=== PATIENT | male | born 1945 | race Caucasian/White ===

== ENCOUNTER 2019-06-11 16:28 | Outpatient (REF) | payer MEDICARE, BC, SELFPAY ==
[2019-06-11 19:22] LABS: ALT 18 U/L (16-63); Anion Gap 8.9 mmol/L (3-11); BUN 28 mg/dL (7-18); CO2 26.1 mmol/L (21.0-32.0); CREATININE 0.94 mg/dL (0.70-1.30); Chloride 106 mmol/L (98-107); Glucose 100 mg/dL (70-100); Potassium 5.1 mmol/L (3.5-5.1); Sodium 141 mmol/L (136-145)
[2019-06-11 19:53] LABS: LDL CHOLESTEROL 82 mg/dL (<100)
== END 2019-06-11 16:48 ==
LOC: NCHCN 16:28
PROVIDERS: PCP Internal Medicine; Visit Provider Internal Medicine
DX: I10 Essential (primary) hypertension (principal); E11.9 Type 2 diabetes mellitus without complications; R60.9 Edema, unspecified; J98.4 Other disorders of lung
CPT/HCPCS: 80048; 83721; 84460

== ENCOUNTER 2020-06-23 11:09 | Outpatient (REF) | payer MEDICARE, BC, SELFPAY ==
[2020-06-27 15:48] LABS: SARS-CoV-2 RNA Undetected (Undetected); SARS-CoV-2 Specimen Source Nasal
== END 2020-06-23 11:29 ==
LOC: NCHCN 11:09
PROVIDERS: PCP Internal Medicine; Visit Provider Internal Medicine
DX: R05 Cough (principal); Z20.828 Contact with and (suspected) exposure to other viral communicable diseases
CPT/HCPCS: U0003

== ENCOUNTER 2020-10-27 16:43 | Outpatient (REF) | payer MEDICARE, BC, SELFPAY ==
[2020-10-27 16:00] LABS: ALT 19 U/L (16-63); Anion Gap 8.3 mmol/L (3-11); BUN 23 mg/dL (7-18); CO2 28.7 mmol/L (21.0-32.0); CREATININE 0.9 mg/dL (0.70-1.30); Calcium 9.4 mg/dL (8.5-10.1); Chloride 104 mmol/L (98-107); Glucose 155 mg/dL (74-106); LDL CHOLESTEROL 76 mg/dL (<100); Potassium 4.6 mmol/L (3.5-5.1); Sodium 141 mmol/L (136-145)
== END 2020-10-27 16:44 | disposition home or self-care (01) ==
LOC: NCHCN 16:43
PROVIDERS: PCP Internal Medicine; Visit Provider Internal Medicine
DX: I10 Essential (primary) hypertension (principal); E11.9 Type 2 diabetes mellitus without complications; R60.9 Edema, unspecified; Z98.61 Coronary angioplasty status
CPT/HCPCS: 80048; 83721; 84460

== ENCOUNTER 2021-11-24 15:11 | Outpatient (REF) | payer MEDICARE, BC, SELFPAY ==
[2021-11-24 19:17] LABS: ALT 22 U/L (16-63); Anion Gap 6.5 mmol/L (3-11); BUN 24 mg/dL (7-18); CO2 29.5 mmol/L (21.0-32.0); CREATININE 1.1 mg/dL (0.70-1.30); Calcium 9.6 mg/dL (8.5-10.1); Chloride 106 mmol/L (98-107); Glucose 98 mg/dL (74-106); Sodium 142 mmol/L (136-145)
[2021-11-24 19:39] LABS: Calculated LDL 55 mg/dL (<100); Cholesterol 111 mg/dL (<200); HDL Cholesterol 35 mg/dL (40-60); Triglyceride 106 mg/dL (<150)
== END 2021-11-24 15:12 | disposition home or self-care (01) ==
LOC: NCHCN 15:11
PROVIDERS: PCP Internal Medicine; Visit Provider Internal Medicine
DX: E66.9 Obesity, unspecified (principal); E11.9 Type 2 diabetes mellitus without complications
CPT/HCPCS: 80048; 80061; 84460

== ENCOUNTER 2023-01-25 12:27 | Outpatient (REF) | payer MEDICARE, BC, SELFPAY ==
[2023-01-25 19:01] LABS: ALT 16 U/L (16-63); Creatine Kinase 62 U/L (39-308)
== END 2023-01-25 12:28 | disposition home or self-care (01) ==
LOC: NCHCN 12:27
PROVIDERS: PCP Internal Medicine; Visit Provider Internal Medicine
DX: E11.9 Type 2 diabetes mellitus without complications (principal); E78.5 Hyperlipidemia, unspecified; I10 Essential (primary) hypertension
CPT/HCPCS: 82550; 84460

== ENCOUNTER 2023-04-26 19:02 | Outpatient (REF) | payer MEDICARE, BC, SELFPAY ==
[2023-04-26 19:37] LABS: ALT 21 U/L (16-63); Anion Gap 10.4 mmol/L (3-11); BUN 30 mg/dL (7-18); CO2 26.6 mmol/L (21.0-32.0); CREATININE 1.2 mg/dL (0.70-1.30); Calcium 9.3 mg/dL (8.5-10.1); Calculated LDL 58 mg/dL (<100); Chloride 108 mmol/L (98-107); Cholesterol 130 mg/dL (<200); Glucose 177 mg/dL (74-106); HDL Cholesterol 37 mg/dL (40-60); Potassium 4.9 mmol/L (3.5-5.1); Sodium 145 mmol/L (136-145); Triglyceride 178 mg/dL (<150)
[2023-04-26 19:53] LABS: Creatine Kinase 101 U/L (39-308)
[2023-04-26 20:22] LABS: COMMENT (LAB VIEW ONLY) 63.69 mg/dL; Microalb ug/mg Crea 341.2 ug/mg Cr
== END 2023-04-26 19:03 | disposition home or self-care (01) ==
LOC: NCHCN 19:02
PROVIDERS: PCP Internal Medicine; Visit Provider Internal Medicine
DX: E11.9 Type 2 diabetes mellitus without complications (principal); I25.10 Atherosclerotic heart disease of native coronary artery without angina pectoris; Z98.61 Coronary angioplasty status; E66.9 Obesity, unspecified; R80.9 Proteinuria, unspecified; I10 Essential (primary) hypertension; E78.5 Hyperlipidemia, unspecified
CPT/HCPCS: 80048; 80061; 82550; 82043; 82570; 84460

== ENCOUNTER 2023-12-05 14:04 | Outpatient (REF) | payer MEDICARE, BC, SELFPAY ==
[2023-12-05 19:42] LABS: COMMENT (LAB VIEW ONLY) 59.06 mg/dL; Microalb ug/mg Crea 229.8 ug/mg Cr
== END 2023-12-05 14:05 | disposition home or self-care (01) ==
LOC: NCHCN 14:04
PROVIDERS: PCP Internal Medicine; Visit Provider Internal Medicine
DX: E11.9 Type 2 diabetes mellitus without complications (principal)
CPT/HCPCS: 82043; 82570

== ENCOUNTER 2024-03-27 16:53 | Outpatient (REF) | payer MEDICARE, BC, SELFPAY ==
--- OUTSIDE RECORDS SUMMARY | 2024-03-27 17:05 | XMS_ITS | Encounter Summary ---
Author Organization [facility] [place] [address] Care Team Providers Care Train Brake Operator Name Role Phone Jamie Freeman MD Primary Care Provider [phone] Encounter Details Date Type Department Care Team (Late st Contact Info) Description 03/17/2024 Telephone Cardiology at [address] [place] [id number] Tatyana Holley, [employer] [facility] [place] [address] Social History Tobacco Use Types Packs/Day Years Used Date Smoking Tobacco: Never Assessed [facility] Inpatient Questions Answer Date Recorded Does Anyone Try to Keep You From Having Contact with Others or Doing Things Outside Your Home? no 03/18/2024 Feels Threatened by Someone no 03/09 Feels Unsafe at Home or Work/School yes 03/18/2024 Physical Signs of Abuse Present no 03/18/2024 Sex and Gender Information Value Date Recorded Sex Assigned at Not on file Gender Identity Not on file Sexual Orientation Not on file documented as of this encounter Miscellaneous Notes * Telephone Encounter - Tatyana Holley APRN - 03/17/2024 3:28 PM EDT Images from the original note were not included. 03/17/2024 Eduardo Church Initial Contact Date: 03/17/2024 Initial contact time: 3:28 PM Referring Provider: Lencho Corey DO Patient Location: [facility] Past Medical History: HTN HLD Presenting Symptoms per OSH: 2 weeks of worsening fatigue, SOB, and cough. In ED found to be hypoxic to the 70s on room air. Required 5L O2 via nasal cannula, now down to 3-4L. Last set of vitals: 35.6-128/69-54-20-92% 3L NC Pertinent Diagnostic Findings: EKG: Trop (ULN 72) 114,102 BNP 4600 Cr 1.37 WBC 7.5 CTA chest negative for PE, bilateral lung infiltrates POCUS: no pericardial effusion, global function appears intact, possible apical ballooning OSH Interventions: IV abx IV lasix 20 mg x 1 ASA 324 mg Plan: 78 y/o M with PMH of HTN and HLD presents with 2 weeks of worsening SOB and fatigue. No chest pain.Found to be hypoxic in the 70s requiring supplemental O2. Troponin elevated at 114 (ULN 72) and nowtrending down. EKG with presumed new TWI to inferior leads as well as V3-4. Possible apical ballooning on POCUS. Unclear if this represents NSTEMI type I vs II, however needs further work up and OSH with limited capabilities. Has received aspirin load, would start IV heparin for at least 48 hours. Agree with gentle diuresis. Will accept in transfer, listing for 7/ d/t bed capacity. Echo on arrival. - above recommendations were based on my discussion with Dr. Corey; I have not personally interviewed or examined this patient. I encouraged Dr. Corey to contact us if there is any change in symptoms, decision-making, or further need for guidance in management. Tatyana Holley APRN Cardiovascular Medicine Pager [phone] 03/17/2024 documented in this encounter Plan of Treatment Upcoming Encounters Date Type Department Care Team (Late st Contact Info) Description 05/18/2024 2:00 PM EDT Office Visit Cardiology at [address] [phone] Radha Jordan PA [facility] [place] [address] documented as of this encounter Visit Diagnoses Not on filedocumented in this encounter Care Teams Train Brake Operator Relationship Specialty Start Date End Date Jamie Freeman MD [address] [place] [address] PCP - General 08/01/10 03/17/24 documented as of this encounter
--- OUTSIDE RECORDS SUMMARY | 2024-03-27 17:05 | XMS_ITS | Continuity of Care Document ---
Author Organization [facility] Address [address] [place] [address] Care Team Providers Care Postpartum Nurse Name Role Phone [facility] Physician Encounter NCTY_OR Date(s): 03/17/24 - 03/18/24 [facility] [address] [place] [address] Encounter Diagnosis NSTEMI (non-ST elevated myocardial infarction)(Discharge Diagnosis) - 03/17/24 Community acquired pneumonia(Discharge Diagnosis) - 03/17/24 Hypertension(Discharge Diagnosis) - 03/17/24 Hyperlipidemia(Discharge Diagnosis) - 03/17/24 Diabetes mellitus(Discharge Diagnosis) - 03/17/24 Discharge Disposition: Discharge/Transfer - Other Type of Inst Attending Physician: Araceli Garcia MD Admitting Physician: Kayden Storey PA-C Allergies, Adverse Reactions, Alerts No Known Allergies Assessment and Plan Extracted from: Title:Discharge Note Author:Araceli Garcia MD Da te:03/18/24 Discharge planning greater t hoang 30 minutes. 1.??NSTEMI (non-ST elevated myocardial infarction)??I21.4 ??The patient is a 78-year-old male with a past medical history of hypertension, hyperlipidemia, type 2 diabetes mellitus, coronary artery disease who presented to the emergency department on March 17, 2024 with a chief complaint of shortness of breath.?? Cardiology was consulted from the emergency department as he was found to have elevated troponin with the shortness of breath as well as EKG changes with T wave inversions in leads V3 and V4 as well as V6.?? Patient was started on ACS protocol with heparin infusion loaded on aspirin and based on chest x-ray and CT angiography of the chest there was signs of diffuse interstitial thickening and groundglass opacities concerning for chronic lung disease with superimposed atypical infection.?? Patient was also started on IV antibiotics for this.?? He was admitted with acute hypoxic respiratory failure secondary to above.?? He was also found to be 78% on room air.?? Patient had no episodes of chest pain during his hospitalization and at the time of transfer to [facility] patient was stable.?? Accepting digital strategy specialist was Dr. Cameron which is much appreciated. 2.??Community acquired pneumonia??J18.9 3.??Hypertension??I10 4.??Hyperlipidemia??E78.5 5.??Diabetes mellitus??E11.9 Orders: Incentive Spirometry by Patient, 03/18/24 11:43:00 EDT, Routine, every 1 hr while awake, Predisposing Condition for Atelectasis PTT, Blood, Timed Study, 03/18/24 18:00:00 EDT, Once, Lab Collect Extracted from: Title:Progress/SOAP Note Author:Kayden Storey Date:03/18/24 1.??NSTEMI (non-ST elevated myocardial infarction)??I21.4 Accepted at [facility] under care of Dr. Cameron, awaiting??bed placement Denies any?? new complaints of chest pain Continue cardiac monitoring?? Continue heparin drip Continue aspirin 81 mg daily Continue maintenance fluids Echocardiogram unable to be performed today, will attempt for tomorrow Patient was NPO at midnight today however due to bed availability not looking good for today at [facility] patient will be made NPO again tonight at midnight Ordered: Echocardiogram Complete, 03/17/24 18:06:00 EDT, Cardiovascular Disease- Unspecified, Stop date 03/17/24 18:06:00 EDT, NSTEMI (non-ST elevated myocardial infarction) ?? 2.??Community acquired pneumonia??J18.9 Remains on oxygen?? 4L yesterday to 5L today with nasal cannula?? continue azithromycin 500 mg IV every 24 hours Continue rocephin 1g??IV every 24 hours Continue to attempt to obtain sputum sample?? Continue to maintain oxygen saturations >90% ?? 3.??Hypertension??I10 Chronic Continue home medication regimen? 4.??Hyperlipidemia??E78.5 Chronic Continue statin? 5.??Diabetes mellitus??E11.9 Chronic Continue holding PO home medications Continue diabetic diet, NPO at midnight Sliding scale insulin for coverage Glucose checks ACHS QID? Orders: acetaminophen, 650 mg = 2 tab, Oral, Tab, every 6 hr, PRN pain, mild, First Dose: 03/17/24 18:02:00 EDT, Routine Mylanta, 15 mL, Oral, Susp, every 6 hr, PRN dyspepsia, First Dose: 03/17/24 18:02:00 EDT, Routine aspirin, 81 mg = 1 tab, Oral, Tab-Chew, Daily, First Dose: 03/18/24 9:00:00 EDT, Routine atorvastatin, 40 mg = 1 tab, Oral, Tab, Daily, First Dose: 03/18/24 17:00:00 EDT, Routine azithromycin, 500 mg = 1 EA, IV Piggyback, Powder-Inj, every 24 hr, Antibiotic Indication Pneumonia, hr, First Dose: 03/18/24 14:00:00 EDT, Routine bisacodyl, 10 mg = 1 supp, Rectal, Supp, Daily, PRN constipation, First Dose: 03/17/24 18:02:00 EDT, Routine Rocephin, 1 g = 1 EA, IV Piggyback, Powder-Inj, every 24 hr, Antibiotic Indication Pneumonia, Administer over: 0.5 hr, First Dose: 03/18/24 15:00:00 EDT, Routine, 200 mL/hr GlucaGen, 1 mg = 1 EA, Intramuscular, Kit, As Directed, PRN low blood sugar, First Dose: 03/17/24 18:02:00 EDT, Routine glucose 40% oral gel, 15 g = 37.5 mL, Oral, Gel, As Directed, PRN low blood sugar, First Dose: 03/17/24 18:02:00 EDT, Routine glucose 40% oral gel, 30 g = 75 mL, Oral, Gel, As Directed, PRN low blood sugar, First Dose: 03/17/24 18:02:00 EDT, Routine Dextrose 50% intravenous solution, 12.5 g 25 mL, IV Push, Soln-IV, As Directed, PRN low blood sugar, First Dose: 03/17/24 18:02:00 EDT, Routine Dextrose 50% intravenous solution, 25 g 50 mL, IV Push, Soln-IV, As Directed, PRN low blood sugar, First Dose: 03/17/24 18:02:00 EDT, Routine insulin lispro (HumaLog) correction- moderate, Moderate Scale, Subcutaneous, Soln, QID(ACHS), First Dose: 03/17/24 21:00:00 EDT, Routine lidocaine 1% injectable solution, 1 mg 0.1 mL, Intradermal, Soln, As Directed, PRN other (see comment), First Dose: 03/17/24 18:02:00 EDT, Routine morphine, 2 mg = 1 mL, IV Push, Soln-IV, every 2 hr, PRN pain, severe, First Dose: 03/17/24 18:02:00 EDT, Routine Narcan, 0.4 mg = 1 mL, IV Push, Soln, Once, PRN Opioid Overdose, First Dose: 03/17/24 18:02:00 EDT, Physician Stop, Routine ondansetron, 4 mg = 2 mL, IV Push, Soln, every 6 hr, PRN nausea/vomiting, First Dose: 03/17/24 18:02:00 EDT, Routine Percocet 5 mg-325 mg oral tablet, 1 tab, Oral, Tab, every 6 hr, PRN pain, moderate, First Dose: 03/17/24 18:02:00 EDT, Routine pantoprazole, 40 mg = 1 EA, IV Push, Powder-Inj, Daily, First Dose: 03/17/24 6:00:00 EDT, Routine polyethylene glycol 3350, 17 g = 1 packets, Oral, Powder-Recon, Daily, PRN constipation, First Dose: 03/17/24 18:02:00 EDT, Routine Fleet Enema, 1 EA, Rectal, Enema, Daily, PRN constipation, First Dose: 03/17/24 18:02:00 EDT, Routine Normal Saline Flush, 10 mL, IV Push, Soln, every 12 hr (saad), First Dose: 03/17/24 21:00:00 EDT, Routine Sodium Chloride 0.9% 1,000 mL, Total Volume (mL): 1,000, 1,000 mL, Soln-IV, IV, 30 mL/hr, Start Date: 03/17/24 18:02:00 EDT, 85 kg, Populate Charting Weight From Order tamsulosin, 0.4 mg = 1 cap, Oral, Cap, Daily, First Dose: 03/18/24 9:00:00 EDT, Routine Ambulate as Tolerated, 03/17/24 18:02:00 EDT, PRN Basic Metabolic Panel, Blood, Routine, 03/17/24 18:02:00 EDT, every morning, for 3 days, Lab Collect Blood Glucose Monitoring POC, 03/17/24 18:02:00 EDT, QID(ACHS), 03/17/24 21:00:00 EDT Cardiac Monitoring, 03/17/24 18:02:00 EDT, Telemetry CBC w/o Diff, Blood, Routine, 03/17/24 18:02:00 EDT, every morning, for 3 days, Lab Collect Consult to Pharmacy, 03/17/24 18:02:00 EDT, Medication History Consult, PCU General Admission Orders NCTY Diet Order, 03/18/24 13:13:00 EDT, Diabetic, Medium (1,700-2,000 nathaly) 75g CHO Intake and Output, 03/17/24 18:02:00 EDT, every 8 hrs, Constant Indicator, 03/17/24 18:02:00 EDT Magnesium Level, Blood, Routine, 03/17/24 18:02:00 EDT, every morning, for 3 days, Lab Collect Notify Provider of Vital Signs, 03/17/24 18:02:00 EDT, SpO2 < 92% on 2L O2 NC, T > 101.5, HR > 100, HR < 50, SBP greater than 160, SBP less than 90, DBP greater than 90, DBP less than 50, Resp Rate greater than 30, Resp Rate less than 8, Constant Indicator Nursing Task, 03/17/24 18:02:00 EDT, Constant order Nursing Task, 03/17/24 18:02:00 EDT, Constant order Oxygen Therapy, SpO2 goal 90% or greater, PRN, Lizett Geronimo Admit to Inpatient, Semi-Private Telemetry, Inpatient, Araceli Garcia MD, 03/17/24 17:01:00 EDT, 03/17/24 17:01:00 EDT, 03/17/24 17:01:00 EDT, 2 midnights or more but less than 96 hrs Resuscitation Status, 03/17/24 18:02:00 EDT, Full Code Sputum Culture, Sputum, Routine collect, RT - Routine, 03/17/24 18:06:00 EDT, Once, Nurse collect Vital Signs, 03/17/24 18:02:00 EDT, Constant order, every 4 hrs Weight, 03/17/24 18:02:00 EDT, every morning Extracted from: Title:H & P Author:Kayden Storey PA-C Date: 03/17/24 1.??NSTEMI (non-ST elevated myocardial infarction)??I21.4 Complaining of shortness of breath x2 weeks?? Troponin elevated initially at 114, repeat found to be 102 EKG findings sinus rhythm normal axis and intervals, no ST segment elevations or depression, there are T wave inversions in inferior leads and V3 and V4 precordial leads as well as V6 No prior EKGs to compare to?? No history of MA in the past?? Accepted to [facility] cardiology under care of Dr. Cameron, predicated to have bed tomorrow Continue heparin infusion Received??324mg aspirin in ED, will continue home dose 81 mg daily Continue maintenance fluids?? Will order echocardiogram for tomorrow?? Will make patient NPO at midnight as patient will likely need cardiac cath?? Continue cardiac monitoring ? Ordered: Echocardiogram Complete, 03/17/24 18:06:00 EDT, Cardiovascular Disease- Unspecified, Stop date 03/17/24 18:06:00 EDT, NSTEMI (non-ST elevated myocardial infarction) ?? 2.??Community acquired pneumonia??J18.9 Imaging showed findings of pneumonia Patient also hypoxic requiring 4L of oxygen?? Will continue azithromycin 500 mg IV every 24 hours Continue rocephin 1g??IV every 24 hours Will attempt to obtain sputum sample Continue to maintain oxygen saturations >90% ? 3.??Hypertension??I10 ??Chronic Continue home medication regimen? 4.??Hyperlipidemia??E78.5 ??Chronic Continue statin? 5.??Diabetes mellitus??E11.9 ??Chronic Hold PO home medications Continue diabetic diet, NPO at midnight Sliding scale insulin for coverage Glucose checks ACHS QID? Orders: acetaminophen, 650 mg = 2 tab, Oral, Tab, every 6 hr, PRN pain, mild, First Dose: 03/17/24 18:02:00 EDT, Routine Mylanta, 15 mL, Oral, Susp, every 6 hr, PRN dyspepsia, First Dose: 03/17/24 18:02:00 EDT, Routine amLODIPine, 5 mg = 1 tab, Oral, Tab, Daily, First Dose: 03/18/24 9:00:00 EDT, Routine aspirin, 81 mg = 1 tab, Oral, Tab-Chew, Daily, First Dose: 03/18/24 9:00:00 EDT, Routine atorvastatin, 40 mg = 1 tab, Oral, Tab, Daily, First Dose: 03/18/24 17:00:00 EDT, Routine azithromycin, 500 mg = 1 EA, IV Piggyback, Powder-Inj, every 24 hr, Antibiotic Indication Pneumonia, hr, First Dose: 03/18/24 14:00:00 EDT, Routine bisacodyl, 10 mg = 1 supp, Rectal, Supp, Daily, PRN constipation, First Dose: 03/17/24 18:02:00 EDT, Routine Rocephin, 1 g = 1 EA, IV Piggyback, Powder-Inj, every 24 hr, Antibiotic Indication Pneumonia, Administer over: 0.5 hr, First Dose: 03/18/24 15:00:00 EDT, Routine, 200 mL/hr GlucaGen, 1 mg, Intramuscular, Powder-Inj, As Directed, PRN low blood sugar, First Dose: 03/17/24 18:02:00 EDT, Routine glucose 40% oral gel, 15 g = 37.5 mL, Oral, Gel, As Directed, PRN low blood sugar, First Dose: 03/17/24 18:02:00 EDT, Routine glucose 40% oral gel, 30 g = 75 mL, Oral, Gel, As Directed, PRN low blood sugar, First Dose: 03/17/24 18:02:00 EDT, Routine Dextrose 50% intravenous solution, 25 mL, IV Push, Soln, As Directed, PRN low blood sugar, First Dose: 03/17/24 18:02:00 EDT, Routine Dextrose 50% intravenous solution, 50 mL, IV Push, Soln, As Directed, PRN low blood sugar, First Dose: 03/17/24 18:02:00 EDT, Routine insulin lispro (HumaLog) correction- moderate, Moderate Scale, Subcutaneous, Soln, QID(ACHS), First Dose: 03/17/24 21:00:00 EDT, Routine lidocaine 1% injectable solution, 1 mg 0.1 mL, Intradermal, Soln, As Directed, PRN other (see comment), First Dose: 03/17/24 18:02:00 EDT, Routine lisinopril, 40 mg = 2 tab, Oral, Tab, Daily, First Dose: 03/18/24 9:00:00 EDT, Routine metoprolol, 100 mg = 1 tab, Oral, Tab-ER, Daily, First Dose: 03/18/24 9:00:00 EDT morphine, 2 mg = 1 mL, IV Push, Soln-IV, every 2 hr, PRN pain, severe, First Dose: 03/17/24 18:02:00 EDT, Routine Narcan, 0.4 mg = 1 mL, IV Push, Soln, Once, PRN Opioid Overdose, First Dose: 03/17/24 18:02:00 EDT, Physician Stop, Routine ondansetron, 4 mg = 2 mL, IV Push, Soln, every 6 hr, PRN nausea/vomiting, First Dose: 03/17/24 18:02:00 EDT, Routine Percocet 5 mg-325 mg oral tablet, 1 tab, Oral, Tab, every 6 hr, PRN pain, moderate, First Dose: 03/17/24 18:02:00 EDT, Routine pantoprazole, 40 mg = 1 EA, IV Push, Powder-Inj, Daily, First Dose: 03/17/24 6:00:00 EDT, Routine polyethylene glycol 3350, 17 g = 1 packets, Oral, Powder-Recon, Daily, PRN constipation, First Dose: 03/17/24 18:02:00 EDT, Routine Fleet Enema, 1 EA, Rectal, Daily, PRN constipation, First Dose: 03/17/24 18:02:00 EDT, Routine Normal Saline Flush, 10 mL, IV Push, Soln, every 12 hr (saad), First Dose: 03/17/24 21:00:00 EDT, Routine Sodium Chloride 0.9% 1,000 mL, Total Volume (mL): 1,000, 1,000 mL, Soln-IV, IV, 30 mL/hr, Start Date: 03/17/24 18:02:00 EDT, 85 kg, Populate Charting Weight From Order tamsulosin, 0.4 mg = 1 cap, Oral, Cap, Daily, First Dose: 03/18/24 9:00:00 EDT, Routine Ambulate as Tolerated, 03/17/24 18:02:00 EDT, PRN Basic Metabolic Panel, Blood, Routine, 03/17/24 18:02:00 EDT, every morning, for 3 days, Lab Collect Blood Glucose Monitoring POC, 03/17/24 18:02:00 EDT, QID(ACHS), 03/17/24 21:00:00 EDT Cardiac Monitoring, 03/17/24 18:02:00 EDT, Telemetry CBC w/o Diff, Blood, Routine, 03/17/24 18:02:00 EDT, every morning, for 3 days, Lab Collect Consult to Pharmacy, 03/17/24 18:02:00 EDT, Medication History Consult, PCU General Admission Orders NCTY Diet Order, 03/17/24 18:02:00 EDT, Diabetic Intake and Output, 03/17/24 18:02:00 EDT, every 8 hrs, Constant Indicator, 03/17/24 18:02:00 EDT Magnesium Level, Blood, Routine, 03/17/24 18:02:00 EDT, every morning, for 3 days, Lab Collect Notify Provider of Vital Signs, 03/17/24 18:02:00 EDT, SpO2 < 92% on 2L O2 NC, T > 101.5, HR > 100, HR < 50, SBP greater than 160, SBP less than 90, DBP greater than 90, DBP less than 50, Resp Rate greater than 30, Resp Rate less than 8, Constant Indicator NPO at Midnight, 03/18/24 0:00:00 EDT, Constant Indicator Nursing Task, 03/17/24 18:02:00 EDT, Constant order Nursing Task, 03/17/24 18:02:00 EDT, Constant order Oxygen Therapy, SpO2 goal 90% or greater, PRN, Lizett Geronimo Admit to Inpatient, Semi-Private Telemetry, Inpatient, Araceli Garcia MD, 03/17/24 17:01:00 EDT, 03/17/24 17:01:00 EDT, 03/17/24 17:01:00 EDT, 2 midnights or more but less than 96 hrs Resuscitation Status, 03/17/24 18:02:00 EDT, Full Code RT Eval and Treat Protocol, 03/17/24 18:02:00 EDT, Stop date 03/17/24 18:02:00 EDT, Lizett Geronimo Sputum Culture, Sputum, Routine collect, RT - Routine, 03/17/24 18:06:00 EDT, Once, Nurse collect Vital Signs, 03/17/24 18:02:00 EDT, Constant order, every 4 hrs Weight, 03/17/24 18:02:00 EDT, every morning Addendum by Araceli Garcia on March 17, 2024 18:28:46 EDT Case was discussed and agree with assessment and plan. Extracted from: Title:ED Provider Note Author:Lencho Grande MD Date:03/17/24 Ordered: Lasix, 20 mg = 2 mL, IV Push, Soln-IV, Once, First Dose: 03/17/24 17:00:00 EDT, Stop Date: 03/17/24 17:00:00 EDT, Physician Stop, Routine C-Reactive Protein High Sensitivity, Blood, Stat, 03/17/24 16:39:00 EDT, Once, Nurse collect Procalcitonin, Blood, Stat, 03/17/24 16:39:00 EDT, Once, Nurse collect Functional Status 03/18/24 Personal Care Provided Gown change, Linen change, Underpad change 03/17/24 Evening Snack Percent 100 03/17/24 Family Member Travel History No recent t ravel Recent Travel History No recent travel Other exposure to Infectious Disease Non e 03/17/24 Living Environment No Living Environmen t Information Available Lives In Multilevel home Lives With Spouse Living Situation Home independently Patient's Responsibilities Community mob ility, Driving, 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, Health and wellness, Personal ADL Medications amLODIPine 5 mg oral tablet 5 mg = 1 tab, Oral, Daily, # 30 tab, 0 Refill(s) Start Date: 03/17/24 Status: Ordered aspirin 81 mg oral capsule 81 mg = 1 cap, Oral, Daily, # 30 cap, 0 Refill(s) Start Date: 03/17/24 Status: Ordered atorvastatin 40 mg oral tablet 40 mg = 1 tab, Oral, Daily, # 30 tab, 0 Refill(s) Start Date: 03/17/24 Status: Ordered Centrum Minis Adults 50+ 1 tab, Oral, Daily, 0 Refill(s) Start Date: 03/18/24 Status: Ordered cholecalciferol 1000 intl units oral tablet 25 mcg = 1 tab, Oral, Daily Start Date: 03/18/24 Status: Ordered glucosamine-chondroitin 500 mg-400 mg oral capsule 1 cap, Oral, BID, 0 Refill(s) Start Date: 03/18/24 Status: Ordered lisinopril 40 mg oral tablet 40 mg = 1 tab, Oral, Daily, # 30 tab, 0 Refill(s) Start Date: 03/17/24 Status: Ordered metFORMIN 1000 mg oral tablet 1,000 mg = 1 tab, Oral, BID, # 60 tab, 0 Refill(s) Start Date: 03/17/24 Status: Ordered metoprolol succinate 100 mg oral capsule, extended release 100 mg = 1 cap, Oral, Daily, # 90 cap, 0 Refill(s) Start Date: 03/17/24 Status: Ordered pioglitazone 15 mg oral tablet 15 mg = 1 tab, Oral, Daily, # 30 tab, 0 Refill(s) Start Date: 03/17/24 Status: Ordered tamsulosin 0.4 mg oral capsule 0.8 mg = 2 cap, Oral, every night at bedtime, # 30 cap, 0 Refill(s) Start Date: 03/17/24 Status: Ordered Results Laboratory List Name Date PTT 03/18/24 Glucose POCT 03/18/24 PTT 03/18/24 Glucose POCT 03/18/24 Glucose POCT 03/18/24 Basic Metabolic Panel 03/18/24 CBC w/o Diff 03/18/24 Magnesium Level 03/18/24 PTT 03/18/24 Lactic Acid 03/17/24 Magnesium Level 03/17/24 C-Reactive Protein High Sensitivity (CRP HS) 03/17/24 Procalcitonin 03/17/24 Troponin-I 03/17/24 SARS-CoV-2 (COVID-19)/Flu/RSV ([facility] ) 03/17/24 Blood Gas Venous 03/17/24 Lactic Acid 03/17/24 CBC w/o Diff 03/17/24 Comprehensive Metabolic Panel (CMP) NT- Pro BNP 03/17/24 PT/ INR 03/17/24 Troponin-I 03/17/24 Most recent to oldest [Reference Range]: 1 2 3 WBC [5.0-10.0 x10^3/mcL] 7.3 x10^3/mcL (03/18/24 6:00 AM) 7.5 x10^3/mcL (03/17/24 10:34 AM) RBC [4.6-6.0 x10^6/mcL] 4.5 x10^6/mcL *LOW* (03/18/24 6:00 AM) 5.1 x10^6/mcL (03/17/24 10:34 AM) Prothrombin Time [9.0-11.0 seconds] 10.7 seconds (03/17/24 10:34 AM) INR 1.1 1 *NA* (03/17/24 10:34 AM) BUN [7-18 mg/dL] 22 mg/dL *HI* (03/18/24 6:00 AM) 27 mg/dL *HI* (03/17/24 10:34 AM) Glucose POC [74-106 mg/dL] 155 mg/dL *HI* (03/18/24 4:11 PM) 111 mg/dL *HI* (03/18/24 11:54 AM) 114 mg/dL *HI* (03/18/24 7:26 AM) Glucose Level [74-106 mg/dL] 108 mg/dL *HI* (03/18/24 6:00 AM) 170 mg/dL *HI* (03/17/24 10:34 AM) Potassium Level [3.5-5.1 mmol/L] 4.5 mmol/L (03/18/24 6:00 AM) 4.3 mmol/L (03/17/24 10:34 AM) MCV [80.0-96.0 fL] 86.4 fL (03/18/24 6:00 AM) 86.2 fL (03/17/24 10:34 AM) CO2 Total Venous 24 mmol/L *NA* (03/17/24 11:07 AM) HCO3 Venous [22-30 mmol/L] 23 mmol/L (03/17/24 11:07 AM) AST [15-37 unit/L] 16 unit/L (03/17/24 10:34 AM) ALT [16-63 unit/L] 15 unit/L *LOW* (03/17/24:34 AM) MCHC [31.0-35.0 g/dL] 31.4 g/dL (03/18/24 6:00 AM) 30.5 g/dL *LOW* (03/17/24 10:34 AM) Troponin-I [0.0-76.2 pg/mL] 102.8 pg/mL 2 *CRIT* (03/17/24 12:36 PM) 114.4 pg/mL 3 *CRIT* (03/17/24 10:34 AM) Sodium Level [136-145 mmol/L] 142 mmol/L (03/18/24 6:00 AM) 141 mmol/L (03/17/24 10:34 AM) Hct [41.0-51.0 %] 38.8 % *LOW* (03/18/24 6:00 AM) 43.6 % (03/17/24 10:34 AM) Partial Thromboplastin Time [22-35 seconds] 68 seconds 4 *HI* (03/18/24 6:22 PM) 58 seconds 5 *HI* (03/18/24 12:00 PM) 63 seconds 6 *HI* (03/18/24 6:00 AM) Calcium Level [8.5-10.1 mg/dL] 8.5 mg/dL (03/18/24 6:00 AM) 9.0 mg/dL (03/17/24 10:34 AM) Albumin Level [3.4-5.0 g/dL] 2.6 g/dL *LOW* (03/17/24 10:34 AM) Protein Total [6.4-8.2 g/dL] 6.6 g/dL (03/17/24 10:34 AM) MCH [26.0-32.0 pg] 27.2 pg (03/18/24 6:00 AM) 26.3 pg (03/17/24:34 AM) Magnesium Level [1.8-2.4 mg/dL] 1.9 mg/dL (03/18/24 6:00 AM) 2.1 mg/dL (03/17/24 6:37 PM) Bilirubin Total [0.2-1.0 mg/dL] 0.6 mg/dL (03/17/24 10:34 AM) Hgb [14.0-18.0 g/dL] 12.2 g/dL *LOW* (03/18/24 6:00 AM) 13.3 g/dL *LOW* (03/17/24:34 AM) Alk Phos [46-146 unit/L] 104 unit/L (03/17/24:34 AM) pCO2 Lisandro [33-47 mmHg] 46 mmHg (03/17/24 11:07 AM) Platelets [130-450 x10^3/mcL] 289 x10^3/mcL (03/18/24 6:00 AM) 331 x10^3/mcL (03/17/24 10:34 AM) CO2 [21-32 mmol/L] 30 mmol/L (03/18/24 6:00 AM) 27 mmol/L (03/17/24:34 AM) Lactic Acid Lvl [0.7-2.0 mmol/L] 1.2 mmol/L (03/17/24 6:37 PM) 2.5 mmol/L 7 *CRIT* (03/17/24 11:07 AM) pO2 Lisandro 29 mmHg *NA* (03/17/24 11:07 AM) pH Lisandro [7.32-7.43 pH unit(s)] 7.31 pH unit(s) *LOW* (03/17/24 11:07 AM) O2 Sat Lisandro 49 % *NA* (03/17/24 11:07 AM) eGFR Non-AA [>=60] 63 (03/18/24 6:00 AM) 52 *LOW* (03/17/24 10:34 AM) eGFR AA [>=60] 63 (03/18/24 6:00 AM) 52 *LOW* (03/17/24 10:34 AM) Base Excess Venous -3.2 mmol/L *NA* (03/17/24 11:07 AM) NT-proBNP [0-450 pg/mL] 4618 pg/mL *HI* (03/17/24 10:34 AM) Chloride Level [98-107 mmol/L] 109 mmol/L *HI* (03/18/24 6:00 AM) 107 mmol/L (03/17/24 10:34 AM) Procalcitonin [0.00-0.50 ng/mL] <0.15 ng/mL (03/17/24 12:36 PM) RDW-CV [11.5-14.5 %] 15.3 % *HI* (03/18/24 6:00 AM) 15.6 % *HI* (03/17/24 10:34 AM) CRP High Sens [0.00-3.00 mg/L] 2.56 mg/L 8 (03/17/24 12:36 PM) Creatinine Level [0.70-1.30 mg/dL] 1.17 mg/dL (03/18/24 6:00 AM) 1.37 mg/dL *HI* (03/17/24 10:34 AM) SARS-CoV-2(Covid19)PCR(GXpe rt COVFLURSV) [Negative] Negative (03/17/24 11:18 AM) Flu A (GXpert COVFLURSV) [Negative] Negative (03/17/24 11:18 AM) RSV ([facility]Xpert COVFLURSV) [Negative] Negative (03/17/24 11:18 AM) Flu B ([facility]Xpert COVFLURSV) [Negative] Negative (03/17/24 11:18 AM) 1Interpretive Data: INR 2-2.5 Prophylaxis: Short term DVT INR 2-3 Prophylaxis: hip and femur surgery Therapy: DVT (3 mos) PE (3-6 mos) TIA (halfway) Atr Fib (rodent exterminator) Syst. emb post MA Mitral Stenosis with emboli (rodent exterminator) Tissue prosthetic valves (3 mos min) INR 3-4.5 Therapy: recurrent DVT, PE (halfway) Prosthetic heart valves (rodent exterminator) 2Result Comment: Called to and verbally verified by Celestina Muñoz at 03/17/2024 13:32:11 EDT .Result verified by repeat analysis 3Result Comment: Called to and verbally verified by [facility] - ED - Tonya Rob RN at 03/17/2024 11:47:22 EDT. Result verified by repeat analysis 4Interpretive Data: NEW reagent effective 08/06/2023 - Therapeutic Heparin Reference Range (0.3-0.7 effective anti-Xa level) 40-85 seconds. 5Interpretive Data: NEW reagent effective 08/06/2023 - Therapeutic Heparin Reference Range (0.3-0.7 effective anti-Xa level) 40-85 seconds. 6Interpretive Data: NEW reagent effective 08/06/2023 - Therapeutic Heparin Reference Range (0.3-0.7 effective anti-Xa level) 40-85 seconds. 7Result Comment: Called to and verbally verified by Kalpana Peng RN at 03/17/2024 11:11:29 EDT. 8Interpretive Data: Risk Level Age/Sex Range Units Less Risk All <1.0 mg/L Average Risk All 1.0 - 3.0 mg/L High Risk All >3.0 mg/L *Indeterminate All >10.0 mg/L *May be an indication of inflammation or infection. Vital Signs Most recent to oldest [Reference Range]: 1 2 3 Temperature Temporal Artery [36-38 Deg C] 36 Deg C (03/18/24 4:11 PM) 36 Deg C (03/18/24 11:33 AM) 36.1 Deg C (03/18/24 7:35 AM) Temperature Temporal Artery (DegF) [97.3-100 Deg F] 96.98 Deg F *LOW* (03/17/24 3:00 PM) Peripheral Pulse Rate [60-100 bpm] 57 bpm *LOW* (03/18/24 4:33 PM) 54 bpm *LOW* (03/18/24 4:11 PM) 51 bpm *LOW* (03/18/24 11:33 AM) Respiratory Rate [12-24 br/min] 21 br/min (03/18/24 4:11 PM) 20 br/min (03/18/24 11:33 AM) 18 br/min (03/18/24 8:06 AM) Blood Pressure [90-140/60-90 mmHg] 94/56mmHg (03/18/24 4:33 PM) 85/44mmHg *LOW* (03/18/24 4:11 PM) 101/67mmHg (03/18/24 11:33 AM) Mean Arterial Pressure, Cuff [65-140 mmHg] 73 mmHg (03/17/24 11:17 PM) 86 mmHg (03/17/24 6:13 PM) 76 mmHg (03/17/24 3:00 PM) Mean Arterial Pressure Cuff 67 mmHg (03/18/24 4:33 PM) 57 mmHg (03/18/24 4:11 PM) 77 mmHg (03/18/24 11:33 AM) Weight 81.6 kg (03/18/24 7:35 AM) 83.5 kg (03/17/24 6:18 PM) 83.5 kg (03/17/24 6:17 PM) Weight Dosing 85.000 kg (03/17/24 10:34 AM) Body Mass Index Estimated 27.9 kg/m2 (03/17/24 6:17 PM) Height/Length Estimated 173 cm (03/17/24 6:17 PM) Social History Social History Type Response Tobacco Never tobacco user T obacco Use:. 1 Sex Male 1Occasionally EKG study * Event Display: Telemetry Strips Please click on link to view image. * Event Display: Telemetry Strips Please click on link to view image. Pharmacology Progress note * Crissy Charlton PharmD: PERFORM Event Display: Pharmacy Progress Note Authored Date: [id number] Pharmacy Progress Note Med list updated with Jazmin in [place] and [facility] Pt does not take Invokana - not covered Electronically Signed on 03/18/2024 14:29 EDT Crissy Charlton PharmD * Shakira Waters PharmD: PERFORM Event Display: Pharmacy Progress Note Authored Date: [id number] Pharmacy Progress Note Consulted by Macey regarding an infiltration of azithromycin. Azithromycin is not a vesicant; infiltration of azithromycin can be irritating and may cause burning/pain. Macey indicated she was placing an ice pack and elevating the site which is appropriate. KARINA, pharmD Electronically Signed on 03/17/2024 16:02 EDT Shakira Waters PharmD Respiratory therapy Hospital Progress note * Ann Morelos: PERFORM Event Display: Respiratory Therapy Progress Note Authored Date: [id number] ??SIOM[place] MAN 78 Years MEASURED Weight: 81.6 kg (03/18/24 07:35:00) DOSING Weight Dosin kg (03/17/24 10:34:00) Respiratory Shift Summary Breath Sounds: Fince crackles t/o Shift Treatments: IS 1500ml x 10 breaths Shift Events: Pt a/o sitting up on edge of bed. Remains on 5 L/min via NC. UA to wean d/t SpO2 92%.Pt denies resp hx/med use. Pt does not use O2 @ home. Encouraged pt w/ IS which he shows understanding w/. No further questions @ this time. WCTM. Per RN pt is pending transfer to [facility] for cardiology. Respiratory Protocol??Aerosol Therapy Assessment and Scoring Home Medication Routine: Lung History (1) Smoking history less than 1 pack/day, History of lung disease(Asthma) Breath Sounds (3)??Severe or diffuse wheezes or very diminished breath sounds or crackles throughout Respiratory Rate (0) Less than or equal to 18 Modified Natalee Scale or Observed Dyspnea (0) None Oxygen Therapy (2) 3-6 L/m or equivalent Home Respiratory Medications (0) None Inhaler Use Assessment ? Clinically Stable? Yes? Can take a slow deep breath on command? Yes? Can perform a 3 second breath hold? Yes Respiratory total Score: 6 Respiratory Guidelines 5-9 pts - QID scheduled??and Q4 PRN for SOB Electronically Signed on 03/18/2024 11:46 EDT Ann Morelos * Ann Morelos: PERFORM Event Display: Respiratory Therapy Progress Note Authored Date: Pt continues on 5 L/min 92-93%. UA to wean @ this time. Pt continues to utilize IS. WCTM. Electronically Signed on 03/18/2024 16:00 EDT Ann Morelos * Stephanie Wayne R: PERFORM Event Display: Respiratory Therapy Progress Note Authored Date: [id number] ??SIOMARA MAN S 78 Years Shift Events: 1851: Received pt awake and alert on 5L OxyMask, SPO2 94%, HR 47, RR 18 equal and nonlabored. Pt has strong nonproductive cough, denies SOB. BBS clear. Pt denies home use of O2, CPAP/BIPAP, and resp meds. Pt denies any needs and is in no acute resp distress at this time. In late evening REACTOR OPERATOR transitioned pt to NC so pt could eat. REACTOR OPERATOR reports SPO2 on 5L NC 90-92%. Pt in NAD. Respiratory Aerosol Therapy Assessment and Scoring Home Medication Routine: none Lung History (0) No Lung History and Non-Smoker Breath Sounds (0) Clear in all robins Respiratory Rate (0) Less than or equal to 18 Modified Natalee Scale or Observed Dyspnea (1) 1-2 With exertion Oxygen Therapy (2) 3-6 L/m or equivalent Home Respiratory Medications (0) None Inhaler Use Assessment ? Clinically Stable? Yes? Can take a slow deep breath on command? Yes? Can perform a 3 second breath hold? Yes Respiratory total score: 3 Respiratory Guidelines 3-4 pts - Q6 PRN for SOB Electronically Signed on 03/18/2024 01:03 EDT Stephanie Wayne Note * Caridad Quevedo L: PERFORM Event Display: Infusion Note Authored Date: [id number] Physician Emergency department Note * Lencho Grande MD: PERFORM Event Display: ED Note Physician Authored Date: [id number] SI[place] MAN :1945 Age:78 years Sex:Male Visit Date:03/17/2024 Primary Care Physician: Jamie Alvarez MD Basic Information Time Seen: Lencho Grande MD / 03/17/2024 10:27 Chief Complaint Pt c/o shortness of breath with a productive cough for 2 weeks. ??Denies any pain History Of Present Illness: 78-year-old male past medical history hypertension hyperlipidemia??but no known cardiac disease history presents with shortness of breath cough worsening fatigue??over the last 2 weeks, has gotten tothe point where he cannot walk up stairs. ??Never had this before. ??Denies any chest pain. ??No fevers abdominal pain nausea vomiting diarrhea??or any other symptoms. Review of Systems: Dyspnea fatigue cough Physical Exam Vitals & Measurements T:??36.1?C ??(Temporal Artery)?? HR:??56??(Peripheral)?? RR:??18?? BP:??107/61?? SpO2:??92%?? WT:??85??kg?? O2 Flow Rate:??4?? O2 Therapy:??Oxymask?? General: Alert and oriented, well nourished,?No??acute distress Eye: PERRL, EOMI,?Normal?conjunctiva HENT: Normocephalic Lungs: Clear to auscultation and percussion,?Non-labored?? respiration Heart:?Normal? rate,?Regular??rhythm Abdomen: Soft, non-tender, non-distended Psychiatric: Cooperative, appropriate mood and affect Medical Decision Makin-year-old male??past medical history of hypertension hyperlipidemia but no known cardiac disease history presents with shortness of breath, worsening fatigue over the last 2 weeks, has gotten to the point where he cannot walk up stairs anymore. ??35.6, 114/59, 52, 20,??75% on room air. ??Patient was placed on 5 L nasal cannula ultimately??de-escalated to 3 L nasal cannula was??at 93% on room air??on 3 L nasal cannula, he is not a smoker and??does not have home oxygen.?? EKG shows a sinus rhythm normal axis and intervals no ST segment elevations or depressions, however there??are T wave inversions noted in inferior leads and V3 and V4 precordial leads??as well as V6.?? First troponin is 114, second troponin downtrending to 102. ??BNP is elevated at 4600.?? Creatinine 1.37. ??Unfortunately there are no prior labs or EKG for comparison.?? The remainder of his labs including VBG are more or less at baseline.?? Flu COVID RSV negative. ??CTA of the chest shows??infiltrates bilateral lungswith trace pleural effusions, this may be related to an acute lung infection, therefore he was started on Rocephin and azithromycin. ??However, given the elevated troponins and concerned about how much??dyspnea he has with minimal exertion??and EKG??changes, I spoke with cardiology at [facility] to get him accepted down there is a patient, accepting physician is Dr. Cameron. ??Will most likely have a bed open tomorrow. ??Spoke with [place] [facility]ist who accepts admission here until that time. ??In the meantime we will need to get an echocardiogram if possible. ??Will start on heparin bolus an d infusion. ??He was given??the remainder of his aspirin??for a total of 324 (took 81 this morning).?? He was also given 20 mg of IV Lasix.?? At this point in time, it is unclear whether this is a primary pulmonary infection or??the end of a acute cardiac event.?? Will need to be admitted either way as he is requiring oxygen and is hypoxic at rest.?? Plan is for transfer down to [facility] for cardiology evaluation tomorrow.?? In the meantime we will treat??pulmonary infection Critical Care Time Spent Total critical care time: Approximately 65??minutes Due to a high probability of clinically significant, life threatening deterioration, the patient required my highest level of preparedness to intervene emergently and I personally spent this criticalcare time directly and personally managing the patient. This critical care time included obtaining a history; examining the patient; pulse oximetry; ordering and review of studies; arranging urgent treatment with development of a management plan; evaluation of patient's response to treatment; frequent reassessment; and, discussions with other providers. This critical care time was performed to assess and manage the high probability of imminent, life-threatening deterioration that could result in multi-organ failure. It was exclusive of separately billable procedures and treating other patients. Please see MDM section and the rest of the note for further information on patient assessment and treatment. Procedure No Qualifying Data Assessment/Plan Ordered: Lasix, 20 mg = 2 mL, IV Push, Soln-IV, Once, First Dose: 03/17/24 17:00:00 EDT, Stop Date: 03/17/2417:00:00 EDT, Physician Stop, Routine C-Reactive Protein High Sensitivity, Blood, Stat, 03/17/24 16:39:00 EDT, Once, Nurse collect Procalcitonin, Blood, Stat, 03/17/24 16:39:00 EDT, Once, Nurse collect Medication Reconciliation Unchanged amLODIPine (amLODIPine 5 mg oral tablet)1 tab Oral (given by mouth) every day. ?? aspirin (aspirin 81 mg oral capsule)1 Capsules Oral (given by mouth) every day. do not exceed 48 capsules in 24 hours. ?? atorvastatin (atorvastatin 40 mg oral tablet)1 tab Oral (given by mouth) every day. ?? canagliflozin (Invokana)30 Milligrams Oral (given by mouth) every day. ?? lisinopril (lisinopril 40 mg oral tablet)1 tab Oral (given by mouth) every day. ?? metFORMIN (metFORMIN 1000 mg oral tablet)1 tab Oral (given by mouth) 2 times a day. ?? metoprolol (metoprolol succinate 100 mg oral capsule, extended release)1 Capsules Oral (given by mouth) every day. ?? pioglitazone (pioglitazone 15 mg oral tablet)1 tab Oral (given by mouth) every day. ?? tamsulosin (tamsulosin 0.4 mg oral capsule)1 Capsules Oral (given by mouth) every day. Problem List/Past Medical History Ongoing No qualifying data Historical No qualifying data Medication Administration Given aspirin, 243 mg, Oral azithromycin, IV Piggyback cefTRIAXone, IV Piggyback Allergies No Known Allergies Social History Electronic Cigarette/Vaping Electronic Cigarette Use: Never. Tobacco Never tobacco user Tobacco Use:.- Comments: Occasionally Lab Results CBC and Differential?? LATEST RESULTS?? WBC?? 03/17/24 10:34?? 7.5?? RBC?? 03/17/24 10:34?? 5.1?? Hgb?? 03/17/24 10:34?? 13.3 ??Low?? Hct?? 03/17/24 10:34?? 43.6?? MCV?? 03/17/24 10:34?? 86.2?? MCH?? 03/17/24 10:34?? 26.3?? MCHC?? 03/17/24 10:34?? 30.5 ??Low?? RDW-CV?? 03/17/24 10:34?? 15.6 ??High?? Platelets?? 03/17/24 10:34?? 331? Blood Gases?? LATEST RESULTS?? pH Lisandro?? 03/17/24 11:07?? 7.31 ??Low?? pCO2 Lisandro?? 03/17/24 11:07?? 46?? pO2 Lisandro?? 03/17/24 11:07?? 29?? HCO3 Venous?? 03/17/24 11:07?? 23?? O2 Sat Lisandro?? 03/17/24 11:07?? 49?? CO2 Total Venous?? 03/17/24 11:07?? 24?? Base Excess Venous?? 03/17/24 11:07?? -3.2? Coagulation?? LATEST RESULTS?? Prothrombin Time?? 03/17/24 10:34?? 10.7?? INR?? 03/17/24 10:34?? 1.1?? Partial Thromboplastin Time?? 03/17/24 10:34?? 31? Routine Chemistry?? LATEST RESULTS?? Sodium Level?? 03/17/24 10:34?? 141?? Potassium Level?? 03/17/24 10:34?? 4.3?? Chloride Level?? 03/17/24 10:34?? 107?? CO2?? 03/17/24 10:34?? 27?? Alk Phos?? 03/17/24 10:34?? 104?? AST?? 03/17/24 10:34?? 16?? ALT?? 03/17/24 10:34?? 15 ??Low?? BUN?? 03/17/24 10:34?? 27 ??High?? Glucose Level?? 03/17/24 10:34?? 170 ??High?? Creatinine Level?? 03/17/24 10:34?? 1.37 ??High?? eGFR AA?? 03/17/24 10:34?? 52 ??Low?? eGFR Non-AA?? 03/17/24 10:34?? 52 ??Low?? Calcium Level?? 03/17/24 10:34?? 9.0?? Protein Total?? 03/17/24 10:34?? 6.6?? Albumin Level?? 03/17/24 10:34?? 2.6 ??Low?? Bilirubin Total?? 03/17/24 10:34?? 0.6?? Lactic Acid Lvl?? 03/17/24 11:07?? 2.5 ??Critical? Cardiac Isoenzymes?? LATEST RESULTS?? Troponin-I?? 03/17/24 12:36?? 102.8 ??Critical?? NT-proBNP?? 03/17/24 10:34?? 4618 ??High? Infectious Disease?? LATEST RESULTS?? SARS-CoV-2(Covid19)PCR(GXpert COVFLURSV)?? 03/17/24 11:18?? Negative?? Flu A (GXpert COVFLURSV)?? 03/17/24 11:18?? Negative?? Flu B (GXpert COVFLURSV)?? 03/17/24 11:18?? Negative?? RSV (GXpert COVFLURSV)?? 03/17/24 11:18?? Negative? Electronically Signed on 03/17/2024 16:52 EDT Lencho Grande MD Emergency department Note * Frances Becerra: PERFORM Event Display: ED Notes Authored Date: [id number] Progress note * Kayden Storey PA-C: PERFORM Event Display: Progress Note - Physician Authored Date: [id number] SI[place] MAN :1945 Age:78 years Sex:Male Visit Date:03/17/2024 Primary Care Physician: Jamie Alvarez MD Subjective This is a 78-year-old male patient with past medical history significant for but not limited to hypertension, hyperlipidemia, and type 2 diabetes??who is being seen and examined today in follow-up for NSTEMI and??pneumonia.?? Patient reports he is feeling well today.?? No complaints of chest pain.?Does continue to be quite short of breath requiring now 5 L of oxygen with nasal cannula??which is increased from yesterday when he was on 4 L.?? Patient reports he??has no??other complaints??otherthan shortness of breath. ??He denies abdominal pain, nausea, vomiting, headache, dizziness, lightheadedness, dysuria, hematuria.?? Did have patient n.p.o.??since midnight??this morning however??this afternoon did ultimately decide to let patient eat as it was getting late in the day??and??[facility]??called??to let us know that patient??may not be??signed a bed today??as they are not??as many discharge as they had planned initially.?? Will continue to property assessment monitor patient and??will continue heparin drip until patient is excepted at [facility]. Review of Systems Constitutional:?No??fevers,?No??chills,?No??sweats Eye:?No??recent visual problems ENT:?No??ear pain,?No??nasal congestion,?No??sore throat Respiratory:?Positive for??shortness of breath,?No??cough Cardiovascular:?No??Chest pain,?No??palpitations,?No??syncope Gastrointestinal:?Nonausea,?No??vomiting,?No??diarrhea Genitourinary:?No??hematuria Simon/Lymph:?No??bruising tendency,?No??swollen lymph glands Endocrine:?No??excessive thirst,??No??excessive hunger Musculoskeletal:??No??back pain,??No??neck pain,??No??joint pain,??No??muscle pain,??No??decreased range of motion Integumentary:?No??rash,?No??pruritus,?No??abrasions Neurologic: Alert & oriented X 4 Psychiatric:?No??anxiety,?No??depression Objective Vitals & Measurements T:??36?C ??(Temporal Artery)?? TMIN:??36?C ??(Temporal Artery)?? TMAX:??36.3?C ??(Temporal Artery)?? HR:??51??(Peripheral)?? RR:??20?? BP:??101/67?? SpO2:??94%?? HT:??173??cm?? WT:??81.6??kg?? BMI:??27.9?? Pain Score:??0?? O2 Flow Rate:??5?? O2 Therapy:??Nasal cannula?? Physical Exam General: Alert and oriented, well nourished,?No??acute distress Eye: PERRL, EOMI,?Normal?conjunctiva HENT: Normocephalic,?Normal? hearing, moist oral mucosa,?No??scleral icterus,?No??sinustenderness Neck: Supple, non-tender,?No??JVD,?No??lymphadenopathy Lungs:??Diffuse wheezes??with some crackles?? Respiration:??Non-Labored Heart:?Normal? rate,?Regular??rhythm,?No??murmur,?No??gallop,?No??edema Abdomen: Soft, non-tender, non-distended,?Normal? bowel sounds,?No??masses Musculoskeletal:?Normal? range of motion and strength,?No??tenderness,?No??swelling Skin: Skin is warm, dry and pink,?No??rashes,?No??lesions Neurologic: Awake, alert and oriented X4, CN II-XII??grossly intact Psychiatric: Cooperative, appropriate mood and affect Assessment/Plan 1.??NSTEMI (non-ST elevated myocardial infarction)??I21.4 Accepted at [facility] under care of Dr. Cameron, awaiting??bed placement Denies any?? new complaints of chest pain Continue cardiac monitoring?? Continue heparin drip Continue aspirin 81 mg daily Continue maintenance fluids Echocardiogram unable to be performed today, will attempt for tomorrow [facility] to [facility] not looking good for today at [facility] patient will be made NPO again tonight at midnight Ordered: Echocardiogram Complete, 03/17/24 18:06:00 EDT, Cardiovascular Disease- Unspecified, Stop date 03/17/24 18:06:00 EDT, NSTEMI (non-ST elevated myocardial infarction) ?? 2.??Community acquired pneumonia??J18.9 Remains on oxygen?? 4L yesterday to 5L today with nasal cannula?? continue azithromycin 500 mg IV every 24 hours Continue rocephin 1g??IV every 24 hours Continue to attempt to obtain sputum sample?? Continue to maintain oxygen saturations >90% ?? 3.??Hypertension??I10 Chronic Continue home medication regimen? 4.??Hyperlipidemia??E78.5 Chronic Continue statin? 5.??Diabetes mellitus??E11.9 Chronic Continue holding PO home medications Continue diabetic diet, NPO at midnight Sliding scale insulin for coverage Glucose checks ACHS QID? Orders: acetaminophen, 650 mg = 2 tab, Oral, Tab, every 6 hr, PRN pain, mild, First Dose: 03/17/24 18:02:00EDT, Routine Mylanta, 15 mL, Oral, Susp, every 6 hr, PRN dyspepsia, First Dose: 03/17/24 18:02:00 EDT, Routine aspirin, 81 mg = 1 tab, Oral, Tab-Chew, Daily, First Dose: 03/18/24 9:00:00 EDT, Routine atorvastatin, 40 mg = 1 tab, Oral, Tab, Daily, First Dose: 03/18/24 17:00:00 EDT, Routine azithromycin, 500 mg = 1 EA, IV Piggyback, Powder-Inj, every 24 hr, Antibiotic Indication Pneumonia, hr, First Dose: 03/18/24 14:00:00 EDT, Routine bisacodyl, 10 mg = 1 supp, Rectal, Supp, Daily, PRN constipation, First Dose: 03/17/24 18:02:00 EDT, Routine Rocephin, 1 g = 1 EA, IV Piggyback, Powder-Inj, every 24 hr, Antibiotic Indication Pneumonia, Administer over: 0.5 hr, First Dose: 03/18/24 15:00:00 EDT, Routine, 200 mL/hr GlucaGen, 1 mg = 1 EA, Intramuscular, Kit, As Directed, PRN low blood sugar, First Dose: 03/17/24 18:02:00 EDT, Routine glucose 40% oral gel, 15 g = 37.5 mL, Oral, Gel, As Directed, PRN low blood sugar, First Dose: 03/17/24 18:02:00 EDT, Routine glucose 40% oral gel, 30 g = 75 mL, Oral, Gel, As Directed, PRN low blood sugar, First Dose: 03/17/24 18:02:00 EDT, Routine Dextrose 50% intravenous solution, 12.5 g 25 mL, IV Push, Soln-IV, As Directed, PRN low blood sugar, First Dose: 03/17/24 18:02:00 EDT, Routine Dextrose 50% intravenous solution, 25 g 50 mL, IV Push, Soln-IV, As Directed, PRN low blood sugar, First Dose: 03/17/24 18:02:00 EDT, Routine insulin lispro (HumaLog) correction- moderate, Moderate Scale, Subcutaneous, Soln, QID(ACHS), FirstDose: 03/17/24 21:00:00 EDT, Routine lidocaine 1% injectable solution, 1 mg 0.1 mL, Intradermal, Soln, As Directed, PRN other (see comment), First Dose: 03/17/24 18:02:00 EDT, Routine morphine, 2 mg = 1 mL, IV Push, Soln-IV, every 2 hr, PRN pain, severe, First Dose: 03/17/24 18:02:00 EDT, Routine Narcan, 0.4 mg = 1 mL, IV Push, Soln, Once, PRN Opioid Overdose, First Dose: 03/17/24 18:02:00 EDT,Physician Stop, Routine ondansetron, 4 mg = 2 mL, IV Push, Soln, every 6 hr, PRN nausea/vomiting, First Dose: 03/17/24 18:02:00 EDT, Routine Percocet 5 mg-325 mg oral tablet, 1 tab, Oral, Tab, every 6 hr, PRN pain, moderate, First Dose: 03/17/24 18:02:00 EDT, Routine pantoprazole, 40 mg = 1 EA, IV Push, Powder-Inj, Daily, First Dose: 03/17/24 6:00:00 EDT, Routine polyethylene glycol 3350, 17 g = 1 packets, Oral, Powder-Recon, Daily, PRN constipation, First Dose: 03/17/24 18:02:00 EDT, Routine Fleet Enema, 1 EA, Rectal, Enema, Daily, PRN constipation, First Dose: 03/17/24 18:02:00 EDT, Routine Normal Saline Flush, 10 mL, IV Push, Soln, every 12 hr (saad), First Dose: 03/17/24 21:00:00 EDT, Routine Sodium Chloride 0.9% 1,000 mL, Total Volume (mL): 1,000, 1,000 mL, Soln-IV, IV, 30 mL/hr, Start Date: 03/17/24 18:02:00 EDT, 85 kg, Populate Charting Weight From Order tamsulosin, 0.4 mg = 1 cap, Oral, Cap, Daily, First Dose: 03/18/24 9:00:00 EDT, Routine Ambulate as Tolerated, 03/17/24 18:02:00 EDT, PRN Basic Metabolic Panel, Blood, Routine, 03/17/24 18:02:00 EDT, every morning, for 3 days, Lab Collect Blood Glucose Monitoring POC, 03/17/24 18:02:00 EDT, QID(ACHS), 03/17/24 21:00:00 EDT Cardiac Monitoring, 03/17/24 18:02:00 EDT, Telemetry CBC w/o Diff, Blood, Routine, 03/17/24 18:02:00 EDT, every morning, for 3 days, Lab Collect Consult to Pharmacy, 03/17/24 18:02:00 EDT, Medication History Consult, PCU General Admission Orders NCTY Diet Order, 03/18/24 13:13:00 EDT, Diabetic, Medium (1,700-2,000 nathaly) 75g CHO Intake and Output, 03/17/24 18:02:00 EDT, every 8 hrs, Constant Indicator, 03/17/24 18:02:00 EDT Magnesium Level, Blood, Routine, 03/17/24 18:02:00 EDT, every morning, for 3 days, Lab Collect Notify Provider of Vital Signs, 03/17/24 18:02:00 EDT, SpO2 < 92% on 2L O2 NC, T > 101.5, HR > 100, HR < 50, SBP greater than 160, SBP less than 90, DBP greater than 90, DBP less than 50,Resp Rate greater than 30, Resp Rate less than 8, Constant Indicator Nursing Task, 03/17/24 18:02:00 EDT, Constant order Nursing Task, 03/17/24 18:02:00 EDT, Constant order Oxygen Therapy, SpO2 goal 90% or greater, PRN, JuanpabloLizett ham Admit to Inpatient, Semi-Private Telemetry, Inpatient, Araceli Garcia MD, 03/17/24 17:01:00 EDT, 03/17/24 17:01:00 EDT, 03/17/24 17:01:00 EDT, 2 midnights or more but less than 96 hrs Resuscitation Status, 03/17/24 18:02:00 EDT, Full Code Sputum Culture, Sputum, Routine collect, RT - Routine, 03/17/24 18:06:00 EDT, Once, Nurse collect Vital Signs, 03/17/24 18:02:00 EDT, Constant order, every 4 hrs Weight, 03/17/24 18:02:00 EDT, every morning Electronically Signed on 03/18/2024 14:27 EDT Kayden Storey PA-C Electronically Signed on 03/18/2024 15:20 EDT Araceli Garcia MD History and physical note * Kayden Storey PA-C: PERFORM Event Display: History and Physical Authored Date: [id number] [place] MAN :1945 Age:78 years Sex:Male Visit Date:03/17/2024 Primary Care Physician: Mahsa DEAN, Jamie Walton MD Chief Complaint Pt c/o shortness of breath with a productive cough for 2 weeks. ??Denies any pain History of Present Illness This is a 78-year-old male patient with past medical history significant for but not limited to hypertension, hyperlipidemia, and type 2 diabetes who presented to the emergency department today complaining of shortness of breath with cough for the past 2 weeks.?? Patient has no significant past cardiac disease history.?? He reports over the past 2 to 3 weeks he has becoming more and more short ofbreath.?? He reports he should have come to the hospital sooner however was being stubborn.?? He reports he has had a slight cough at times although was just attributing it to allergies and older age.?? He reports the shortness of breath was beginning to get so bad that he was unable to even tolerate a flight of stairs.?? He reports his shortness was so bad he started to have some dizziness and lightheadedness and at times felt like he could have passed out although did not.?? He denied ever having chest pain, jaw pain, arm pain, nausea, vomiting, diaphoresis, abdominal pain or headaches. ?? In the emergency department venous blood gas was performed and found pH of 7.31, pCO2 46, and bicarb of 23.?? Labs otherwise significant for white blood cell count 7.5, hemoglobin 13.3, hematocrit 43.6, platelets 331, PT 10, INR 1, PTT 31, sodium 141, potassium 4.3, chloride 107, CO2 27, alk phos 104, AST 16, ALT 15, BUN 27, creatinine 1.37, lactic acid elevated at 2.5.?? Initial troponin in the emergency department was 114.4 and on recheck was 102.8.?? proBNP was 4618.?? Negative for COVID, flu, RSV.?? Chest x-ray was performed and as read by radiologist found diffuse septal thickening suggestive of interstitial lung disease, superimposed consolidation of the left lower lobe concerning for infection, and small bilateral pleural effusions.?? CT angio of the chest was performed and as readby radiologist found no pulmonary embolism, diffuse interstitial thickening and groundglass opacities concerning for chronic lung disease with superimposed atypical infection. Requiring 4L of oxygen with oxymask in the ED.?? EKG was performed in the emergency department and found sinus rhythm with normal axis and intervalsno ST segment elevations or depressions although there were T wave inversions noted in the inferiorleads and V3 and V4 precordial leads as well as V6.?? No EKGs for comparison. ?? Due to his EKG findings and elevated troponins ED physician did reach out to [facility] cardiology and Dr. Cameron excepted patient for admission at their facility for further cardiac workup.?? [facility] cardiology did recommend to get an echocardiogram if possible while waiting for a bed to open as wellas starting patient on heparin infusion and loading dose of aspirin.? Patient was initiated on heparin, received 324 mg of aspirin, received 20 mg IV Lasix,??1 g of ceftriaxone IV??and??500 mg azithromycin IV. ??Patient will be admitted to the medical floor for furthertesting, treatment, and evaluation of NSTEMI as well as likely pneumonia. ?? CODE STATUS: FULL CODE Review of Systems Constitutional:?No??fevers,?No??chills,?No??sweats Eye:?No??recent visual problems ENT:?No??ear pain,?No??nasal congestion,?No??sore throat Respiratory:?Positive for??shortness of breath,?Positive for??cough Cardiovascular:?No??Chest pain,?No??palpitations,?No??syncope Gastrointestinal:?Nonausea,?No??vomiting,?No??diarrhea Genitourinary:?No??hematuria Simon/Lymph:?No??bruising tendency,?No??swollen lymph glands Endocrine:?No??excessive thirst,??No??excessive hunger Musculoskeletal:??No??back pain,??No??neck pain,??No??joint pain,??No??muscle pain,??No??decreased range of motion Integumentary:?No??rash,?No??pruritus,?No??abrasions Neurologic: Alert & oriented X 4 Psychiatric:?No??anxiety,?No??depression Physical Exam Vitals & Measurements T:??36.1?C ??(Temporal Artery)?? TMIN:??35.6?C ??(Temporal Artery)?? TMAX:??36.1?C ??(Temporal Artery)?? HR:??52??(Peripheral)?? RR:??18?? BP:??113/79?? SpO2:??92%?? WT:??85??kg?? O2 FlowRate:??4?? O2 Therapy:??Oxymask?? General: Alert and oriented, well nourished,?No??acute distress Eye: PERRL, EOMI,?Normal?conjunctiva HENT: Normocephalic,?Normal? hearing, moist oral mucosa,?No??scleral icterus,?No??sinustenderness Neck: Supple, non-tender,?No??JVD,?No??lymphadenopathy Lungs:??Clear to auscultation?? Respiration:??Non-Labored Heart:?Normal? rate,?Regular??rhythm,?No??murmur,?No??gallop,?No??edema Abdomen: Soft, non-tender, non-distended,?Normal? bowel sounds,?No??masses Musculoskeletal:?Normal? range of motion and strength,?No??tenderness,?No??swelling Skin: Skin is warm, dry and pink,?No??rashes,?No??lesions Neurologic: Awake, alert and oriented X4, CN II-XII grossly intact Psychiatric: Cooperative, appropriate mood and affect Assessment/Plan 1.??NSTEMI (non-ST elevated myocardial infarction)??I21.4 Complaining of shortness of breath x2 weeks?? Troponin elevated initially at 114, repeat found to be 102 EKG findings sinus rhythm normal axis and intervals, no ST segment elevations or depression, there are T wave inversions in inferior leads and V3 and V4 precordial leads as well as V6 No prior EKGs to compare to?? No history of MA in the past?? Accepted to [facility] cardiology under care of Dr. Cameron, predicated to have bed tomorrow Continue heparin infusion Received??324mg aspirin in ED, will continue home dose 81 mg daily Continue maintenance fluids?? Will order echocardiogram for tomorrow?? Will make patient NPO at midnight as patient will likely need cardiac cath?? Continue cardiac monitoring Ordered: Echocardiogram Complete, 03/17/24 18:06:00 EDT, Cardiovascular Disease- Unspecified, Stop date 03/17/24 18:06:00 EDT, NSTEMI (non-ST elevated myocardial infarction) ?? 2.??Community acquired pneumonia??J18.9 Imaging showed findings of pneumonia Patient also hypoxic requiring 4L of oxygen?? Will continue azithromycin 500 mg IV every 24 hours Continue rocephin 1g??IV every 24 hours Will attempt to obtain sputum sample Continue to maintain oxygen saturations >90% ?? 3.??Hypertension??I10 ??Chronic Continue home medication regimen? 4.??Hyperlipidemia??E78.5 ??Chronic Continue statin? 5.??Diabetes mellitus??E11.9 ??Chronic Hold PO home medications Continue diabetic diet, NPO at midnight Sliding scale insulin for coverage Glucose checks ACHS QID? Orders: acetaminophen, 650 mg = 2 tab, Oral, Tab, every 6 hr, PRN pain, mild, First Dose: 03/17/24 18:02:00EDT, Routine Mylanta, 15 mL, Oral, Susp, every 6 hr, PRN dyspepsia, First Dose: 03/17/24 18:02:00 EDT, Routine amLODIPine, 5 mg = 1 tab, Oral, Tab, Daily, First Dose: 03/18/24 9:00:00 EDT, Routine aspirin, 81 mg = 1 tab, Oral, Tab-Chew, Daily, First Dose: 03/18/24 9:00:00 EDT, Routine atorvastatin, 40 mg = 1 tab, Oral, Tab, Daily, First Dose: 03/18/24 17:00:00 EDT, Routine azithromycin, 500 mg = 1 EA, IV Piggyback, Powder-Inj, every 24 hr, Antibiotic Indication Pneumonia, hr, First Dose: 03/18/24 14:00:00 EDT, Routine bisacodyl, 10 mg = 1 supp, Rectal, Supp, Daily, PRN constipation, First Dose: 03/17/24 18:02:00 EDT, Routine Rocephin, 1 g = 1 EA, IV Piggyback, Powder-Inj, every 24 hr, Antibiotic Indication Pneumonia, Administer over: 0.5 hr, First Dose: 03/18/24 15:00:00 EDT, Routine, 200 mL/hr GlucaGen, 1 mg, Intramuscular, Powder-Inj, As Directed, PRN low blood sugar, First Dose: 03/17/24 18:02:00 EDT, Routine glucose 40% oral gel, 15 g = 37.5 mL, Oral, Gel, As Directed, PRN low blood sugar, First Dose: 03/17/24 18:02:00 EDT, Routine glucose 40% oral gel, 30 g = 75 mL, Oral, Gel, As Directed, PRN low blood sugar, First Dose: 03/17/24 18:02:00 EDT, Routine Dextrose 50% intravenous solution, 25 mL, IV Push, Soln, As Directed, PRN low blood sugar, First Dose: 03/17/24 18:02:00 EDT, Routine Dextrose 50% intravenous solution, 50 mL, IV Push, Soln, As Directed, PRN low blood sugar, First Dose: 03/17/24 18:02:00 EDT, Routine insulin lispro (HumaLog) correction- moderate, Moderate Scale, Subcutaneous, Soln, QID(ACHS), FirstDose: 03/17/24 21:00:00 EDT, Routine lidocaine 1% injectable solution, 1 mg 0.1 mL, Intradermal, Soln, As Directed, PRN other (see comment), First Dose: 03/17/24 18:02:00 EDT, Routine lisinopril, 40 mg = 2 tab, Oral, Tab, Daily, First Dose: 03/18/24 9:00:00 EDT, Routine metoprolol, 100 mg = 1 tab, Oral, Tab-ER, Daily, First Dose: 03/18/24 9:00:00 EDT morphine, 2 mg = 1 mL, IV Push, Soln-IV, every 2 hr, PRN pain, severe, First Dose: 03/17/24 18:02:00 EDT, Routine Narcan, 0.4 mg = 1 mL, IV Push, Soln, Once, PRN Opioid Overdose, First Dose: 03/17/24 18:02:00 EDT,Physician Stop, Routine ondansetron, 4 mg = 2 mL, IV Push, Soln, every 6 hr, PRN nausea/vomiting, First Dose: 03/17/24 18:02:00 EDT, Routine Percocet 5 mg-325 mg oral tablet, 1 tab, Oral, Tab, every 6 hr, PRN pain, moderate, First Dose: 03/17/24 18:02:00 EDT, Routine pantoprazole, 40 mg = 1 EA, IV Push, Powder-Inj, Daily, First Dose: 03/17/24 6:00:00 EDT, Routine polyethylene glycol 3350, 17 g = 1 packets, Oral, Powder-Recon, Daily, PRN constipation, First Dose: 03/17/24 18:02:00 EDT, Routine Fleet Enema, 1 EA, Rectal, Daily, PRN constipation, First Dose: 03/17/24 18:02:00 EDT, Routine Normal Saline Flush, 10 mL, IV Push, Soln, every 12 hr (saad), First Dose: 03/17/24 21:00:00 EDT, Routine Sodium Chloride 0.9% 1,000 mL, Total Volume (mL): 1,000, 1,000 mL, Soln-IV, IV, 30 mL/hr, Start Date: 03/17/24 18:02:00 EDT, 85 kg, Populate Charting Weight From Order tamsulosin, 0.4 mg = 1 cap, Oral, Cap, Daily, First Dose: 03/18/24 9:00:00 EDT, Routine Ambulate as Tolerated, 03/17/24 18:02:00 EDT, PRN Basic Metabolic Panel, Blood, Routine, 03/17/24 18:02:00 EDT, every morning, for 3 days, Lab Collect Blood Glucose Monitoring POC, 03/17/24 18:02:00 EDT, QID([facility]), 03/17/24 21:00:00 EDT Cardiac Monitoring, 03/17/24 18:02:00 EDT, Telemetry CBC w/o Diff, Blood, Routine, 03/17/24 18:02:00 EDT, every morning, for 3 days, Lab Collect Consult to Pharmacy, 03/17/24 18:02:00 EDT, Medication History Consult, PCU General Admission Orders NCTY Diet Order, 03/17/24 18:02:00 EDT, Diabetic Intake and Output, 03/17/24 18:02:00 EDT, every 8 hrs, Constant Indicator, 03/17/24 18:02:00 EDT Magnesium Level, Blood, Routine, 03/17/24 18:02:00 EDT, every morning, for 3 days, Lab Collect Notify Provider of Vital Signs, 03/17/24 18:02:00 EDT, SpO2 < 92% on 2L O2 NC, T > 101.5, HR > 100, HR < 50, SBP greater than 160, SBP less than 90, DBP greater than 90, DBP less than 50,Resp Rate greater than 30, Resp Rate less than 8, Constant Indicator NPO at Midnight, 03/18/24 0:00:00 EDT, Constant Indicator Nursing Task, 03/17/24 18:02:00 EDT, Constant order Nursing Task, 03/17/24 18:02:00 EDT, Constant order Oxygen Therapy, SpO2 goal 90% or greater, PRN, Lizett Geronimo Admit to Inpatient, Semi-Private Telemetry, Inpatient, Araceli Garcia MD, 03/17/24 17:01:00 EDT, 03/17/24 17:01:00 EDT, 03/17/24 17:01:00 EDT, 2 midnights or more but less than 96 hrs Resuscitation Status, 03/17/24 18:02:00 EDT, Full Code RT Eval and Treat Protocol, 03/17/24 18:02:00 EDT, Stop date 03/17/24 18:02:00 EDT, Maureen Geronimo Sputum Culture, Sputum, Routine collect, RT - Routine, 03/17/24 18:06:00 EDT, Once, Nurse collect Vital Signs, 03/17/24 18:02:00 EDT, Constant order, every 4 hrs Weight, 03/17/24 18:02:00 EDT, every morning Problem List/Past Medical History Ongoing No qualifying data Historical No qualifying data Medications Inpatient acetaminophen, 650 mg= 2 tab, Oral, every 6 hr, PRN amLODIPine, 5 mg= 1 tab, Oral, Daily aspirin, 81 mg= 1 tab, Oral, Daily atorvastatin, 40 mg= 1 tab, Oral, Daily azithromycin bisacodyl, 10 mg= 1 supp, Rectal, Daily, PRN Dextrose 50% intravenous solution, 25 mL, IV Push, As Directed, PRN Dextrose 50% intravenous solution, 50 mL, IV Push, As Directed, PRN Fleet Enema, 1 EA, Rectal, Daily, PRN GlucaGen, 1 mg, Intramuscular, As Directed, PRN glucose 40% oral gel, 15 g= 37.5 mL, Oral, As Directed, PRN glucose 40% oral gel, 30 g= 75 mL, Oral, As Directed, PRN insulin lispro (HumaLog) correction- moderate, Moderate Scale, Subcutaneous, QID(ACHS) lidocaine 1% injectable solution, 1 mg= 0.1 mL, Intradermal, As Directed, PRN lisinopril, 40 mg= 2 tab, Oral, Daily metoprolol, 100 mg= 1 tab, Oral, Daily morphine, 2 mg= 1 mL, IV Push, every 2 hr, PRN Mylanta, 15 mL, Oral, every 6 hr, PRN Narcan, 0.4 mg= 1 mL, IV Push, Once, PRN Normal Saline Flush, 10 mL, IV Push, every 12 hr (saad) ondansetron, 4 mg= 2 mL, IV Push, every 6 hr, PRN pantoprazole, 40 mg= 1 EA, IV Push, Daily Percocet 5 mg-325 mg oral tablet, 1 tab, Oral, every 6 hr, PRN polyethylene glycol 3350, 17 g= 1 packets, Oral, Daily, PRN Rocephin Sodium Chloride 0.9% 1,000 mL, 1000 mL, IV tamsulosin, 0.4 mg= 1 cap, Oral, Daily Home amLODIPine 5 mg oral tablet, 5 mg= 1 tab, Oral, Daily aspirin 81 mg oral capsule, 81 mg= 1 cap, Oral, Daily atorvastatin 40 mg oral tablet, 40 mg= 1 tab, Oral, Daily Invokana, 30 mg, Oral, Daily lisinopril 40 mg oral tablet, 40 mg= 1 tab, Oral, Daily metFORMIN 1000 mg oral tablet, 1000 mg= 1 tab, Oral, BID metoprolol succinate 100 mg oral capsule, extended release, 100 mg= 1 cap, Oral, Daily pioglitazone 15 mg oral tablet, 15 mg= 1 tab, Oral, Daily tamsulosin 0.4 mg oral capsule, 0.4 mg= 1 cap, Oral, Daily Allergies No Known Allergies Social History Electronic Cigarette/Vaping Electronic Cigarette Use: Never. Tobacco Never tobacco user Tobacco Use:.- Comments: Occasionally Lab Results Test Name Test Result Date/Time WBC 7.5 x10^3/mcL 03/17/2024 10:34 EDT RBC 5.1 x10^6/mcL 03/17/2024 10:34 EDT Hgb 13.3 g/dL 03/17/2024 10:34 EDT Hct 43.6 % 03/17/2024 10:34 EDT MCV 86.2 fL 03/17/2024 10:34 EDT MCH 26.3 pg 03/17/2024 10:34 EDT MCHC 30.5 g/dL 03/17/2024 10:34 EDT RDW-CV 15.6 % 03/17/2024 10:34 EDT Platelets 331 x10^3/mcL 03/17/2024 10:34 EDT pH Lisandro 7.31 pH unit(s) 03/17/2024 11:07 EDT pCO2 Lisandro 46 mmHg 03/17/2024 11:07 EDT pO2 Lisandro 29 mmHg 03/17/2024 11:07 EDT HCO3 Venous 23 mmol/L 03/17/2024 11:07 EDT O2 Sat Lisandro 49 % 03/17/2024 11:07 EDT CO2 Total Venous 24 mmol/L 03/17/2024 11:07 EDT Base Excess Venous -3.2 mmol/L 03/17/2024 11:07 EDT Prothrombin Time 10.7 seconds 03/17/2024 10:34 EDT INR 1.1 03/17/2024 10:34 EDT Partial Thromboplastin Time 31 seconds 03/17/2024 10:34 EDT Sodium Level 141 mmol/L 03/17/2024 10:34 EDT Potassium Level 4.3 mmol/L 03/17/2024 10:34 EDT Chloride Level 107 mmol/L 03/17/2024 10:34 EDT CO2 27 mmol/L 03/17/2024 10:34 EDT Alk Phos 104 unit/L 03/17/2024 10:34 EDT AST 16 unit/L 03/17/2024 10:34 EDT ALT 15 unit/L 03/17/2024 10:34 EDT BUN 27 mg/dL 03/17/2024 10:34 EDT Glucose Level 170 mg/dL 03/17/2024 10:34 EDT Creatinine Level 1.37 mg/dL 03/17/2024 10:34 EDT eGFR AA 52 03/17/2024 10:34 EDT eGFR Non-AA 52 03/17/2024 10:34 EDT Calcium Level 9.0 mg/dL 03/17/2024 10:34 EDT Protein Total 6.6 g/dL 03/17/2024 10:34 EDT Albumin Level 2.6 g/dL 03/17/2024 10:34 EDT Bilirubin Total 0.6 mg/dL 03/17/2024 10:34 EDT Lactic Acid Lvl 2.5 mmol/L 03/17/2024 11:07 EDT Troponin-I 102.8 pg/mL 03/17/2024 12:36 EDT Troponin-I 114.4 pg/mL 03/17/2024 10:34 EDT NT-proBNP 4618 pg/mL 03/17/2024 10:34 EDT SARS-CoV-2(Covid19)PCR(GXpert COVFLURSV) NEGATIVE 03/17/2024 11:18 EDT Flu A (GXpert COVFLURSV) NEGATIVE 03/17/2024 11:18 EDT Flu B (GXpert COVFLURSV) Neg-GeneXPert 03/17/2024 11:18 EDT RSV (GXpert COVFLURSV) Neg-GeneXPert 03/17/2024 11:18 EDT Electronically Signed on 03/17/2024 18:08 EDT Kayden Storey PA-C * Araceli Garcia MD: PERFORM Event Display: History and Physical Authored Date: [id number] Case was discussed and agree with assessment and plan. Electronically Signed on 03/17/2024 18:29 EDT Araceli Garcia MD Discharge summary * Araceli Garcia MD: PERFORM Event Display: Discharge Summary Authored Date: [id number] [place] MAN :1945 Age:78 years Sex:Male Visit Date:03/17/2024 Primary Care Physician: Jamie Alvarez MD Hospital Course ??The patient is a 78-year-old male with a past medical history of hypertension, hyperlipidemia, type 2 diabetes mellitus, coronary artery disease who presented to the emergency department on March with a chief complaint of shortness of breath.?? Cardiology was consulted from the emergency department as he was found to have elevated troponin with the shortness of breath as well as EKG changes with T wave inversions in leads V3 and V4 as well as V6.?? Patient was started on ACS protocol with heparin infusion loaded on aspirin and based on chest x-ray and CT angiography of the chest there was signs of diffuse interstitial thickening and groundglass opacities concerning for chronic lung disease with superimposed atypical infection.?? Patient was also started on IV antibiotics for this.?? He was admitted with acute hypoxic respiratory failure secondary to above.?? He was also found to be 78% on room air.?? Patient had no episodes of chest pain during his hospitalization and at the time of transfer to [facility] patient was stable.?? Accepting digital strategy specialist was Dr. Battula which is much appreciated. Physical Exam Vitals & Measurements T:??36?C ??(Temporal Artery)?? TMIN:??36?C ??(Temporal Artery)?? TMAX:??36.3?C ??(Temporal Artery)?? HR:??57??(Peripheral)?? RR:??21?? BP:??94/56?? SpO2:??91%?? HT:??173??cm?? WT:??81.6??kg?? BMI:??27.9?? Pain Score:??0?? O2 Flow Rate:??5?? O2 Therapy:??Nasal cannula?? General:??Alert and oriented, well nourished,?No??acute distress Eye:??PERRL, EOMI,?Normal?conjunctiva HENT:??Normocephalic,?Normal? hearing, moist oral mucosa,?No??scleral icterus,?No??sinus tenderness Neck:??Supple, non-tender,?No??JVD,?No??lymphadenopathy Lungs:??Diffuse wheezes??with??some??crackles?? Respiration:??Non-Labored Heart:?Normal? rate,?Regular??rhythm,?No??murmur,?No??gallop,?No??edema Abdomen:??Soft, non-tender, non-distended,?Normal? bowel sounds,?No??masses Musculoskeletal:?Normal? range of motion and strength,?No??tenderness,?No??swelling Skin:??Skin is warm, dry and pink,?No??rashes,?No??lesions Neurologic:??Awake, alert and oriented X4, CN II-XII??grossly intact Psychiatric:??Cooperative, appropriate mood and affect Social History Electronic Cigarette/Vaping Electronic Cigarette Use: Never. Tobacco Never tobacco user Tobacco Use:.- Comments: Occasionally Discharge Plan Discharge planning greater than 30 minutes. 1.??NSTEMI (non-ST elevated myocardial infarction)??I21.4 ??The patient is a 78-year-old male with a past medical history of hypertension, hyperlipidemia, type 2 diabetes mellitus, coronary artery disease who presented to the emergency department on March with a chief complaint of shortness of breath.?? Cardiology was consulted from the emergency department as he was found to have elevated troponin with the shortness of breath as well as EKG changes with T wave inversions in leads V3 and V4 as well as V6.?? Patient was started on ACS protocol with heparin infusion loaded on aspirin and based on chest x-ray and CT angiography of the chest there was signs of diffuse interstitial thickening and groundglass opacities concerning for chronic lung disease with superimposed atypical infection.?? Patient was also started on IV antibiotics for this.?? He was admitted with acute hypoxic respiratory failure secondary to above.?? He was also found to be 78% on room air.?? Patient had no episodes of chest pain during his hospitalization and at the time of transfer to [facility] patient was stable.?? Accepting digital strategy specialist was Dr. Cameron which is much appreciated. 2.??Community acquired pneumonia??J18.9 3.??Hypertension??I10 4.??Hyperlipidemia??E78.5 5.??Diabetes mellitus??E11.9 Orders: Incentive Spirometry by Patient, 03/18/24 11:43:00 EDT, Routine, every 1 hr while awake, Predisposing Condition for Atelectasis PTT, Blood, Timed Study, 03/18/24 18:00:00 EDT, Once, Lab Collect All Diagnoses This Visit NSTEMI (non-ST elevated myocardial infarction) Community acquired pneumonia Hypertension Hyperlipidemia Diabetes mellitus Medication Reconciliation Changed aspirin (aspirin 81 mg oral capsule)1 Capsules Oral (given by mouth) every day. ?? tamsulosin (tamsulosin 0.4 mg oral capsule)2 Capsules Oral (given by mouth) every night at bedtime. ?? Unchanged amLODIPine (amLODIPine 5 mg oral tablet)1 tab Oral (given by mouth) every day. ?? atorvastatin (atorvastatin 40 mg oral tablet)1 tab Oral (given by mouth) every day. ?? cholecalciferol (cholecalciferol 1000 intl units oral tablet)1 tab Oral (given by mouth) every day. ?? glucosamine-chondroitin (glucosamine-chondroitin 500 mg-400 mg oral capsule)1 Capsules Oral (given by mouth) 2 times a day. ?? lisinopril (lisinopril 40 mg oral tablet)1 tab Oral (given by mouth) every day. ?? metFORMIN (metFORMIN 1000 mg oral tablet)1 tab Oral (given by mouth) 2 times a day. ?? metoprolol (metoprolol succinate 100 mg oral capsule, extended release)1 Capsules Oral (given by mouth) every day. ?? multivitamin with minerals (Centrum Minis Adults 50+)1 tab Oral (given by mouth) every day. ?? pioglitazone (pioglitazone 15 mg oral tablet)1 tab Oral (given by mouth) every day. Electronically Signed on 03/18/2024 17:32 EDT Araceli Garcia MD Patient Care team information Care Team Personnel Name: Mahsa JOHNSONJamie MD Position: Physician Member Role: Primary Care Physician Address: Address: [address] [place] [address] [place] [address]- Care Team Related Persons Name: KRISTIE MAN
--- OUTSIDE RECORDS SUMMARY | 2024-03-27 17:05 | XMS_ITS | Encounter Summary ---
Author Organization [facility] Address [facility] [place] [address] Care Team Providers Care Geochemistry Teacher Name Role Phone None Primary Care Provider Unavailabl e Encounter Details Date Type Department Care Team (Late st Contact Info) Description 03/17/2024 External Results Administration [facility] [place] [address] Social History Tobacco Use Types Packs/Day Years Used Date Smoking Tobacco: Never Assessed [facility] Utilities Answer Date Recorded In the past 12 months has th e electric, gas, oil, or water company threatened to shut off services in your home? No 03/19/2024 Hunger Vital Sign Answer Date Recorded Within the past 12 months, y ou worried that your food would run out before you got the money to buy more. Never true 03/19/20 24 Within the past 12 months, t he food you bought just didn't last and you didn't have money to get more. Never true 03/19/2024 PRAPARE - Transportation Answer Date Re corded In the past 12 months, has l ack of transportation kept you from medical appointments or from getting medications? No 03/09 In the past 12 months, has l ack of transportation kept you from meetings, work, or from getting things needed for daily living? No 03/19/2024 Housing Stability Vital Sign Answer Shaan e Recorded In the last 12 months, was t here a time when you were not able to pay the mortgage or rent on time? No 03/19/2024 In the past 12 months, how m any times have you moved where you were living? 1 03/19/2024 At any time in the past 12 m [facility], were you homeless or living in a group home (including now)? No 03/19/2024 IPV Inpatient Questions Answer Date Recorded Does Anyone [...] on file documented as of this encounter Plan of Treatment Upcoming Encounters Date Type Department Care Team (Late st Contact Info) Description 05/18/2024 2:00 PM EDT Office Visit Cardiology at [address] [phone] Radha Jordan PA [facility] [place] [address] documented as of this encounter Procedures Procedure Name Priority Date/Time Associated Diagnosis Comments ECG SCAN Routine 03/17/2024 1:34 PM EDT documented in this encounter Results * Scan Doc: ECG (03/17/2024 1:34 PM EDT) Historical Provider MD [facility] MGR SCAN EX T ORDR/RSLT documented in this encounter Visit Diagnoses Not on filedocumented in this encounter Additional Health Concerns Infection Onset Date Last Indicated Resolved Time Rule Out Respiratory 03/19/2024 03/19/2024 024 9:32 PM EDT Rule Out COVID-19 03/19/2024 03/19/2024 03/19/2024 9:32 PM EDT documented as of this encounter Care Teams Geochemistry Teacher Relationship Specialty Start Date End Date None None PCP - General 03/18/24 documented as of this encounter
--- OUTSIDE RECORDS SUMMARY | 2024-03-27 17:05 | XMS_ITS | Encounter Summary ---
[place] [address] Care Team Providers Care Trains Dispatcher Supervisor Name Role Phone Jamie Freeman MD Primary Care Provider [phone] Encounter Details Date Type Department Care Team (Late st Contact Info) Description 03/17/2024 Interpretation Only [place] [phone] Unknown None Social History Tobacco Use Types Packs/Day Years Used Date Smoking Tobacco: Never Assessed [facility] Inpatient Questions Answer Date Recorded Does Anyone [...] 2:00 PM EDT Office Visit Cardiology at [address] [phone] Radha Jordan PA [facility] [place] [address] documented as of this encounter Procedures Procedure Name Priority Date/Time Associated Diagnosis Comments FILM LIBRARY STORAGE ONLY CT CHEST Routine 03/17/2024 11:55 AM EDT documented in this encounter Results * Film Library- Storage Only CT Chest (03/17/2024 11:55 AM EDT) 03/17/2024 3:28 PM EDT Narrative RAD - 03/17/2024 3:28 PM EDT This exam is auto-finalizing. It's purpose is for storage only. Unknown IMG FILM LIBRARY ORD ERABLES [place], [place] documented in this encounter Visit Diagnoses Not on filedocumented in this encounter Care Teams Trains Dispatcher Supervisor Relationship Specialty Start Date End Date Jamie Freeman MD [address] [place] [address] PCP - General 08/01/10 03/17/24 documented as of this encounter
--- OUTSIDE RECORDS SUMMARY | 2024-03-27 17:05 | XMS_ITS | Encounter Summary ---
[place] [address] Care Team Providers Care Mirror Fabrication Supervisor Name Role Phone Jamie Freeman MD Primary Care Provider [phone] Encounter Details Date Type Department Care Team (Late st Contact Info) Description 03/17/2024 11:55 AM EDT Ancillary Procedure [place] [address] Unknown None Social History Tobacco Use Types Packs/Day Years Used Date Smoking Tobacco: Never Assessed [facility] Inpatient Questions Answer Date Recorded Does Anyone [...] 2:00 PM EDT Office Visit Cardiology at [address] [address] Radha Jordan PA [facility] [place] [address] documented as of this encounter Procedures Procedure [...] only. Unknown IMG FILM LIBRARY ORD ERABLES [place], [place] documented in this encounter Visit Diagnoses Not on filedocumented in this encounter Care Teams Mirror Fabrication Supervisor Relationship Specialty Start Date End Date Jamie Freeman MD [address] [place] [address] PCP - General 08/01/10 03/17/24 documented as of this encounter
--- OUTSIDE RECORDS SUMMARY | 2024-03-27 17:05 | XMS_ITS | Encounter Summary ---
[place] [address] Care Team Providers Care Training Lead Name Role Phone Jamie Freeman MD Primary Care Provider [phone] Encounter Details Date Type Department Care Team (Late st Contact Info) Description 03/17/2024 10:45 AM EDT Ancillary Procedure [place] [address] Unknown None Social History Tobacco Use Types Packs/Day Years Used Date Smoking Tobacco: Never Assessed [facility] Inpatient Questions Answer Date Recorded Does [...] 2:00 PM EDT Office Visit Cardiology at [address] [address] Radha Jordan PA [facility] [place] [address] documented as of this encounter Procedures Procedure Name Priority Date/Time Associated Diagnosis Comments FILM LIBRARY STORAGE ONLY DX CHEST Routine 03/17/2024 10:45 AM EDT documented in this encounter Results * Film Library- Storage Only DX Chest (03/17/2024 10:45 AM EDT) 03/17/2024 3:28 PM EDT Narrative RAD - 03/17/2024 3:28 PM EDT This exam is auto-finalizing. It's purpose is for storage only. Unknown IMG FILM LIBRARY ORD ERABLES [place], [place] documented in this encounter Visit Diagnoses Not on filedocumented in this encounter Care Teams Training Lead Relationship Specialty Start Date End Date Jamie Freeman MD [address] [place] [address] PCP - General 08/01/10 03/17/24 documented as of this encounter
--- OUTSIDE RECORDS SUMMARY | 2024-03-27 17:05 | XMS_ITS | Encounter Summary ---
Author Organization [facility] Address [address] [place] [address] Care Team Providers Care Customer Solutions Coordinator Name Role Phone Unknown, Provider Primary Care Provider Encounter Details Date Type Department Care Team (Latest Contact Info) Description 03/02/2016 9:49 EDT - 03/02/2016 23:59 EDT Hospital Encounter [address] [address] Unknown, Provider, Discharge Disposition: Home or Self Care Social History Tobacco Use Types Packs/Day Years Used Date Smoking Tobacco: Never Assessed Sex and Gender Information Value Date Recorded Sex Assigned at Not on file Gender Identity Not on file Sexual Orientation Not on file documented as of this encounter Discharge Disposition Disposition Code Departure Means Destination Home or Self Assisted documented in this encounter Plan of Treatment Not on file documented as of this encounter Visit Diagnoses Not on filedocumented in this encounter Care Teams Customer Solutions Coordinator Relationship Specialty Start Date End Date Unknown, Provider, PCP - General 03/02/16 documented as of this encounter
--- OUTSIDE RECORDS SUMMARY | 2024-03-27 17:05 | XMS_ITS | Clinical Summary ---
Author Organization [facility] [place] [address] Care Team Providers Care Cath Lab Radiology Technician Name Role Phone None Primary Care Provider Unavailabl e Allergies No known active allergies Medications Medication Sig Dispensed Refills Start Date End Date Status CIS Free Text Med - ASA 06/20/2005 Active CIS Free Text Med - Gibson 3 06/20/2005 Active atorvastatin (LIPITOR) 40 mg tablet 06/20/2005 Active Vitamin E 400 unit Tab 06/20/2005 Active rosiglitazone (AVANDIA) 4 mg tablet 06/20/2005 Act amalia ezetimibe (ZETIA) 10 mg tablet 06/20/2005 Active CALCIUM CARBONATE (CORAL CALCIUM ORAL) 06/20/2005 Acti ve multivitamin (THERAGRAN) tablet 06/20/2005 Active tamsulosin (Flomax) 0.4 mg capsule Take 0.8 mg by mouth nightly. Active metFORMIN (Fortamet) 1,000 mg ER 24 hr tablet Take 1,000 mg by mouth 2 times daily (with meals). Active metoprolol succinate XL (Toprol-XL) 50 mg ER 24 hr tablet Take 1 tablet by mouth daily. 90 tablet 3 03/25/2024 Active furosemide (Lasix) 20 mg tablet Take 1 tablet by mouth daily as needed. 30 tablet 1 03/25/2024 Active Active Problems Problem Noted Date Diagnosed Date NSTEMI (non-ST elevated myocardial infarction) 0 03/18/2024 Hypertension Encounters Date Type Department Care Team Description 03/18/2024 8:48 PM EDT - 03/25/2024 2:31 PM EDT Hospital Encounter Heart and Vascular Unit Level 3 [place] [address] Josefina Cameron MD Ramachandra, Nayana, MD Ruiz, Xavier L, MD Kussaga, Frank M, MD Non-ST elevation myocardial infarction (NSTEMI); Acute respiratory failure with hypoxia; Chronic hypoxic respiratory failure Discharge Disposition: Home 03/17/2024 11:55 AM EDT Ancillary Procedure Radiology Library [place] [facility] [place] [id number] Unknown 03/17/2024 10:45 AM EDT Ancillary [place] [address] Unknown 03/17/2024 Interpretation [place] [address] Unknown 03/17/2024 Interpretation [place] [address] Unknown 03/17/2024 Telephone Cardiology at [address] [phone] Tatyana Holley APRN 03/17/2024 [place] [address] from Last 3 Months Family History Medical History Relation Comments Myocardial Infarction Father Relation Status Comments Father Social History Tobacco Use Types Packs/Day Years Used Date Smoking Tobacco: Former Pipe Passive Smoke Exposure: Never Smokeless Tobacco: Former Tobacco Cessation:Counseling Given: No Alcohol Use Standard Drinks/Week Comments Yes 1 (1 standard drink = 0.6 oz pur e alcohol) [facility] Utilities Answer Date Recorded In the past 12 months has e [employer], gas, oil, or water [employer] threatened to shut off services in your [...] any time in the past 12 m [facility], were you homeless or living in a care home (including now)? No 03/19/2024 IPV Inpatient [...] on file Sexual Orientation Not on file Last Filed Vital Signs Vital Sign Reading Time Taken Comments Blood Pressure 112/66 03/25/2024 11:54 AM EDT Pulse 61 03/25/2024 11:54 AM EDT Temperature 36.4 ??C (97.5 ??F) 03/25/2024 11:54 AM E DT Respiratory Rate 17 03/25/2024 11:54 AM EDT Oxygen Saturation 97% 03/25/2024 11:54 AM EDT Inhaled Oxygen Concentration - - Weight 75.8 kg (167 lb 1.6 oz) 03/25/2024 6:38 A M EDT Height 175.3 cm (5' 9) 03/18/2024 8:57 PM EDT Body Mass Index 24.68 03/18/2024 8:57 PM EDT Plan of Treatment Upcoming Encounters Date Type Department Care Team (Late st Contact Info) Description 05/18/2024 2:00 PM EDT Office Visit Cardiology at [address] [phone] Radha Jordan PA [facility] [place] [address] Health Maintenance Due Date Last Done Comments Pneumoccocal Vaccine: 65+ (1 of 2 - PCV) 1950 Hepatitis C Screening 1962 Tdap adult 1963 Tetanus vaccine 1963 Zoster vaccine (1 of 2) 1994 Advance Directive 1999 Covid-19 Vaccine (3 - season) 2023, 03/02/2022 Influenza (Flu) vaccine (1 o f 1 - Influenza standard series) 05/10/2024 Procedures Procedure Name Priority Date/Time Associated Diagnosis Comments POCT GLUCOSE Routine 03/25/2024 12:04 PM EDT POCT GLUCOSE Routine 03/25/2024 12:00 PM EDT SCAN DOC: TELEMETRY STRIPS 03/25/2024 7:34 AM EDT SCAN DOC: TELEMETRY STRIPS 03/25/2024 7:21 AM EDT POCT GLUCOSE Routine 03/25/2024 7:11 AM EDT DIFFERENTIAL, AUTOMATED Routine 03/25/20 3:29 AM EDT HEMOGRAM Routine 03/25/2024 3:29 AM EDT HC MAGNESIUM, SERUM Routine 03/25/2024 3 :29 AM EDT BASIC METABOLIC PANEL (NON-FASTING) Routine 03/25/2024 3:29 AM EDT HC VENIPUNCTURE Routine 03/25/2024 3:29 AM EDT POCT GLUCOSE Routine 03/24/2024 10:59 PM EDT SCAN DOC: TELEMETRY STRIPS 03/24/2024 7:12 PM EDT POCT GLUCOSE Routine 03/24/2024 4:[address] CHEST WO CONTRAST (GENERIC) Routine 03/24/2024 12:05 PM EDT POCT GLUCOSE Routine 03/24/2024 11:41 AM EDT SCAN DOC: TELEMETRY STRIPS 03/24/2024 7:37 AM EDT SCAN DOC: TELEMETRY STRIPS 03/24/2024 7:36 AM EDT POCT GLUCOSE Routine 03/24/2024 7:26 AM EDT DIFFERENTIAL, AUTOMATED Routine 03/24/20 3:23 AM EDT HEMOGRAM Routine 03/24/2024 3:23 AM EDT HC MAGNESIUM, SERUM Routine 03/24/2024 3 :23 AM EDT BASIC METABOLIC PANEL (NON-FASTING) Routine 03/24/2024 3:23 AM EDT HC VENIPUNCTURE Routine 03/24/2024 3:23 AM EDT POCT GLUCOSE Routine 03/23/2024 11:04 PM EDT SCAN DOC: TELEMETRY STRIPS 03/23/2024 8:26 PM EDT POCT GLUCOSE Routine 03/23/2024 4:34 PM EDT POCT GLUCOSE Routine 03/23/2024 11:52 AM EDT XR CHEST ONE VIEW Routine 03/23/2024 9:4 7 AM EDT SCAN DOC: TELEMETRY STRIPS 03/23/2024 8:24 AM EDT SCAN DOC: TELEMETRY STRIPS 03/23/2024 8:24 AM EDT SCAN DOC: TELEMETRY STRIPS 03/23/2024 7:46 AM EDT POCT GLUCOSE Routine 03/23/2024 7:31 AM EDT DIFFERENTIAL, AUTOMATED Routine 03/23/20 3:29 AM EDT HEMOGRAM Routine 03/23/2024 3:29 AM EDT HC MAGNESIUM, SERUM Routine 03/23/2024 3 :29 AM EDT BASIC METABOLIC PANEL (NON-FASTING) Routine 03/23/2024 3:29 AM EDT HC VENIPUNCTURE Routine 03/23/2024 3:29 AM EDT POCT GLUCOSE Routine 03/22/2024 10:20 PM EDT SCAN DOC: TELEMETRY STRIPS 03/22/2024 8:00 PM EDT POCT GLUCOSE Routine 03/22/2024 4:28 PM EDT HC PHOSPHORUS, SERUM Routine 03/22/2024 3:03 PM EDT BASIC METABOLIC PANEL (NON-FASTING) Routine 03/22/2024 3:03 PM EDT HC MAGNESIUM, SERUM Routine 03/22/2024 3 :03 PM EDT POCT GLUCOSE Routine 03/22/2024 2:37 PM EDT POCT GLUCOSE Routine 03/22/2024 11:49 AM EDT SCAN DOC: TELEMETRY STRIPS 03/22/2024 8:10 AM EDT SCAN DOC: TELEMETRY STRIPS 03/22/2024 7:48 AM EDT POCT GLUCOSE Routine 03/22/2024 7:27 AM EDT DIFFERENTIAL, AUTOMATED Routine 03/22/20 1:42 AM EDT HEMOGRAM Routine 03/22/2024 1:42 AM EDT HC MAGNESIUM, SERUM Routine 03/22/2024 1 :42 AM EDT BASIC METABOLIC PANEL (NON-FASTING) Routine 03/22/2024 1:42 AM EDT HC VENIPUNCTURE Routine 03/22/2024 1:42 AM EDT POCT GLUCOSE Routine 03/21/2024 8:43 PM EDT SCAN DOC: TELEMETRY STRIPS 03/21/2024 7:25 PM EDT POCT GLUCOSE Routine 03/21/2024 4:16 PM EDT HC PHOSPHORUS, SERUM Routine 03/21/2024 4:08 PM EDT HC MAGNESIUM, SERUM Routine 03/21/2024 4 :08 PM EDT BASIC METABOLIC PANEL (NON-FASTING) Routine 03/21/2024 4:08 PM EDT POCT GLUCOSE Routine 03/21/2024 1:39 PM EDT POCT GLUCOSE Routine 03/21/2024 10:26 AM EDT SCAN DOC: TELEMETRY STRIPS 03/21/2024 8:14 AM EDT SCAN DOC: TELEMETRY STRIPS 03/21/2024 7:37 AM EDT POCT GLUCOSE Routine 03/21/2024 7:19 AM EDT DIFFERENTIAL, AUTOMATED Routine 03/21/20 1:52 AM EDT HEMOGRAM Routine 03/21/2024 1:52 AM EDT HC UNFRACTIONATED HEPARIN (HEP UFH) Timed 03/21/2024 1:52 AM EDT HC MAGNESIUM, SERUM Routine 03/21/2024 1 :52 AM EDT BASIC METABOLIC PANEL (NON-FASTING) Routine 03/21/2024 1:52 AM EDT HC CBC,PLT & AUTO DIFF Routine 1:52 AM EDT EKG 12-LEAD Routine 03/21/2024 12:55 AM EDT Non-ST elevation myocardial infarction (NSTEMI) POCT GLUCOSE Routine 03/20/2024 9:26 PM EDT SCAN DOC: TELEMETRY STRIPS 03/20/2024 7:39 PM EDT POCT GLUCOSE Routine 03/20/2024 4:47 PM EDT SCAN DOC: TELEMETRY STRIPS 03/20/2024 4:31 PM EDT POCT GLUCOSE Routine 03/20/2024 11:31 AM EDT HC SPUTUM CULTURE Routine 03/20/2024 10: 50 AM EDT SCAN DOC: TELEMETRY STRIPS 03/20/2024 8:14 AM EDT POCT GLUCOSE Routine 03/20/2024 8:07 AM EDT SCAN DOC: TELEMETRY STRIPS 03/20/2024 7:35 AM EDT HC C. DIFF QUIK CHEK ANTIGEN Routine 03/20/2024 4:55 AM EDT DIFFERENTIAL, AUTOMATED Routine 03/20/20 2:09 AM EDT HEMOGRAM Routine 03/20/2024 2:09 AM EDT HC UNFRACTIONATED HEPARIN (HEP UFH) Timed 03/20/2024 2:09 AM EDT HC MAGNESIUM, SERUM Routine 03/20/2024 2 :09 AM EDT BASIC METABOLIC PANEL (NON-FASTING) Routine 03/20/2024 2:09 AM EDT HC CBC,PLT & AUTO DIFF Routine 2:09 AM EDT POCT GLUCOSE Routine 03/19/2024 8:58 PM EDT SCAN DOC: TELEMETRY STRIPS 03/19/2024 7:25 PM EDT POCT GLUCOSE Routine 03/19/2024 7:20 PM EDT HC RESPIRATORY VIRUS PANEL BY PCR Routine 03/19/2024 7:01 PM EDT POCT GLUCOSE Routine 03/19/2024 3:26 PM EDT XR CHEST PA AND LATERAL Routine 03/19/20 2:45 PM EDT TROPONIN Routine 03/19/2024 2:16 PM EDT HC PHOSPHORUS, SERUM Routine 03/19/2024 2:16 PM EDT HC MAGNESIUM, SERUM Routine 03/19/2024 2 :16 PM EDT BASIC METABOLIC PANEL (NON-FASTING) Routine 03/19/2024 2:16 PM EDT POCT GLUCOSE Routine 03/19/2024 12:09 PM EDT SCAN DOC: TELEMETRY STRIPS 03/19/2024 7:47 AM EDT POCT GLUCOSE Routine 03/19/2024 7:46 AM EDT ECHO COMPLETE Routine 03/19/2024 7:31 AM EDT Non-ST elevation myocardial infarction (NSTEMI) SCAN DOC: TELEMETRY STRIPS 03/19/2024 7:21 AM EDT DIFFERENTIAL, AUTOMATED Routine 03/19/20 24 4:59 AM EDT HEMOGRAM Routine 03/19/2024 4:59 AM EDT HC UNFRACTIONATED HEPARIN (HEP UFH) Timed 03/19/2024 4:59 AM EDT HC LDL CHOLESTEROL, DIRECT Routine 03/19/2024 4:59 AM EDT HC HEMOGLOBIN A1C Routine 03/19/2024 4:5 9 AM EDT LIPID PANEL (REFLEX DIRECT LDL) Routine 03/19/2024 4:59 AM EDT HC MAGNESIUM, SERUM Routine 03/19/2024 4 :59 AM EDT BASIC METABOLIC PANEL (NON-FASTING) Routine 03/19/2024 4:59 AM EDT HC CBC,PLT & AUTO DIFF Routine 4:59 AM EDT HC VENIPUNCTURE STAT 03/19/2024 4:59 AM EDT POCT GLUCOSE Routine 03/19/2024 12:35 AM EDT SCAN DOC: TELEMETRY STRIPS 03/18/2024 10:07 PM EDT EKG 12-LEAD Routine 03/18/2024 10:00 PM EDT Non-ST elevation myocardial infarction (NSTEMI) DIFFERENTIAL, AUTOMATED Routine 03/18/20 24 9:50 PM EDT HEMOGRAM Routine 03/18/2024 9:50 PM EDT HC UNFRACTIONATED HEPARIN (HEP UFH) Timed 03/18/2024 9:50 PM EDT HC PARTIAL THROMBOPLASTIN TIME Routine 03/18/2024 9:50 PM EDT HC PROTHROMBIN TIME Routine 03/18/2024 9 :50 PM EDT HEPATIC FUNCTION PANEL Routine 9:50 PM EDT HC TROPONIN T STAT 03/18/2024 9:50 PM EDT HC PROBNP Routine 03/18/2024 9:50 PM EDT HC THYROID STIMULATING HORMONE, SERUM Routine 03/18/2024 9:50 PM EDT HC PHOSPHORUS, SERUM Routine 03/18/2024 9:50 PM EDT HC MAGNESIUM, SERUM Routine 03/18/2024 9 :50 PM EDT BASIC METABOLIC PANEL (NON-FASTING) Routine 03/18/2024 9:50 PM EDT HC CBC,PLT & AUTO DIFF Routine 9:50 PM EDT ECG SCAN Routine 03/17/2024 1:34 PM EDT FILM LIBRARY STORAGE ONLY CT CHEST Routine 03/17/2024 11:55 AM EDT FILM LIBRARY STORAGE ONLY DX CHEST Routine 03/17/2024 10:45 AM EDT from Last 3 Months Results * (ABNORMAL) POCT Glucose (03/25/2024 12:04 PM EDT) Only the most recent of31 resultswithin the time period is included. POC Glucose 271(H) 65 - 199 mg/dL [facility] Comment: Supplemental ranges: <140 mg/dL before meals <180 mg/dL all other times of the day Blood 03/25/2024 12:0 4 PM EDT 03/25/2024 12:04 PM EDT Main Campbell MD POINT OF CARE TEST O RDERABLES [facility] [place] [address] * Scan Doc: Telemetry Strips (03/25/2024 7:34 AM EDT) Only the most recent of23 resultswithin the time period is included. Narrative 03/25/2024 7:34 AM EDT Ordered by an unspecified provider. Scanning Provider MEDIA MGR SCAN EXT O RDR/RSLT * (ABNORMAL) Hemogram (03/25/2024 3:29 AM EDT) Only the most recent of8 resultswithin the time period is included. WBC 7.5 4.0 - 9.5 x10(3)/[facility] LABORATORY RBC 4.89 4.58 - 5.54 x10(6)/[facility] Hemoglobin 13.0(L) 13.7 - 16.5 g/dL [facility] Hematocrit 41.6 40.5 - 48.5 % [facility] MCV 85.1 82.9 - 93.1 fL [facility] MCH 26.6(L) 27.5 - 32.1 pg [facility] MCHC 31.3(L) 32.0 - 35.7 g/dL [facility] Platelets 285 145 - 357 x10(3)/[facility] LABORATORY RDWSD 45.6(H) 36.0 - 45.0 [facility]ORY RDWCV 14.6(H) 11.4 - 13.8 % [facility] MPV 9.7 7.6 - 12.9 [facility]ORY nRBC % Auto 0.0 % [facility] nRBC Abs Auto 0.000 0.000 - 0.000 x10(3)/[facility] Blood 03/25/2024 3:29 AM EDT 03/25/2024 3:53 AM EDT Narrative Resulting Agency Comment Spec In Lab Oscar Hernández MD HEMATOLOGY ORDERABLE S [facility] [place] [address] * Differential, Automated (03/25/2024 3:29 AM EDT) Only the most recent of8 resultswithin the time period is included. Neutrophils % 67.5 % [facility] Neutr Abs (ANC) 5.07 1.70 - 6.10 x10(3)/[facility] Lymphocytes % 16.9 % [facility] Lymphocytes Abs 1.3 0.9 - 3.2 x10(3)/[facility] Monocytes % 10.3 % [facility] Monocyte Abs 0.8 0.3 - 0.9 x10(3)/[facility] Eosinophils % 4.0 % [facility] Eosinophils Abs 0.3 0.0 - 0.4 x10(3)/[facility] Basophils % 0.9 % [facility] Basophils Abs 0.1 0.0 - 0.1 x10(3)/[facility] Immature Gran % 0.40 % [facility] Comment: Immature granulocytes(IG's)percentage and absolute count will include metamyelocytes, myelocytes, and promyelocytes. Blood smears from CBCs yielding IG's will be scanned manually for concordance. If this scan disagrees with the automated IG or if promyelocytes are noted, a manual differential will be performed. Felicia Gran Abs 0.03 0.00 - 0.04 x10(3)/[facility] Blood 03/25/2024 3:29 AM EDT 03/25/2024 3:53 AM EDT Narrative Resulting Agency Comment Spec In Lab Oscar Hernández MD HEMATOLOGY ORDERABLE S Performing Organization Address City/[facility]/ZIP Co de Phone Number [facility] [place] [address] * Magnesium (03/25/2024 3:29 AM EDT) Only the most recent of11 resultswithin the time period is included. Magnesium 0.87 0.69 - 1.07 mmol/L [facility] Blood 03/25/2024 3:29 AM EDT 03/25/2024 3:53 AM EDT Narrative Resulting Agency Comment Spec In Lab Oscar Hernández MD CHEMISTRY ORDERABLES Performing Organization Address [facility] Co de Phone Number [facility] [place] [address] * (ABNORMAL) Basic Metabolic Panel (non-fasting) (03/25/2024 3:29 AM EDT) Only the most recent of11 resultswithin the time period is included. Glucose Lvl 139 65 - 199 mg/dL [facility] Comment:Diabetes: >=200 mg/d L plus symptoms BUN 45(H) 10 - 20 mg/dL [facility] Creatinine 1.67(H) 0.80 - 1.50 mg/dL [facility] Sodium 133(L) 135 - 145 mmol/L [facility] Potassium 4.4 3.5 - 5.0 mmol/L [facility] Comment: Please note: ??Patients with WBC >100,000 may have falsely elevated Potassium levels. ??For accurate Potassium quantification in these patients send serum separator tube (gold top) for subsequent determinations. ??Contact the Clinical Chemistry Laboratory if there are any questions. Chloride 99 98 - 107 mmol/L [facility] CO2 26 22 - 31 mmol/L [facility] Anion Gap 8 5 - 15 mmol/L [facility] Calcium 9.1 8.5 - 10.5 mg/dL [facility] Estimated GFR 41(L) >=60 mL/min/1. 73 m?? [facility] Comment: This patient's estimated GFR was calculated using the 2020 CKD-EPI equation. The estimated GFR can vary from the measured GFR by up to 30% in the absence of rapidly changing kidney function. Assessment of the estimated GFR is not appropriate when creatinine concentrations are rapidly changing. For clinical situations in which a more precise estimate of GFR is necessary, consider alternative methods of GFR estimation such as a 24-hour urine creatinine clearance. Assignment of CKD stage 1-5 for patients with an eGFR near the transition point between stages may be based on clinical assessment of muscle mass and symptoms in addition to eGFR. Blood 03/25/2024 3:29 AM EDT 03/25/2024 3:53 AM EDT Narrative Resulting Agency Comment Spec In Lab Oscar Hernández MD CHEMISTRY ORDERABLES [facility] [place] [phone] * CT Chest wo Contrast (Generic) (03/24/2024 12:05 PM EDT) Pathologist Bucky Box WORKSTATION ID [id number] DH RAD Anatomical Region Laterality Modality Chest Computed Tomogra phy Impressions 03/24/2024 5:19 PM EDT 1. ??Near-total resolution of multifocal areas of groundglass and nodular consolidation in both lungs 2. ??Diffuse centrilobular nodules. The differential is broad and includes infection, inhalational lung disease and vascular etiologies. The appearance is atypical for sarcoidosis. 3. ??Centrilobular and paraseptal emphysema 4. ??Mild mediastinal lymphadenopathy Thank you for letting us participate in the care of this patient. ??If you are a health care provider and have any questions regarding this report, please contact the number below. ??For patients who have questions please contact the health janitor caretaker that requested your imaging first. ? Narrative 03/24/2024 5:19 PM EDT EXAMINATION: CT CHEST WO CONTRAST (GENERIC) CLINICAL HISTORY: Evaluation for underlying intrstitial lung disease per pulmonology team rec TECHNIQUE: Helical CT of the chest without intravenous contrast administration. Thin-section reconstructions as well as coronal and sagittal reformatted images were generated. Prone and expiratory images were also acquired COMPARISON: 03/17/2024 FINDINGS: Pulmonary parenchyma: There is centrilobular and paraseptal emphysema. Marked improvement of multifocal groundglass densities and areas of nodular consolidation. There is linear scarring/atelectasis in the lower lungs Airways: No central endobronchial abnormality. Pleura: No effusion. Lymph nodes: Mild mediastinal lymphadenopathy including 1.4 cm subcarinal and 1.3 cm lower left paratracheal. Heart and vasculature: The heart is enlarged. No pericardial effusion. There are three-vessel coronary artery calcifications. Mild aortic valve calcification. The mid ascending aorta measures 3.9 cm. Upper abdomen: There is a Bochdalek hernia on the left containing fat only. Postsurgical changes in the right hepatic lobe. Skeletal structures: There is diffuse qualitative osteopenia. Several old left rib fractures with bridging Procedure Note Fitz Harper MD - 03/24/2024 EXAMINATION: CT CHEST WO CONTRAST (GENERIC) CLINICAL HISTORY: Evaluation for underlying intrstitial lung disease per pulmonology team rec TECHNIQUE: Helical CT of the chest without intravenous contrastadministration. Thin-section reconstructions as well as coronal and sagittal reformattedimages were generated. Prone and expiratory images were also acquired COMPARISON: 03/17/2024 FINDINGS: Pulmonary parenchyma: There is centrilobular and paraseptal emphysema.Marked improvement of multifocal groundglass densities and areas of nodular consolidation. There is linear scarring/atelectasis in the lower lungs Airways: No central endobronchial abnormality. Pleura: No effusion. Lymph nodes: Mild mediastinal lymphadenopathy including 1.4 cm subcarinaland 1.3 cm lower left paratracheal. Heart and vasculature: The heart is enlarged. No pericardial effusion.There are three-vessel coronary artery calcifications. Mild aortic valvecalcification. The mid ascending aorta measures 3.9 cm. Upper abdomen: There is a Bochdalek hernia on the left containing fatonly. Postsurgical changes in the right hepatic lobe. Skeletal structures: There is diffuse qualitative osteopenia. Several oldleft rib fractures with bridging IMPRESSION 1. Near-total resolution of multifocal areas of groundglass and nodular consolidation in both lungs 2. Diffuse centrilobular nodules. The differential is broad andincludes infection, inhalational lung disease and vascular etiologies. Theappearance is atypical for sarcoidosis. 3. Centrilobular and paraseptal emphysema 4. Mild mediastinal lymphadenopathy Thank you for letting us participate in the care of this patient. If youare a health care provider and have any questions regarding this report,please contact the number below. For patients who have questions please contactthe health janitor caretaker that requested your imaging first. Main Campbell MD IMG CT ORDERABLES * XR Chest One View (03/23/2024 9:47 AM EDT) WORKSTATION ID [id number] RAD Anatomical Region Laterality Modality Chest N/A Digital Radiogra phy Impressions 03/23/2024 10:56 AM EDT Stable small right pleural effusion. No pulmonary edema. Lung findings suspected to represent atypical pneumonia or sequela of pneumonia, correlate for history of Covid infection Thank you for letting us participate in the care of this patient. ??If you are a health care provider and have any questions regarding this report, please contact the number below. ??For patients who have questions please contact the health janitor caretaker that requested your imaging first. ? Narrative 03/23/2024 10:56 AM EDT EXAMINATION: XR CHEST ONE VIEW CLINICAL HISTORY: HFpEF, crackles on auscultation despite peripheral euvoleia. XR for volume eval TECHNIQUE: 1 view of the chest COMPARISON: 03/19/2024 FINDINGS: The cardiomediastinal silhouette is stable. No pulmonary edema. Persistent hazy opacities with reticular quality in the mid and lower lungs. Stable small right pleural effusion. 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 Procedure Note Fitz Harper MD - 03/23/2024 EXAMINATION: XR CHEST ONE VIEW CLINICAL HISTORY: HFpEF, crackles on auscultation despite peripheraleuvoleia. XR for volume eval TECHNIQUE: 1 view of the chest COMPARISON: 03/19/2024 FINDINGS: The cardiomediastinal silhouette is stable. No pulmonary edema. Persistenthazy opacities with reticular quality in the mid and lower lungs. Stable smallright pleural effusion. 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 IMPRESSION Stable small right pleural effusion. No pulmonary edema. Lung findings suspected to represent atypical pneumonia or sequela ofpneumonia, correlate for history of Covid infection Thank you for letting us participate in the care of this patient. If youare a health care provider and have any questions regarding this report,please contact the number below. For patients who have questions please contactthe health janitor caretaker that requested your imaging first. Main Campbell MD IMG DX ORDERABLES * Phosphorus (03/22/2024 3:03 PM EDT) Only the most recent of4 resultswithin the time period is included. Phosphorus 3.4 2.5 - 4.5 mg/dL [facility] Blood 03/22/2024 3:03 PM EDT 03/22/2024 3:07 PM EDT Narrative Resulting Agency Comment Spec In Lab Abby Strange MD CHEMISTRY ORDERABL ES Performing Organization Address [facility]/ZIP Co de Phone Number [facility] [place] [address] * Heparin (unfractionated) Level (03/21/2024 1:52 AM EDT) Only the most recent of4 resultswithin the time period is included. Heparin UFH Level 0.32 IU/mL [facility] Comment: Heparin (anti-Xa) levels should be determined in a plasma sample that has been drawn 6 hours after a dose change to approximate steady-state for continuous heparin infusions. Indication specific Heparin (anti-Xa) levels based on order set selection: Acute DVT or PE treatment: 0.3 ? 0.7 IU/mL Thrombosis Prevention (eg. atrial fibrillation, alyssia-procedural bridging, mechanical valves): 0.3 ? 0.7 IU/mL Acute Coronary Syndrome: 0.3 ? 0.7 IU/mL Stroke Indications: 0.3 ? 0.5 IU/mL Ultra-low intensity (select indications in cardiac surgery): 0.1 ? 0.3 IU/mL Blood 03/21/2024 1:52 AM EDT 03/21/2024 2:09 AM EDT Narrative Resulting Agency Comment Spec In Lab Oscar Hernández MD HEMATOLOGY ORDERABLE S Performing Organization Address City/[facility]/ZIP Co de Phone Number [facility] [place] [address] * EKG 12 Lead (03/21/2024 12:55 AM EDT) Only the most recent of2 resultswithin the time period is included. Ventricular rate 54 BPM MUSE SYSTEM Atrial Rate 54 BPM MUSE SYSTEM P-R Interval 190 ms MUSE SYSTEM QRS Duration 98 ms MUSE SYSTEM Q-T Interval 518 ms MUSE SYSTEM QTC Calculated (Bezet) 491 ms MUSE SYSTEM Calculated P Lane 44 degrees MUSE SYSTEM Calculated R Lane 45 degrees MUSE SYSTEM Calculated T Lane -63 degrees MUSE SYSTEM INTERPRETATION Sinus bradycardia T wave abnormality, consider inferior ischemia T wave abnormality, consider anterolateral ischemia Prolonged QT Abnormal ECG When compared with ECG of 18-MAR-2024 22:00, No significant change was found Confirmed by MD Alka, Albaro Soliz ([id number]) on 03/23/2024 4:30:35 PM MUSE SYSTEM 03/21/2024 12:5 5 AM EDT 03/23/2024 4:30 PM EDT Oscar Hernández MD ECG ORDERABLES MUSE SYSTEM * Lower Respiratory Culture Sputum Induced (03/20/2024 10:50 AM EDT) Lower Respiratory Culture Few mixed bacterial morphotypes suggestive of normal upper respiratory shree [facility] Gram Stain Many Neutrophils seen Moderate squamous epithelial cells seen Moderate mixed bacterial morphotypes suggestive of normal upper respiratory shree [facility] Sputum Induced 03/20/2024 10 :50 AM EDT 03/21/2024 11:38 AM EDT Narrative Resulting Agency Comment Spec In Lab Abby [place] MD MICROBIOLOGY - GEN ERAL ORDERABLES [facility] [place] [address] * C. Difficile Screen (03/20/2024 4:55 AM EDT) C Diff Screen Negative Negative [facility] Comment: Ag/Tox Neg C. diff?? Negative Clostridium difficile is not present in the specimen. If patient is having diarrhea suspected to be from an infectious cause, then Soap & Water Contact Precautions are still required. Stool 03/20/2024 4:55 AM EDT 03/20/2024 5:48 AM EDT Narrative Resulting Agency Comment Spec In Lab Oscar Hernández MD MICROBIOLOGY - GENER AL ORDERABLES [facility] [place] [address] * Respiratory Panel PCR (03/19/2024 7:01 PM EDT) Resp Panel Source [facility] Swab [facility] R[facility] Resp Panel PCR Negative Negative [facility] Comment: Respiratory Panels are performed on the [employer] Software, using multiplexed PCR nucleic acid detection. ??Negative results do not preclude respiratory infection and should not be used as the sole basis for diagnosis, treatment or other management decisions. Adenovirus Not Detected Not Detected [facility] Coronavirus HKU1 Not Detected Not Detected [facility] Coronavirus NL63 Not Detected Not Detected [facility] Coronavirus 229E Not Detected Not Detected [facility] Coronavirus OC43 Not Detected Not Detected [facility] SARS-CoV-2 Not Detected Not Detected [facility] Comment: Testing for SARS-CoV-2 (Severe acute respiratory syndrome coronavirus 2) to aid in the diagnosis of COVID-19 is performed using the BioFire Respiratory Panel 2.1 (IPTEGO) as authorized by the FDA issued Emergency Use Authorization (EUA). This panel also tests for multiple other viral and bacterial pathogens. This assay is intended for In-vitro Diagnostic (IVD) use with nasopharyngeal swabs in viral transport media. The assay is performed based on the instructions for use and additional guidance provided by the FDA. Testing is performed in laboratories within the [facility], each of which is certified under the Clinical Laboratory Improvement Amendments of 1988 (CLIA), 42 U.S.C. section 263a, to perform high-complexity tests. Assay performance has been verified according to clinical laboratory regulatory requirements. The test result for SARS-CoV-2 provided above should be interpreted in combination with the clinical observation, patient history and epidemiological information. For testing of asymptomatic individuals, assay performance characteristics and clinical utility have not been evaluated. ??A result of Not Detected indicates that the viral RNA target is not present but does not preclude SARS-CoV-2 infection. False negative results may occur if a specimen is improperly collected, transported or handled; if amplification inhibitors are present; or if inadequate numbers of viral particles are present in the specimen. When a diagnostic test is negative, the possibility of a false negative result should be considered in the context of a patient's recent exposures and the presence of clinical signs and symptoms consistent with COVID-19. A result of Detected suggests a current or recent infection. Positive and negative predictive values for this test are dependent on disease prevalence. A result of Invalid indicates the inability to conclusively determine the presence or absence of SARS-CoV-2 RNA in the sample which can be due to a variety of factors. ??Collection of a new sample for repeat testing is recommended in the case of an invalid result. CDC COVID-19 criteria for testing on human specimens and clinical management guidance information are available at the CDC Coronavirus Disease 2019 (COVID-19) webpage under Information for Healthcare Professionals (https://www.cdc.gov/coronavirus/2019-ncov/hcp/index.html). Additional information about this and other EUA tests can be found in provider and patient fact sheets at the following FDA website: https://www.fda.gov/medical-devices/hmlzhkcmtzi-exdruek-6097-kptpy-32-leczjrglt- use-a aoqcnmuaxfpzr-mqyewcr-kltrgih/emwxy-swjsgvodesm-jemk Human Metapneumovirus Not Detected Not Detected [facility] Human Rhino/Enterovirus Not Detected Not Detected [facility] Influenza A Not Detected Not Detected [facility] Influenza B Not Detected Not Detected [facility] Parainfluenza 1 Not Detected Not Detected [facility] Parainfluenza 2 Not Detected Not Detected [facility] Parainfluenza 3 Not Detected Not Detected [facility] Parainfluenza 4 Not Detected Not Detected [facility] Respiratory Syncytial Virus Not Detected Not Detected [facility] Chlamydophila pneumoniae Not Detected Not Detected [facility] Mycoplasma pneumoniae Not Detected Not Detected [facility] Nasopharyngeal Swab 03/19/20 7:01 PM EDT 03/19/2024 8:31 PM EDT Narrative Resulting Agency Comment Spec In Lab Abby [place] MD MICROBIOLOGY - GEN ERAL ORDERABLES [facility] [place] [address] * XR Chest PA & Lateral (Generic) (03/19/2024 2:45 PM EDT) WORKSTATION ID [id number] RAD Anatomical Region Laterality Modality Chest N/A Digital Radiogra phy Impressions 03/19/2024 4:58 PM EDT Stable small right pleural effusion. No pulmonary edema. Lung findings suspected to represent atypical pneumonia or sequela of pneumonia, correlate for history of Covid infection Thank you for letting us participate in the care of this patient. ??If you are a health care provider and have any questions regarding this report, please contact the number below. ??For patients who have questions please contact the health janitor caretaker that requested your imaging first. ? Narrative 03/19/2024 4:58 PM EDT EXAMINATION: XR CHEST PA AND LATERAL (GENERIC) CLINICAL HISTORY: assess for worsening volume overload TECHNIQUE: PA and lateral views of the chest COMPARISON: Chest radiograph 03/17/2024, chest CT 03/17/2024 FINDINGS: The cardiomediastinal silhouette is stable. No pulmonary edema. Persistent hazy opacities with reticular quality in the mid and lower lungs. Stable small right pleural effusion. 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 Procedure Note Fitz [place] MD - 03/19/2024 EXAMINATION: XR CHEST PA AND LATERAL (GENERIC) CLINICAL HISTORY: assess for worsening volume overload TECHNIQUE: PA and lateral views of the chest COMPARISON: Chest radiograph 03/17/2024, chest CT 03/17/2024 FINDINGS: The cardiomediastinal silhouette is stable. No pulmonary edema. Persistenthazy opacities with reticular quality in the mid and lower lungs. Stable smallright pleural effusion. 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 IMPRESSION Stable small right pleural effusion. No pulmonary edema. Lung findings suspected to represent atypical pneumonia or sequela ofpneumonia, correlate for history of Covid infection Thank you for letting us participate in the care of this patient. If youare a health care provider and have any questions regarding this report,please contact the number below. For patients who have questions please contactthe health janitor caretaker that requested your imaging first. Abby Strange MD IMG DX ORDERABLES * (ABNORMAL) Troponin (03/19/2024 2:16 PM EDT) Only the most recent of3 resultswithin the time period is included. Troponin-T HS 38(H) <=22 ng/L [facility] Comment: This patient's troponin T concentration was determined using the Sue 5th Generation troponin T assay. The 99th percentile for Troponin T for this test is 14 ng/L for females, and 22 ng/L for males. According to the fourth universal definition of myocardial infarction, the term acute myocardial infarction should be used when there is acute myocardial injury with clinical evidence of acute myocardial ischemia and with detection of a rise and/or fall of cardiac troponin values with at least one value above the 99th percentile and at least one of the following: - Symptoms of myocardial ischemia; - New ischemic ECG changes; - Development of pathological Q waves; - Imaging evidence of new loss of viable myocardium or new regional wall motion abnormality in a pattern consistent with an ischemic etiology; - Identification of a coronary thrombus by angiography or autopsy (not for type 2 or 3 MIs) Serial measurement of troponin and the change in troponin concentration over time (delta) is crucial for the diagnosis of acute myocardial infarction. Guidance on the interpretation of the new 5th Generation Troponin T values and the delta troponin value can be found in the [facility] Test Catalog Troponin - [facility] Test Catalog Reference: Fourth [place] Definition of Myocardial Infarction. Journal of the [place] [employer] 2018;72:7677-4105 Blood Venous Draw / Unknown 03/19/2024 2:16 PM EDT 03/19/2024 3:08 PM EDT Narrative Resulting Agency Comment Spec In Lab Abby Strange MD CHEMISTRY ORDERABL ES [facility] [address] [id number] * ECHO COMPLETE (03/19/2024 7:31 AM EDT) EF 70 HEARTLAB SYSTEM Anatomical Region Laterality Modality Cardiac Other 03/19/2024 6:41 AM EDT Narrative 03/19/2024 10:54 AM EDT [address] [place] [address] ? Echocardiogram Report Name: SIOMARA MAN ?Study Date: 03/19/2024 06:41 AMBP: 108/64 mmHg ? Patient Location: [facility] 0364 A : 1945 ? Height: 175 cm ? Account: [id number] Age: 78 yrs ? Weight: 80 kg Gender: Male ?BSA: 2.0 m2 Ordering Physician: OSCAR HERNÁNDEZ Referring Physician: MIKEY MCKEON Performed By: Avila Cardenas RDCS Interpreting Fellow: [facility]. Exam Location: [facility]. Interpretation Summary -Left ventricle is of normal chamber size and systolic function (EF 65-70%). There is mild thickening of the basal septum The basal inferoseptal and basal to mid inferior wall segments appear hypokinetic. -Right ventricle is mildly to moderately dilated, with mildly reduced systolic function. Pulmonary artery hypertension could not be assessed due to inadequate tricuspid regurgitation jet. -There is no hemodynamically significant valve dysfunction observed. There is aortic valve sclerosis without stenosis. -See report for additional findings. There is no prior echo for comparison. Procedure Complete-[id number]. Satisfactory quality. Left Ventricle Left ventricle is of normal size. Mildly increased thickness of the basal septum with no obstruction to LV outflow. Left ventricular systolic function is normal. Left ventricular ejection fraction is estimated visually at 65-70%. There are segmental wall motion abnormalities. Right Ventricle The right ventricle is not well visualized. Right ventricular systolic function is mildly decreased. Left Atrium The left atrium is normal. Right Atrium The right atrium is not well visualized. The right atrium is probably normal in size. Aortic Valve The aortic valve is tricuspid. There is calcification of the aortic annulus. The aortic valve is mildly thickened. There is aortic valve sclerosis without stenosis. There is no aortic regurgitation. Mitral Valve There is mitral annular calcification. There is no mitral stenosis. There is mild mitral regurgitation. The color Doppler jet is laterally directed. Tricuspid Valve The tricuspid valve is not well visualized. There is no tricuspid stenosis. There is trace tricuspid regurgitation. Pulmonic Valve The pulmonic valve appears to be structurally normal. There is no valvular pulmonic stenosis. There is trace pulmonic valve regurgitation. Great Arteries The aortic root is dilated. Venous Inferior vena cava is normal in size. Inferior vena cava collapse greater than 50% with respiration. Pericardium/Pleural There is no pericardial effusion. Hemodynamics Pulmonary artery hypertension could not be assessed due to inadequate tricuspid regurgitation jet. The estimated right atrial pressure is 3mmHg. Left ventricular diastolic function is abnormal. There is Grade I LV diastolic dysfunction (abnormal relaxation with normal left ventricular filling pressure). Ejection Fraction ?2D Measurements ? Volumes EF(MOD-bp): 72.3 % ?IVSd: 1.2 cm ? LAV(MOD- bp) Indexed: ?LVIDd: 4.8 cm ?LVIDs: 3.2 cm ?26.3 ml/m2 ?LVPWd: 0.97 cm ? RA A4Cs_phl: 15.7 cm2 ? EDV(MOD-bp) Indexed: ?RWT: 0.41 {ratio} ?LV mass(C)d: 190.0 grams ? 45.5 ml/m2 ?LV mass(C)dI: 97.1 grams/m2 ?ESV(MOD- bp) Indexed: ?Ao root diam: 3.8 cm ? 12.6 ml/m2 ?Ao root diam index: 2.0 ?SV(LVOT): 83.3 ml ?asc Aorta Diam: 3.1 cm ?LVOT diam: 2.1 cm ?SI(LVOT): 42.6 ml/m2 Doppler LV V1 VTI: 23.1 cm Ao V2 VTI: 40.2 cm Ao Max: 191.9 cm/sec Ao valve max: 14.7 mmHg Ao valve mean: 6.9 mmHg MV E max david: 61.3 cm/sec MV A max david: 74.9 cm/sec MV E/A: 0.82 Lat Peak E' David: 6.4 cm/sec E/e' (lat): 9.6 Med Peak E' David: 7.2 cm/sec E/e' (med): 8.5 E/e' Average: 9.0 RADHA(I,D): 2.1 cm2 Dimensionless index Aov: 0.57 TR max david: 161.2 cm/sec I ?WMSI = 1.19 ? % Normal = 81 ?Segments ??Size X - Cannot ?2 - ?4 - ?1-2 ? small Interpret ?1 - Normal ?? Hypokinetic 3 - Akinetic Dyskinetic ?? 3-5 ? moderate 5 - ? 6-14 ?large Aneurysmal ?15-16 ?? diffuse Procedure Note Romario Bob MD - 03/19/2024 [address] [id number] Echocardiogram Report Name: SIOMARA MAN Study Date: 406:41 AMBP: 108/64 mmHg Patient Location: [address] : 1945 Height: 175 cm Account: [id number] Age: 78 yrs Weight: 80 kg Gender: Male BSA: 2.0 m2 Ordering Physician: OSCAR HERNÁNDEZ Referring Physician: MIKEY MCKEON Performed By: Aivla Cardenas SOUMYA Interpreting Fellow: [facility]. Exam Location: [facility]. Interpretation Summary -Left ventricle is of normal chamber size and systolic function (EF65-70%). There is mild thickening of the basal septum The basal inferoseptal and basal tomid inferior wall segments appear hypokinetic. -Right ventricle is mildly to moderately dilated, with mildly reducedsystolic function. Pulmonary artery hypertension could not be assessed due toinadequate tricuspid regurgitation jet. -There is no hemodynamically significant valve dysfunction observed. Thereis aortic valve sclerosis without stenosis. -See report for additional findings. There is no prior echo forcomparison. Procedure Complete-[id number]. Satisfactory quality. Left Ventricle Left ventricle is of normal size. Mildly increased thickness of the basalseptum with no obstruction to LV outflow. Left ventricular systolic function isnormal. Left ventricular ejection fraction is estimated visually at 65-70%. Thereare segmental wall motion abnormalities. Right Ventricle The right ventricle is not well visualized. Right ventricular systolicfunction is mildly decreased. Left Atrium The left atrium is normal. Right Atrium The right atrium is not well visualized. The right atrium is probablynormal in size. Aortic Valve The aortic valve is tricuspid. There is calcification of the aorticannulus. The aortic valve is mildly thickened. There is aortic valve sclerosiswithout stenosis. There is no aortic regurgitation. Mitral Valve There is mitral annular calcification. There is no mitral stenosis. Thereis mild mitral regurgitation. The color Doppler jet is laterally directed. Tricuspid Valve The tricuspid valve is not well visualized. There is no tricuspidstenosis. There is trace tricuspid regurgitation. Pulmonic Valve The pulmonic valve appears to be structurally normal. There is novalvular pulmonic stenosis. There is trace pulmonic valve regurgitation. Great Arteries The aortic root is dilated. Venous Inferior vena cava is normal in size. Inferior vena cava collapse greaterthan 50% with respiration. Pericardium/Pleural There is no pericardial effusion. Hemodynamics Pulmonary artery hypertension could not be assessed due to inadequatetricuspid regurgitation jet. The estimated right atrial pressure is 3mmHg. Leftventricular diastolic function is abnormal. There is Grade I LV diastolicdysfunction (abnormal relaxation with normal left ventricular filling pressure). Ejection Fraction 2D Measurements Volumes EF(MOD-bp): 72.3 % IVSd: 1.2 cm LAV(MOD-bp)Indexed: LVIDd: 4.8 cm LVIDs: 3.2 cm 26.3 ml/m2 LVPWd: 0.97 cm RA A4Cs_phl: 15.7cm2 EDV(MOD-bp)Indexed: RWT: 0.41 {ratio} LV mass(C)d: 190.0 grams 45.5 ml/m2 LV mass(C)dI: 97.1 grams/m2 ESV(MOD-bp)Indexed: Ao root diam: 3.8 cm 12.6 ml/m2 Ao root diam index: 2.0 SV(LVOT): 83.3ml asc Aorta Diam: 3.1 cm LVOT diam: 2.1 cm SI(LVOT): 42.6ml/m2 Doppler LV V1 VTI: 23.1 cm Ao V2 VTI: 40.2 cm Ao Max: 191.9 cm/sec Ao valve max: 14.7 mmHg Ao valve mean: 6.9 mmHg MV E max david: 61.3 cm/sec MV A max david: 74.9 cm/sec MV E/A: 0.82 Lat Peak E' David: 6.4 cm/sec E/e' (lat): 9.6 Med Peak E' David: 7.2 cm/sec E/e' (med): 8.5 E/e' Average: 9.0 RADHA(I,D): 2.1 cm2 Dimensionless index Aov: 0.57 TR max david: 161.2 cm/sec I WMSI = 1.19 % Normal = 81 SegmentsSize X - Cannot 2 - 4 - 1-2small Interpret 1 - Normal Hypokinetic 3 - Akinetic Dyskinetic 3-5moderate 5 - 6-14large Aneurysmal 15-16diffuse Oscar Hernández MD ECHO ORDERABLES * LDL Cholesterol, Direct (03/19/2024 4:59 AM EDT) LDL Chol Direct 48 mg/dL [facility] Comment: Desirable: ? <100 mg/dL Above Desirable: 100-129 mg/dL Borderline High: 130-159 mg/dL High: ?160-189 mg/dL Very High: ? >sf=600 mg/dL If not reaching LDL goals on maximally tolerated statin, consider exetimibe and/or a PCSK9 inhibitor: ?? Target for primary prevention: LDL<100 ?? Target for those with ASCVD or diabetes and 19-year risk >or=20%: LDL<70 ?? Target for those with very high risk ASCVD: LDL<55 (Very high risk being the presence of 2 or more of: recent acute coronary syndrome, past myocardial infarction, ischemic stroke, symptomatic perpheral artery disease). Blood 03/19/2024 4:59 AM EDT 03/19/2024 5:08 AM EDT Narrative Resulting Agency Comment Spec In Lab Oscar Hernández MD CHEMISTRY ORDERABLES [facility] [place] [address] * (ABNORMAL) Hemoglobin A1c (03/19/2024 4:59 AM EDT) Pathologist [facility] Hemoglobin A1C 7.4(H) 4.3 - 5.6 % [facility] Comment: Reference Range: 4.3 - 5.6% 5.7 - 6.4% - Increased Risk of Developing Diabetes Mellitus >= 6.5% - Consistent with diagnosis of Diabetes Mellitus In the absence of hyperglycemia (i.e. plasma glucose > 200 mg/dL) or classic symptoms of hyperglycemia a repeat measurement of HbA1c should be performed on a separate sample to confirm the diagnosis. Diagnosis and Classification of Diabetes Mellitus, Diabetes Care 2013; 36: Suppl. 1, D07-34 Est Avg Gluc See note mg/dL [facility] Comment: Estimated Average Glucose not appropriate for patients over 70 years of age. Blood 03/19/2024 4:59 AM EDT 03/19/2024 5:08 AM EDT Narrative Resulting Agency Comment Spec In Lab Oscar Hernández MD CHEMISTRY ORDERABLES [facility] [place] [address] * Lipid Panel (Reflex Direct LDL) (03/19/2024 4:59 AM EDT) Chol, Total 89 mg/dL [facility] Comment: Desirable: ? <200 mg/dL Borderline High: 200-239 mg/dL Higher: ?>bi=978 mg/dL Triglycerides 108 mg/dL [facility] Comment: Normal: ?<150 mg/dL Borderline High: 150-199 mg/dL High: ?200-499 mg/dL Very High: ? >tq=946 mg/dL HDL 27 mg/dL [facility] Comment: Females: High Risk: <50 mg/dL Males: High Risk: <40 mg/dL LDL Cholesterol 40 mg/dL [facility] Comment: Desirable: ? <100 mg/dL Above Desirable: 100-129 mg/dL Borderline High: 130-159 mg/dL High: ?160-189 mg/dL Very High: ? >gn=065 mg/dL Lipid Interpretation See Note [facility] Comment: It is important to review the results of your lipid panel with your health care provider. You can compare your lipid results to the ranges below and whether they are in the desirable range. These ranges are only meant to be used for people without known cardiac disease, history of stroke, or peripheral vascular disease (blockages in the leg arteries or diabetes). If ??you have one of these conditions, your desirable LDL-C (bad cholesterol) will likely be even lower. ACC/AHA Guidelines (most recently Jorje et al. [facility] 06/12/22): For individuals with atherosclerotic cardiovascular disease (ASCVD)or LDL >qh=548 mg/dL, use a high-intensity statin (40-80 mg atorvastatin or 20-40 mg rosuvastatin with goal >or=50% LDL reduction) For individuals with diabetes, age 40-75 without ASCVD, moderate-intensity statin (goal 30-49% LDL reduction); consider high intensity statin for those with increased risk. For adults without diabetes or ASCVD, aged 40-75 with LDL 70-189 mg/dL, estimate 10 year ASCVD risk with smartphrase .ASCVDRISK or Dynamed Decisions. If 10 year risk is 7.5%-19.9% (intermediate risk), consider moderate intensity statin based on risk enhancers and patient preference. Consider coronary artery calcium test (CT) if there is concern regarding the benefit of a statin. If ten year risk is >or=20%, initiate high-intensity statin. Evaluate for secondary causes of triglycerides >500 mg/dL or LDL >190 mg/dL. Lifestyle modification is a critical component of ASCVD risk reduction. If not reaching LDL goals on maximally tolerated statin, consider ezetimibe and/or a PCSK9 inhibitor: Target for primary prevention: LDL<100 Target for those with ASCVD or diabetes and 10-year risk >or=20%: LDL<70 Target for those with very high risk ASCVD: LDL<55 (Very high risk being the presence of 2 or more of: recent acute coronary syndrome, past myocardial infarction, ischemic stroke, symptomatic peripheral artery disease) Blood 03/19/2024 4:59 AM EDT 03/19/2024 5:08 AM EDT Narrative Resulting Agency Comment Spec In Lab Oscar Hernández MD CHEMISTRY ORDERABLES [facility] [place] [address] * (ABNORMAL) APTT (03/18/2024 9:50 PM EDT) PTT 139(Criti nathaly) 25 - 37 sec [facility] Comment: Critical Result called by ?? ALYSSA CRITICAL Results read back by: ? Nikhil [facility] at 2024-03-18 22:39:33 The PTT is NOT appropriate for heparin monitoring. Use the Anti-Xa level for heparin monitoring (HEP UFH) or LMWH monitoring (HEP LMW). A PTT less than 37 seconds generally indicates adequate hemostasis. Blood 03/18/2024 9:50 PM EDT 03/18/2024 9:58 PM EDT Narrative Resulting Agency Comment Spec In Lab Oscar Hernández MD HEMATOLOGY ORDERABLE S Performing Organization Address [facility] de Phone Number [facility] [place] [address] * Prothrombin Time (03/18/2024 9:50 PM EDT) PT 12.4 9.4 - 12.5 sec [facility] INR 1.1 [facility] Comment: An INR <2.0 indicates adequate procoagulant activity for hemostasis in most patients without underlying bleeding disorders, though the INR may not adequately reflect hemostatic capacity in patients with liver disease and synthetic impairment. The recommended target INR range for therapeutic anticoagulation is 2.0 ? 3.0 for most applications, though lower and higher ranges may be appropriate depending on clinical circumstances. Blood 03/18/2024 9:50 PM EDT 03/18/2024 9:58 PM EDT Narrative Resulting Agency Comment Spec In Lab Oscar Hernández MD HEMATOLOGY ORDERABLE S Performing Organization Address [facility] de Phone Number [facility] [place] [address] * TSH (03/18/2024 9:50 PM EDT) TSH 2.06 0.27 - 4.20 mcIU/mL [facility] Comment: Reference Interval (mcIU/mL): Females: ??First Trimester: 0.23-3.88 ??Second Trimester: 0.22-3.90 ??Third Trimester: 0.44-4.66 Blood 03/18/2024 9:50 PM EDT 03/18/2024 9:58 PM EDT Narrative Resulting Agency Comment Spec In Lab Oscar Hernández MD CHEMISTRY ORDERABLES Performing Organization Address City/[facility]/ZIP Co de Phone Number [facility] [place] [address] * (ABNORMAL) pro-Brain Natriuretic Peptide (03/18/2024 9:50 PM EDT) Pathologist [facility] ProBNP 1,535(H) <=449 pg/mL [facility] Blood 03/18/2024 9:50 PM EDT 03/18/2024 9:58 PM EDT Narrative Resulting Agency Comment Spec In Lab Oscar Hernández MD CHEMISTRY ORDERABLES Performing Organization Address [facility] Co de Phone Number [facility] [place] [address] * (ABNORMAL) Hepatic Function Panel (03/18/2024 9:50 PM EDT) [facility] Total Protein 5.3(L) 6.1 - 8.0 g/dL [facility] Albumin 2.8(L) 3.2 - 5.2 g/dL [facility] AST 14 0 - 39 unit/L [facility] ALT 7 0 - 55 unit/L [facility] Alk Phos 94 40 - 130 unit/L [facility] Total Bilirubin 0.4 0.2 - 1.3 mg/dL [facility] Bili, Direct 0.1 0.0 - 0.3 mg/dL [facility] Blood 03/18/2024 9:50 PM EDT 03/18/2024 9:58 PM EDT Narrative Resulting Agency Comment Spec In Lab Oscar Hernández MD CHEMISTRY ORDERABLES Performing Organization Address City/[facility]/ZIP Co de Phone Number [facility] [place] [address] * Scan Doc: ECG (03/17/2024 1:34 PM EDT) Historical Provider MD [facility]AMP[facility]DE MGR SCAN EX T ORDR/RSLT * Film Library- Storage Only CT Chest (03/17/2024 11:55 AM EDT) 03/17/2024 3:28 PM EDT Narrative [facility] - 03/17/2024 3:28 PM EDT This exam is auto-finalizing. It's purpose is for storage only. Unknown IMG FILM LIBRARY ORD ERABLES Performing Organization Address [facility] de Phone Number [place], [place] * Film Library- Storage Only DX Chest (03/17/2024 10:45 AM EDT) 03/17/2024 3:28 PM EDT Narrative [facility] - 03/17/2024 3:28 PM EDT This exam is auto-finalizing. It's purpose is for storage only. Unknown IMG FILM LIBRARY ORD ERABLES Performing Organization Address [facility] de Phone Number [place], [place] from Last 3 Months Advance Directives * Attempt Cardiopulmonary Resuscitation - Inpatient (Latest Code Status on File) Date Activated Date Inactivated Comments 03/18/2024 10:51 PM 03/25/2024 4:36 PM Question Answer Comments Code Status decision made by: Patient Content of discussion: Patient wishes to be full code. Care Teams Cath Lab Radiology Technician Relationship Specialty Start Date End Date None None PCP - General 03/18/24
--- OUTSIDE RECORDS SUMMARY | 2024-03-27 17:05 | XMS_ITS | Encounter Summary ---
Author Organization 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 Name Role Phone None Primary Care Provider Unavailabl e Reason for Referral * Consultation (Routine) - Authorized Specialty Diagnoses / Procedures Referred By Adam hawkins Referred To Contact Pulmonology Diagnoses Chronic hypoxic respiratory failure Main Campbell MD [facility] [address] [place] [address] [facility] Pulmonology [address] [place] [phone] Referral ID Status Reason Start Date Expiration Date Visits Requested Visits Authorized [id number] Authorized Consult, Test & Treat 03/25/2024 03/25/2025 1 1 Reason for Visit * Auth/Cert (Routine) Specialty Diagnoses / Procedures Referred By Adam t Referred To Contact Diagnoses NSTEMI (non-ST elevated myocardial infarction) NSTEMI Oscar Hernández MD [facility] [place] [address] [address] [facility] Referral ID Status Reason Start Date Expiration Date Visits Re quested Visits Authorized [id number] 1 1 Encounter Details Date Type Department Care Team (Latest Contact Info) Description 03/18/2024 8:48 PM EDT - 03/25/2024 2:31 PM EDT Hospital Encounter Heart and Vascular Unit Level 3 [place] [address] Josefina Cameron MD [facility] [place] [address] [place] [address] Abby Strange MD [facility] [place] [address] Main Campbell MD [facility] [place] [address] Oscar Hernández MD [facility] [place] [address] Non-ST elevation myocardial infarction (NSTEMI); Acute respiratory failure with hypoxia; Chronic hypoxic respiratory failure Discharge Disposition: Home Social History Tobacco Use Types Packs/Day Years Used Date Smoking Tobacco: Former Pipe Passive Smoke Exposure: Never Smokeless Tobacco: Former Tobacco Cessation:Counseling Given: No Alcohol Use Standard Drinks/Week Comments Yes 1 (1 standard drink = 0.6 oz pur e alcohol) [facility] Utilities Answer Date Recorded In the past 12 months has th e [employer], gas, oil, or water [employer] threatened to shut off services in your [...] any time in the past 12 [address] [place], were you homeless or living in a usp (including now)? No 03/19/2024 DH IPV Inpatient Questions Answer Date Recorded Does [...] on file documented as of this encounter Last Filed Vital Signs Vital Sign Reading [...] Mass Index 24.68 03/18/2024 8:57 PM EDT documented in this encounter Discharge Summaries * Main Campbell MD - 03/25/2024 2:31 PM EDT Images from the original note were not included. Discharge Summary Patient Name: Siomara Man Patient Age: 78 y.o. Language: [place] Race: White Ethnicity: Not nor Admit date: 03/18/2024 Discharge date and time: 03/25/24 Attending Physician: Main Campbell MD Discharge Physician: Main Campbell MD Follow-up Recommendations for Providers: #Acute Heart Failure with Preserved EF #Hypoxic Respiratory Failure, presumed Chronic #Lung disease, undifferentiated #Pre-renal LISA, stable -PCP follow-up scheduled for 03/27/24 with plans for lab work to trend LISA off diuretics -Please attain BMP, magnesium level at follow-up PCP appointment for LISA trend -Lasix 20mg PRN for acute weight gain, patient educated on criteria (2lb weight gain overnight, 5lbover one week) -Discharged with new home oxygen (1L requirement) -Cardiology follow-up scheduled at [facility] for 05/18/2024 -[facility] pulmonology clinic referral placed #NSTEMI, Type II #Chronic CAD s/p PCI (~20 yrs ago) - Continue Aspirin 81mg daily - Continue home atorvastatin 40mg and zetia 10mg daily - Toprol XL reduced to 50mg daily - Consider stress testing outpatient given wall motion abnormalities on TTE -Cardiology follow-up as above #HTN -Amlodipine/lisinopril discontinued given normotension, LISA Inpatient Provider Contact Information: MD Main Navarro MD For questions regarding this document or issues relating to this hospitalization on the Medical Service, please contact your inpatient physician through the [facility] Early Childhood Associate Teacher . Issues afterhours and on weekends will be handled by the Hospitalist staff on-call. Discharge Diagnoses (Hospital Problems) and Secondary Diagnoses (Chronic Problems): Active Hospital Problems Diagnosis NSTEMI (non-ST elevated myocardial infarction) Hypertension Resolved Hospital Problems No resolved problems to display. There are no active non-hospital problems to display for this patient. History of Presentation: Per original H&P by Dr. Oscar Hernández: Siomara Man is an 78 y.o. male with hx of HTN, HLD, T2DM, CAD s/p PCI more than 20 years ago who presents from [facility] with complains of 2 weeks of worsening fatigue, SOB and cough. The patient presented with 2 to 3 weeks of worsening shortness of breath, associated with cough which he attributed to allergies and old age. His shortness of breath progressively worsened to the point that he started having some episodes of dizziness and lightheadedness but never lost consciousness. He denied any chest pain or jaw pain. No nausea vomiting or diaphoresis. The patient reports thathe has had PCI and stents x2 in the past about 20 years ago. He does not recall the details of the event but he does not recall having chest pain during that encounter. He reported that he has had a repeat cath procedure and they told him his stents were closed but his blood has created alternative routes so they did not intervene. Family hx: father had an TX in his 60s Social hx: lives with . He is very independent. Does not use a cane or a walker. Has a flight of stairs at home and goes up. Recently experiencing limitations due to shortness of breath. Smoked pipe. Cigaretes very remote history. Drinks about a beer each night. No other illicit substances. At OSH Vitals: hypoxic to 70s on RA. Required 5LNC and down to 3-4L NC. Other Vitals stable. EKG: SR, TWI inferior leads as well as V3-4 Trop (ULN 72) 114,102 BNP 4600, Cr 1.37, WBC 7.5 Chest x-ray showed diffuse septal thickening suggestive of interstitial lung disease and superimposed consolidation of the left lower lobe concerning for infection as well as small bilateral pleural effusions. CTA chest negative for PE, diffuse interstitial thickening and groundglass opacities concerning forchronic lung disease with superimposed atypical infection. POCUS: no pericardial effusion, global function appears intact, possible apical ballooning OSH Interventions: IV abx, IV lasix 20 mg x 1, ASA 324 mg, IV heparin, IV ceftriaxone 1 g and IV azithromycin 500 mg. Patient transferred to [facility] for further evaluation of possible NSTEMI and CAP Hospital Course: Following admission TTE was performed showing preserved LVEF with wall motion abnormalities. He received 48 hours of therapeutic heparin given initial concern for NSTEMI. Ultimately NSTEMI suspected to be type 2 in the setting of heart failure given no clinical symptoms of ACS on ROS. Patient underwent diuresis with IV lasix with symptomatic improvement in shortness of breath and lower extremity edema. Despite subjective improvement, he remained hypoxic requiring supplemental oxygen. Pulmonology was consulted re: concern for underlying ILD. Patient's continued hypoxia was suspected to be due to remaining hypervolemia (crackles present on auscultation) despite appearing peripherally euvolemic following IV diuresis. Further diuresis was pursued with subsequent LISA development (Cr to ~1.6). He was monitored on diuretic holiday with stability of his LISA and weight. CT chest was performed and showed nonspecific centrilobular nodules, centrilobular/paraseptal emphysema and resolution of edema. The patient expressed significant desire for discharge despite known LISA. He was ultimately discharged with plans for expedited PCP follow-up (03/27/2024) for blood work to trend his renal function. On day of discharge he was clinically well appearing, ambulating without symptomology while on 1L NC. Vital Signs at Discharge: BP: 112/66, Heart Rate: 61, Temp: 36.4 ??C (97.5 ??F), Resp: 17, BMI (Calculated): 26.11 Height: 175.3 cm (5' 9) (03/18/242056) Weight: 75.8 kg (167 lb 1.6 oz) (03/25/24 0638) Functional and Cognitive Status: Good, baseline Important Studies and Lab Data: Labs: Last wbc, hgb, hct plt Recent Labs 03/25/24 032 WBC 7.5 HGB 13.0* HCT 41.6 Last 3 Lytes Recent Labs 03/25/24 0329 03/24/24 0323 03/23/24 032 NA 133* 135 135 K 4.4 4.6 4.5 CL 99 97* 97* CO2 26 26 27 BUN 45* 40* 28* CREATININE 1.67* 1.66* 1.44 Last 3 ProBNP, Trop, CK No results for input(s): CK, TROPONINT, PROBNP in the last 168 hours. Last 3 Lipids Recent Labs 03/19/24 0459 CHLPL 89 HDL 27 LDLCHOL 40 LDLDIRECT 48 TRIG 108 Last 3 HgbA1C Recent Labs 03/19/24 0459 HA1C 7.4* Studies: TTE 03/19/2024: Interpretation Summary -Left ventricle is of normal [...] is no prior echo for comparison. Procedure Complete-99559. Satisfactory quality. Left Ventricle Left ventricle is [...] Volumes EF(MOD-bp): 72.3 % IVSd: 1.2 cm LAV(MOD-bp) Indexed: LVIDd: 4.8 cm LVIDs: 3.2 cm 26.3 ml/m2 LVPWd: 0.97 cm RA A4Cs_phl: 15.7 cm2 EDV(MOD-bp) Indexed: RWT: 0.41 LV mass(C)d: 190.0 grams 45.5 ml/m2 LV mass(C)dI: 97.1 grams/m2 ESV(MOD-bp) Indexed: Ao root diam: 3.8 cm 12.6 ml/m2 Ao root diam index: 2.0 SV(LVOT): 83.3 ml asc Aorta Diam: 3.1 cm LVOT diam: 2.1 cm SI(LVOT): 42.6 ml/m2 Doppler LV V1 VTI: 23.1 [...] Aov: 0.57 TR max david: 161.2 cm/sec Pending Studies and Lab Data: BMP, magnesium per PCP Discharge Conditions/Prognosis: fair Discharge to: home Updated Allergies/ADRs: No Known Allergies Immunizations Given this Hospitalization: Immunization History Administered Date(s) Administered Covid-19 (Pfizer), Davis Cap Bivalent 30mcg (12Yrs+) 08/06/2022 Moderna Covid-19 Monovalent 12Yr+ (Receptionist Secretary 100mcg) 03/02/2022 Discharge Medications: Your Medications Some of the medications listed here do not show instructions, such as how often to take the medication. Ask your doctor or nurse how to use these medications. Specifically ask about these and similar medications: CIS Free Text Med - ASA CIS Free Text Med - Carpenter 3 New Medications Dose Details furosemide 20 mg tablet Commonly known as: Lasix Take 1 tablet by mouth daily as needed. 20 mg Quantity: 30 tablet Refills: 1 Continued medications with new dosing Dose Details metoprolol succinate XL 50 mg ER 24 hr tablet Commonly known as: Toprol-XL Take 1 tablet by mouth daily. What changed: medication strength See the new instructions. 50 mg Quantity: 90 tablet Refills: 3 Continued medications, unchanged Dose Details Avandia 4 mg tablet Generic drug: rosiglitazone Refills: 0 * CIS FREE TEXT MED Refills: 0 * CIS FREE TEXT MED Refills: 0 CORAL CALCIUM ORAL Refills: 0 Lipitor 40 mg tablet Generic drug: atorvastatin Refills: 0 metFORMIN 1,000 mg ER 24 hr tablet Commonly known as: Fortamet Take 1,000 mg by mouth 2 times daily (with meals). 1,000 mg Refills: 0 multivitamin Tablet Commonly known as: THERAGRAN Refills: 0 tamsulosin 0.4 mg capsule Commonly known as: Flomax Take 0.8 mg by mouth nightly. 0.8 mg Refills: 0 Vitamin E 400 unit Tablet Refills: 0 Zetia 10 mg tablet Generic drug: ezetimibe Refills: 0 * This list has 2 medication(s) that are the same as other medications prescribed for you. Read thedirections carefully, and ask your doctor or other care provider to review them with you. STOPPED Medications Norvasc 5 mg tablet Generic drug: amLODIPine ZestriL 10 mg tablet Generic drug: lisinopriL Smoking Status at Discharge: Social History Tobacco Use Smoking Status Former Types: Pipe Passive exposure: Never Smokeless Tobacco Former Instructions Given to Patient at Discharge: Patient Instructions Patient Instructions on Discharge to Home Why you were hospitalized - You came to the hospital due to progressive shortness of breath. In the hospital you were found to have fluid in your lungs and were requiring supplemental oxygen. Medication was given to help removeextra fluid from your body. Imaging of your lungs suggests possible underlying lung disease. The lung doctors were consulted and ultimately you are being discharged with plans for lung doctor (pulmonology) referral outpatient. You are being discharged with home oxygen, please wear this at all times(including when resting and sleeping). Please measure your weight every day and write it in a log, if you notice a 2lb weight gain overnight or 5lb weight gain within one week please take Lasix 40mg once and call your doctor. If you develop difficulty breathing, chest pain, loss of consciousness or other concerning symptoms please call 911 and present to the nearest emergency department. Medication Changes: Reduce the dose of your metoprolol succinate (toprol-XL) to 50mg once daily STOP taking Amlodipine STOP taking Lisinopril You are being prescribed Lasix 40mg tablets, to be taken NEEDED per instructions above. Follow up Appointments: PCP: Appointment scheduled with Primary care clinic on 03/27/2024 at 2:00 PM Cardiology: Appointment scheduled for 05/18/2024 at 2:00 PM at [facility] cardiology clinic Your Inpatient Medical Team at [facility] Name(s) of your inpatient provider(s): MD Main Navarro MD For questions regarding issues relating to your hospitalization on the Hospital Medicine Service, please contact your inpatient physician through the [facility] Early Childhood Associate Teacher [phone]. Issues after hours and on weekends will be handled by the Hospitalist staff on-call. General Instructions None Future Appointments and Orders Future Appointments and Orders Future Appointments Provider Department Dept Phone 05/18/2024 2:00 PM Radha Jordan PA Cardiology at [facility] Arrive at: [facility] [address] [phone] Future Orders Complete By Expires Home Oxygen [EQ184 Custom] As directed Process Instructions: Check with vendor to see if additional forms need to be completed. You must submit a copy of the following documents with this Order: 1 - Official results of Pulse Oximetry at Rest and with Exercise that are less than 180 days old 2 - Official results of Nocturnal testing (if performed) 3 - Signed and dated [id number] evaluation documenting the need for Oxygen Scheduling Instructions: Comments: The activity SP O2s were not recorded on this walk test. Please let me know if needed and will havethem obtained Questions: Vendor Name/Contact information: Rate (LPM): 1 Route: Nasal Hours per day of usage: 24 # months service is needed (99= lifetime): 99 Portable needed: Yes SPO2 performed on Room Air?: Yes Resting Date (Room Air): 03/24/2024 Resting SPO2% (Room Air): 84 Exercise Date (Room Air): Exercise SPO2% (Room Air): SPO2 performed with Supplemental Oxygen?: Yes Resting Date (Supplemental Oxygen): 03/24/2024 Resting SPO2% (Supplemental Oxygen): 93 Resting Rate - LPM (Supplemental Oxygen): 1 Exercise Date (Supplemental Oxygen): Exercise SPO2% (Supplemental Oxygen): Exercise Rate - LPM (Supplemental Oxygen): Nocturnal testing performed?: No Oxygen Conserving Device (OCD) needed?: Yes OC Device settin Evaluate, Titrate Oxygen settings, and Setup with appropriate device: Referral to Pulmonology [REF94 Custom] As directed Process Instructions: If no progress note charted, please enter Clinical details in comments. Scheduling Instructions: Comments: Referral per inpatient pulmonology team recommendation. Questions: My question or request is: Chronic hypoxic respiratory failure. Evidence of nonspecific centrilobular nodules, centrilobular/emphysema on CT chest. Referral for further evaluation/management. Discharge References/Attachments Oxygen Therapy ([place] Island[place]) documented in this encounter Discharge Instructions * Patient Instructions* Main Campbell MD - 03/25/2024 1:27 PM EDT Patient Instructions on Discharge to Home Why you were hospitalized - You came to the hospital due to progressive shortness of breath. In the hospital you were found to have fluid in your lungs and were requiring supplemental oxygen. Medication was given to help removeextra fluid from your body. Imaging of your lungs suggests possible underlying lung disease. The lung doctors were consulted and ultimately you are being discharged with plans for lung doctor (pulmonology) referral outpatient. You are being discharged with home oxygen, please wear this at all times(including when resting and sleeping). Please measure your weight every day and write it in a log, if you notice a 2lb weight gain overnight or 5lb weight gain within one week please take Lasix 40mg once and call your doctor. If you develop difficulty breathing, chest pain, loss of consciousness or other concerning symptoms please call 911 and present to the nearest emergency department. Medication Changes: Reduce the dose of your metoprolol succinate (toprol-XL) to 50mg once daily STOP taking Amlodipine STOP taking Lisinopril You are being prescribed Lasix 40mg tablets, to be taken NEEDED per instructions above. Follow up Appointments: PCP: Appointment scheduled with Primary care clinic on 03/27/2024 at 2:00 PM Cardiology: Appointment scheduled for 05/18/2024 at 2:00 PM at [facility] cardiology clinic Your Inpatient Medical Team at [facility] Name(s) of your inpatient provider(s): MD Main Navarro MD For questions regarding issues relating to your hospitalization on the Hospital Medicine Service, please contact your inpatient physician through the [facility] Early Childhood Associate Teacher [phone]. Issues after hours and on weekends will be handled by the Hospitalist staff on-call. * Attachments The following attachments cannot be sent through Care Everywhere. * Oxygen Therapy ([place] Islander) documented in this encounter Medications at Time of Discharge Medication Sig Dispensed Refills Start Date End Date metoprolol succinate XL (Toprol-XL) 50 mg ER 24 hr tablet Take 1 tablet by mouth daily. 90 tablet 3 03/25/2024 furosemide (Lasix) 20 mg tablet Take 1 tablet by mouth daily as needed. 30 tablet 1 03/25/2024 tamsulosin (Flomax) 0.4 mg capsule Take 0.8 mg by mouth nightly. metFORMIN (Fortamet) 1,000 mg ER 24 hr tablet Take 1,000 mg by mouth 2 times daily (with meals). CIS Free Text Med - ASA 06/20/2005 CIS Free Text Med - Carpenter 3 06/20/2005 atorvastatin (LIPITOR) 40 mg tablet 06/20/2005 Vitamin E 400 unit Tab 06/20/2005 rosiglitazone (AVANDIA) 4 mg tablet 06/20/2005 ezetimibe (ZETIA) 10 mg tablet 06/20/2005 CALCIUM CARBONATE (CORAL CALCIUM ORAL) 06/20/2005 multivitamin (THERAGRAN) tablet 06/20/2005 documented as of this encounter Progress Notes * Main Campbell MD - 03/25/2024 7:26 AM EDT CV HOSPITALIST 2 - [facility] DAILY PROGRESS NOTE Page [phone] to reach a provider 01/04 Admit Date: 03/18/2024 Encounter Date March 25, 2024 Anticipated Discharge Date: 03/25/2024 Hospital Day: 7 Active Hospital Problems Diagnosis NSTEMI (non-ST elevated myocardial infarction) Hypertension Resolved Hospital Problems No resolved problems to display. 24 Hour Events/Subjective: - LISA stable following diuretic hold - Weight remains stable despite diuretic holiday yesterday - Home O2 approved by insurance, concentrator delivered to patient -Discharged home today with plans for cardiology, pulmonology referral and PCP follow-up Medications: Scheduled Meds: pantoprazole EC 40 mg Oral Daily metoprolol succinate XL 50 mg Oral Daily enoxaparin 40 mg Subcutaneous Nightly atorvastatin 40 mg Oral QPM ezetimibe 10 mg Oral Daily tamsulosin 0.8 mg Oral Nightly sodium chloride 0.9 % (flush) 5 mL Intravenous BID aspirin EC 81 mg Oral Daily insulin lispro 1-6 Units Subcutaneous TID AC insulin lispro 0-8 Units Subcutaneous TID WC insulin glargine (Lantus;Semglee) (100 unit/mL) subcutaneous injection 10 Units Subcutaneous Daily Continuous Infusions: PRN Meds:.loperamide, [] Sputum induction AND [COMPLETED] sodium chloride AND albuteroL, sodium chloride 0.9 % (flush), lidocaine, nitroGLYcerin, glucose 40% oral geL OR dextrose OR glucagon Objective: Last value Range last 24 hrs Temp: 36.5 ??C (97.7 ??F) Temp: [36.5 ??C (97.7 ??F)-36.7 ??C (98.1 ??F)] Heart Rate: 59 Heart Rate: [59-66] BP: 118/60 BP: (92-118)/(60-76) Resp: 16 Resp: [16-17] SpO2: 93 % SpO2: [92 %-94 %] Height: 175.3 cm (5' 9) Weight: 75.8 kg (167 lb 1.6 oz) BMI (Calculated): 26.11 BMI Classification: Over Weight Admit weight: 80.2 kg Patient Vitals for the past 168 hrs: Weight 03/25/24 0638 75.8 kg (167 lb 1.6 oz) 03/24/24 0608 76.2 kg (168 lb 0.2 oz) 03/24/24 0600 76.2 kg (168 lb 1.6 oz) 03/23/24 0505 76.3 kg (168 lb 3.2 oz) 03/22/24 0405 76.6 kg (168 lb 12.8 oz) 03/21/24 0600 77.2 kg (170 lb 3.2 oz) 03/20/24 0510 77.5 kg (170 lb 13.7 oz) 03/19/24 0535 79.8 kg (175 lb 14.8 oz) 03/18/242056 80.2 kg (176 lb 12.9 oz) Intake/Output Summary (Last 24 hours) at 03/25/2024 0726 Last data filed at 03/25/2024 0713 Gross per 24 hour Intake 941 ml Output 0 ml Net 941 ml Physical Exam: Physical Exam HENT: Head: Normocephalic. Mouth/Throat: Mouth: Mucous membranes are moist. Eyes: Extraocular Movements: Extraocular movements intact. Cardiovascular: Rate and Rhythm: Normal rate and regular rhythm. Pulmonary: Effort: Pulmonary effort is normal. Breath sounds: Rales present. Comments: Unilateral RLL crackles Abdominal: General: There is no distension. Palpations: Abdomen is soft. Musculoskeletal: Right lower leg: No edema. Left lower leg: No edema. Comments: LE edema resolved Skin: General: Skin is warm. Neurological: General: No focal deficit present. Mental Status: He is alert. Labs: Recent Labs 03/25/2432803/24/24 0323 03/23/24 0329 03/22/24 0142 03/21/24 0152 WBC 7.5 7.2 7.6 6.8 7.3 HGB 13.0* 13.7 12.9* 12.8* 12.4* HCT 41.6 43.3 40.7 41.0 39.7* PLATELET 285 295 274 300 307 MCV 85.1 84.2 84.4 85.4 85.4 Recent Labs 03/25/24 0329 03/24/24 0323 03/23/24 0329 03/22/24 1503 03/22/24 0142 03/21/24 1608 03/20/24 0209 03/19/24 1416 03/19/24 0459 03/18/24 2150 NA 133* 135 135 137 139 139 < > 142 < > 140 CL 99 97* 97* 99 100 102 < > 106 < > 107 CO2 26 26 27 27 27 28 < > 26 < > 23 K 4.4 4.6 4.5 4.6 4.2 4.3 < > 3.7 < > 4.0 MAGNESIUM 0.87 0.83 0.84 0.86 0.94 0.80 < > 0.72 < > 0.80 PHOS -- -- -- 3.4 -- 3.0 -- 2.6 -- 3.0 CALCIUM 9.1 9.5 9.2 9.5 9.3 9.1 < > 9.0 < > 8.7 BUN 45* 40* 28* 21* 20 19 < > 15 < > 20 CREATININE 1.67* 1.66* 1.44 1.28 1.21 1.23 < > 1.02 < > 1.18 < > = values in this interval not displayed. Coags Recent Labs 03/18/242149 INR 1.1 PT 12.4 PTT 139* Cardiac Markers Recent Labs 03/19/24 1416 03/19/24 0459 03/18/242149 TROPONINTHS 38* 37* 36* PROBNP -- -- 1,535* Endocrine Recent Labs 03/19/24 0459 03/18/242149 TSH -- 2.06 HA1C 7.4* -- Recent Labs 03/19/24458 CHLPL 89 TRIG 108 HDL 27 LDLCHOL 40 Recent Labs 03/25/24 0711 03/25/24 0329 03/24/24 2259 03/24/24 1640 03/24/24 1141 03/24/24 0726 03/24/24 0323 03/23/24 2304 03/23/24 1634 03/23/24 1152 03/23/24 0731 03/23/24 0329 03/22/24 2220 GLUCOSE -- 139 -- -- -- -- 149 -- -- -- -- 135 -- POCGLU 137 -- 157 216* 191 194 -- 147 122 225* 130 -- 108 Imaging: Results for orders placed or performed during the hospital encounter of 03/18/24 (from the past 24 hour(s)) CT Chest wo Contrast (Generic) (Exam End: 03/24/2024 12:05 PM) Result Value WORKSTATION ID [id number] Impression 1. Near-total resolution of multifocal areas of groundglass and nodular consolidation in both lungs 2. Diffuse centrilobular nodules. The differential is broad and includes infection, inhalational lung disease and vascular etiologies. The appearance is atypical for sarcoidosis. 3. Centrilobular and paraseptal emphysema 4. Mild mediastinal lymphadenopathy Thank you for letting us participate in the care of this patient. If you are a health care provider and have any questions regarding this report, please contact the number below. For patients who have questions please contact the health hospice care transitions coordinator that requested your imaging first. Electronically signed by: Fitz Harper MD, [facility] ([phone]), at 03/24/2024 5:19 PM Telemetry: I have personally reviewed and interpreted the telemetry from the last 24 hours. Resultsshow sinus, HR 40s-60s, PVCs, PACs Assessment: Sioamra Man is a 78 y.o. male with a PMH of HTN, HLD, T2DM, CAD s/p PCI more than 20 years ago who presented to [facility] 03/18 as OSH tranfer for AeCHF vs NSTEMI. Patient reporting 2-3 wks gradually worsening SOB. No inciting factor noted. No recent infectious symptoms (fevers, chills, night sweats, congestion) noted, no recent sick contacts. Patient's clinical picture c/f AHRF likely 2/2 AeCHF vs CAP. Suspect NSTEMI type II iso hypoxia. Plan: #Acute decompensated HF with Preserved EF #Acute Hypoxic Respiratory Failure #?Chronic undifferentiated lung disease? #LISA, stable - Patient expressed desire to discharge home despite LISA - Diuretics held on discharge with plan for PRN use pending acute weight gain -PCP follow-up scheduled for 03/27 with plans for lab work to trend LISA off diuretics #NSTEMI, likely Type II #Chronic CAD s/p PCI (~20 yrs ago) - trop elevated, but flat - s/p ASA 325 at OSH, continue ASA 81 daily - continue home atorva 40 and zetia 10 daily - toprol XL 50 daily - s/p 48 hrs heparin gtt per ACS protocol - TTE with WMA, though unclear if new or present previously - LDL 48, TSH 2.06 (wnl) - Defer ischemic evaluation outpatient given no concern for ACS or active anginal symptoms #HTN - HOLD home amlodipine and lisinopril iso borderline soft BP with aggressive diuresis #DMII - A1c 7.4% - hold home oral DM meds - SSI + HUMPHREY while inpatient Diet: Daily Healthy Menu Choices/Cardiac diet ([facility]-Diet) 75/75/90 CHO counting level 3 DVT Prophlaxis: lovenox IS: at bedside Code status: Attempt Cardiopulmonary Resuscitation - Inpatient Disposition: Discharge Planning: AM-PAC Basic Mobility Raw Score: 24 PT: OT: PCP No primary care provider on file. None * Candice Castro RN - 03/24/2024 4:19 PM EDT Certification of Medical Necessity Form for Home Oxygen Siomara Man is requiring HOME OXYGEN due to the diagnosis of hypoxia due to: Unknown Oxygen is required: Continuously Oxygen saturations documented Resting on Room Air: 84% Resting on 1 liters of O2: 93% (Please document below the Activity Saturations if Resting saturations are >88% ) Activity on Room Air: % Activity on O2 at liters: % O2 Sats collected by: Candice Castro RN Date Sats Collected: 03/24/24 Mobility: Patient is mobile. (Requiring portable oxygen) Rate: 1 Route: RI Vendor Ordered: I anticipate that Siomara Man will be discharged within 2 days. * Main Campbell MD - 03/24/2024 9:18 AM EDT CV HOSPITALIST 2 - [facility] DAILY PROGRESS NOTE Page [phone] to reach a provider 01/04 Admit Date: 03/18/2024 Encounter Date March 24, 2024 Anticipated Discharge Date: 03/25/2024 Hospital Day: 6 Active Hospital Problems Diagnosis NSTEMI (non-ST elevated myocardial infarction) Hypertension Resolved Hospital Problems No resolved problems to display. 24 Hour Events/Subjective: - Pt received PM IV lasix dose yesterday given concerns for continued hypervolemia - LISA this morning with Cr 1.66, suggesting likely at euvolemia/hypovolemia -Given patient's desire to discharge, initial plan for lasix holiday with repeat labwork this afternoon and plan of potential discharge -Afternoon discharge deferred given need for home oxygen -CT chest today shows resolution of GGOs, evidence of underlying emphysema/centrilobular nodules Medications: Scheduled Meds: pantoprazole EC 40 mg Oral Daily metoprolol succinate XL 50 mg Oral Daily enoxaparin 40 mg Subcutaneous Nightly atorvastatin 40 mg Oral QPM ezetimibe 10 mg Oral Daily tamsulosin 0.8 mg Oral Nightly sodium chloride 0.9 % (flush) 5 mL Intravenous BID aspirin EC 81 mg Oral Daily insulin lispro 1-6 Units Subcutaneous TID AC insulin lispro 0-8 Units Subcutaneous TID WC insulin glargine (Lantus;Semglee) (100 unit/mL) subcutaneous injection 10 Units Subcutaneous Daily Continuous Infusions: PRN Meds:.[] Sputum induction AND [COMPLETED] sodium chloride AND albuteroL, sodium chloride 0.9 % (flush), lidocaine, nitroGLYcerin, glucose 40% oral geL OR dextrose OR glucagon Objective: Last value Range last 24 hrs Temp: 36.6 ??C (97.8 ??F) Temp: [36.5 ??C (97.7 ??F)-36.7 ??C (98.1 ??F)] Heart Rate: 65 Heart Rate: [59-65] BP: 99/63 BP: (92-114)/(62-76) Resp: 16 Resp: [16-17] SpO2: 92 % SpO2: [92 %-96 %] Height: 175.3 cm (5' 9) Weight: 76.2 kg (168 lb 0.2 oz) BMI (Calculated): 26.11 BMI Classification: Over Weight Admit weight: 80.2 kg Patient Vitals for the past 168 hrs: Weight 03/24/24 0608 76.2 kg (168 lb 0.2 oz) 03/24/24 0600 76.2 kg (168 lb 1.6 oz) 03/23/24 0505 76.3 kg (168 lb 3.2 oz) 03/22/24 0405 76.6 kg (168 lb 12.8 oz) 03/21/24 0600 77.2 kg (170 lb 3.2 oz) 03/20/24 0510 77.5 kg (170 lb 13.7 oz) 03/19/24 0535 79.8 kg (175 lb 14.8 oz) 03/18/242056 80.2 kg (176 lb 12.9 oz) Intake/Output Summary (Last 24 hours) at 03/24/2024 2018 Last data filed at 03/24/2024 1600 Gross per 24 hour Intake 941 ml Output 600 ml Net 341 ml Physical Exam: Physical Exam HENT: Head: Normocephalic. Mouth/Throat: Mouth: Mucous membranes are moist. Eyes: Extraocular Movements: Extraocular movements intact. Cardiovascular: Rate and Rhythm: Normal rate and regular rhythm. Pulmonary: Effort: Pulmonary effort is normal. Breath sounds: Rales present. Comments: Bilateral crackles, worst at RLL Abdominal: General: There is no distension. Palpations: Abdomen is soft. Musculoskeletal: Right lower leg: No edema. Left lower leg: No edema. Comments: LE edema resolved Skin: General: Skin is warm. Neurological: General: No focal deficit present. Mental Status: He is alert. Labs: Recent Labs 03/24/24 0323 03/23/24 0329 03/22/24 0142 03/21/24 0152 03/20/24 0209 WBC 7.2 7.6 6.8 7.3 10.8* HGB 13.7 12.9* 12.8* 12.4* 14.0 HCT 43.3 40.7 41.0 39.7* 44.9 PLATELET 295 274 300 307 321 MCV 84.2 84.4 85.4 85.4 86.0 Recent Labs 03/24/24 0323 03/23/24 0329 03/22/24 1503 03/22/24 0142 03/21/24 1608 03/20/24 0209 03/19/24 1416 03/19/24 0459 03/18/24 2150 NA 135 135 137 139 139 < > 142 < > 140 CL 97* 97* 99 100 102 < > 106 < > 107 CO2 26 27 27 27 28 < > 26 < > 23 K 4.6 4.5 4.6 4.2 4.3 < > 3.7 < > 4.0 MAGNESIUM 0.83 0.84 0.86 0.94 0.80 < > 0.72 < > 0.80 PHOS -- -- 3.4 -- 3.0 -- 2.6 -- 3.0 CALCIUM 9.5 9.2 9.5 9.3 9.1 < > 9.0 < > 8.7 BUN 40* 28* 21* 20 19 < > 15 < > 20 CREATININE 1.66* 1.44 1.28 1.21 1.23 < > 1.02 < > 1.18 < > = values in this interval not displayed. Coags Recent Labs 03/18/24 2150 INR 1.1 PT 12.4 PTT 139* Cardiac Markers Recent Labs 03/19/24 1416 03/19/24 0459 03/18/24 2150 TROPONINTHS 38* 37* 36* PROBNP -- -- 1,535* Endocrine Recent Labs 03/19/24 0459 03/18/24 2150 TSH -- 2.06 HA1C 7.4* -- Recent Labs 03/19/24458 CHLPL 89 TRIG 108 HDL 27 LDLCHOL 40 Recent Labs 03/24/24 1640 03/24/24 1141 03/24/24 0726 03/24/24 0323 03/23/24 2304 03/23/24 1634 03/23/24 1152 03/23/24 0731 03/23/24 0329 03/22/24 2220 03/22/24 1628 03/22/24 1503 03/22/24 1437 GLUCOSE -- -- -- 149 -- -- -- -- 135 -- -- 126 -- POCGLU 216* 191 194 -- 147 122 225* 130 -- 108 156 -- 125 Imaging: Results for orders placed or performed during the hospital encounter of 03/18/24 (from the past 24 hour(s)) CT Chest wo Contrast (Generic) (Exam End: 03/24/2024 12:05 PM) Result Value WORKSTATION ID [id number] Impression 1. Near-total resolution of multifocal areas of groundglass and nodular consolidation in both lungs 2. Diffuse centrilobular nodules. The differential is broad and includes infection, inhalational lung disease and vascular etiologies. The appearance is atypical for sarcoidosis. 3. Centrilobular and paraseptal emphysema 4. Mild mediastinal lymphadenopathy Thank you for letting us participate in the care of this patient. If you are a health care provider and have any questions regarding this report, please contact the number below. For patients who have questions please contact the health hospice care transitions coordinator that requested your imaging first. Electronically signed by: Fitz Harper MD, [facility] ([phone]), at 03/24/2024 5:19 PM Telemetry: I have personally reviewed and interpreted the telemetry from the last 24 hours. Resultsshow sinus, HR 40s-60s, PVCs, PACs Assessment: Siomara Man is a 78 y.o. male with a PMH of HTN, HLD, T2DM, CAD s/p PCI more than 20 years ago who presented to [facility] 03/18 as OSH tranfer for AeCHF vs NSTEMI. Patient reporting 2-3 wks gradually worsening SOB. No inciting factor noted. No recent infectious symptoms (fevers, chills, night sweats, congestion) noted, no recent sick contacts. Patient's clinical picture c/f AHRF likely 2/2 AeCHF vs CAP. Suspect NSTEMI type II iso hypoxia. Plan: #Acute decompensated HF with Preserved EF #Acute Hypoxic Respiratory Failure #?Chronic undifferentiated lung disease? #LISA, presumed pre-renal 2/2 over diuresis - resp panel negative, lower respiratory culture prelim normal resp shree - pulm consulted, appreciate recs - Diuretic holiday today - Plan to re-engage pulmonology re: CT findings - Dispo pending home oxygen #NSTEMI, likely Type II #Chronic CAD s/p PCI (~20 yrs ago) - trop elevated, but flat - s/p ASA 325 at OSH, continue ASA 81 daily - defer P2Y12 for now, pending ischemic eval - continue home atorva 40 and zetia 10 daily - toprol XL 50 daily - s/p 48 hrs heparin gtt per ACS protocol - TTE with WMA, though unclear if new or present previously - LDL 48, TSH 2.06 (wnl) - Defer ischemic evaluation outpatient given no concern for ACS or active anginal symptoms #HTN - HOLD home amlodipine and lisinopril iso borderline soft BP with aggressive diuresis #DMII - A1c 7.4% - hold home oral DM meds - SSI + HUMPHREY while inpatient Diet: Daily Healthy Menu Choices/Cardiac diet ([facility]-Diet) 75/75/90 CHO counting level 3 DVT Prophlaxis: lovenox IS: at bedside Code status: Attempt Cardiopulmonary Resuscitation - Inpatient Disposition: Discharge Planning: AM-PAC Basic Mobility Raw Score: 24 PT: OT: PCP No primary care provider on file. None * Bernabe Silveira MD - 03/23/2024 1:01 PM EDT Images from the original note were not included. PULMONOLOGY PROGRESS NOTE SECTION OF PULMONARY/CRITICAL CARE MEDICINE Patient Name: Siomara Man : 1945 Medical Record: [id number] Date of Service: 03/23/2024 Hospital Day #: Hospital Day: 6 Location: [address] [place] [address] Requesting Provider: Main Campbell MD ID: Siomara Man is a 78 y.o. admitted with interstitial opacities and hypoxemia for which pulmonary is consulted out of concern for ILD Subjective/overnight events: Feeling better Down to 1.5 L NC Afebrile, no leukocytosis CXR this morning appears improved Objective: Last value Range last 24 hrs Temperature Temp: 36.4 ??C (97.5 ??F) Temp: [36.4 ??C (97.5 ??F)-36.6 ??C (97.9 ??F)] Heart Rate Heart Rate: 61 Heart Rate: [54-61] Blood Pressure BP: 117/65 BP: (85-117)/(60-71) Respiratory Rate Resp: 18 Resp: [18-20] SpO2 SpO2: 97 % SpO2: [92 %-97 %] Admit Weight 80.2 kg General: resting comfortably, NAD Pulmonary/Chest: left greater than right basilar crackles Cardiovascular: regular, no murmurs, JVD elevated Abdomen: Extremities: no edema Medications: ASA Atorvastatin Enoxaparin Ezetimibe Insulin Metoprolol Pantoprazole Tamsulosin Furosemide spot dosing Labs: Notable for WBC 7.6 Bicarb 27 CR 1.4 from 1.2 baseline Diagnostics: CXR today with some residual bibasilar opacities, interval improvement Admit: Today 03/23: Assessment: Siomara Man is a 78 y.o. male with a history of HFpEF, pipe smoking admitted for type II NSTEMI, hypoxia, and volume overload. He has improved with diuresis and both imaging and oxygen requirement are trending in the right direction. He does have some eosinophilia but no history of asthma and his interstitial opacities appear much more likely to be related to pulmonary edema at this time. He still has crackles and elevated JVD, I would continue diuresis and obtain a chest CT once he is as dry as possible. Recommendations: Low suspicion for ILD at this time Continue with diuresis Chest CT upon euvolemia Pulmonary will sign off at this time, please page with further questions I discussed these recommendations with the primary team. Bernabe Silveira 03/23/2024 1:01 PM Pulmonary/Critical Care Pager: [phone] * Main Campbell MD - 03/23/2024 9:20 AM EDT CV HOSPITALIST 2 - [facility] DAILY PROGRESS NOTE Page [phone] to reach a provider 01/04 Admit Date: 03/18/2024 Encounter Date March 23, 2024 Anticipated Discharge Date: 03/25/2024 Hospital Day: 5 Active Hospital Problems Diagnosis NSTEMI (non-ST elevated myocardial infarction) Hypertension Resolved Hospital Problems No resolved problems to display. 24 Hour Events/Subjective: - denies chest pains, SOB, palpitations, dizziness, lightheadedness. -Pt reports interval resolution of symptoms since admission -Mild crackles on auscultation -CXR ordered shows interval improvement in pulmonary congestion since 03/19 with stable, small rightpleural effusion -Lasix 40mg PO given this AM -Per discussion with pulmonology, will plan for further IV diuresis today with possible CT chest tomorrow Medications: Scheduled Meds: pantoprazole EC 40 mg Oral Daily metoprolol succinate XL 50 mg Oral Daily enoxaparin 40 mg Subcutaneous Nightly atorvastatin 40 mg Oral QPM ezetimibe 10 mg Oral Daily tamsulosin 0.8 mg Oral Nightly sodium chloride 0.9 % (flush) 5 mL Intravenous BID aspirin EC 81 mg Oral Daily insulin lispro 1-6 Units Subcutaneous TID AC insulin lispro 0-8 Units Subcutaneous TID WC insulin glargine (Lantus;Semglee) (100 unit/mL) subcutaneous injection 10 Units Subcutaneous Daily Continuous Infusions: PRN Meds:.[] Sputum induction AND [COMPLETED] sodium chloride AND albuteroL, sodium chloride 0.9 % (flush), lidocaine, nitroGLYcerin, glucose 40% oral geL OR dextrose OR glucagon Objective: Last value Range last 24 hrs Temp: 36.6 ??C (97.8 ??F) Temp: [36.4 ??C (97.5 ??F)-36.6 ??C (97.9 ??F)] Heart Rate: 61 Heart Rate: [54-64] BP: 112/67 BP: (106-117)/(61-70) Resp: 18 Resp: [17-19] SpO2: 96 % SpO2: [80 %-98 %] Height: 175.3 cm (5' 9) Weight: 76.3 kg (168 lb 3.2 oz) BMI (Calculated): 26.11 BMI Classification: Over Weight Admit weight: 80.2 kg Patient Vitals for the past 168 hrs: Weight 03/23/24 0505 76.3 kg (168 lb 3.2 oz) 03/22/24 0405 76.6 kg (168 lb 12.8 oz) 03/21/24 0600 77.2 kg (170 lb 3.2 oz) 03/20/24 0510 77.5 kg (170 lb 13.7 oz) 03/19/24 0535 79.8 kg (175 lb 14.8 oz) 03/18/24 205 80.2 kg (176 lb 12.9 oz) Intake/Output Summary (Last 24 hours) at 03/23/2024 1930 Last data filed at 03/23/2024 1709 Gross per 24 hour Intake 686 ml Output 900 ml Net -214 ml Physical Exam: Physical Exam HENT: Head: Normocephalic. Mouth/Throat: Mouth: Mucous membranes are moist. Eyes: Extraocular Movements: Extraocular movements intact. Neck: Comments: +elevated JVD Cardiovascular: Rate and Rhythm: Normal rate and regular rhythm. Pulmonary: Effort: Pulmonary effort is normal. Breath sounds: Rales present. Comments: Bilateral crackles, worst at bases Abdominal: General: There is no distension. Palpations: Abdomen is soft. Musculoskeletal: Right lower leg: No edema. Left lower leg: No edema. Comments: LE edema resolved Skin: General: Skin is warm. Neurological: General: No focal deficit present. Mental Status: He is alert. Labs: Recent Labs 03/23/24 0329 03/22/24 0142 03/21/24 0152 03/20/24 0209 03/19/249 WBC 7.6 6.8 7.3 10.8* 6.8 HGB 12.9* 12.8* 12.4* 14.0 12.0* HCT 40.7 41.0 39.7* 44.9 39.3* PLATELET 274 300 307 321 290 MCV 84.4 85.4 85.4 86.0 87.1 Recent Labs 03/23/24 0329 03/22/24 1503 03/22/24 0142 03/21/24 1608 03/21/24 0152 03/20/24 0209 03/19/24 1416 03/19/24 0459 03/18/24 2150 NA 135 137 139 139 141 < > 142 < > 140 CL 97* 99 100 102 102 < > 106 < > 107 CO2 27 27 27 28 29 < > 26 < > 23 K 4.5 4.6 4.2 4.3 3.7 < > 3.7 < > 4.0 MAGNESIUM 0.84 0.86 0.94 0.80 0.80 < > 0.72 < > 0.80 PHOS -- 3.4 -- 3.0 -- -- 2.6 -- 3.0 CALCIUM 9.2 9.5 9.3 9.1 8.9 < > 9.0 < > 8.7 BUN 28* 21* 20 19 18 < > 15 < > 20 CREATININE 1.44 1.28 1.21 1.23 1.34 < > 1.02 < > 1.18 < > = values in this interval not displayed. Coags Recent Labs 03/18/240 INR 1.1 PT 12.4 PTT 139* Cardiac Markers Recent Labs 03/19/24 1416 03/19/24 0459 03/18/240 TROPONINTHS 38* 37* 36* PROBNP -- -- 1,535* Endocrine Recent Labs 03/19/24 04503/18/240 TSH -- 2.06 HA1C 7.4* -- Recent Labs 03/19/24458 CHLPL 89 TRIG 108 HDL 27 LDLCHOL 40 Recent Labs 03/23/24 1634 03/23/24 1152 03/23/24 0731 03/23/24 0329 03/22/24 2220 03/22/24 1628 03/22/24 1503 03/22/24 1437 03/22/24 1149 03/22/24 0727 03/22/24 0142 03/21/24 2043 03/21/24 1616 GLUCOSE -- -- -- 135 -- -- 126 -- -- -- 134 -- -- POCGLU 122 225* 130 -- 108 156 -- 125 242* 118 -- 130 131 Imaging: Results for orders placed or performed during the hospital encounter of 03/18/24 (from the past 24 hour(s)) XR Chest One View (Exam End: 03/23/2024 9:47 AM) Result Value WORKSTATION ID [id number] Impression Stable small right pleural effusion. No pulmonary edema. Lung findings suspected to represent atypical pneumonia or sequela of pneumonia, correlate for history of Covid infection Thank you for letting us participate in the care of this patient. If you are a health care provider and have any questions regarding this report, please contact the number below. For patients who have questions please contact the health hospice care transitions coordinator that requested your imaging first. Electronically signed by: Fitz Harper MD, [facility] ([phone]), at 03/23/2024 10:56 AM Telemetry: I have personally reviewed and interpreted the telemetry from the last 24 hours. Resultsshow sinus, HR 40s-60s, PVCs, PACs Assessment: Siomara Man is a 78 y.o. male with a PMH of HTN, HLD, T2DM, CAD s/p PCI more than 20 years ago who presented to [facility] 03/18 as OSH tranfer for AeCHF vs NSTEMI. Patient reporting 2-3 wks gradually worsening SOB. No inciting factor noted. No recent infectious symptoms (fevers, chills, night sweats, congestion) noted, no recent sick contacts. Patient's clinical picture c/f AHRF likely 2/2 AeCHF vs CAP. Suspect NSTEMI type II iso hypoxia. Plan: #Acute decompensated HF with Preserved EF #Acute Hypoxic Respiratory Failure #?Chronic interstitial lung disease - bilat crackles, elevated JVD, trace edema on exam c/f decompensated HF - resp panel negative, lower respiratory culture prelim normal resp shree - pulm consulted, appreciate recs - low suspicion PNA. Suspect decompensated heart failure likely driving AHRF - patient will benefit from repeat CT once closer to euvolemia - IV lasix 60mg x1 this afternoon - Plan for CT chest tomorrow for ILD evaluation (lower suspicion) #NSTEMI, likely Type II #CAD s/p PCI (~20 yrs ago) - trop elevated, but flat - s/p ASA 325 at OSH, continue ASA 81 daily - defer P2Y12 for now, pending ischemic eval - continue home atorva 40 and zetia 10 daily - toprol XL 50 daily - s/p 48 hrs heparin gtt per ACS protocol - TTE with WMA, though unclear if new or present previously - LDL 48, TSH 2.06 (wnl) - consider ischemic eval when closer to euvolemia/baseline respiratory status - [facility] preferred method as patient with known previous CAD and WMA noted on TTE #HTN - HOLD home amlodipine and lisinopril iso borderline soft BP with aggressive diuresis #DMII - A1c 7.4% - hold home oral DM meds - SSI + HUMPHREY while inpatient Diet: Daily Healthy Menu Choices/Cardiac diet ([facility]-Diet) 75/75/90 CHO counting level 3 DVT Prophlaxis: lovenox IS: at bedside Code status: Attempt Cardiopulmonary Resuscitation - Inpatient Disposition: Discharge Planning: AM-PAC Basic Mobility Raw Score: 18 PT: OT: PCP No primary care provider on file. None * Abby Strange MD - 03/22/2024 2:51 PM EDT CV HOSPITALIST 2 - [facility] DAILY PROGRESS NOTE Page [phone] to reach a provider 01/04 Admit Date: 03/18/2024 Encounter Date March 22, 2024 Anticipated Discharge Date: 03/23/2024 Hospital Day: 4 Active Hospital Problems Diagnosis NSTEMI (non-ST elevated myocardial infarction) Hypertension Resolved Hospital Problems No resolved problems to display. 24 Hour Events/Subjective: - denies chest pains, SOB, palpitations, dizziness, lightheadedness. Medications: Scheduled Meds: furosemide 60 mg Intravenous BID pantoprazole EC 40 mg Oral Daily metoprolol succinate XL 50 mg Oral Daily enoxaparin 40 mg Subcutaneous Nightly atorvastatin 40 mg Oral QPM ezetimibe 10 mg Oral Daily tamsulosin 0.8 mg Oral Nightly sodium chloride 0.9 % (flush) 5 mL Intravenous BID aspirin EC 81 mg Oral Daily insulin lispro 1-6 Units Subcutaneous TID AC insulin lispro 0-8 Units Subcutaneous TID WC insulin glargine (Lantus;Semglee) (100 unit/mL) subcutaneous injection 10 Units Subcutaneous Daily Continuous Infusions: PRN Meds:.Sputum induction AND [COMPLETED] sodium chloride AND albuteroL, sodium chloride 0.9 % (flush), lidocaine, nitroGLYcerin, glucose 40% oral geL OR dextrose OR glucagon Objective: Last value Range last 24 hrs Temp: 36.4 ??C (97.6 ??F) Temp: [36.4 ??C (97.6 ??F)-37.1 ??C (98.8 ??F)] Heart Rate: 56 Heart Rate: [47-60] BP: 93/82 BP: (93-112)/(56-82) Resp: 21 Resp: [17-21] SpO2: 92 % SpO2: [90 %-97 %] Height: 175.3 cm (5' 9) Weight: 76.6 kg (168 lb 12.8 oz) BMI (Calculated): 26.11 BMI Classification: Over Weight Admit weight: 80.2 kg Patient Vitals for the past 168 hrs: Weight 03/22/24 0405 76.6 kg (168 lb 12.8 oz) 03/21/24 0600 77.2 kg (170 lb 3.2 oz) 03/20/24 0510 77.5 kg (170 lb 13.7 oz) 03/19/24 0535 79.8 kg (175 lb 14.8 oz) 03/18/24 205 80.2 kg (176 lb 12.9 oz) Intake/Output Summary (Last 24 hours) at 03/22/2024 1451 Last data filed at 03/22/2024 1226 Gross per 24 hour Intake 883 ml Output 450 ml Net 433 ml Physical Exam: Physical Exam HENT: Head: Normocephalic. Mouth/Throat: Mouth: Mucous membranes are moist. Eyes: Extraocular Movements: Extraocular movements intact. Neck: Comments: +elevated JVD Cardiovascular: Rate and Rhythm: Normal rate and regular rhythm. Pulmonary: Effort: Pulmonary effort is normal. Comments: Bilateral crackles, worst at bases Abdominal: General: There is no distension. Palpations: Abdomen is soft. Musculoskeletal: Right lower leg: No edema. Left lower leg: No edema. Comments: LE edema resolved Skin: General: Skin is warm. Neurological: General: No focal deficit present. Mental Status: He is alert. Labs: Recent Labs 03/22/24 0142 03/21/24 0152 03/20/24 0209 03/19/249 03/18/242149 WBC 6.8 7.3 10.8* 6.8 7.3 HGB 12.8* 12.4* 14.0 12.0* 12.4* HCT 41.0 39.7* 44.9 39.3* 39.4* PLATELET 300 307 321 290 283 MCV 85.4 85.4 86.0 87.1 86.8 Recent Labs 03/22/24 0142 03/21/24 1608 03/21/24 0152 03/20/24 0209 03/19/24 1416 03/19/2445803/18/242149 NA 139 139 141 139 142 < > 140 CL 100 102 102 104 106 < > 107 CO2 27 28 29 22 26 < > 23 K 4.2 4.3 3.7 4.7 3.7 < > 4.0 MAGNESIUM 0.94 0.80 0.80 0.93 0.72 < > 0.80 PHOS -- 3.0 -- -- 2.6 -- 3.0 CALCIUM 9.3 9.1 8.9 9.3 9.0 < > 8.7 BUN 20 19 18 17 15 < > 20 CREATININE 1.21 1.23 1.34 1.14 1.02 < > 1.18 < > = values in this interval not displayed. Coags Recent Labs 03/18/242149 INR 1.1 PT 12.4 PTT 139* Cardiac Markers Recent Labs 03/19/24 1416 03/19/2445803/18/242149 TROPONINTHS 38* 37* 36* PROBNP -- -- 1,535* Endocrine Recent Labs 07/11/24 0459 07/10/24 2150 TSH -- 2.06 HA1C 7.4* -- Recent Labs 03/19/24 0459 CHLPL 89 TRIG 108 HDL 27 LDLCHOL 40 Recent Labs 03/22/24 1437 03/22/24 1149 03/22/24 0727 03/22/24 0142 03/21/24 2043 03/21/24 1616 03/21/24 1608 03/21/24 1339 03/21/24 1026 03/21/24 0719 03/21/24 0152 03/20/24 2126 03/20/24 1647 GLUCOSE -- -- -- 134 -- -- 139 -- -- -- 118 -- -- POCGLU 125 242* 118 -- 130 131 -- 99 174 145 -- 96 78 Imaging: No results found for this visit on 03/18/24 (from the past 24 hour(s)). Telemetry: I have personally reviewed and interpreted the telemetry from the last 24 hours. Resultsshow sinus, HR 40s-60s, PVCs, PACs Assessment: Siomara Man is a 78 y.o. male with a PMH of HTN, HLD, T2DM, CAD s/p PCI more than 20 years ago who presented to [facility] 03/18 as OSH tranfer for AeCHF vs NSTEMI. Patient reporting 2-3 wks gradually worsening SOB. No inciting factor noted. No recent infectious symptoms (fevers, chills, night sweats, congestion) noted, no recent sick contacts. Patient's clinical picture c/f AHRF likely 2/2 AeCHF vs CAP. Suspect NSTEMI type II iso hypoxia. Plan: #Acute decompensated HF with Preserved EF #Acute Hypoxic Respiratory Failure #?Chronic interstitial lung disease - bilat crackles, elevated JVD, trace edema on exam c/f decompensated HF - resp panel negative, lower respiratory culture prelim normal resp shree - pulm consulted, appreciate recs - low suspicion PNA. Suspect decompensated heart failure likely driving AHRF - patient will benefit from repeat CT once closer to euvolemia - increase to IV lasix 60 BID today #NSTEMI, likely Type II #CAD s/p PCI (~20 yrs ago) - trop elevated, but flat - s/p ASA 325 at OSH, continue ASA 81 daily - defer P2Y12 for now, pending ischemic eval - continue home atorva 40 and zetia 10 daily - decrease home BB to toprol XL 50 daily - s/p 48 hrs heparin gtt per ACS protocol - TTE with WMA, though unclear if new or present previously - LDL 48, TSH 2.06 (wnl) - consider ischemic eval when closer to euvolemia/baseline respiratory status - [facility] preferred method as patient with known previous CAD and WMA noted on TTE #HTN - HOLD home amlodipine and lisinopril iso borderline soft BP with aggressive diuresis #DMII - A1c 7.4% - hold home oral DM meds - SSI + HUMPHREY while inpatient Diet: Daily Healthy Menu Choices/Cardiac diet ([facility]-Diet) 75/75/90 CHO counting level 3 DVT Prophlaxis: lovenox IS: at bedside Code status: Attempt Cardiopulmonary Resuscitation - Inpatient Disposition: Discharge Planning: AM-PAC Basic Mobility Raw Score: 18 PT: OT: PCP No primary care provider on file. None * Abby Strange MD - 03/21/2024 2:43 PM EDT CV HOSPITALIST 2 - [facility] DAILY PROGRESS NOTE Page [phone] to reach a provider 01/04 Admit Date: 03/18/2024 Encounter Date March 21, 2024 Anticipated Discharge Date: 03/23/2024 Hospital Day: 3 Active Hospital Problems Diagnosis NSTEMI (non-ST elevated myocardial infarction) Hypertension Resolved Hospital Problems No resolved problems to display. 24 Hour Events/Subjective: - patient frustrated by length of hospital stay. Does report SOB improving with diuresis. Now requiring only 1-2L NC - denies chest pains, palpitations, abd pain, n/v. Still reporting frequent loose stools, though that has also mildly improved. Medications: Scheduled Meds: pantoprazole EC 40 mg Oral Daily atorvastatin 40 mg Oral QPM ezetimibe 10 mg Oral Daily metoprolol succinate XL 100 mg Oral Daily tamsulosin 0.8 mg Oral Nightly sodium chloride 0.9 % (flush) 5 mL Intravenous BID aspirin EC 81 mg Oral Daily insulin lispro 1-6 Units Subcutaneous TID AC insulin lispro 0-8 Units Subcutaneous TID WC insulin glargine (Lantus;Semglee) (100 unit/mL) subcutaneous injection 10 Units Subcutaneous Daily Continuous Infusions: heparin (porcine) infusion 800 Units/hr (03/21/24 0800) PRN Meds:.Sputum induction AND [COMPLETED] sodium chloride AND albuteroL, sodium chloride 0.9 % (flush), lidocaine, nitroGLYcerin, heparin (porcine) infusion AND heparin (porcine), glucose 40% oral geL OR dextrose OR glucagon Objective: Last value Range last 24 hrs Temp: 36.1 ??C (97 ??F) Temp: [36.1 ??C (97 ??F)-36.7 ??C (98.1 ??F)] Heart Rate: 57 Heart Rate: [52-64] BP: 102/62 BP: (91-107)/(52-71) Resp: 19 Resp: [16-19] SpO2: 92 % SpO2: [89 %-98 %] Height: 175.3 cm (5' 9) Weight: 77.2 kg (170 lb 3.2 oz) BMI (Calculated): 26.11 BMI Classification: Over Weight Admit weight: 80.2 kg Patient Vitals for the past 168 hrs: Weight 03/21/24 0600 77.2 kg (170 lb 3.2 oz) 03/20/24 0510 77.5 kg (170 lb 13.7 oz) 03/19/24 0535 79.8 kg (175 lb 14.8 oz) 03/18/24 2057 80.2 kg (176 lb 12.9 oz) Intake/Output Summary (Last 24 hours) at 03/21/2024 1443 Last data filed at 03/21/2024 1300 Gross per 24 hour Intake 536 ml Output 1120 ml Net -584 ml Physical Exam: Physical Exam HENT: Head: Normocephalic. Mouth/Throat: Mouth: Mucous membranes are moist. Eyes: Extraocular Movements: Extraocular movements intact. Neck: Comments: +elevated JVD Cardiovascular: Rate and Rhythm: Normal rate and regular rhythm. Pulmonary: Effort: Pulmonary effort is normal. Comments: Bilateral crackles Abdominal: General: There is no distension. Palpations: Abdomen is soft. Musculoskeletal: Right lower leg: Edema present. Left lower leg: Edema present. Comments: trace Skin: General: Skin is warm. Neurological: General: No focal deficit present. Mental Status: He is alert. Labs: Recent Labs 03/21/24 0152 03/20/24 0209 03/19/2445803/18/24 2150 WBC 7.3 10.8* 6.8 7.3 HGB 12.4* 14.0 12.0* 12.4* HCT 39.7* 44.9 39.3* 39.4* PLATELET 307 321 290 283 MCV 85.4 86.0 87.1 86.8 Recent Labs 03/21/24 0152 03/20/24 0209 03/19/24 1416 03/19/2445803/18/24 2150 NA 141 139 142 141 140 CL 102 104 106 108* 107 CO2 29 22 26 24 23 K 3.7 4.7 3.7 4.2 4.0 MAGNESIUM 0.80 0.93 0.72 0.81 0.80 PHOS -- -- 2.6 -- 3.0 CALCIUM 8.9 9.3 9.0 8.6 8.7 BUN 18 17 15 16 20 CREATININE 1.34 1.14 1.02 0.99 1.18 Coags Recent Labs 03/18/24 2150 INR 1.1 PT 12.4 PTT 139* Cardiac Markers Recent Labs 03/19/24 1416 03/19/24 0459 03/18/24 2150 TROPONINTHS 38* 37* 36* PROBNP -- -- 1,535* Endocrine Recent Labs 03/19/24 0459 03/18/24 2150 TSH -- 2.06 HA1C 7.4* -- Recent Labs 03/19/24458 CHLPL 89 TRIG 108 HDL 27 LDLCHOL 40 Recent Labs 03/21/24 1339 03/21/24 1026 03/21/24 0719 03/21/24 0152 03/20/24 2126 03/20/24 1647 03/20/24 1131 03/20/24 0807 03/20/24 0209 03/19/24 2058 03/19/24 1920 03/19/24 1526 03/19/24 1416 GLUCOSE -- -- -- 118 -- -- -- -- 144 -- -- -- 141 POCGLU 99 174 145 -- 96 78 223* 130 -- 197 142 119 -- Imaging: No results found for this visit on 03/18/24 (from the past 24 hour(s)). Telemetry: I have personally reviewed and interpreted the telemetry from the last 24 hours. Resultsshow sinus, HR 40s-60s, PVCs, PACs Assessment: Siomara Man is a 78 y.o. male with a PMH of HTN, HLD, T2DM, CAD s/p PCI more than 20 years ago who presented to [facility] 03/18 as OSH tranfer for AeCHF vs NSTEMI. Patient reporting 2-3 wks gradually worsening SOB. No inciting factor noted. No recent infectious symptoms (fevers, chills, night sweats, congestion) noted, no recent sick contacts. Patient's clinical picture c/f AHRF likely 2/2 AeCHF vs CAP. Suspect NSTEMI type II iso hypoxia. Plan: #Acute decompensated HF with Preserved EF #Acute Hypoxic Respiratory Failure #?Chronic interstitial lung disease - bilat crackles, elevated JVD, trace edema on exam c/f decompensated HF - resp panel negative - pulm consulted, appreciate recs - low suspicion PNA. Suspect decompensated heart failure likely driving AHRF and patient will benefit from repeat CT once closer to euvolemia #NSTEMI, likely Type II #CAD s/p PCI (~20 yrs ago) - trop elevated, but flat - s/p ASA 325 at OSH, continue ASA 81 daily - defer P2Y12 for now, pending ischemic eval - consider ischemic eval when closer to euvolemia/baseline respiratory status - continue home atorva 40 and zetia 10 daily - continue home BB - s/p 48 hrs heparin gtt per ACS protocol - TTE with WMA, though unclear if new or present previously - Lipids, A1c, TSH ordered #HTN - HOLD home amlodipine lisinopril iso borderline soft BP #DMII - A1c 7.4% - hold home oral DM meds - SSI + HUMPHREY while inpatient Diet: Daily Healthy Menu Choices/Cardiac diet ([facility]-Diet) 75/75/90 CHO counting level 3 DVT Prophlaxis: lovenox IS: at bedside Code status: Attempt Cardiopulmonary Resuscitation - Inpatient Disposition: Discharge Planning: AM-PAC Basic Mobility Raw Score: 19 PT: OT: PCP No primary care provider on file. None * Abby Strange MD - 03/20/2024 7:32 PM EDT CV HOSPITALIST 2 - [facility] DAILY PROGRESS NOTE Page [phone] to reach a provider 01/04 Admit Date: 03/18/2024 Encounter Date March 20, 2024 Anticipated Discharge Date: 03/23/2024 Hospital Day: 2 Active Hospital Problems Diagnosis NSTEMI (non-ST elevated myocardial infarction) Hypertension Resolved Hospital Problems No resolved problems to display. 24 Hour Events/Subjective: - SOB improving. Patient reporting new diarrhea. Denies dysuria, abd pain nausea, chest pain, palpitations Medications: Scheduled Meds: atorvastatin 40 mg Oral QPM ezetimibe 10 mg Oral Daily metoprolol succinate XL 100 mg Oral Daily tamsulosin 0.8 mg Oral Nightly sodium chloride 0.9 % (flush) 5 mL Intravenous BID aspirin EC 81 mg Oral Daily insulin lispro 1-6 Units Subcutaneous TID AC insulin lispro 0-8 Units Subcutaneous TID WC insulin glargine (Lantus;Semglee) (100 unit/mL) subcutaneous injection 10 Units Subcutaneous Daily Continuous Infusions: heparin (porcine) infusion 800 Units/hr (03/20/24 0200) PRN Meds:.[START ON 03/21/2024] Sputum induction AND [COMPLETED] sodium chloride AND albuteroL, sodium chloride 0.9 % (flush), lidocaine, nitroGLYcerin, heparin (porcine) infusion AND heparin (porcine), glucose 40% oral geL OR dextrose OR glucagon Objective: Last value Range last 24 hrs Temp: 36.4 ??C (97.6 ??F) Temp: [36.4 ??C (97.6 ??F)-36.7 ??C (98 ??F)] Heart Rate: 64 Heart Rate: [53-64] BP: 106/71 BP: (89-134)/(45-91) Resp: 18 Resp: [16-18] SpO2: 96 % SpO2: [93 %-96 %] Height: 175.3 cm (5' 9) Weight: 77.5 kg (170 lb 13.7 oz) BMI (Calculated): 26.11 BMI Classification: Over Weight Admit weight: 80.2 kg Patient Vitals for the past 168 hrs: Weight 03/20/24 0510 77.5 kg (170 lb 13.7 oz) 03/19/24 0535 79.8 kg (175 lb 14.8 oz) 03/18/242056 80.2 kg (176 lb 12.9 oz) Intake/Output Summary (Last 24 hours) at 03/20/2024 193 Last data filed at 03/20/2024 1700 Gross per 24 hour Intake 1137.6 ml Output 200 ml Net 937.6 ml Physical Exam: Physical Exam HENT: Mouth/Throat: Mouth: Mucous membranes are moist. Eyes: Extraocular Movements: Extraocular movements intact. Neck: Comments: +elevated JVD Cardiovascular: Rate and Rhythm: Normal rate and regular rhythm. Pulmonary: Effort: Pulmonary effort is normal. Comments: Bilateral crackles Abdominal: General: There is no distension. Palpations: Abdomen is soft. Musculoskeletal: Right lower leg: Edema present. Left lower leg: Edema present. Comments: trace Skin: General: Skin is warm. Neurological: General: No focal deficit present. Mental Status: He is alert. Labs: Recent Labs 03/20/24 0209 03/19/2445803/18/24 2150 WBC 10.8* 6.8 7.3 HGB 14.0 12.0* 12.4* HCT 44.9 39.3* 39.4* PLATELET 321 290 283 MCV 86.0 87.1 86.8 Recent Labs 03/20/24 0209 03/19/24 1416 03/19/24 0459 03/18/24 2150 NA 139 142 141 140 CL 104 106 108* 107 CO2 22 24 23 K 4.7 3.7 4.2 4.0 MAGNESIUM 0.93 0.72 0.81 0.80 PHOS -- 2.6 -- 3.0 CALCIUM 9.3 9.0 8.6 8.7 BUN 17 15 16 20 CREATININE 1.14 1.02 0.99 1.18 Coags Recent Labs 03/18/24 2150 INR 1.1 PT 12.4 PTT 139* Cardiac Markers Recent Labs 03/19/24 1416 03/19/24 0459 03/18/24 2150 TROPONINTHS 38* 37* 36* PROBNP -- -- 1,535* Endocrine Recent Labs 03/19/24 0459 03/18/24 2150 TSH -- 2.06 HA1C 7.4* -- Recent Labs 03/19/24458 CHLPL 89 TRIG 108 HDL 27 LDLCHOL 40 Recent Labs 03/20/24 1647 03/20/24 1131 03/20/24 0807 03/20/24 0209 03/19/24 2058 03/19/24 1920 03/19/24 1526 03/19/24 1416 03/19/24 1209 03/19/24 0746 03/19/24 0459 03/19/24 0035 GLUCOSE -- -- -- 144 -- -- -- 141 -- -- 115 -- POCGLU 78 223* 130 -- 197 142 119 -- 173 117 -- 113 Imaging: No results found for this visit on 03/18/24 (from the past 24 hour(s)). TTE 03/19/24 Interpretation Summary -Left ventricle is of normal [...] There is no prior echo for comparison. Assessment: Siomara Man is a 78 y.o. male with a PMH of HTN, HLD, T2DM, CAD s/p PCI more than 20 years ago who presented to [facility] 03/18 as OSH tranfer for AeCHF vs NSTEMI. Patient reporting 2-3 wks gradually worsening SOB. No inciting factor noted. No recent infectious symptoms (fevers, chills, night sweats, congestion) noted, no recent sick contacts. Patient's clinical picture c/f AHRF likely 2/2 AeCHF vs CAP. Suspect NSTEMI type II iso hypoxia. Plan: #Acute decompensated HF #Acute Hypoxic Respiratory Failure #?Chronic interstitial lung disease - bilat crackles, elevated JVD, trace edema on exam c/f decompensated HF - resp panel negative - pulm consulted, appreciate recs - low suspicion PNA. Suspect decompensated heart failure likely driving AHRF and patient will benefit from repeat CT once closer to euvolemia #NSTEMI, likely Type II #CAD s/p PCI (~20 yrs ago) - trop elevated, but flat - s/p ASA 325 at OSH, continue ASA 81 daily - defer P2Y12 for now, pending ischemic eval - ischemic eval when loser to euvolemia/baseline respiratory status - continue home atorva 40 and zetia 10 daily - continue home BB - heparin gtt continued per ACS protocol - TTE as above - Lipids, A1c, TSH ordered #HTN - HOLD home amlodipine iso borderline soft BP #DMII - A1c 7.4% - hold home oral DM meds - SSI + HUMPHREY while inpatient Diet: Daily Healthy Menu Choices/Cardiac diet ([facility]-Diet) 75/75/90 CHO counting level 3 DVT Prophlaxis: heparin gtt IS: at bedside Code status: Attempt Cardiopulmonary Resuscitation - Inpatient Disposition: Discharge Planning: AM-PAC Basic Mobility Raw Score: 18 PT: OT: PCP No primary care provider on file. None * Abby Strange MD - 03/19/2024 12:55 PM EDT CV HOSPITALIST 2 - [facility] DAILY PROGRESS NOTE Page [phone] to reach a provider 01/04 Admit Date: 03/18/2024 Encounter Date March 19, 2024 Anticipated Discharge Date: 03/22/2024 Hospital Day: 1 Active Hospital Problems Diagnosis NSTEMI (non-ST elevated myocardial infarction) Hypertension Resolved Hospital Problems No resolved problems to display. 24 Hour Events/Subjective: - Admitted overnight - patient on RA at baseline, requiring 6L in AM. Reports continued SOB. Denies chest pain, palpitations, abd pain Medications: Scheduled Meds: amLODIPine 5 mg Oral Daily atorvastatin 40 mg Oral QPM ezetimibe 10 mg Oral Daily metoprolol succinate XL 100 mg Oral Daily tamsulosin 0.8 mg Oral Nightly sodium chloride 0.9 % (flush) 5 mL Intravenous BID aspirin EC 81 mg Oral Daily [START ON 03/20/2024] azithromycin 500 mg Oral Daily magnesium sulfate 2 g Intravenous Once potassium, sodium phosphates 3 g Oral Once insulin lispro 1-6 Units Subcutaneous TID AC insulin lispro 0-8 Units Subcutaneous TID WC insulin glargine (Lantus;Semglee) (100 unit/mL) subcutaneous injection 10 Units Subcutaneous Daily cefTRIAXone 2 g Intravenous Q24H Continuous Infusions: heparin (porcine) infusion 800 Units/hr (03/19/24 0600) PRN Meds:.sodium chloride 0.9 % (flush), lidocaine, nitroGLYcerin, heparin (porcine) infusion AND heparin (porcine), glucose 40% oral geL OR dextrose OR glucagon Objective: Last value Range last 24 hrs Temp: 37.1 ??C (98.7 ??F) Temp: [36.6 ??C (97.8 ??F)-37.1 ??C (98.7 ??F)] Heart Rate: 53 Heart Rate: [51-108] BP: 94/65 BP: (90-108)/(47-65) Resp: 16 Resp: [16-17] SpO2: 98 % SpO2: [92 %-98 %] Height: 175.3 cm (5' 9) Weight: 79.8 kg (175 lb 14.8 oz) BMI (Calculated): 26.11 BMI Classification: Over Weight Admit weight: 80.2 kg Patient Vitals for the past 168 hrs: Weight 03/19/24 0535 79.8 kg (175 lb 14.8 oz) 03/18/242056 80.2 kg (176 lb 12.9 oz) Intake/Output Summary (Last 24 hours) at 03/19/2024 1835 Last data filed at 03/19/2024 1600 Gross per 24 hour Intake 1082 ml Output 920 ml Net 162 ml Physical Exam: Physical Exam HENT: Mouth/Throat: Mouth: Mucous membranes are moist. Eyes: Extraocular Movements: Extraocular movements intact. Neck: Comments: +elevated JVD Cardiovascular: Rate and Rhythm: Normal rate and regular rhythm. Pulmonary: Effort: Pulmonary effort is normal. Comments: Bilateral crackles Abdominal: General: There is no distension. Palpations: Abdomen is soft. Musculoskeletal: Right lower leg: Edema present. Left lower leg: Edema present. Comments: trace Skin: General: Skin is warm. Neurological: General: No focal deficit present. Mental Status: He is alert. Labs: Recent Labs 03/19/2445803/18/242149 WBC 6.8 7.3 HGB 12.0* 12.4* HCT 39.3* 39.4* PLATELET 290 283 MCV 87.1 86.8 Recent Labs 03/19/24 1416 03/19/24 0459 03/18/24 2150 NA 142 141 140 CL 106 108* 107 CO2 26 24 23 K 3.7 4.2 4.0 MAGNESIUM 0.72 0.81 0.80 PHOS 2.6 -- 3.0 CALCIUM 9.0 8.6 8.7 BUN 15 16 20 CREATININE 1.02 0.99 1.18 Coags Recent Labs 03/18/240 INR 1.1 PT 12.4 PTT 139* Cardiac Markers Recent Labs 03/19/24 0459 03/18/24 2150 TROPONINTHS 37* 36* PROBNP -- 1,535* Endocrine Recent Labs 03/19/24 0459 03/18/24 2150 TSH -- 2.06 HA1C 7.4* -- Recent Labs 03/19/24458 CHLPL 89 TRIG 108 HDL 27 LDLCHOL 40 Recent Labs 03/19/24 1526 03/19/24 1416 03/19/24 1209 03/19/24 0746 03/19/24 0459 03/19/24 0035 03/18/24 2150 GLUCOSE -- 141 -- -- 115 -- 115 POCGLU 119 -- 173 117 -- 113 -- Imaging: Results for orders placed or performed during the hospital encounter of 03/18/24 (from the past 24 hour(s)) XR Chest PA & Lateral (Generic) (Exam End: 03/19/2024 2:45 PM) Result Value WORKSTATION ID [id number] Impression Stable small right pleural effusion. No pulmonary edema. Lung findings suspected to represent atypical pneumonia or sequela of pneumonia, correlate for history of Covid infection Thank you for letting us participate in the care of this patient. If you are a health care provider and have any questions regarding this report, please contact the number below. For patients who have questions please contact the health hospice care transitions coordinator that requested your imaging first. Electronically signed by: Fitz Harper MD, [facility] ([phone]), at 03/19/2024 4:58 PM TTE 03/19/24 Interpretation Summary -Left ventricle is of normal [...] There is no prior echo for comparison. Assessment: Siomara Man is a 78 y.o. male with a PMH of HTN, HLD, T2DM, CAD s/p PCI more than 20 years ago who presented to [facility] 03/18 as OSH tranfer for AeCHF vs NSTEMI. Patient reporting 2-3 wks gradually worsening SOB. No inciting factor noted. No recent infectious symptoms (fevers, chills, night sweats, congestion) noted, no recent sick contacts. Patient's clinical picture c/f AHRF likely 2/2 AeCHF vs CAP. Suspect NSTEMI type II iso hypoxia. Plan: #Acute decompensated HF #Acute Hypoxic Respiratory Failure #C/f community acquired pneumonia #?Chronic interstitial lung disease - bilat crackles, elevated JVD, trace edema on exam c/f decompensated HF - Continue ceftriaxone and azithromycin - send respiratory panel #NSTEMI, likely Type II #CAD s/p PCI (~20 yrs ago) - trop elevated, but flat - s/p ASA 325 at OSH, continue ASA 81 daily - defer P2Y12 for now, pending ischemic eval - ischemic eval when loser to euvolemia/baseline respiratory status - continue home atorva 40 and zetia 10 daily - continue home BB - heparin gtt continued per ACS protocol - TTE as above - Lipids, A1c, TSH ordered #HTN - HOLD home amlodipine iso borderline soft BP #DMII - A1c 7.4% - hold home oral DM meds - SSI + HUMPHREY while inpatient Diet: Daily Healthy Menu Choices/Cardiac diet ([facility]-Diet) 75/75/90 CHO counting level 3 DVT Prophlaxis: heparin gtt IS: at bedside Code status: Attempt Cardiopulmonary Resuscitation - Inpatient Disposition: Discharge Planning: AM-PAC Basic Mobility Raw Score: 18 PT: OT: PCP No primary care provider on file. None * Gretta Barker RT - 03/19/2024 6:09 AM EDT Assessment: Paged by RN regarding patient needing 5-6L . Upon assessment, patient was on 5L NC withbubbler asleep with mouth open with spo2 90%. Upon awakening, spo2 went to 94%. No increase in WOB noted. Patient talking comfortably in full sentences. Plan: Continue to support patient if any increase in respiratory support. documented in this encounter H&P Notes * Oscar Hernández MD - 03/18/2024 9:12 PM EDT Images from the original note were not included. Cardiology Admission H&P Patient Name: Siomara Man Date of : 1945 Age: 78 y.o. Hospital Admit Date: 03/18/2024 Inpatient Attending: Josefina Cameron MD PCP: Jamie Freeman MD (Inactive) Presenting Diagnosis/Chief Complaint: NSTEMI Active Problem List: Active Hospital Problems Diagnosis NSTEMI (non-ST elevated myocardial infarction) Hypertension Resolved Hospital Problems No resolved problems to display. History of Present Illness: Siomara Man is an 78 y.o. male with hx of HTN, HLD, T2DM, CAD s/p PCI more than 20 years ago who presents from [facility] with complains of 2 weeks of worsening fatigue, SOB and cough. The patient presented with 2 to 3 weeks of worsening shortness of breath, associated with cough which he attributed to allergies and old age. His shortness of breath progressively worsened to the point that he started having some episodes of dizziness and lightheadedness but never lost consciousness. He denied any chest pain or jaw pain. No nausea vomiting or diaphoresis. The patient reports thathe has had PCI and stents x2 in the past about 20 years ago. He does not recall the details of the event but he does not recall having chest pain during that encounter. He reported that he has had a repeat cath procedure and they told him his stents were closed but his blood has created alternative routes so they did not intervene. Family hx: father had an TX in his 60s Social hx: lives with . He is very independent. Does not use a cane or a walker. Has a flight of stairs at home and goes up. Recently experiencing limitations due to shortness of breath. Smoked pipe. Cigaretes very remote history. Drinks about a beer each night. No other illicit substances. At OSH Vitals: hypoxic to 70s on RA. Required 5LNC and down to 3-4L NC. Other Vitals stable. EKG: SR, TWI inferior leads as well as V3-4 Trop (ULN 72) 114,102 BNP 4600, Cr 1.37, WBC 7.5 Chest x-ray showed diffuse septal thickening suggestive of interstitial lung disease and superimposed consolidation of the left lower lobe concerning for infection as well as small bilateral pleural effusions. CTA chest negative for PE, diffuse interstitial thickening and groundglass opacities concerning forchronic lung disease with superimposed atypical infection. POCUS: no pericardial effusion, global function appears intact, possible apical ballooning OSH Interventions: IV abx, IV lasix 20 mg x 1, ASA 324 mg, IV heparin, IV ceftriaxone 1 g and IV azithromycin 500 mg. Patient transferred to [facility] for further evaluation of possible NSTEMI and CAP Past Medical History: Past Medical History: Diagnosis Date Diabetes mellitus HLD (hyperlipidemia) Hypertension Surgical History/Problems: History reviewed. No pertinent surgical history. Significant Family History: Family History Problem Relation Age of Onset Myocardial Infarction Father Social History: Social History Socioeconomic History Marital status: Unknown Spouse name: Not on file Number of children: Not on file Years of education: Not on file Highest education level: Not on file Occupational History Not on file Tobacco Use Smoking status: Former Types: Pipe Passive exposure: Never Smokeless tobacco: Former Vaping Use Vaping status: Never Used Substance and Sexual Activity Alcohol use: Yes Alcohol/week: 1.0 standard drink of alcohol Types: 1 Cans of beer per week Drug use: Never Sexual activity: Not Currently Other Topics Concern Not on file Social History Narrative Not on file Social Determinants of Health Financial Resource Strain: Not on file Food Insecurity: Not on file Transportation Needs: Not on file Physical Activity: Not on file Intimate Partner Violence: At Risk (03/18/2024) IPV Inpatient Questions Prevent Contact with Others: no Feels Threatened by Someone: no Feels Unsafe at Home: yes Physical Signs of Abuse Present: no Housing Stability: Not on file REVIEW OF SYSTEMS: General: Denies fever, chills, night sweats. Resp: As per HPI Cardiac: As per HPI GI: Denies abdominal pain, nausea, vomiting, diarrhea or constipation : Has urinary retention history now on tamsulosin. MS: Denies muscle aches, joint pain or swelling Neuro: Denies headache, neurologic deficits (focal weakness, numbness, tingling), abnormal gait Psych: Denies depression. Skin: Denies new rashes or lesions Medications: Medications Prior to Admission Medication Sig Dispense Refill Last Dose tamsulosin (Flomax) 0.4 mg capsule Take 0.8 mg by mouth nightly. metFORMIN (Fortamet) 1,000 mg ER 24 hr tablet Take 1,000 mg by mouth 2 times daily (with meals). CIS Free Text Med - ASA CIS Free Text Med - Carpenter 3 metoprolol succinate (TOPROL XL) 100 mg XL tablet lisinopril (ZESTRIL) 10 mg tablet Take 40 mg by mouth daily. atorvastatin (LIPITOR) 40 mg tablet Vitamin E 400 unit Tab amlodipine (NORVASC) 5 mg tablet rosiglitazone (AVANDIA) 4 mg tablet ezetimibe (ZETIA) 10 mg tablet CALCIUM CARBONATE (CORAL CALCIUM ORAL) multivitamin (THERAGRAN) tablet Allergies: No Known Allergies PHYSICAL EXAM: Last set of vital signs: BP 108/64 (Patient Position: Sitting) Pulse 51 Temp 36.6 ??C (97.8 ??F) (Oral) Resp 16 Ht 175.3 cm (5' 9) Wt 80.2 kg (176 lb 12.9 oz) SpO2 92% BMI 26.11 kg/m?? General Appearance: No acute distress, lying in bed, HEENT: NCAT, EOMI, PERRL, anicteric, mucous membranes moist, on 4LNC Neck: Supple, no JVD Lungs: bilateral rales. No wheezes. No accessory muscle usage. Cardiac: regular rate and rhythm. Systolic murmur Abdomen: Soft, non-tender, non-distended. Normo-active bowel sounds. Extremities: No edema. Neuro: Alert and oriented. Grossly non-focal. Conversant, moving all extremities. Skin: No rashes or lesions noted. LABS: Recent Results (from the past 24 hour(s)) Basic Metabolic Panel (non-fasting) Result Value Ref Range Glucose Lvl 115 65 - 199 mg/dL BUN 20 10 - 20 mg/dL Creatinine 1.18 0.80 - 1.50 mg/dL Sodium 140 135 - 145 mmol/L Potassium 4.0 3.5 - 5.0 mmol/L Chloride 107 98 - 107 mmol/L CO2 23 22 - 31 mmol/L Anion Gap 10 5 - 15 mmol/L Calcium 8.7 8.5 - 10.5 mg/dL Estimated GFR 63 >=60 mL/min/1.73 m?? Magnesium Result Value Ref Range Magnesium 0.80 0.69 - 1.07 mmol/L Phosphorus Result Value Ref Range Phosphorus 3.0 2.5 - 4.5 mg/dL TSH Result Value Ref Range TSH 2.06 0.27 - 4.20 mcIU/mL pro-Brain Natriuretic Peptide Result Value Ref Range ProBNP 1,535 (H) <=449 pg/mL Troponin Result Value Ref Range Troponin-T HS 36 (H) <=22 ng/L Hepatic Function Panel Result Value Ref Range Total Protein 5.3 (L) 6.1 - 8.0 g/dL Albumin 2.8 (L) 3.2 - 5.2 g/dL AST 14 0 - 39 unit/L ALT 7 0 - 55 unit/L Alk Phos 94 40 - 130 unit/L Total Bilirubin 0.4 0.2 - 1.3 mg/dL Bili, Direct 0.1 0.0 - 0.3 mg/dL Prothrombin Time Result Value Ref Range PT 12.4 9.4 - 12.5 sec INR 1.1 APTT Result Value Ref Range PTT 139 (CRIT) 25 - 37 sec Heparin (unfractionated) Level Result Value Ref Range Heparin UFH Level 0.49 IU/mL Hemogram Result Value Ref Range WBC 7.3 4.0 - 9.5 x10(3)/mcL RBC 4.54 (L) 4.58 - 5.54 x10(6)/mcL Hemoglobin 12.4 (L) 13.7 - 16.5 g/dL Hematocrit 39.4 (L) 40.5 - 48.5 % MCV 86.8 82.9 - 93.1 fL MCH 27.3 (L) 27.5 - 32.1 pg MCHC 31.5 (L) 32.0 - 35.7 g/dL Platelets 283 145 - 357 x10(3)/mcL RDWSD 48.3 (H) 36.0 - 45.0 fL RDWCV 15.2 (H) 11.4 - 13.8 % MPV 9.0 7.6 - 12.9 fL nRBC % Auto 0.0 % nRBC Abs Auto 0.000 0.000 - 0.000 x10(3)/mcL Differential, Automated Result Value Ref Range Neutrophils % 61.8 % Neutr Abs (ANC) 4.48 1.70 - 6.10 x10(3)/mcL Lymphocytes % 18.0 % Lymphocytes Abs 1.3 0.9 - 3.2 x10(3)/mcL Monocytes % 11.8 % Monocyte Abs 0.9 0.3 - 0.9 x10(3)/mcL Eosinophils % 6.9 % Eosinophils Abs 0.5 (H) 0.0 - 0.4 x10(3)/mcL Basophils % 1.1 % Basophils Abs 0.1 0.0 - 0.1 x10(3)/mcL Immature Gran % 0.40 % Felicia Gran Abs 0.03 0.00 - 0.04 x10(3)/mcL ASSESSMENT AND PLAN Siomara Man is an 78 y.o. male with hx of HTN, HLD, T2DM, CAD s/p PCI more than 20 years ago who presents from [facility] with complains of 2 weeks of worsening fatigue, SOB and cough. The patient ruled in for NSTEMI with elevated troponin x 3. He was anticoagulated with IV heparin. Given the patient's risk factors (HTN, HLD, T2DM, hx of CAD, and age), ECG changes (TWIs), positive biomarkers, the pateint willl benefit from ischemic evaluation. Will proceed with LHC. The indications, expected benefits and potential risks of heart catheterization were reviewed in detail with the patient. The potential for , heart attack, stroke, kidney failure, hemorrhage, allergic reaction, vascular complications and infection were reviewed in detail. The possibility of stenting and other percutaneous intervention with associated risk was reviewed. The possible need for emergent coronary artery bypass surgery was reviewed. After a discussion about the above, and havinganswered all questions posed, the patient was provided with a consent which was reviewed and signed. ASA: 3: Patient with severe systemic disease Mallampati: II: tonsillar pillars are blocked by the tongue Sedation Plan: moderate (conscious sedation) The patient's acute hypoxia is multifactorial due to possible CAP in an underlying chronic lung disease (given the chest imaging finding of bilateral infiltrates in chest imaging) and ACS as above. Continue IV antibiotics. #NSTEMI GIANNI Risk Score 4 - ASA 81mg PO daily (s/p initial 324mg) - Hold Clopidogrel suspecting CABG given CAD hx presented. - Atorvastatin 40mg PO daily, check lipid panel - Metoprolol succinate 100 mg OD (Hold if SBP<90 / cardiogenic shock) - NTG PRN chest pain or NTG drip if ongoing chest pain (Hold if hypotensive / cardiogenic shock / inferior TX / sildenafil within past 24 hours) - Anti-coagulation (Heparin drip per ACS protocol) - TTEcho. - NPO after MN for possible LHC in the am. #Community acquired pneumonia #? Chronic interstitial lung disease - Continue ceftriaxone and azithromycin. - Sputum cultures - Bedside PFTs. #Hx of HTN, T2DM, and HLD - Hold home anti- DM - Insulin ss, glargine, accuchecks. Diet: Carb controlled. Heparin ggt for dvt ppx Oscar Hernández MD 03/18/2024 documented in this encounter Miscellaneous Notes * Care Management Discharge - Arlyn Hernandez RN - 03/25/2024 2:31 PM EDT CARE MANAGEMENT FINAL DISCHARGE NOTE Chart reviewed, care reviewed with primary team and at interdisciplinary rounds. Patient is medically ready for discharge to home with Needs for Transition of Care: Plan for discharge is: Home w/o Services Outpatient Agency/Support Group Needs: None Resp Needs: Home O2 Company: [facility] Status: Home Delivery Agency Referrals & Follow-up Care: Transportation: family or friend will provide Functional status prior to admission: Independent Home Environment: Others in the home: spouse. Current Living Arrangements: home/apartment/condo. Accessibility Concerns:house 2 floors with FOS to enter from garage, FOS to bedrooms, pt states he does not usually have any difficulty with the stairs. Current Functional Ability: Assistive Person DME used at home: none DME Needed at Discharge: pt to have home oxygen via [facility]. They will contact pt and this afternoon to coordinate delivery. CM delivered portable oxygen concentrator to pt'sroom prior to discharge. Pt and state understanding in using POC. Patient is insured through: Primary Insurance: MEDICARE Payor: MEDICARE / Plan: MEDICARE PART A & B / Product Type: *No Product type* / Secondary Insurance: N/A Prescription Coverage: Yes This plan was formulated with input from patient, and team. All are in agreement with plan. Arlyn Hernandez RN * Plan of Care - Lisbeth Dooley RN - 03/25/2024 2:30 PM EDT AVS reviewed with pt and spouse. Questions answered. PIV removed per policy. VSS. Belongings returned to pt. Pt discharged through entrance 2 to home. Problem: Adult Inpatient Plan of Care Goal: Plan of Care Review Outcome: Outcome (s) achieved Goal: Patient-Specific Goal (Individualized) Outcome: Outcome (s) achieved Goal: Absence of Hospital-Acquired Illness or Injury Outcome: Outcome (s) achieved Goal: Optimal Comfort and Wellbeing Outcome: Outcome (s) achieved Goal: Readiness for Transition of Care Outcome: Outcome (s) achieved Problem: Chest Pain Goal: Resolution of Chest Pain Symptoms Outcome: Outcome (s) achieved Problem: Fall Injury Risk Goal: Absence of Fall and Fall-Related Injury Outcome: Outcome (s) achieved Problem: Infection Goal: Absence of Infection Signs and Symptoms Outcome: Outcome (s) achieved * Care Management - Main Campbell MD - 03/25/2024 7:45 AM EDT Certification of Medical Necessity Form for Home Oxygen Siomara Man is requiring HOME OXYGEN due to the diagnosis of hypoxia due to: Unknown Oxygen is required: Continuously Oxygen saturations documented Resting on Room Air: 84% Resting on 1 liters of O2: 93% (Please document below the Activity Saturations if Resting saturations are >88% ) Activity on Room Air: % Activity on O2 at liters: % O2 Sats collected by: Candice Castro RN Date Sats Collected: 03/24/24 Mobility: Patient is mobile. (Requiring portable oxygen) Rate: 1 Route: RI Vendor Ordered: [facility] I anticipate that Siomara Man will be discharged within 2 days. * Care Management - Arlyn Hernandez RN - 03/25/2024 7:27 AM EDT I have met with the patient to: discuss discharge planning needs. provide the [facility], Office of Care Management letter from the [employer] pertaining to rehab referrals. provide a letter describing our affiliations within the [facility] and educate about their right to choose where referrals are sent. provide a list of Home Health Agencies / Durable Medical Equipment vendors which serve their preferred geographic area. provided patient with [facility] Star Quality Rating handout. They have requested referrals to: [facility] (Resp Supplies) Estimated date of discharge is 03/25/24 Will need home oxygen. Note routed to a Production Team Leader who will communicate referrals to facilities and provide any required information. * Plan of Care - Nikhil Tirado RN - 03/25/2024 5:48 AM EDT OUTCOME SUMMARY: Pt remain sable on 1 liter of oxygen. Pt is alert and oriented. Pt reported episodes of diarrhea X6. MD notified. Imodium administered with effect. PLAN MOVING FORWARD: Home oxygen. CPG GOAL OUTCOME EVALUATION: Problem: Adult Inpatient Plan of Care Goal: Absence of Hospital-Acquired Illness or Injury Outcome: Ongoing (Interventions Implemented as Appropriate) Problem: Adult Inpatient Plan of Care Goal: Optimal Comfort and Wellbeing Outcome: Ongoing (Interventions Implemented as Appropriate) Problem: Chest Pain Goal: Resolution of Chest Pain Symptoms Outcome: Ongoing (Interventions Implemented as Appropriate) * Plan of Care - Candice Castro RN - 03/24/2024 6:55 PM EDT Problem: Adult Inpatient Plan of Care Goal: Plan of Care Review Outcome: Ongoing (Interventions Implemented as Appropriate) Goal: Absence of Hospital-Acquired Illness or Injury Outcome: Ongoing (Interventions Implemented as Appropriate) Goal: Readiness for Transition of Care Outcome: Ongoing (Interventions Implemented as Appropriate) Problem: Chest Pain Goal: Resolution of Chest Pain Symptoms Outcome: Ongoing (Interventions Implemented as Appropriate) Problem: Fall Injury Risk Goal: Absence of Fall and Fall-Related Injury Outcome: Ongoing (Interventions Implemented as Appropriate) Problem: Infection Goal: Absence of Infection Signs and Symptoms Outcome: Ongoing (Interventions Implemented as Appropriate) * Plan of Care - Nikhil Tirado RN - 03/24/2024 5:55 AM EDT OUTCOME SUMMARY: Pt is alert and oriented. VSS stable. SPO2 90s with nasal cannula. Call light within reach. Pt ambulates to the restroom independently. No pain reported. CPG GOAL OUTCOME EVALUATION: Problem: Adult Inpatient Plan of Care Goal: Optimal Comfort and Wellbeing Outcome: Ongoing (Interventions Implemented as Appropriate) Problem: Chest Pain Goal: Resolution of Chest Pain Symptoms Outcome: Ongoing (Interventions Implemented as Appropriate) Problem: Fall Injury Risk Goal: Absence of Fall and Fall-Related Injury Outcome: Ongoing (Interventions Implemented as Appropriate) * Plan of Care - Candice Castro RN - 03/23/2024 5:26 PM EDT OUTCOME EVALUATION NOTE: OUTCOME SUMMARY: Repeat CXR today. O2 sat dropped while ambulating to 79% on 1 L NC so turned up to 2 L NC. No c/o SOB while ambulating or relaxing in bed. No other complaints. PLAN MOVING FORWARD: Monitor VS, fall prevention, diureses CARE PLAN GOAL OUTCOME EVALUATION: Problem: Adult Inpatient Plan of Care Goal: Plan of Care Review Outcome: Ongoing (Interventions Implemented as Appropriate) Goal: Absence of Hospital-Acquired Illness or Injury Outcome: Ongoing (Interventions Implemented as Appropriate) Goal: Readiness for Transition of Care Outcome: Ongoing (Interventions Implemented as Appropriate) Problem: Chest Pain Goal: Resolution of Chest Pain Symptoms Outcome: Ongoing (Interventions Implemented as Appropriate) Problem: Fall Injury Risk Goal: Absence of Fall and Fall-Related Injury Outcome: Ongoing (Interventions Implemented as Appropriate) Problem: Infection Goal: Absence of Infection Signs and Symptoms Outcome: Ongoing (Interventions Implemented as Appropriate) * Plan of Care - Nikhil Tirado RN - 03/23/2024 4:43 AM EDT OUTCOME SUMMARY: Pt is alert and oriented. VSS stable. Heart rhythm monitoring SB. Pt ambulates to the restroom. Call light within reach. No pain reported. PLAN MOVING FORWARD: Possible DC home. CPG GOAL OUTCOME EVALUATION: Problem: Adult Inpatient Plan of Care Goal: Optimal Comfort and Wellbeing Outcome: Ongoing (Interventions Implemented as Appropriate) Problem: Adult Inpatient Plan of Care Goal: Readiness for Transition of Care Outcome: Ongoing (Interventions Implemented as Appropriate) Problem: Fall Injury Risk Goal: Absence of Fall and Fall-Related Injury Outcome: Ongoing (Interventions Implemented as Appropriate) * Plan of Care - Candice Castro RN - 03/22/2024 5:49 PM EDT Problem: Adult Inpatient Plan of Care Goal: Plan of Care Review Outcome: Ongoing (Interventions Implemented as Appropriate) Goal: Absence of Hospital-Acquired Illness or Injury Outcome: Ongoing (Interventions Implemented as Appropriate) Problem: Chest Pain Goal: Resolution of Chest Pain Symptoms Outcome: Ongoing (Interventions Implemented as Appropriate) Problem: Fall Injury Risk Goal: Absence of Fall and Fall-Related Injury Outcome: Ongoing (Interventions Implemented as Appropriate) Problem: Infection Goal: Absence of Infection Signs and Symptoms Outcome: Ongoing (Interventions Implemented as Appropriate) * Plan of Care - Nikhil Tirado RN - 03/22/2024 7:28 AM EDT Pt is alert and oriented. Call light within reach. Ambulates to the restroom. Heparin DC. Problem: Adult Inpatient Plan of Care Goal: Absence of Hospital-Acquired Illness or Injury Outcome: Ongoing (Interventions Implemented as Appropriate) Problem: Adult Inpatient Plan of Care Goal: Readiness for Transition of Care Outcome: Ongoing (Interventions Implemented as Appropriate) Problem: Chest Pain Goal: Resolution of Chest Pain Symptoms Outcome: Ongoing (Interventions Implemented as Appropriate) Problem: Fall Injury Risk Goal: Absence of Fall and Fall-Related Injury Outcome: Ongoing (Interventions Implemented as Appropriate) * Plan of Care - Abida Godfrey RN - 03/21/2024 7:03 PM EDT OUTCOME EVALUATION NOTE: OUTCOME SUMMARY: A&Ox4 on 1L NC, titrated from 2L NC. Attempted RA but stating in the low 80s. Denies any CP or SOB. Patient ambulating to the bathroom with assistance or using urinal at bedside. PLAN MOVING FORWARD: Q4 VS ACHS FS IV --> PO diuretics LHC? INDIVIDUALIZED FALL PREVENTION INTERVENTIONS: Patient-specific fall risk factors per assessment: [current deficits]: unfamiliar environment, wires/cords/lines Assistance [level of assistance required for transfers and ambulation]: SBA Supervision [direct monitoring required during toileting and ADLs]: SBA Surveillance [continuous indirect monitoring]: Telemetry, pulse ox Patient-specific fall prevention interventions for sensory deficits provided, if applicable: Yes. Lighting adjusted, clutter free environment, non-slips on, bed alarm set, call jean-baptiste within reach and calls as appropriate. CPG GOAL OUTCOME EVALUATION: Ongoing Problem: Adult Inpatient Plan of Care Goal: Plan of Care Review Outcome: Ongoing (Interventions Implemented as Appropriate) Goal: Patient-Specific Goal (Individualized) Outcome: Ongoing (Interventions Implemented as Appropriate) Goal: Absence of Hospital-Acquired Illness or Injury Outcome: Ongoing (Interventions Implemented as Appropriate) Goal: Optimal Comfort and Wellbeing Outcome: Ongoing (Interventions Implemented as Appropriate) Goal: Readiness for Transition of Care Outcome: Ongoing (Interventions Implemented as Appropriate) Problem: Chest Pain Goal: Resolution of Chest Pain Symptoms Outcome: Ongoing (Interventions Implemented as Appropriate) Problem: Fall Injury Risk Goal: Absence of Fall and Fall-Related Injury Outcome: Ongoing (Interventions Implemented as Appropriate) Problem: Infection Goal: Absence of Infection Signs and Symptoms Outcome: Ongoing (Interventions Implemented as Appropriate) * Plan of Care - Candice Castro RN - 03/20/2024 7:07 PM EDT Problem: Adult Inpatient Plan of Care Goal: Plan of Care Review Outcome: Unable to achieve outcome by discharge Goal: Patient-Specific Goal (Individualized) Outcome: Unable to achieve outcome by discharge Goal: Absence of Hospital-Acquired Illness or Injury Outcome: Unable to achieve outcome by discharge Goal: Optimal Comfort and Wellbeing Outcome: Unable to achieve outcome by discharge Goal: Readiness for Transition of Care Outcome: Unable to achieve outcome by discharge Problem: Chest Pain Goal: Resolution of Chest Pain Symptoms Outcome: Unable to achieve outcome by discharge Problem: Fall Injury Risk Goal: Absence of Fall and Fall-Related Injury Outcome: Unable to achieve outcome by discharge Problem: Infection Goal: Absence of Infection Signs and Symptoms Outcome: Unable to achieve outcome by discharge * Care Management - Destiny Layton RN - 03/20/2024 4:27 PM EDT OFFICE OF CARE MANAGEMENT PROGRESS NOTE LOS: Hospital Day 2 days Chart reviewed, care reviewed with primary team and at interdisciplinary rounds. Patient continues to meet inpatient level of care related to: NSTEMI Decision Maker: Self Functional status prior to admission: Independent Home Environment: Others in the home: spouse. Current Living Arrangements: home/apartment/condo. Accessibility Concerns: house 2 floors with FOS to enter from garage, FOS to bedrooms, pt states hedoes not usually have any difficulty with the stairs. Current Functional Ability: Assistive Person DME used at home: none DME Needed at Discharge: No Patient is insured through: Primary Insurance: MEDICARE Payor: MEDICARE / Plan: MEDICARE PART A & B / Product Type: *No Product type* / Secondary Insurance: N/A Last Physical Therapy Recommendation: with Last Occupational Therapy Recommendation: with Plan for discharge is: Home w/o Services Outpatient Agency/Support Group Needs: None Agency Referrals: Not Applicable Transportation: family or friend will provide Barriers to discharge: Denies needs/concerns at this time Plan going forward: Per team, pt is not stable for d/c t this time r/t fluid overload and C-diff positive. One stable it is felt pt can return home with OP Cardi for f/u and family support. Care Management will continue to follow and assist with discharge planning and coordination of care as indicated. Anticipated Date of Discharge: 03/23/2024 Destiny Layton MSN-Ed, RN [facility] Heart and Vascular Research Nurse and Yo Carlin Mgr. (Pager #[phone]) * Consult Note - Carlos Frazier MD - 03/20/2024 1:46 PM EDT Asked to see Mr Man for interstitial lung disease and dyspnea. History of present illness He is an 78 y.o. male with hx of HTN, HLD, T2DM, CAD s/p PCI more than 20 years ago who presents from [facility] with complains of 2 weeks of worsening fatigue, dyspnea and cough. His shortness of breath progressively worsened to the point that he started having some episodes ofdizziness and lightheadedness but never lost consciousness. He denied any chest pain or jaw pain, nausea vomiting or diaphoresis. He had no fevers, sputum or chest pain. The patient reports that he has had a PCI and stents about 20 years ago. He reported that he has had a repeat cath procedure and they told him his stents were closed but his blood vessels have created alternative routes so they did not intervene. Prior to the onset of this several week history, he thought he was well, doing the physical activities he enjoyed with his and did not have any cough or sputum or hemoptysis. 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 He denies any rheumatologic disease, no skin rashes, joint swelling or redness. He is a former pipe smoker who quit about 6 months ago. He doesn't think he has started any new medications. He has no birds or pets and denies any allergies to environmental antigens. Family hx: father had an [place] in his 60s, no known lung diseases Social hx: lives with . He is very independent. Does not use a cane or a walker. Has a flight of stairs at home and goes up. . Drinks about a beer each night. No other illicit substances. At the outside hospital he was hypoxemic to the 70s on air. Required 5LNC and down to 3-4L NC. His EKG showed SR, TWI inferior leads as well as V3-4 Trop (ULN 72) 114,102 BNP 4600, Cr 1.37, WBC 7.5,Hb 14.5 He was given IV lasix ASA 324 mg, IV heparin, IV ceftriaxone 1 g and IV azithromycin 500 mg. On ultrasound he had no pericardial effusion, global function appeared intact, but with possible apical ballooning Here he as undergone some diuresis and is feeling that his breathing is much easier. He still is on3 l/min O2. Problem list HTN HLD T2DM CAD s/p PCI Medications Amlodipine Atorvastatin Ezetimibe Metoprolol ASA MaSo4 Potassium chloride Insulin Ceftriaxone Azithromycin Heparin infusion. Physical Exam Alert, cooperative and in no distress T- 36.5, HR 59 and regular BP 93/57 SpO2 95% JVP 7-8 cm Clear oropharynx Nl thyroid CV S1, S2, no murmurs or rubs Lungs- bibasilar crackles, no wheeze Extremities- no edema Labs: Recent Labs 03/19/24 04503/18/24 2150 WBC 6.8 7.3 HGB 12.0* 12.4* HCT 39.3* 39.4* PLATELET 290 283 MCV 87.1 86.8 Recent Labs 03/19/24 1416 03/19/24 0459 03/18/242149 NA 142 141 140 CL 106 108* 107 CO2 26 24 23 K 3.7 4.2 4.0 MAGNESIUM 0.72 0.81 0.80 PHOS 2.6 -- 3.0 CALCIUM 9.0 8.6 8.7 BUN 15 16 20 CREATININE 1.02 0.99 1.18 Coags Recent Labs 03/18/242149 INR 1.1 PT 12.4 PTT 139* Cardiac Markers Recent Labs 03/19/2445803/18/242149 TROPONINTHS 37* 36* PROBNP -- 1,535* Endocrine Recent Labs 03/19/2445803/18/242149 TSH -- 2.06 HA1C 7.4* -- Recent Labs 03/19/24458 CHLPL 89 TRIG 108 HDL 27 LDLCHOL 40 Recent Labs 03/19/24 1526 03/19/24 1416 03/19/24 1209 03/19/24 0746 03/19/24 0459 03/19/24 0035 03/18/242149 GLUCOSE -- 141 -- -- 115 -- 115 POCGLU 119 -- 173 117 -- 113 -- Imaging CT PA angiogram 03/17/24- no old imaging to compare FINDINGS: Pulmonary arteries: Normal. No pulmonary emboli. Aorta: Unremarkable. No aortic aneurysm.No aortic dissection. Lungs: Bibasilar atelectasis. Mild emphysema. Diffuse interstitial thickeningand ground-glass opacities. No focal consolidation. Pleural spaces: Unremarkable. No pneumothorax. No pleural effusion. Heart: Unremarkable. No cardiomegaly. No pericardial effusion. Coronary arteries: Moderate coronary artery calcification. Lymph nodes: Mediastinal and hilar lymphadenopathy, likely reactive. Impression very. Mediastinal and bilateral hilar lymphadenopathy including reference 1.5cm subcarinal lymph node and 1.9 cm left paratracheal lymph node. Diaphragm: Chronic diaphragmatic defect on the left with herniation intra-abdominal fat. Liver: Incompletely characterized hypoattenuating lesion with calcifications in the posterior right hepatic lobe. Bones/joints: Chronic deformities of the left posterior ribs. Soft tissues: Unremarkable. IMPRESSION: 1. No pulmonary embolism. 2.Diffuse interstitial thickening and ground-glass opacities, concerning for chronic lung disease with superimposed atypical infection. No priors are available to establish chronicity. Echocardiogram 03/18/24 Interpretation Summary -Left ventricle is of normal [...] There is no prior echo for comparison. Hemodynamics Pulmonary artery hypertension could not be assessed due to inadequate tricuspid regurgitation jet. The estimated right atrial pressure is 3mmHg. Left ventricular diastolic function is abnormal. Thereis Grade I LV diastolic dysfunction (abnormal relaxation with normal left ventricular filling pressure). Assessment and Recommendations Dyspnea and imaging findings c/w interstitial lung disease. With no past history of dyspnea until recently in the setting of HPpEF with CHF and findings of alveolar and interstitial edema, it is likely that his imaging findings are more related to his known heart disease. That being said, he does have a occupational history that may be relevant to a primaryinterstitial lung disease. He does have pulmonary hypertension on echo, which either is related to an underlying lung disease or his known HFpEF. At this stage, I recommend continuing treatment of his heart failure. When you feel this is optimally resolved, then another CT scan would be useful to assess his lung parenchyma better. I would holdoff any pulmonary function testing until he is as dry as possible. I see no reason to treat pneumonia. * Plan of Care - Nikhil Tirado RN - 03/20/2024 7:38 AM EDT Pt had episodes of hypotension and diarrhea. MD notified. Stool specimen sent to the lab. Call light is within reach. Problem: Chest Pain Goal: Resolution of Chest Pain Symptoms Outcome: Ongoing (Interventions Implemented as Appropriate) Problem: Fall Injury Risk Goal: Absence of Fall and Fall-Related Injury Outcome: Ongoing (Interventions Implemented as Appropriate) Problem: Infection Goal: Absence of Infection Signs and Symptoms Outcome: Ongoing (Interventions Implemented as Appropriate) * Plan of Care - Candice Castro RN - 03/19/2024 5:41 PM EDT OUTCOME EVALUATION NOTE: OUTCOME SUMMARY: Pt remained on 4 L NC. BPs soft but stable. Sinus smitha to NSR with 1st degree block on tele. Hep continued. IV diurese. PLAN MOVING FORWARD: Monitor VS, bed alarm/fall prevention CARE PLAN GOAL OUTCOME EVALUATION: Problem: Adult Inpatient Plan of Care Goal: Plan of Care Review Outcome: Ongoing (Interventions Implemented as Appropriate) Goal: Absence of Hospital-Acquired Illness or Injury Outcome: Ongoing (Interventions Implemented as Appropriate) Goal: Readiness for Transition of Care Outcome: Ongoing (Interventions Implemented as Appropriate) Problem: Chest Pain Goal: Resolution of Chest Pain Symptoms Outcome: Ongoing (Interventions Implemented as Appropriate) Problem: Fall Injury Risk Goal: Absence of Fall and Fall-Related Injury Outcome: Ongoing (Interventions Implemented as Appropriate) Problem: Infection Goal: Absence of Infection Signs and Symptoms Outcome: Ongoing (Interventions Implemented as Appropriate) * Initial Assessments - Arlyn Hernandez RN - 03/19/2024 12:24 PM EDT Office of Care Management Initial Assessment Medical record reviewed. Plan of care and patient status discussed with direct care Registered Nurse and/or Care Team in multidisciplinary rounds. Reason for Hospitalization: Difficulties breathing Present on Admission: NSTEMI (non-ST elevated myocardial infarction) Hospitalizations Within the Past 30 Days: no previous admission in last 30 days Patient receiving hospital care under Inpatient status. Admission order reviewed. Health/Prescription Coverage: Primary Insurance: MEDICARE Payor: MEDICARE / Plan: MEDICARE PART A & B / Product Type: *No Product type* / Secondary Insurance: N/A ONLY if patient has Medicare A&B - Does this patient have secondary insurance?: Yes (BCBS) ; Prescription Coverage: Yes Preferred Pharmacy: [facility] [address] [place] [id number] Advance Care Planning: Attempt Cardiopulmonary Resuscitation - Inpatient <no information> -Advanced Directive: No, declines Current Functional Ability: Assistive Person Functional Status Prior to Admission: Independent Home Environment: Others in the home: spouse. Current Living Arrangements: home/apartment/condo. Accessibility Concerns:house 2 floors with FOS to enter from garage, FOS to bedrooms, pt states he does not usually have any difficulty with the stairs. Current DME: none Mailing address: [address] [place] [address] Physical Address: [address], [place] [address] Social & Family Supports: All names listed below confirmed with patient as current and correct No emergency contact information on file. Current Care Provided by: self Transportation: no concerns Transportation Anticipated: family or friend will provide Assessment: Patient with no apparent RNCM/SW needs at this time. No housing, transportation, insurance, resources concerns identified at this time. Supports in place to achieve a safe post-hospital transition. No identified barriers to accessing necessary care and/or follow-up after discharge. Plan: Patient to d/c to home via private vehicle with his when medically ready. Registered Nurse Completion Supervisor / Log Skidder will continue to follow patient???s progress and remain available if situation changes for coordination of care, psychosocial support and/or discharge planning. Office of Care Management Arlyn Hernandez RN * Plan of Care - Nikhil Tirado RN - 03/19/2024 7:22 AM EDT Patient admitted to the floor. SPo2 reading in the 80s. Increased oxygen from 4 liters to 6 liters.RT and MD notified. IS education given. Heparin is infusing @ 800U/KG/HR. No bleeding noted. UFH istherapeutic. Problem: Chest Pain Goal: Resolution of Chest Pain Symptoms Outcome: Ongoing (Interventions Implemented as Appropriate) Problem: Fall Injury Risk Goal: Absence of Fall and Fall-Related Injury Outcome: Ongoing (Interventions Implemented as Appropriate) Problem: Infection Goal: Absence of Infection Signs and Symptoms Outcome: Ongoing (Interventions Implemented as Appropriate) documented in this encounter Plan of Treatment Upcoming Encounters Date Type Department Care Team (Late st Contact Info) Description 05/18/2024 2:00 PM EDT Office Visit Cardiology at [facility] [address] [place] [address] Radha Jordan PA [facility] [place] [address] Scheduled Referrals Name Type Priority Associated Diagnoses Orde r Schedule Referral to Pulmonology Outpatient Referral Routine Chronic hypoxic respiratory failure Ordered: 03/25/2024 documented as of this encounter Procedures Procedure Name Priority Date/Time Associated Diagnosis Comments POCT GLUCOSE Routine 03/25/2024 12:04 PM EDT POCT GLUCOSE Routine 03/25/2024 12:00 PM EDT POCT GLUCOSE Routine 03/25/2024 7:11 AM EDT HEMOGRAM Routine 03/25/2024 3:29 AM EDT DIFFERENTIAL, AUTOMATED Routine 03/25/20 3:29 AM EDT HC VENIPUNCTURE Routine 03/25/2024 3:29 AM EDT HC MAGNESIUM, SERUM Routine 03/25/2024 3 :29 AM EDT BASIC METABOLIC PANEL (NON-FASTING) Routine 03/25/2024 3:29 AM EDT POCT GLUCOSE Routine 03/24/2024 10:59 PM EDT POCT GLUCOSE Routine 03/24/2024 4:[address] CHEST WO CONTRAST (GENERIC) Routine 03/24/2024 12:05 PM EDT POCT GLUCOSE Routine 03/24/2024 11:41 AM EDT POCT GLUCOSE Routine 03/24/2024 7:26 AM EDT HEMOGRAM Routine 03/24/2024 3:23 AM EDT DIFFERENTIAL, AUTOMATED Routine 03/24/20 24 3:23 AM EDT HC VENIPUNCTURE Routine 03/24/2024 3:23 AM EDT HC MAGNESIUM, SERUM Routine 03/24/2024 3 :23 AM EDT BASIC METABOLIC PANEL (NON-FASTING) Routine 03/24/2024 3:23 AM EDT POCT GLUCOSE Routine 03/23/2024 11:04 PM EDT POCT GLUCOSE Routine 03/23/2024 4:34 PM EDT POCT GLUCOSE Routine 03/23/2024 11:52 AM EDT XR CHEST ONE VIEW Routine 03/23/2024 9:4 7 AM EDT POCT GLUCOSE Routine 03/23/2024 7:31 AM EDT HEMOGRAM Routine 03/23/2024 3:29 AM EDT DIFFERENTIAL, AUTOMATED Routine 03/23/20 3:29 AM EDT HC VENIPUNCTURE Routine 03/23/2024 3:29 AM EDT HC MAGNESIUM, SERUM Routine 03/23/2024 3 :29 AM EDT BASIC METABOLIC PANEL (NON-FASTING) Routine 03/23/2024 3:29 AM EDT POCT GLUCOSE Routine 03/22/2024 10:20 PM EDT POCT GLUCOSE Routine 03/22/2024 4:28 PM EDT HC PHOSPHORUS, SERUM Routine 03/22/2024 3:03 PM EDT HC MAGNESIUM, SERUM Routine 03/22/2024 3 :03 PM EDT BASIC METABOLIC PANEL (NON-FASTING) Routine 03/22/2024 3:03 PM EDT POCT GLUCOSE Routine 03/22/2024 2:37 PM EDT POCT GLUCOSE Routine 03/22/2024 11:49 AM EDT POCT GLUCOSE Routine 03/22/2024 7:27 AM EDT HEMOGRAM Routine 03/22/2024 1:42 AM EDT DIFFERENTIAL, AUTOMATED Routine 03/22/20 1:42 AM EDT HC VENIPUNCTURE Routine 03/22/2024 1:42 AM EDT HC MAGNESIUM, SERUM Routine 03/22/2024 1 :42 AM EDT BASIC METABOLIC PANEL (NON-FASTING) Routine 03/22/2024 1:42 AM EDT POCT GLUCOSE Routine 03/21/2024 8:43 PM EDT POCT GLUCOSE Routine 03/21/2024 4:16 PM EDT HC PHOSPHORUS, SERUM Routine 03/21/2024 4:08 PM EDT HC MAGNESIUM, SERUM Routine 03/21/2024 4 :08 PM EDT BASIC METABOLIC PANEL (NON-FASTING) Routine 03/21/2024 4:08 PM EDT POCT GLUCOSE Routine 03/21/2024 1:39 PM EDT POCT GLUCOSE Routine 03/21/2024 10:26 AM EDT POCT GLUCOSE Routine 03/21/2024 7:19 AM EDT HC UNFRACTIONATED HEPARIN (HEP UFH) Timed 03/21/2024 1:52 AM EDT HEMOGRAM Routine 03/21/2024 1:52 AM EDT DIFFERENTIAL, AUTOMATED Routine 03/21/20 24 1:52 AM EDT HC CBC,PLT & AUTO DIFF Routine 1:52 AM EDT HC MAGNESIUM, SERUM Routine 03/21/2024 1 :52 AM EDT BASIC METABOLIC PANEL (NON-FASTING) Routine 03/21/2024 1:52 AM EDT EKG 12-LEAD Routine 03/21/2024 12:55 AM EDT Non-ST elevation myocardial infarction (NSTEMI) POCT GLUCOSE Routine 03/20/2024 9:26 PM EDT POCT GLUCOSE Routine 03/20/2024 4:47 PM EDT POCT GLUCOSE Routine 03/20/2024 11:31 AM EDT HC SPUTUM CULTURE Routine 03/20/2024 10: 50 AM EDT POCT GLUCOSE Routine 03/20/2024 8:07 AM EDT HC C. DIFF QUIK CHEK ANTIGEN Routine 03/20/2024 4:55 AM EDT HC UNFRACTIONATED HEPARIN (HEP UFH) Timed 03/20/2024 2:09 AM EDT HEMOGRAM Routine 03/20/2024 2:09 AM EDT DIFFERENTIAL, AUTOMATED Routine 03/20/20 24 2:09 AM EDT HC CBC,PLT & AUTO DIFF Routine 2:09 AM EDT HC MAGNESIUM, SERUM Routine 03/20/2024 2 :09 AM EDT BASIC METABOLIC PANEL (NON-FASTING) Routine 03/20/2024 2:09 AM EDT POCT GLUCOSE Routine 03/19/2024 8:58 PM EDT POCT GLUCOSE Routine 03/19/2024 7:20 [...] POCT GLUCOSE Routine 03/19/2024 12:09 PM EDT POCT GLUCOSE Routine 03/19/2024 7:46 AM EDT ECHO COMPLETE Routine 03/19/2024 7:31 AM EDT Non-ST elevation myocardial infarction (NSTEMI) HC VENIPUNCTURE STAT 03/19/2024 4:59 AM EDT HC UNFRACTIONATED HEPARIN (HEP UFH) Timed 03/19/2024 4:59 AM EDT HEMOGRAM Routine 03/19/2024 4:59 AM EDT DIFFERENTIAL, AUTOMATED Routine 07/11/20 24 4:59 AM EDT HC CBC,PLT & AUTO DIFF Routine 4:59 AM EDT HC MAGNESIUM, SERUM Routine 03/19/2024 4 :59 AM EDT HC LDL CHOLESTEROL, DIRECT Routine 03/19/2024 4:59 AM EDT HC HEMOGLOBIN A1C Routine 03/19/2024 4:5 9 AM EDT LIPID PANEL (REFLEX DIRECT LDL) Routine 03/19/2024 4:59 AM EDT BASIC METABOLIC PANEL (NON-FASTING) Routine 03/19/2024 4:59 AM EDT POCT GLUCOSE Routine 03/19/2024 12:35 AM EDT EKG 12-LEAD Routine 03/18/2024 10:00 PM EDT Non-ST elevation myocardial infarction (NSTEMI) HC TROPONIN T STAT 03/18/2024 9:50 PM EDT HC UNFRACTIONATED HEPARIN (HEP UFH) Timed 03/18/2024 9:50 PM EDT HEMOGRAM Routine 03/18/2024 9:50 PM EDT DIFFERENTIAL, AUTOMATED Routine 03/18/20 24 9:50 PM EDT HC PARTIAL THROMBOPLASTIN TIME Routine 03/18/2024 9:50 PM EDT HC PROTHROMBIN TIME Routine 03/18/2024 9 :50 PM EDT HC CBC,PLT & AUTO DIFF Routine 9:50 PM EDT HC THYROID STIMULATING HORMONE, SERUM Routine 03/18/2024 9:50 PM EDT HC PHOSPHORUS, SERUM Routine 03/18/2024 9:50 PM EDT HC PROBNP Routine 03/18/2024 9:50 PM EDT HC MAGNESIUM, SERUM Routine 03/18/2024 9 :50 PM EDT HEPATIC FUNCTION PANEL Routine 9:50 PM EDT BASIC METABOLIC PANEL (NON-FASTING) Routine 03/18/2024 9:50 PM EDT documented in this encounter Results * (ABNORMAL) POCT Glucose (03/25/2024 12:04 PM EDT) POC Glucose 271(H) 65 - 199 mg/dL [facility] Comment: Supplemental ranges: <140 mg/dL before meals <180 mg/dL all other times of the day Blood 03/25/2024 12:0 4 PM EDT 03/25/2024 12:04 PM EDT Main Campbell MD POINT OF CARE TEST O RDERAAIRAM Performing Organization Address City/[facility]/ZIP Co de Phone Number [facility] [place] [address] * (ABNORMAL) POCT Glucose (03/25/2024 12:00 PM EDT) POC Glucose 254(H) 65 - 199 mg/dL [facility] Comment: Supplemental ranges: <140 mg/dL before meals <180 mg/dL all other times of the day Blood 03/25/2024 12:0 0 PM EDT 03/25/2024 12:00 PM EDT Main Campbell MD POINT OF CARE TEST O RDERAAIRAM [facility] [place] [address] * POCT Glucose (03/25/2024 7:11 AM EDT) Pathologist [facility] POC Glucose 137 65 - 199 mg/dL [facility] Comment: Supplemental ranges: <140 mg/dL before meals <180 mg/dL all other times of the day Blood 03/25/2024 7:11 AM EDT 03/25/2024 7:11 AM EDT Main Campbell MD POINT OF CARE TEST O RDERABLES [facility] [place] [address] * Differential, Automated (03/25/2024 3:29 AM EDT) [facility] Neutrophils % 67.5 % [facility] Neutr Abs (ANC) 5.07 1.70 - 6.10 x10(3)/[facility] Lymphocytes % 16.9 % [facility] Lymphocytes Abs 1.3 0.9 - 3.2 x10(3)/[facility] Monocytes % 10.3 % [facility] Monocyte Abs 0.8 0.3 - 0.9 x10(3)/[facility] Eosinophils % 4.0 % [facility] Eosinophils Abs 0.3 0.0 - 0.4 x10(3)/[facility] Basophils % 0.9 % [facility] Basophils Abs 0.1 0.0 - 0.1 x10(3)/[facility] Immature Gran % 0.40 % [facility] Comment: Immature granulocytes(IG's)percentage and absolute count will include metamyelocytes, myelocytes, and promyelocytes. Blood smears from CBCs yielding IG's will be scanned manually for concordance. If this scan disagrees with the automated IG or if promyelocytes are noted, a manual differential will be performed. Felicia Gran Abs 0.03 0.00 - 0.04 x10(3)/[facility] Blood 03/25/2024 3:29 AM EDT 03/25/2024 3:53 AM EDT Narrative Resulting Agency Comment Spec In Lab Oscar Hernández MD HEMATOLOGY ORDERABLE S [facility] [place] [address] * (ABNORMAL) Hemogram (03/25/2024 3:29 AM EDT) WBC 7.5 4.0 - 9.5 x10(3)/[facility] RBC 4.89 4.58 - 5.54 x10(6)/[facility] Hemoglobin 13.0(L) 13.7 - 16.5 g/dL [facility] Hematocrit 41.6 40.5 - 48.5 % [facility] MCV 85.1 82.9 - 93.1 [facility] MCH 26.6(L) 27.5 - 32.1 pg [facility] MCHC 31.3(L) 32.0 - 35.7 g/dL [facility] Platelets 285 145 - 357 x10(3)/[facility] RDWSD 45.6(H) 36.0 - 45.0 [facility] RDWCV 14.6(H) 11.4 - 13.8 % [facility] MPV 9.7 7.6 - 12.9 [facility] nRBC % Auto 0.0 % [facility] nRBC Abs Auto 0.000 0.000 - 0.000 x10(3)/[facility] Blood 03/25/2024 3:29 AM EDT 03/25/2024 3:53 AM EDT Narrative Resulting Agency Comment Spec In Lab Oscar Hernández MD HEMATOLOGY ORDERABLE S [facility] [place] [address] * Magnesium (03/25/2024 3:29 AM EDT) Magnesium 0.87 0.69 - 1.07 mmol/L [facility] Blood 03/25/2024 3:29 AM EDT 03/25/2024 3:53 AM EDT Narrative Resulting Agency Comment Spec In Lab Oscar Hernández MD CHEMISTRY ORDERABLES [facility] [place] [address] * (ABNORMAL) Basic Metabolic Panel (non-fasting) (03/25/2024 3:29 AM EDT) Glucose Lvl 139 65 - 199 mg/dL [facility] Comment:Diabetes: >=200 mg/d L plus symptoms BUN 45(H) 10 - 20 mg/dL [facility] Creatinine 1.67(H) 0.80 - 1.50 mg/dL [facility] Sodium 133(L) 135 - 145 mmol/L [facility] Potassium 4.4 3.5 - 5.0 mmol/L [facility] Comment: Please note: ??Patients with WBC >100,000 may have falsely elevated Potassium levels. ??For accurate Potassium quantification in these patients send serum separator tube (gold top) for subsequent determinations. ??Contact the Clinical Chemistry Laboratory if there are any questions. Chloride 99 98 - 107 mmol/L [facility] CO2 26 22 - 31 mmol/L [facility] Anion Gap 8 5 - 15 mmol/L [facility] Calcium 9.1 8.5 - 10.5 mg/dL [facility] Estimated GFR 41(L) >=60 mL/min/1. 73 m?? [facility] Comment: This patient's estimated GFR [...] Hernández MD CHEMISTRY ORDERABLES Performing Organization Address [facility]/ZIP Co de Phone Number [facility] [place] [address] * POCT Glucose (03/24/2024 10:59 PM EDT) POC Glucose 157 65 - 199 mg/dL [facility] Comment: Supplemental ranges: <140 mg/dL before meals <180 mg/dL all other times of the day Blood 03/24/2024 10:5 9 PM EDT 03/24/2024 10:59 PM EDT Main Campbell MD POINT OF CARE TEST O RDERABLES Performing Organization Address [facility]/ZIP Co de Phone Number [facility] [place] [address] * (ABNORMAL) POCT Glucose (03/24/2024 4:40 PM EDT) POC Glucose 216(H) 65 - 199 mg/dL [facility] Comment: Supplemental ranges: <140 mg/dL before meals <180 mg/dL all other times of the day Blood 03/24/2024 4:40 PM EDT 03/24/2024 4:40 PM EDT Main Campbell MD POINT OF CARE TEST O RDERABLES Performing Organization Address City/[facility]/ZIP Co de Phone Number [facility] [place] [address] * CT Chest wo Contrast (Generic) (03/24/2024 12:05 PM EDT) WORKSTATION ID [id number] RAD Anatomical Region Laterality Modality Chest Computed [...] who have questions please contact the health hospice care transitions coordinator that requested your imaging first. ? Electronically signed by: Fitz Harper MD, [facility] ??([phone]), at 03/24/2024 5:19 PM Narrative 03/24/2024 5:19 PM EDT EXAMINATION: CT [...] patients who have questions please contactthe health hospice care transitions coordinator that requested your imaging first. Electronically signed by: Fitz Harper MD, [facility]([phone]), at 03/24/2024 5:19 PM Main Campbell MD IMG CT ORDERABLES * POCT Glucose (03/24/2024 11:41 AM EDT) POC Glucose 191 65 - 199 mg/dL [facility] Comment: Supplemental ranges: <140 mg/dL before meals <180 mg/dL all other times of the day Blood 03/24/2024 11:4 1 AM EDT 03/24/2024 11:41 AM EDT Main Campbell MD POINT OF CARE TEST O RDERABLES Performing Organization Address [facility] Co de Phone Number [facility] [place] [address] * POCT Glucose (03/24/2024 7:26 AM EDT) POC Glucose 194 65 - 199 mg/dL [facility] Comment: Supplemental ranges: <140 mg/dL before meals <180 mg/dL all other times of the day Blood 03/24/2024 7:26 AM EDT 03/24/2024 7:26 AM EDT Main Campbell MD POINT OF CARE TEST O RDERABLES Performing Organization Address City/[facility]/ZIP Co de Phone Number [facility] [place] [address] * (ABNORMAL) Differential, Automated (03/24/2024 3:23 AM EDT) Neutrophils % 55.5 % [facility] Neutr Abs (ANC) 4.02 1.70 - 6.10 x10(3)/mc L [facility] Lymphocytes % 23.9 % [facility] Lymphocytes Abs 1.7 0.9 - 3.2 x10(3)/[facility] Monocytes % 12.6 % [facility] Monocyte Abs 0.9 0.3 - 0.9 x10(3)/[facility] Eosinophils % 6.5 % [facility] Eosinophils Abs 0.5(H) 0.0 - 0.4 x10(3)/[facility] Basophils % 1.2 % [facility] Basophils Abs 0.1 0.0 - 0.1 x10(3)/[facility] Immature Gran % 0.30 % [facility] Comment: Immature granulocytes(IG's)percentage and absolute count will include metamyelocytes, myelocytes, and promyelocytes. Blood smears from CBCs yielding IG's will be scanned manually for concordance. If this scan disagrees with the automated IG or if promyelocytes are noted, a manual differential will be performed. Felicia Gran Abs 0.02 0.00 - 0.04 x10(3)/[facility] Blood 03/24/2024 3:23 AM EDT 03/24/2024 3:49 AM EDT Narrative Resulting Agency Comment Spec In Lab Oscar Hernández MD HEMATOLOGY ORDERABLE S [facility] [place] [address] * (ABNORMAL) Hemogram (03/24/2024 3:23 AM EDT) WBC 7.2 4.0 - 9.5 x10(3)/[facility] RBC 5.14 4.58 - 5.54 x10(6)/[facility] Hemoglobin 13.7 13.7 - 16.5 g/dL [facility] Hematocrit 43.3 40.5 - 48.5 % [facility] MCV 84.2 82.9 - 93.1 fL [facility] MCH 26.7(L) 27.5 - 32.1 pg [facility] MCHC 31.6(L) 32.0 - 35.7 g/dL [facility] Platelets 295 145 - 357 x10(3)/[facility] RDWSD 44.6 36.0 - 45.0 [facility] RDWCV 14.6(H) 11.4 - 13.8 % [facility] MPV 9.6 7.6 - 12.9 [facility] nRBC % Auto 0.0 % [facility] nRBC Abs Auto 0.000 0.000 - 0.000 x10(3)/[facility] Blood 03/24/2024 3:23 AM EDT 03/24/2024 3:49 AM EDT Narrative Resulting Agency Comment Spec In Lab Oscar Hernández MD HEMATOLOGY ORDERABLE S Performing Organization Address City/[facility]/ZIP Co de Phone Number [facility] [place] [address] * Magnesium (03/24/2024 3:23 AM EDT) Magnesium 0.83 0.69 - 1.07 mmol/L [facility] Blood 03/24/2024 3:23 AM EDT 03/24/2024 3:49 AM EDT Narrative Resulting Agency Comment Spec In Lab Oscar Hernández MD CHEMISTRY ORDERABLES Performing Organization Address City/[facility]/ZIP Co de Phone Number [facility] [place] [address] * (ABNORMAL) Basic Metabolic Panel (non-fasting) (03/24/2024 3:23 AM EDT) Glucose Lvl 149 65 - 199 mg/dL [facility] Comment:Diabetes: >=200 mg/d L plus symptoms BUN 40(H) 10 - 20 mg/dL [facility] Creatinine 1.66(H) 0.80 - 1.50 mg/dL [facility] Sodium 135 135 - 145 mmol/L [facility] Potassium 4.6 3.5 - 5.0 mmol/L [facility] Comment: Please note: ??Patients with WBC >100,000 may have falsely elevated Potassium levels. ??For accurate Potassium quantification in these patients send serum separator tube (gold top) for subsequent determinations. ??Contact the Clinical Chemistry Laboratory if there are any questions. Chloride 97(L) 98 - 107 mmol/L [facility] CO2 26 22 - 31 mmol/L [facility] Anion Gap 12 5 - 15 mmol/L [facility] Calcium 9.5 8.5 - 10.5 mg/dL [facility] [facility] Estimated GFR 42(L) >=60 mL/min/1. 73 m?? [facility] Comment: This patient's estimated GFR [...] and symptoms in addition to eGFR. Blood 03/24/2024 3:23 AM EDT 03/24/2024 3:49 AM EDT Narrative Resulting Agency Comment Spec In Lab Oscar Hernández MD CHEMISTRY ORDERABLES [facility] [place] [address] * POCT Glucose (03/23/2024 11:04 PM EDT) POC Glucose 147 65 - 199 mg/dL [facility] Comment: Supplemental ranges: <140 mg/dL before meals <180 mg/dL all other times of the day Blood 03/23/2024 11:0 4 PM EDT 03/23/2024 11:04 PM EDT Main Campbell MD POINT OF CARE TEST O RDERAAIRAM Performing Organization Address [facility]/ZIP Co de Phone Number [facility] [place] [address] * POCT Glucose (03/23/2024 4:34 PM EDT) POC Glucose 122 65 - 199 mg/dL [facility] Comment: Supplemental ranges: <140 mg/dL before meals <180 mg/dL all other times of the day Blood 03/23/2024 4:34 PM EDT 03/23/2024 4:34 PM EDT Main Campbell MD POINT OF CARE TEST O UMESHERAAIRAM Performing Organization Address [facility] Co de Phone Number [facility] [place] [address] * (ABNORMAL) POCT Glucose (03/23/2024 11:52 AM EDT) POC Glucose 225(H) 65 - 199 mg/dL [facility] Comment: Supplemental ranges: <140 mg/dL before meals <180 mg/dL all other times of the day Blood 03/23/2024 11:5 2 AM EDT 03/23/2024 11:52 AM EDT Main Campbell MD POINT OF CARE TEST O RDERAAIRAM Performing Organization Address [facility] Co de Phone Number [facility] [place] [address] * XR Chest One View (03/23/2024 9:47 AM EDT) WORKSTATION ID [id number] RAD Anatomical Region Laterality Modality Chest N/A [...] who have questions please contact the health hospice care transitions coordinator that requested your imaging first. ? Electronically signed by: Fitz Harper MD, [facility] ??([phone]), at 03/23/2024 10:56 AM Narrative 03/23/2024 10:56 AM EDT EXAMINATION: XR [...] patients who have questions please contactthe health hospice care transitions coordinator that requested your imaging first. Electronically signed by: Fitz Harper MD, [facility]([phone]), at 03/23/2024 10:56 AM Main Campbell MD IMG DX ORDERABLES * POCT Glucose (03/23/2024 7:31 AM EDT) [facility] POC Glucose 130 65 - 199 mg/dL [facility] Comment: Supplemental ranges: <140 mg/dL before meals <180 mg/dL all other times of the day Blood 03/23/2024 7:31 AM EDT 03/23/2024 7:31 AM EDT Main Campbell MD POINT OF CARE TEST O RDERABLES [facility] [place] [address] * (ABNORMAL) Differential, Automated (03/23/2024 3:29 AM EDT) [facility] Neutrophils % 59.7 % [facility] Neutr Abs (ANC) 4.55 1.70 - 6.10 x10(3)/mc L [facility] Lymphocytes % 19.3 % [facility] Lymphocytes Abs 1.5 0.9 - 3.2 x10(3)/mc L [facility] Monocytes % 13.6 % [facility] Monocyte Abs 1.0(H) 0.3 - 0.9 x10(3)/mc L [facility] Eosinophils % 6.2 % [facility] Eosinophils Abs 0.5(H) 0.0 - 0.4 x10(3)/mc L [facility] Basophils % 0.9 % [facility] Basophils Abs 0.1 0.0 - 0.1 x10(3)/ L [facility] Immature Gran % 0.30 % [facility] Comment: Immature granulocytes(IG's)percentage and absolute count will include metamyelocytes, myelocytes, and promyelocytes. Blood smears from CBCs yielding IG's will be scanned manually for concordance. If this scan disagrees with the automated IG or if promyelocytes are noted, a manual differential will be performed. Felicia Gran Abs 0.02 0.00 - 0.04 x10(3)/ L [facility] Blood 03/23/2024 3:29 AM EDT 03/23/2024 3:33 AM EDT Narrative Resulting Agency Comment Spec In Lab Oscar Hernández MD HEMATOLOGY ORDERABLE S [facility] [place] [address] * (ABNORMAL) Hemogram (03/23/2024 3:29 AM EDT) WBC 7.6 4.0 - 9.5 x10(3)/[facility] LABORATORY RBC 4.82 4.58 - 5.54 x10(6)/[facility] LAB[facility]ATORY Hemoglobin 12.9(L) 13.7 - 16.5 g/dL [facility] Hematocrit 40.7 40.5 - 48.5 % [facility] MCV 84.4 82.9 - 93.1 [facility]AT[facility] MCH 26.8(L) 27.5 - 32.1 pg [facility] MCHC 31.7(L) 32.0 - 35.7 g/dL [facility] Platelets 274 145 - 357 x10(3)/[facility] RDWSD 45.5(H) 36.0 - 45.0 [facility] RDWCV 14.6(H) 11.4 - 13.8 % [facility] MPV 9.0 7.6 - 12.9 fL [facility] nRBC % Auto 0.0 % [facility] nRBC Abs Auto 0.000 0.000 - 0.000 x10(3)/mcL [facility] Blood 03/23/2024 3:29 AM EDT 03/23/2024 3:33 AM EDT Narrative Resulting Agency Comment Spec In Lab Oscar Hernández MD HEMATOLOGY ORDERABLE S Performing Organization Address City/[facility]/ZIP Co de Phone Number [facility] [place] [address] * Magnesium (03/23/2024 3:29 AM EDT) Pathologist [facility] Magnesium 0.84 0.69 - 1.07 mmol/L [facility] Blood 03/23/2024 3:29 AM EDT 03/23/2024 3:33 AM EDT Narrative Resulting Agency Comment Spec In Lab Oscar Hernández MD CHEMISTRY ORDERABLES Performing Organization Address [facility] Co de Phone Number [facility] [place] [address] * (ABNORMAL) Basic Metabolic Panel (non-fasting) (03/23/2024 3:29 AM EDT) Glucose Lvl 135 65 - 199 mg/dL [facility] Comment:Diabetes: >=200 mg/d L plus symptoms BUN 28(H) 10 - 20 mg/dL [facility] Creatinine 1.44 0.80 - 1.50 mg/dL [facility] Sodium 135 135 - 145 mmol/L [facility] Potassium 4.5 3.5 - 5.0 mmol/L [facility] Comment: Please note: ??Patients with WBC >100,000 may have falsely elevated Potassium levels. ??For accurate Potassium quantification in these patients send serum separator tube (gold top) for subsequent determinations. ??Contact the Clinical Chemistry Laboratory if there are any questions. Chloride 97(L) 98 - 107 mmol/L [facility] CO2 27 22 - 31 mmol/L [facility] Anion Gap 11 5 - 15 mmol/L [facility] Calcium 9.2 8.5 - 10.5 mg/dL [facility] Estimated GFR 49(L) >=60 mL/min/1. 73 m?? [facility] Comment: This patient's estimated GFR [...] and symptoms in addition to eGFR. Blood 03/23/2024 3:29 AM EDT 03/23/2024 3:33 AM EDT Narrative Resulting Agency Comment Spec In Lab Oscar Hernández MD CHEMISTRY ORDERABLES [facility] [place] [address] * POCT Glucose (03/22/2024 10:20 PM EDT) POC Glucose 108 65 - 199 mg/dL [facility] Comment: Supplemental ranges: <140 mg/dL before meals <180 mg/dL all other times of the day Blood 03/22/2024 10:2 0 PM EDT 03/22/2024 10:20 PM EDT Abby Strange MD POINT OF CARE TEST ORDERABLES [facility] [place] [address] * POCT Glucose (03/22/2024 4:28 PM EDT) POC Glucose 156 65 - 199 mg/dL [facility] Comment: Supplemental ranges: <140 mg/dL before meals <180 mg/dL all other times of the day Blood 03/22/2024 4:28 PM EDT 03/22/2024 4:28 PM EDT Abby Strange MD POINT OF CARE TEST ORDERABLES Performing Organization Address City/[facility]/ZIP Co de Phone Number [facility] [place] [address] * Phosphorus (03/22/2024 3:03 PM EDT) [facility] Phosphorus 3.4 2.5 - 4.5 mg/dL [facility] Blood 03/22/2024 3:03 PM EDT 03/22/2024 3:07 PM EDT Narrative Resulting Agency Comment Spec In Lab Abby Strange MD CHEMISTRY ORDERABL ES Performing Organization Address City/[facility]/ZIP Co de Phone Number [facility] [place] [address] * (ABNORMAL) Basic Metabolic Panel (non-fasting) (03/22/2024 3:03 PM EDT) Pathologist [facility] Glucose Lvl 126 65 - 199 mg/dL [facility] Comment:Diabetes: >=200 mg/d L plus symptoms BUN 21(H) 10 - 20 mg/dL [facility] Creatinine 1.28 0.80 - 1.50 mg/dL [facility] Sodium 137 135 - 145 mmol/L [facility] Potassium 4.6 3.5 - 5.0 mmol/L [facility] Comment: Please note: ??Patients with WBC >100,000 may have falsely elevated Potassium levels. ??For accurate Potassium quantification in these patients send serum separator tube (gold top) for subsequent determinations. ??Contact the Clinical Chemistry Laboratory if there are any questions. Chloride 99 98 - 107 mmol/L [facility] CO2 27 22 - 31 mmol/L [facility] Anion Gap 11 5 - 15 mmol/L [facility] Calcium 9.5 8.5 - 10.5 mg/dL [facility] Estimated GFR 57(L) >=60 mL/min/1. 73 m?? [facility] Comment: This patient's estimated GFR [...] and symptoms in addition to eGFR. Blood 03/22/2024 3:03 PM EDT 03/22/2024 3:07 PM EDT Narrative Resulting Agency Comment Spec In Lab Abby Strange MD CHEMISTRY ORDERABL ES Performing Organization Address City/[facility] Co de Phone Number [facility] [place] [address] * Magnesium (03/22/2024 3:03 PM EDT) Magnesium 0.86 0.69 - 1.07 mmol/L [facility] Blood 03/22/2024 3:03 PM EDT 03/22/2024 3:07 PM EDT Narrative Resulting Agency Comment Spec In Lab Abby Strange MD CHEMISTRY ORDERABL ES Performing Organization Address City/[facility]/ZIP Co de Phone Number [facility] [place] [address] * POCT Glucose (03/22/2024 2:37 PM EDT) POC Glucose 125 65 - 199 mg/dL [facility] Comment: Supplemental ranges: <140 mg/dL before meals <180 mg/dL all other times of the day Blood 03/22/2024 2:37 PM EDT 03/22/2024 2:37 PM EDT Abby Strange MD POINT OF CARE TEST ORDERABLES Performing Organization Address City/[facility]/ZIP Co de Phone Number [facility] [place] [address] * (ABNORMAL) POCT Glucose (03/22/2024 11:49 AM EDT) POC Glucose 242(H) 65 - 199 mg/dL [facility] Comment: Supplemental ranges: <140 mg/dL before meals <180 mg/dL all other times of the day Blood 03/22/2024 11:4 9 AM EDT 03/22/2024 11:49 AM EDT Abby Strange MD POINT OF CARE TEST ORDERABLES Performing Organization Address [facility] Co de Phone Number [facility] [place] [address] * POCT Glucose (03/22/2024 7:27 AM EDT) POC Glucose 118 65 - 199 mg/dL [facility] Comment: Supplemental ranges: <140 mg/dL before meals <180 mg/dL all other times of the day Blood 03/22/2024 7:27 AM EDT 03/22/2024 7:27 AM EDT Abby Strange MD POINT OF CARE TEST ORDERABLES Performing Organization Address City/[facility] Co de Phone Number [facility] [place] [address] * (ABNORMAL) Differential, Automated (03/22/2024 1:42 AM EDT) Neutrophils % 59.1 % [facility] Neutr Abs (ANC) 4.04 1.70 - 6.10 x10(3)/[facility] LABORATORY Lymphocytes % 20.3 % [facility] Lymphocytes Abs 1.4 0.9 - 3.2 x10(3)/[facility]ORY Monocytes % 12.4 % [facility] Monocyte Abs 0.8 0.3 - 0.9 x10(3)/[facility] LABORATORY Eosinophils % 7.0 % [facility] Eosinophils Abs 0.5(H) 0.0 - 0.4 x10(3)/[facility] LABORATORY Basophils % 0.9 % [facility] Basophils Abs 0.1 0.0 - 0.1 x10(3)/[facility] LABORATORY Immature Gran % 0.30 % [facility] Comment: Immature granulocytes(IG's)percentage and absolute count will include metamyelocytes, myelocytes, and promyelocytes. Blood smears from CBCs yielding IG's will be scanned manually for concordance. If this scan disagrees with the automated IG or if promyelocytes are noted, a manual differential will be performed. Felicia Gran Abs 0.02 0.00 - 0.04 x10(3)/[facility] LABORATORY Blood 03/22/2024 1:42 AM EDT 03/22/2024 2:05 AM EDT Narrative Resulting Agency Comment Spec In Lab Oscar Hernández MD HEMATOLOGY ORDERABLE S [facility] [place] [address] * (ABNORMAL) Hemogram (03/22/2024 1:42 AM EDT) WBC 6.8 4.0 - 9.5 x10(3)/[facility] LABORATORY RBC 4.80 4.58 - 5.54 x10(6)/[facility] Hemoglobin 12.8(L) 13.7 - 16.5 g/dL [facility] Hematocrit 41.0 40.5 - 48.5 % [facility] MCV 85.4 82.9 - 93.1 [facility] MCH 26.7(L) 27.5 - 32.1 pg [facility] MCHC 31.2(L) 32.0 - 35.7 g/dL [facility] Platelets 300 145 - 357 x10(3)/[facility] LAB[facility]ORY RDWSD 46.9(H) 36.0 - 45.0 [facility] RDWCV 15.0(H) 11.4 - 13.8 % [facility] MPV 9.6 7.6 - 12.9 [facility] nRBC % Auto 0.0 % [facility] nRBC Abs Auto 0.000 0.000 - 0.000 x10(3)/[facility] LABOR[facility] Blood 03/22/2024 1:42 AM EDT 03/22/2024 2:05 AM EDT Narrative Resulting Agency Comment Spec In Lab Oscar Hernández MD HEMATOLOGY ORDERABLE S Performing Organization Address [facility] Co de Phone Number [facility] [place] [address] * Magnesium (03/22/2024 1:42 AM EDT) Magnesium 0.94 0.69 - 1.07 mmol/L [facility] Blood 03/22/2024 1:42 AM EDT 03/22/2024 2:05 AM EDT Narrative Resulting Agency Comment Spec In Lab Oscar Hernández MD CHEMISTRY ORDERABLES Performing Organization Address [facility]/ZIP Co de Phone Number [facility] [place] [address] * Basic Metabolic Panel (non-fasting) (03/22/2024 1:42 AM EDT) Glucose Lvl 134 65 - 199 mg/dL [facility] Comment:Diabetes: >=200 mg/d L plus symptoms BUN 20 10 - 20 mg/dL [facility] Creatinine 1.21 0.80 - 1.50 mg/dL [facility] Sodium 139 135 - 145 mmol/L [facility] Potassium 4.2 3.5 - 5.0 mmol/L [facility] Comment: Please note: ??Patients with WBC >100,000 may have falsely elevated Potassium levels. ??For accurate Potassium quantification in these patients send serum separator tube (gold top) for subsequent determinations. ??Contact the Clinical Chemistry Laboratory if there are any questions. Chloride 100 98 - 107 mmol/L [facility] CO2 27 22 - 31 mmol/L [facility] Anion Gap 12 5 - 15 mmol/L [facility] Calcium 9.3 8.5 - 10.5 mg/dL [facility] Estimated GFR 61 >=60 mL/min/1. 73 m?? [facility] Comment: This patient's estimated GFR [...] and symptoms in addition to eGFR. Blood 03/22/2024 1:42 AM EDT 03/22/2024 2:05 AM EDT Narrative Resulting Agency Comment Spec In Lab Oscar Hernández MD CHEMISTRY ORDERABLES [facility] [place] [address] * POCT Glucose (03/21/2024 8:43 PM EDT) POC Glucose 130 65 - 199 mg/dL [facility] Comment: Supplemental ranges: <140 mg/dL before meals <180 mg/dL all other times of the day Blood 03/21/2024 8:43 PM EDT 03/21/2024 8:43 PM EDT Abby Strange MD POINT OF CARE TEST ORDERABLES Performing Organization Address City/[facility]/ZIP Co de Phone Number [facility] [place] [address] * POCT Glucose (03/21/2024 4:16 PM EDT) POC Glucose 131 65 - 199 mg/dL [facility] Comment: Supplemental ranges: <140 mg/dL before meals <180 mg/dL all other times of the day Blood 03/21/2024 4:16 PM EDT 03/21/2024 4:16 PM EDT Abby Strange MD POINT OF CARE TEST ORDERABLES Performing Organization Address [facility] Co de Phone Number [facility] [place] [address] * Phosphorus (03/21/2024 4:08 PM EDT) Phosphorus 3.0 2.5 - 4.5 mg/dL [facility] Blood 03/21/2024 4:08 PM EDT 03/21/2024 4:21 PM EDT Narrative Resulting Agency Comment Spec In Lab Abby Strange MD CHEMISTRY ORDERABL ES Performing Organization Address [facility] Co de Phone Number [facility] [place] [address] * Magnesium (03/21/2024 4:08 PM EDT) Magnesium 0.80 0.69 - 1.07 mmol/L [facility] Blood 03/21/2024 4:08 PM EDT 03/21/2024 4:21 PM EDT Narrative Resulting Agency Comment Spec In Lab Abby Strange MD CHEMISTRY ORDERABL ES [facility] [place] [address] * Basic Metabolic Panel (non-fasting) (03/21/2024 4:08 PM EDT) Glucose Lvl 139 65 - 199 mg/dL [facility] Comment:Diabetes: >=200 mg/d L plus symptoms BUN 19 10 - 20 mg/dL [facility] Creatinine 1.23 0.80 - 1.50 mg/dL [facility] Sodium 139 135 - 145 mmol/L [facility] Potassium 4.3 3.5 - 5.0 mmol/L [facility] Comment: Please note: ??Patients with WBC >100,000 may have falsely elevated Potassium levels. ??For accurate Potassium quantification in these patients send serum separator tube (gold top) for subsequent determinations. ??Contact the Clinical Chemistry Laboratory if there are any questions. Chloride 102 98 - 107 mmol/L [facility] CO2 28 22 - 31 mmol/L [facility] Anion Gap 9 5 - 15 mmol/L [facility] Calcium 9.1 8.5 - 10.5 mg/dL [facility] Estimated GFR 60 >=60 mL/min/1. 73 m?? [facility] Comment: This patient's estimated GFR [...] and symptoms in addition to eGFR. Blood 03/21/2024 4:08 PM EDT 03/21/2024 4:21 PM EDT Narrative Resulting Agency Comment Spec In Lab Abby Strange MD CHEMISTRY ORDERABL ES Performing Organization Address City/[facility]/ZIP Co de Phone Number [facility] [place] [address] * POCT Glucose (03/21/2024 1:39 PM EDT) POC Glucose 99 65 - 199 mg/dL [facility] Comment: Supplemental ranges: <140 mg/dL before meals <180 mg/dL all other times of the day Blood 03/21/2024 1:39 PM EDT 03/21/2024 1:39 PM EDT Abby Strange MD POINT OF CARE TEST ORDERABLES Performing Organization Address [facility]/ZIP Co de Phone Number [facility] [place] [address] * POCT Glucose (03/21/2024 10:26 AM EDT) POC Glucose 174 65 - 199 mg/dL [facility] Comment: Supplemental ranges: <140 mg/dL before meals <180 mg/dL all other times of the day Blood 03/21/2024 10:2 6 AM EDT 03/21/2024 10:26 AM EDT Abby Strange MD POINT OF CARE TEST ORDERABLES Performing Organization Address City/[facility]/ZIP Co de Phone Number [facility] [place] [address] * POCT Glucose (03/21/2024 7:19 AM EDT) POC Glucose 145 65 - 199 mg/dL [facility] Comment: Supplemental ranges: <140 mg/dL before meals <180 mg/dL all other times of the day Blood 03/21/2024 7:19 AM EDT 03/21/2024 7:19 AM EDT Abby Strange MD POINT OF CARE TEST ORDERABLES [facility] [place] [address] * (ABNORMAL) Differential, Automated (03/21/2024 1:52 AM EDT) Neutrophils % 60.5 % [facility] Neutr Abs (ANC) 4.43 1.70 - 6.10 x10(3)/[facility] LABORATORY Lymphocytes % 18.4 % [facility] Lymphocytes Abs 1.4 0.9 - 3.2 x10(3)/[facility] LABORATORY Monocytes % 12.6 % [facility] Monocyte Abs 0.9 0.3 - 0.9 x10(3)/[facility] LABORATORY Eosinophils % 7.2 % [facility] Eosinophils Abs 0.5(H) 0.0 - 0.4 x10(3)/[facility] LABORATORY Basophils % 1.0 % [facility] Basophils Abs 0.1 0.0 - 0.1 x10(3)/[facility] LABORATORY Immature Gran % 0.30 % [facility] Comment: Immature granulocytes(IG's)percentage and absolute count will include metamyelocytes, myelocytes, and promyelocytes. Blood smears from CBCs yielding IG's will be scanned manually for concordance. If this scan disagrees with the automated IG or if promyelocytes are noted, a manual differential will be performed. Felicia Gran Abs 0.02 0.00 - 0.04 x10(3)/ L [facility] Blood 03/21/2024 1:52 AM EDT 03/21/2024 2:09 AM EDT Narrative Resulting Agency Comment Spec In Lab Oscar Hernández MD HEMATOLOGY ORDERABLE S [facility] [place] [address] * (ABNORMAL) Hemogram (03/21/2024 1:52 AM EDT) WBC 7.3 4.0 - 9.5 x10(3)/[facility] RBC 4.65 4.58 - 5.54 x10(6)/[facility] Hemoglobin 12.4(L) 13.7 - 16.5 g/dL [facility] Hematocrit 39.7(L) 40.5 - 48.5 % [facility] MCV 85.4 82.9 - 93.1 [facility] MCH 26.7(L) 27.5 - 32.1 pg [facility] MCHC 31.2(L) 32.0 - 35.7 g/dL [facility] Platelets 307 145 - 357 x10(3)/[facility] RDWSD 46.7(H) 36.0 - 45.0 [facility] RDWCV 15.1(H) 11.4 - 13.8 % [facility] MPV 9.3 7.6 - 12.9 [facility] nRBC % Auto 0.0 % [facility] nRBC Abs Auto 0.000 0.000 - 0.000 x10(3)/[facility] Blood 03/21/2024 1:52 AM EDT 03/21/2024 2:09 AM EDT Narrative Resulting Agency Comment Spec In Lab Oscar Hernández MD HEMATOLOGY ORDERABLE S [facility] [place], [place] [address] * Heparin (unfractionated) Level (03/21/2024 1:52 AM EDT) [facility] Heparin UFH Level 0.32 IU/mL [facility] Comment: Heparin (anti-Xa) levels should [...] MD HEMATOLOGY ORDERABLE S Performing Organization Address City/[facility]/ZIP Co de Phone Number [facility] [place] [address] * Magnesium (03/21/2024 1:52 AM EDT) [facility] Magnesium 0.80 0.69 - 1.07 mmol/L [facility] Blood 03/21/2024 1:52 AM EDT 03/21/2024 2:09 AM EDT Narrative Resulting Agency Comment Spec In Lab Oscar Hernández MD CHEMISTRY ORDERABLES Performing Organization Address [facility]/ZIP Co de Phone Number [facility] [place] [address] * (ABNORMAL) Basic Metabolic Panel (non-fasting) (03/21/2024 1:52 AM EDT) [facility] Glucose Lvl 118 65 - 199 mg/dL [facility] Comment:Diabetes: >=200 mg/d L plus symptoms BUN 18 10 - 20 mg/dL [facility] Creatinine 1.34 0.80 - 1.50 mg/dL [facility] Sodium 141 135 - 145 mmol/L [facility] Potassium 3.7 3.5 - 5.0 mmol/L [facility] Comment: Please note: ??Patients with WBC >100,000 may have falsely elevated Potassium levels. ??For accurate Potassium quantification in these patients send serum separator tube (gold top) for subsequent determinations. ??Contact the Clinical Chemistry Laboratory if there are any questions. Chloride 102 98 - 107 mmol/L [facility] CO2 29 22 - 31 mmol/L [facility] Anion Gap 10 5 - 15 mmol/L [facility] Calcium 8.9 8.5 - 10.5 mg/dL [facility] Estimated GFR 54(L) >=60 mL/min/1. 73 m?? [facility] Comment: This patient's estimated GFR [...] and symptoms in addition to eGFR. Blood 03/21/2024 1:52 AM EDT 03/21/2024 2:09 AM EDT Narrative Resulting Agency Comment Spec In Lab Oscar Hernández MD CHEMISTRY ORDERABLES [facility] [place] [address] * EKG 12 Lead (03/21/2024 12:55 AM EDT) Ventricular rate 54 BPM MUSE SYSTEM Atrial Rate 54 BPM MUSE SYSTEM P-R Interval 190 ms MUSE SYSTEM QRS Duration 98 ms MUSE SYSTEM Q-T Interval 518 ms MUSE SYSTEM QTC Calculated (Bezet) 491 ms MUSE SYSTEM Calculated P [place] 44 degrees MUSE SYSTEM Calculated R [place] 45 degrees MUSE SYSTEM Calculated T [place] -63 degrees MUSE SYSTEM INTERPRETATION Sinus bradycardia T wave abnormality, consider inferior ischemia T wave abnormality, consider anterolateral ischemia Prolonged QT Abnormal ECG When compared with ECG of 18-MAR-2024 22:00, No significant change was found Confirmed by MD Rucker Gregory A. ([id number]) on 03/23/2024 4:30:35 PM MUSE SYSTEM 03/21/2024 12:5 5 AM EDT 03/23/2024 4:30 PM EDT Oscar Hernández MD ECG ORDERABLES MUSE SYSTEM * POCT Glucose (03/20/2024 9:26 PM EDT) POC Glucose 96 65 - 199 mg/dL [facility] Comment: Supplemental ranges: <140 mg/dL before meals <180 mg/dL all other times of the day Blood 03/20/2024 9:26 PM EDT 03/20/2024 9:26 PM EDT Abby Strange MD POINT OF CARE TEST ORDERABLES Performing Organization Address [facility] Co de Phone Number [facility] [place] [address] * POCT Glucose (03/20/2024 4:47 PM EDT) POC Glucose 78 65 - 199 mg/dL [facility] Comment: Supplemental ranges: <140 mg/dL before meals <180 mg/dL all other times of the day Blood 03/20/2024 4:47 PM EDT 03/20/2024 4:47 PM EDT Abby Strange MD POINT OF CARE TEST ORDERABLES [facility] [place] [address] * (ABNORMAL) POCT Glucose (03/20/2024 11:31 AM EDT) POC Glucose 223(H) 65 - 199 mg/dL [facility] Comment: Supplemental ranges: <140 mg/dL before meals <180 mg/dL all other times of the day Blood 03/20/2024 11:3 1 AM EDT 03/20/2024 11:31 AM EDT Abby Strange MD POINT OF CARE TEST ORDERABLES [facility] [place] [address] * Lower Respiratory Culture Sputum Induced (03/20/2024 10:50 AM EDT) Lower Respiratory Culture Few mixed bacterial morphotypes suggestive of normal upper respiratory shree [facility] Gram Stain Many Neutrophils seen Moderate squamous epithelial cells seen Moderate mixed bacterial morphotypes suggestive of normal upper respiratory shree [facility] Sputum Induced 03/20/2024 10 :50 AM EDT 03/21/2024 11:38 AM EDT Narrative Resulting Agency Comment Spec In Lab Abby Strange MD MICROBIOLOGY - GEN ERAL ORDERABLES [facility] [place] [address] * POCT Glucose (03/20/2024 8:07 AM EDT) POC Glucose 130 65 - 199 mg/dL [facility] Comment: Supplemental ranges: <140 mg/dL before meals <180 mg/dL all other times of the day Blood 03/20/2024 8:07 AM EDT 03/20/2024 8:07 AM EDT Abby Strange MD POINT OF CARE TEST ORDERABLES [facility] [place] [address] * C. Difficile Screen (03/20/2024 4:55 AM EDT) C Diff Screen Negative Negative [facility] Comment: Ag/Tox Neg C. diff?? Negative Clostridium difficile is not present in the specimen. If patient is having diarrhea suspected to be from an infectious cause, then Soap & Water Contact Precautions are still required. Stool 03/20/2024 4:55 AM EDT 03/20/2024 5:48 AM EDT Narrative Resulting Agency Comment Spec In Lab Oscar Hernández MD MICROBIOLOGY - GENER AL ORDERABLES [facility] [place] [address] * (ABNORMAL) Differential, Automated (03/20/2024 2:09 AM EDT) Neutrophils % 75.5 % [facility] Neutr Abs (ANC) 8.13(H) 1.70 - 6.10 x10(3)/mc L [facility] Lymphocytes % 8.3 % [facility] Lymphocytes Abs 0.9 0.9 - 3.2 x10(3)/mc L [facility] Monocytes % 10.5 % [facility] Monocyte Abs 1.1(H) 0.3 - 0.9 x10(3)/mc L [facility] Eosinophils % 4.5 % [facility] Eosinophils Abs 0.5(H) 0.0 - 0.4 x10(3)/mc L [facility] Basophils % 0.7 % [facility] Basophils Abs 0.1 0.0 - 0.1 x10(3)/mc L [facility] Immature Gran % 0.50 % [facility] Comment: Immature granulocytes(IG's)percentage and absolute count will include metamyelocytes, myelocytes, and promyelocytes. Blood smears from CBCs yielding IG's will be scanned manually for concordance. If this scan disagrees with the automated IG or if promyelocytes are noted, a manual differential will be performed. Felicia Gran Abs 0.05(H) 0.00 - 0.04 x10(3)/ L [facility] Blood 03/20/2024 2:09 AM EDT 03/20/2024 2:50 AM EDT Narrative Resulting Agency Comment Spec In Lab Oscar Hernández MD HEMATOLOGY ORDERABLE S [facility] [place] [address] * (ABNORMAL) Hemogram (03/20/2024 2:09 AM EDT) WBC 10.8(H) 4.0 - 9.5 x10(3)/[facility] RBC 5.22 4.58 - 5.54 x10(6)/[facility] Hemoglobin 14.0 13.7 - 16.5 g/dL [facility] Hematocrit 44.9 40.5 - 48.5 % [facility] MCV 86.0 82.9 - 93.1 [facility] MCH 26.8(L) 27.5 - 32.1 pg [facility] MCHC 31.2(L) 32.0 - 35.7 g/dL [facility] Platelets 321 145 - 357 x10(3)/[facility] RDWSD 47.8(H) 36.0 - 45.0 [facility] RDWCV 15.2(H) 11.4 - 13.8 % [facility] MPV 10.1 7.6 - 12.9 [facility] nRBC % Auto 0.0 % [facility] nRBC Abs Auto 0.000 0.000 - 0.000 x10(3)/[facility] Blood 03/20/2024 2:09 AM EDT 03/20/2024 2:50 AM EDT Narrative Resulting Agency Comment Spec In Lab Oscar Hernández MD HEMATOLOGY ORDERABLE S Performing Organization Address City/[facility] Co de Phone Number [facility] [place] [address] * Heparin (unfractionated) Level (03/20/2024 2:09 AM EDT) Heparin UFH Level 0.41 IU/mL [facility] Comment: Heparin (anti-Xa) levels should [...] cardiac surgery): 0.1 ? 0.3 IU/mL Blood 03/20/2024 2:09 AM EDT 03/20/2024 2:50 AM EDT Narrative Resulting Agency Comment Spec In Lab Oscar Hernández MD HEMATOLOGY ORDERABLE S Performing Organization Address [facility] Co de Phone Number [facility] [place] [address] * Magnesium (03/20/2024 2:09 AM EDT) Magnesium 0.93 0.69 - 1.07 mmol/L [facility] Blood 03/20/2024 2:09 AM EDT 03/20/2024 2:50 AM EDT Narrative Resulting Agency Comment Spec In Lab Oscar Hernández MD CHEMISTRY ORDERABLES Performing Organization Address City/[facility]/ZIP Co de Phone Number [facility] [place] [address] * Basic Metabolic Panel (non-fasting) (03/20/2024 2:09 AM EDT) Glucose Lvl 144 65 - 199 mg/dL [facility] Comment:Diabetes: >=200 mg/d L plus symptoms BUN 17 10 - 20 mg/dL [facility] Creatinine 1.14 0.80 - 1.50 mg/dL [facility] Sodium 139 135 - 145 mmol/L [facility] Potassium 4.7 3.5 - 5.0 mmol/L [facility] Comment: Please note: ??Patients with WBC >100,000 may have falsely elevated Potassium levels. ??For accurate Potassium quantification in these patients send serum separator tube (gold top) for subsequent determinations. ??Contact the Clinical Chemistry Laboratory if there are any questions. Chloride 104 98 - 107 mmol/L [facility] CO2 22 22 - 31 mmol/L [facility] Anion Gap 13 5 - 15 mmol/L [facility] Calcium 9.3 8.5 - 10.5 mg/dL [facility] Estimated GFR 65 >=60 mL/min/1. 73 m?? [facility] Comment: This patient's estimated GFR [...] and symptoms in addition to eGFR. Blood 03/20/2024 2:09 AM EDT 03/20/2024 2:50 AM EDT Narrative Resulting Agency Comment Spec In Lab Oscar Hernández MD CHEMISTRY ORDERABLES [facility] [place] [address] * POCT Glucose (03/19/2024 8:58 PM EDT) POC Glucose 197 65 - 199 mg/dL [facility] Comment: Supplemental ranges: <140 mg/dL before meals <180 mg/dL all other times of the day Blood 03/19/2024 8:58 PM EDT 03/19/2024 8:58 PM EDT Abby Strange MD POINT OF CARE TEST ORDERABLES [facility] [place] [address] * POCT Glucose (03/19/2024 7:20 PM EDT) [facility] POC Glucose 142 65 - 199 mg/dL [facility] Comment: Supplemental ranges: <140 mg/dL before meals <180 mg/dL all other times of the day Blood 03/19/2024 7:20 PM EDT 03/19/2024 7:20 PM EDT Abby Strange MD POINT OF CARE TEST ORDERABLES [facility] [place] [address] * Respiratory Panel PCR (03/19/2024 7:01 PM EDT) Pathologist [facility] Resp Panel Source [employer] MA R[facility] Resp Panel PCR Negative Negative [facility] Comment: Respiratory Panels are performed on the QA on Request, using multiplexed PCR nucleic acid detection. ??Negative results do not preclude respiratory infection and should not be used as the sole basis for diagnosis, treatment or other management decisions. Adenovirus Not Detected Not Detected [facility] Coronavirus HKU1 Not Detected Not Detected [facility] Coronavirus NL63 Not Detected Not Detected [facility] Coronavirus 229E Not Detected Not Detected [facility] Coronavirus OC43 Not Detected Not Detected [facility] SARS-CoV-2 Not Detected Not Detected [facility] Comment: Testing for SARS-CoV-2 (Severe acute respiratory syndrome coronavirus 2) to aid in the diagnosis of COVID-19 is performed using the BioFire Respiratory Panel 2.1 ([employer]) as authorized by the FDA issued Emergency Use Authorization (EUA). This panel also tests for multiple other viral and bacterial pathogens. This assay is intended for In-vitro Diagnostic (IVD) use with nasopharyngeal swabs in viral transport media. The assay is performed based on the instructions for use and additional guidance provided by the FDA. Testing is performed in laboratories within the [facility], each of which is certified under the [...] fact sheets at the following FDA website: https://www.fda.gov/medical-devices/bsezarssbdu-waegtgi-3785-qwehx-53-wrnvhmuwz- use-a sshjkkoypzasr-xxgudwk-bfbccif/vvtuk-wwsamarjygs-urqb Human Metapneumovirus Not Detected Not Detected [facility] Human Rhino/Enterovirus Not Detected Not Detected [facility] Influenza A Not Detected Not Detected [facility] Influenza B Not Detected Not Detected [facility] Parainfluenza 1 Not Detected Not Detected [facility] Parainfluenza 2 Not Detected Not Detected [facility] Parainfluenza 3 Not Detected Not Detected [facility] Parainfluenza 4 Not Detected Not Detected [facility] Respiratory Syncytial Virus Not Detected Not Detected [facility] Chlamydophila pneumoniae Not Detected Not Detected [facility] Mycoplasma pneumoniae Not Detected Not Detected [facility] Nasopharyngeal Swab 03/19/20 7:01 PM EDT 03/19/2024 8:31 PM EDT Narrative Resulting Agency Comment Spec In Lab Abby Strange MD MICROBIOLOGY - GEN ERAL ORDERABLES Performing Organization Address City/[facility] Co de Phone Number [facility] [place] [address] * POCT Glucose (03/19/2024 3:26 PM EDT) POC Glucose 119 65 - 199 mg/dL [facility] Comment: Supplemental ranges: <140 mg/dL before meals <180 mg/dL all other times of the day Blood 03/19/2024 3:26 PM EDT 03/19/2024 3:26 PM EDT Abby Strange MD POINT OF CARE TEST ORDERABLES [facility] [place] [address] * XR Chest PA & Lateral (Generic) (03/19/2024 2:45 PM EDT) WORKSTATION ID [id number] RAD Anatomical Region Laterality Modality Chest N/A [...] who have questions please contact the health hospice care transitions coordinator that requested your imaging first. ? Narrative [...] patients who have questions please contactthe health hospice care transitions coordinator that requested your imaging first. Electronically signed by: Fitz Harper MD, [facility]([phone]), at 03/19/2024 4:58 PM Abby Strange MD IMG DX ORDERABLES * (ABNORMAL) Troponin (03/19/2024 2:16 PM EDT) Troponin-T HS 38(H) <=22 ng/L [facility] Comment: This patient's troponin [...] troponin value can be found in the [facility] Test Catalog Troponin - [facility] Test Catalog Reference: Fourth Palmer Definition of Myocardial Infarction. Journal of the [place] [employer] 2018;72:6897-8487 Blood Venous Draw / Unknown 03/19/2024 2:16 PM EDT 03/19/2024 3:08 PM EDT Narrative Resulting Agency Comment Spec In Lab Abby Strange MD CHEMISTRY ORDERABL ES Performing Organization Address City/[facility]/ZIP Co de Phone Number [facility] [place] [address] * Phosphorus (03/19/2024 2:16 PM EDT) Phosphorus 2.6 2.5 - 4.5 mg/dL [facility] Blood 03/19/2024 2:16 PM EDT 03/19/2024 2:33 PM EDT Narrative Resulting Agency Comment Spec In Lab Abby Strnage MD CHEMISTRY ORDERABL ES Performing Organization Address [facility] Co de Phone Number [facility] [place] [address] * Magnesium (03/19/2024 2:16 PM EDT) Magnesium 0.72 0.69 - 1.07 mmol/L [facility] Blood 03/19/2024 2:16 PM EDT 03/19/2024 2:33 PM EDT Narrative Resulting Agency Comment Spec In Lab Abby Strange MD CHEMISTRY ORDERABL ES Performing Organization Address City/[facility]/ZIP Co de Phone Number [facility] [place] [address] * Basic Metabolic Panel (non-fasting) (03/19/2024 2:16 PM EDT) Glucose Lvl 141 65 - 199 mg/dL [facility] Comment:Diabetes: >=200 mg/d L plus symptoms BUN 15 10 - 20 mg/dL [facility] Creatinine 1.02 0.80 - 1.50 mg/dL [facility] Sodium 142 135 - 145 mmol/L [facility] Potassium 3.7 3.5 - 5.0 mmol/L [facility] Comment: Please note: ??Patients with WBC >100,000 may have falsely elevated Potassium levels. ??For accurate Potassium quantification in these patients send serum separator tube (gold top) for subsequent determinations. ??Contact the Clinical Chemistry Laboratory if there are any questions. Chloride 106 98 - 107 mmol/L [facility] CO2 26 22 - 31 mmol/L [facility] Anion Gap 10 5 - 15 mmol/L [facility] Calcium 9.0 8.5 - 10.5 mg/dL [facility] Estimated GFR 75 >=60 mL/min/1. 73 m?? [facility] Comment: This patient's estimated GFR [...] and symptoms in addition to eGFR. Blood 03/19/2024 2:16 PM EDT 03/19/2024 2:33 PM EDT Narrative Resulting Agency Comment Spec In Lab Abby Strange MD CHEMISTRY ORDERABL ES [facility] [place] [address] * POCT Glucose (03/19/2024 12:09 PM EDT) POC Glucose 173 65 - 199 mg/dL [facility] Comment: Supplemental ranges: <140 mg/dL before meals <180 mg/dL all other times of the day Blood 03/19/2024 12:0 9 PM EDT 03/19/2024 12:09 PM EDT Abby Strange MD POINT OF CARE TEST ORDERABLES Performing Organization Address [facility] Co de Phone Number [facility] [place] [address] * POCT Glucose (03/19/2024 7:46 AM EDT) POC Glucose 117 65 - 199 mg/dL [facility] Comment: Supplemental ranges: <140 mg/dL before meals <180 mg/dL all other times of the day Blood 03/19/2024 7:46 AM EDT 03/19/2024 7:46 AM EDT Abby Strange MD POINT OF CARE TEST ORDERABLES Performing Organization Address [facility] de Phone Number [facility] [place] [address] * ECHO COMPLETE (03/19/2024 7:31 AM EDT) EF 70 HEARTLAB SYSTEM Anatomical Region Laterality Modality Cardiac Other 03/19/2024 6:41 AM EDT Narrative 03/19/2024 10:54 AM EDT [address] [place] [address] ? Echocardiogram Report Name: SIOMARA MAN ?Study Date: 03/19/2024 06:41 AMBP: 108/64 mmHg ? Patient Location: [facility] 0364 A : 1945 ? Height: 175 cm ? Account: [id number] Age: 78 yrs ? Weight: 80 kg Gender: Male ?BSA: 2.0 m2 Ordering Physician: OSCAR HERNÁNDEZ Referring Physician: MIKEY MCKEON Performed By: Avila Cardenas RDCS Interpreting Fellow: [facility]. Exam Location: [facility]. Interpretation Summary -Left ventricle is of normal [...] is no prior echo for comparison. Procedure Complete-[id number]. Satisfactory quality. Left Ventricle Left ventricle is [...] Note Romario Bob MD - 03/19/2024 [address] [id number] Echocardiogram Report Name: SIOMARA MAN Study Date: 406:41 AMBP: 108/64 mmHg Patient Location: [address] : 1945 Height: 175 cm Account: [id number] Age: 78 yrs Weight: 80 kg Gender: Male BSA: 2.0 m2 Ordering Physician: OSCAR HERNÁNDEZ Referring Physician: MIKEY MCKEON Performed By: Avila Cardenas SOUMYA Interpreting Fellow: [employer] [employer]. Exam Location: [facility]. Interpretation Summary -Left ventricle is of normal [...] There is no prior echo forcomparison. Procedure Complete-[id number]. Satisfactory quality. Left Ventricle Left ventricle is [...] 15-16diffuse Oscar Hernández MD ECHO ORDERABLES * Differential, Automated (03/19/2024 4:59 AM EDT) Neutrophils % 60.3 % [facility] Neutr Abs (ANC) 4.12 1.70 - 6.10 x10(3)/[facility] Lymphocytes % 20.5 % [facility] Lymphocytes Abs 1.4 0.9 - 3.2 x10(3)/[facility] Monocytes % 11.6 % [facility] Monocyte Abs 0.8 0.3 - 0.9 x10(3)/[facility] Eosinophils % 6.3 % [facility] Eosinophils Abs 0.4 0.0 - 0.4 x10(3)/[facility] Basophils % 1.0 % [facility] Basophils Abs 0.1 0.0 - 0.1 x10(3)/[facility] Immature Gran % 0.30 % [facility] Comment: Immature granulocytes(IG's)percentage and absolute count will include metamyelocytes, myelocytes, and promyelocytes. Blood smears from CBCs yielding IG's will be scanned manually for concordance. If this scan disagrees with the automated IG or if promyelocytes are noted, a manual differential will be performed. Felicia Gran Abs 0.02 0.00 - 0.04 x10(3)/[facility] Blood 03/19/2024 4:59 AM EDT 03/19/2024 5:08 AM EDT Narrative Resulting Agency Comment Spec In Lab Oscar Hernández MD HEMATOLOGY ORDERABLE S [facility] [place] [address] * (ABNORMAL) Hemogram (03/19/2024 4:59 AM EDT) WBC 6.8 4.0 - 9.5 x10(3)/[facility] RBC 4.51(L) 4.58 - 5.54 x10(6)/[facility] Hemoglobin 12.0(L) 13.7 - 16.5 g/dL [facility] Hematocrit 39.3(L) 40.5 - 48.5 % [facility] MCV 87.1 82.9 - 93.1 [facility] MCH 26.6(L) 27.5 - 32.1 pg [facility] MCHC 30.5(L) 32.0 - 35.7 g/dL [facility] Platelets 290 145 - 357 x10(3)/[facility] RDWSD 48.8(H) 36.0 - 45.0 [facility] RDWCV 15.3(H) 11.4 - 13.8 % [facility] MPV 9.1 7.6 - 12.9 [facility] nRBC % Auto 0.0 % [facility] nRBC Abs Auto 0.000 0.000 - 0.000 x10(3)/[facility] Blood 03/19/2024 4:59 AM EDT 03/19/2024 5:08 AM EDT Narrative Resulting Agency Comment Spec In Lab Oscar Hernández MD HEMATOLOGY ORDERABLE S [facility] [place] [id number] * Heparin (unfractionated) Level (03/19/2024 4:59 AM EDT) Heparin UFH Level 0.58 IU/mL [facility] Comment: Specimen drawn more than one hour prior to testing. Results may not be reliable for heparin monitoring. Result may be falsely low. Heparin (anti-Xa) levels should be determined in [...] cardiac surgery): 0.1 ? 0.3 IU/mL Blood 03/19/2024 4:59 AM EDT 03/19/2024 5:08 AM EDT Narrative Resulting Agency Comment Spec In Lab Oscar Hernández MD HEMATOLOGY ORDERABLE S Performing Organization Address [facility]/ZIP Co de Phone Number [facility] [place] [address] * Magnesium (03/19/2024 4:59 AM EDT) Magnesium 0.81 0.69 - 1.07 mmol/L [facility] Blood 03/19/2024 4:59 AM EDT 03/19/2024 5:08 AM EDT Narrative Resulting Agency Comment Spec In Lab Oscar Hernández MD CHEMISTRY ORDERABLES Performing Organization Address [facility] Co de Phone Number [facility] [place] [address] * (ABNORMAL) Basic Metabolic Panel (non-fasting) (03/19/2024 4:59 AM EDT) Glucose Lvl 115 65 - 199 mg/dL [facility] Comment:Diabetes: >=200 mg/d L plus symptoms BUN 16 10 - 20 mg/dL [facility] Creatinine 0.99 0.80 - 1.50 mg/dL [facility] Sodium 141 135 - 145 mmol/L [facility] Potassium 4.2 3.5 - 5.0 mmol/L [facility] Comment: Please note: ??Patients with WBC >100,000 may have falsely elevated Potassium levels. ??For accurate Potassium quantification in these patients send serum separator tube (gold top) for subsequent determinations. ??Contact the Clinical Chemistry Laboratory if there are any questions. Chloride 108(H) 98 - 107 mmol/L [facility] CO2 24 22 - 31 mmol/L [facility] Anion Gap 9 5 - 15 mmol/L [facility] Calcium 8.6 8.5 - 10.5 mg/dL [facility] Estimated GFR 77 >=60 mL/min/1. 73 m?? [facility] Comment: This patient's estimated GFR [...] and symptoms in addition to eGFR. Blood 03/19/2024 4:59 AM EDT 03/19/2024 5:08 AM EDT Narrative Resulting Agency Comment Spec In Lab Oscar Hernández MD CHEMISTRY ORDERABLES [facility] [place] [address] * LDL Cholesterol, Direct (03/19/2024 4:59 AM EDT) LDL Chol Direct 48 mg/dL [facility] Comment: Desirable: ? <100 mg/dL Above Desirable: 100-129 mg/dL Borderline High: 130-159 mg/dL High: ?160-189 mg/dL Very High: ? >tc=518 mg/dL If not reaching LDL goals on [...] Hernández MD CHEMISTRY ORDERABLES Performing Organization Address [facility] Co de Phone Number [facility] [place] [address] * (ABNORMAL) Hemoglobin A1c (03/19/2024 4:59 AM EDT) Hemoglobin A1C 7.4(H) 4.3 - 5.6 % [facility] Comment: Reference Range: 4.3 - [...] Mellitus, Diabetes Care 2013; 36: Suppl. 1, S67-75 Est Avg Gluc See note mg/dL [facility] Comment: Estimated Average Glucose not appropriate for patients over 70 years of age. Blood 03/19/2024 4:59 AM EDT 03/19/2024 5:08 AM EDT Narrative Resulting Agency Comment Spec In Lab Oscar Hernández MD CHEMISTRY ORDERABLES Performing Organization Address [facility] Co de Phone Number [facility] [place] [address] * Lipid Panel (Reflex Direct LDL) (03/19/2024 4:59 AM EDT) Chol, Total 89 mg/dL [facility] Comment: Desirable: ? <200 mg/dL Borderline High: 200-239 mg/dL Higher: ?>ie=202 mg/dL Triglycerides 108 mg/dL [facility] Comment: Normal: ?<150 mg/dL Borderline High: 150-199 mg/dL High: ?200-499 mg/dL Very High: ? >mt=945 mg/dL HDL 27 mg/dL [facility] Comment: Females: High Risk: <50 mg/dL Males: High Risk: <40 mg/dL LDL Cholesterol 40 mg/dL [facility] Comment: Desirable: ? <100 mg/dL Above Desirable: 100-129 mg/dL Borderline High: 130-159 mg/dL High: ?160-189 mg/dL Very High: ? >xy=289 mg/dL Lipid Interpretation See Note [facility] Comment: It is important to [...] ACC/AHA Guidelines (most recently Jorje et al. [facility] 06/12/22): For individuals with atherosclerotic cardiovascular disease (ASCVD)or LDL >rr=895 mg/dL, use a high-intensity statin (40-80 mg [...] Hernández MD CHEMISTRY ORDERABLES Performing Organization Address City/State/[facility] Co de Phone Number [facility] [place] [address] * (ABNORMAL) Troponin (03/19/2024 4:59 AM EDT) Troponin-T HS 37(H) <=22 ng/L [facility] Comment: This patient's troponin [...] troponin value can be found in the [facility] Test Catalog Troponin - [facility] Test Catalog Reference: Fourth Palmer Definition of Myocardial Infarction. Journal of the [place] [employer] 2018;72:9538-2012 Blood 03/19/2024 4:59 AM EDT 03/19/2024 5:08 AM EDT Narrative Resulting Agency Comment Spec In Lab Oscar Hernández MD CHEMISTRY ORDERABLES Performing Organization Address [facility] Co de Phone Number [facility] [place] [address] * POCT Glucose (03/19/2024 12:35 AM EDT) Pathologist [facility] POC Glucose 113 65 - 199 mg/dL [facility] Comment: Supplemental ranges: <140 mg/dL before meals <180 mg/dL all other times of the day Blood 03/19/2024 12:3 5 AM EDT 03/19/2024 12:35 AM EDT Josefina Cameron MD POINT OF CARE TEST O RDERABLES Performing Organization Address [facility] Co de Phone Number [facility] [place] [address] * EKG 12 Lead (03/18/2024 10:00 PM EDT) Ventricular rate 50 BPM MUSE SYSTEM Atrial Rate 50 BPM MUSE SYSTEM P-R Interval 184 ms MUSE SYSTEM QRS Duration 100 ms MUSE SYSTEM Q-T Interval 562 ms MUSE SYSTEM QTC Calculated (Bezet) 512 ms MUSE SYSTEM Calculated P [place] 89 degrees MUSE SYSTEM Calculated R [place] 71 degrees MUSE SYSTEM Calculated T [place] -58 degrees MUSE SYSTEM INTERPRETATION Sinus bradycardia Low voltage QRS ST & Marked T wave abnormality consider anterolateral ischemia Prolonged QT Abnormal ECG When compared with ECG of 20-JUN-2005 07:29, T wave inversion more evident in Inferior leads T wave inversion now evident in Anterolateral leads QT has lengthened Confirmed by Kejni Raines ([id number]) on 03/22/2024 5:34:03 PM MUSE SYSTEM 03/18/2024 10:0 0 PM EDT 03/22/2024 5:34 PM EDT Oscar Hernández MD ECG ORDERABLES MUSE SYSTEM * (ABNORMAL) Differential, Automated (03/18/2024 9:50 PM EDT) Neutrophils % 61.8 % [facility] Neutr Abs (ANC) 4.48 1.70 - 6.10 x10(3)/[facility] Lymphocytes % 18.0 % [facility] Lymphocytes Abs 1.3 0.9 - 3.2 x10(3)/[facility] Monocytes % 11.8 % [facility] Monocyte Abs 0.9 0.3 - 0.9 x10(3)/[facility] Eosinophils % 6.9 % [facility] Eosinophils Abs 0.5(H) 0.0 - 0.4 x10(3)/[facility] Basophils % 1.1 % [facility] Basophils Abs 0.1 0.0 - 0.1 x10(3)/[facility] Immature Gran % 0.40 % [facility] Comment: Immature granulocytes(IG's)percentage and absolute count will include metamyelocytes, myelocytes, and promyelocytes. Blood smears from CBCs yielding IG's will be scanned manually for concordance. If this scan disagrees with the automated IG or if promyelocytes are noted, a manual differential will be performed. Felicia Gran Abs 0.03 0.00 - 0.04 x10(3)/[facility] Blood 03/18/2024 9:50 PM EDT 03/18/2024 9:58 PM EDT Narrative Resulting Agency Comment Spec In Lab Oscar Hernández MD HEMATOLOGY ORDERABLE S [facility] [place] [address] * (ABNORMAL) Hemogram (03/18/2024 9:50 PM EDT) [facility] WBC 7.3 4.0 - 9.5 x10(3)/[facility] RBC 4.54(L) 4.58 - 5.54 x10(6)/[facility] Hemoglobin 12.4(L) 13.7 - 16.5 g/dL [facility] Hematocrit 39.4(L) 40.5 - 48.5 % [facility] MCV 86.8 82.9 - 93.1 [facility] MCH 27.3(L) 27.5 - 32.1 pg [facility] MCHC 31.5(L) 32.0 - 35.7 g/dL [facility] Platelets 283 145 - 357 x10(3)/[facility] RDWSD 48.3(H) 36.0 - 45.0 [facility] RDWCV 15.2(H) 11.4 - 13.8 % [facility] MPV 9.0 7.6 - 12.9 [facility] nRBC % Auto 0.0 % [facility] nRBC Abs Auto 0.000 0.000 - 0.000 x10(3)/[facility] Blood 03/18/2024 9:50 PM EDT 03/18/2024 9:58 PM EDT Narrative Resulting Agency Comment Spec In Lab Oscar Hernández MD HEMATOLOGY ORDERABLE S [facility] [place] [address] * Heparin (unfractionated) Level (03/18/2024 9:50 PM EDT) Heparin UFH Level 0.49 IU/mL [facility] Comment: Heparin (anti-Xa) levels should [...] cardiac surgery): 0.1 ? 0.3 IU/mL Blood 03/18/2024 9:50 PM EDT 03/18/2024 9:58 PM EDT Narrative Resulting Agency Comment Spec In Lab Oscar Hernández MD HEMATOLOGY ORDERABLE S Performing Organization Address [facility] Co de Phone Number [facility] [place] [address] * (ABNORMAL) APTT (03/18/2024 9:50 PM EDT) [facility] Signature PTT 139(Criti nathaly) 25 - 37 sec [facility] Comment: Critical Result called by ?? EMANUEL CRITICAL Results read back by: ? Nikhil [facility] at 2024-03-18 22:39:33 The PTT is NOT appropriate for heparin monitoring. Use the Anti-Xa level for heparin monitoring (HEP UFH) or LMWH monitoring (HEP LMW). A PTT less than 37 seconds generally indicates adequate hemostasis. Blood 03/18/2024 9:50 PM EDT 03/18/2024 9:58 PM EDT Narrative Resulting Agency Comment Spec In Lab Oscar Hernández MD HEMATOLOGY ORDERABLE S Performing Organization Address [facility] Co de Phone Number [facility] [place] [address] * Prothrombin Time (03/18/2024 9:50 PM EDT) [facility] PT 12.4 9.4 - 12.5 sec [facility] INR 1.1 [facility] Comment: An INR <2.0 indicates adequate [...] MD HEMATOLOGY ORDERABLE S Performing Organization Address [facility] Co de Phone Number [facility] [place] [address] * (ABNORMAL) Hepatic Function Panel (03/18/2024 9:50 PM EDT) [facility] Total Protein 5.3(L) 6.1 - 8.0 g/dL [facility] Albumin 2.8(L) 3.2 - 5.2 g/dL [facility] AST 14 0 - 39 unit/L [facility] ALT 7 0 - 55 unit/L [facility] Alk Phos 94 40 - 130 unit/L [facility] Total Bilirubin 0.4 0.2 - 1.3 mg/dL [facility] Bili, Direct 0.1 0.0 - 0.3 mg/dL [facility] Blood 03/18/2024 9:50 PM EDT 03/18/2024 9:58 PM EDT Narrative Resulting Agency Comment Spec In Lab Oscar Hernández MD CHEMISTRY ORDERABLES Performing Organization Address City/[facility]/ZIP Co de Phone Number [facility] [place] [address] * (ABNORMAL) Troponin (03/18/2024 9:50 PM EDT) Troponin-T HS 36(H) <=22 ng/L [facility] Comment: This patient's troponin [...] troponin value can be found in the [facility] Test Catalog Troponin - [facility] Test Catalog Reference: Fourth Palmer Definition of Myocardial Infarction. Journal of the [place] [employer] 2018;72:5164-1699 Blood 03/18/2024 9:50 PM EDT 03/18/2024 9:58 PM EDT Narrative Resulting Agency Comment Spec In Lab Oscar Hernández MD CHEMISTRY ORDERABLES [facility] [place] [address] * (ABNORMAL) pro-Brain Natriuretic Peptide (03/18/2024 9:50 PM EDT) ProBNP 1,535(H) <=449 pg/mL [facility] Blood 03/18/2024 9:50 PM EDT 03/18/2024 9:58 PM EDT Narrative Resulting Agency Comment Spec In Lab Oscar Hernández MD CHEMISTRY ORDERABLES [facility] [place] [address] * TSH (03/18/2024 9:50 PM EDT) TSH 2.06 0.27 - 4.20 mcIU/mL [facility] Comment: Reference Interval (mcIU/mL): Females: ??First Trimester: 0.23-3.88 ??Second Trimester: 0.22-3.90 ??Third Trimester: 0.44-4.66 Blood 03/18/2024 9:50 PM EDT 03/18/2024 9:58 PM EDT Narrative Resulting Agency Comment Spec In Lab Oscar Hernández MD CHEMISTRY ORDERABLES Performing Organization Address City/[facility]/ZIP Co de Phone Number [facility] [place] [address] * Phosphorus (03/18/2024 9:50 PM EDT) Phosphorus 3.0 2.5 - 4.5 mg/dL [facility] Blood 03/18/2024 9:50 PM EDT 03/18/2024 9:58 PM EDT Narrative Resulting Agency Comment Spec In Lab Oscar Hernández MD CHEMISTRY ORDERABLES Performing Organization Address City/[facility]/ZIP Co de Phone Number [facility] [place] [address] * Magnesium (03/18/2024 9:50 PM EDT) Magnesium 0.80 0.69 - 1.07 mmol/L [facility] Blood 03/18/2024 9:50 PM EDT 03/18/2024 9:58 PM EDT Narrative Resulting Agency Comment Spec In Lab Oscar Hernández MD CHEMISTRY ORDERABLES [facility] [place] [address] * Basic Metabolic Panel (non-fasting) (03/18/2024 9:50 PM EDT) Glucose Lvl 115 65 - 199 mg/dL [facility] Comment:Diabetes: >=200 mg/d L plus symptoms BUN 20 10 - 20 mg/dL [facility] Creatinine 1.18 0.80 - 1.50 mg/dL [facility] Sodium 140 135 - 145 mmol/L [facility] Potassium 4.0 3.5 - 5.0 mmol/L [facility] Comment: Please note: ??Patients with WBC >100,000 may have falsely elevated Potassium levels. ??For accurate Potassium quantification in these patients send serum separator tube (gold top) for subsequent determinations. ??Contact the Clinical Chemistry Laboratory if there are any questions. Chloride 107 98 - 107 mmol/L [facility] CO2 23 22 - 31 mmol/L [facility] Anion Gap 10 5 - 15 mmol/L [facility] Calcium 8.7 8.5 - 10.5 mg/dL [facility] Estimated GFR 63 >=60 mL/min/1. 73 m?? [facility] Comment: This patient's estimated GFR [...] and symptoms in addition to eGFR. Blood 03/18/2024 9:50 PM EDT 03/18/2024 9:58 PM EDT Narrative Resulting Agency Comment Spec In Lab Oscar Hernández MD CHEMISTRY ORDERABLES [facility] [address] [place] [address] documented in this encounter Visit Diagnoses Diagnosis NSTEMI (non-ST elevated myocardial infarction)- Primary Acute myocardial infarction, subendocardial infarction, episode of care unspecified Non-ST elevation myocardial infarction (NSTEMI) Acute myocardial infarction, subendocardial infarction, episode of care unspecified Acute respiratory failure with hypoxia Acute respiratory failure Chronic hypoxic respiratory failure Hypertension Unspecified essential hypertension documented in this encounter Admitting Diagnoses Diagnosis NSTEMI (non-ST elevated myocardial infarction) Acute myocardial infarction, subendocardial infarction, episode of care unspecified documented in this encounter Administered Medications Inactive Administered Medications - up to 3 most recent administrations Medication Order MAR Action Action Date Dose Rate Site albuteroL (Proventil, Ventolin) (2.5 mg/3 mL) (0.083 %) nebulizer solution 2.5 mg 2.5 mg, Nebulization, 2 TIMES DAILY PRN, Starting on Sat03/20/24 at 1235, Until Sat03/25/24 at 1631, Wheezing, Routine amLODIPine (Norvasc) tablet 5 mg 5 mg, Oral, DAILY, First dose on Sat03/19/24 at 0900, Until Discontinued, Routine Given 03/19/2024 9:07 AM EDT 5 mg aspirin EC tablet 81 mg 81 mg, Oral, DAILY, First dose on Sat03/19/24 at 0900, Until Discontinued, Routine Given 03/25/2024 8:07 AM EDT 81 mg Given 03/24/2024 8:28 AM EDT 81 mg Given 03/23/2024 9:18 AM EDT 81 mg atorvastatin (Lipitor) tablet 40 mg 40 mg, Oral, EVERY EVENING, First dose on Sat03/19/24 at 1700, Until Discontinued, Routine Given 03/24/2024 5:05 PM EDT 40 mg Given 03/23/2024 5:08 PM EDT 40 mg Given 03/22/2024 4:57 PM EDT 40 mg azithromycin (Zithromax) 500 mg in sodium chloride 0.9% 255 mL infusion 500 mg 500 mg, Intravenous, EVERY 24 HOURS, 2 doses, First dose on Sat03/19/24 at 0000, Last dose on Sat03/20/24 at 0000, Administer over 60 Minutes, Indication for (Active or Suspected): Pneumonia (Community) New Bag 03/19/2024 12:41 AM EDT 500 mg 255 mL/hr azithromycin (Zithromax) tablet 500 mg 500 mg, Oral, DAILY, 3 doses, First dose on Sat03/20/24 at 0900, Last dose on Sat03/22/24 at 0900, Routine, Indication for (Active or Suspected): Pneumonia (Community) Given 03/20/2024 9:12 AM EDT 500 mg cefTRIAXone (Rocephin) 2 g vial attach to sodium chloride 0.9% 50 mL Mini-Bag Plus 2 g, Intravenous, EVERY 24 HOURS, First dose on Vee 03/19/24 at 0000, Until Discontinued, Administer over 30 Minutes, Indication for (Active or Suspected): Pneumonia (Community) New Bag 03/19/2024 11:23 PM EDT 2 g 100 mL/hr New Bag 03/19/2024 12:40 AM EDT 2 g 100 mL/hr dextrose 10% infusion 250 mL, at 1,000 mL/hr, Intravenous, EVERY 15 MIN PRN, Starting on Sat03/18/24 at 2309, Until Sat03/25/24 at 1631, For BG 50-70 mg/dL: Oral treatment preferred: If able to drink, give 120 mL juice or regular (not diet) soda OR if NPO, give 15 gram glucose 40% oral gel massaged into buccal mucosa OR if unconscious or uncooperative, give 25 gram (250 mL) dextrose 10% IV over 15 minutes per protocol OR, if no IV access, 1 mg glucagon IM. For BG less than 50 mg/dL: Oral treatment preferred: If able to drink, give 240 mL juice or regular (not diet) soda OR if NPO, give 30 gram glucose 40% oral gel massaged in buccal mucosa OR if unconscious or uncooperative, give 25 gram (250 mL) dextrose 10% IV over 15 minutes per protocol OR, if no IV access, 1 mg glucagon IM. Recheck BG in 15 minutes. May repeat juice/soda, gel, dextrose or glucagon once per episode. Notify provider if hypoglycemia does not resolve after two treatments. Providers should consider the following: administering longer-acting treatments for the duration of active insulin or hypoglycemia agent for persistent hypoglycemia and re-evaluating active insulin orders before administering the next dose. enoxaparin (Lovenox) (40 mg/0.4 mL) subcutaneous injection 40 mg 40 mg, Subcutaneous, NIGHTLY, First dose on 03/21/24 at 2100, Until Discontinued, Routine Given 03/24/2024 8:40 PM EDT 40 mg Given 03/23/2024 8:46 PM EDT 40 mg Given 03/22/2024 10:15 PM EDT 40 mg ezetimibe (Zetia) tablet 10 mg 10 mg, Oral, DAILY, First dose on Vee 03/19/24 at 0900, Until Discontinued, Routine Given 03/25/2024 8:07 AM EDT 10 mg Given 03/24/2024 8:28 AM EDT 10 mg Given 03/23/2024 9:18 AM EDT 10 mg furosemide (Lasix) (10 mg/mL) injection 40 mg 40 mg, Intravenous, ONCE, 1 dose, On Vee 03/19/24 at 0915 Given 03/19/2024 9:06 AM EDT 40 mg furosemide (Lasix) (10 mg/mL) injection 40 mg 40 mg, Intravenous, ONCE, 1 dose, On Vee 03/19/24 at 1815 Given 03/19/2024 5:26 PM EDT 40 mg furosemide (Lasix) (10 mg/mL) injection 40 mg 40 mg, Intravenous, ONCE, 1 dose, On Sat03/20/24 at 1300 Given 03/20/2024 12:29 PM EDT 40 mg furosemide (Lasix) (10 mg/mL) injection 40 mg 40 mg, Intravenous, ONCE, 1 dose, On Sat03/20/24 at 2030 Given 03/20/2024 8:58 PM EDT 40 mg furosemide (Lasix) (10 mg/mL) injection 40 mg 40 mg, Intravenous, ONCE, 1 dose, On 03/21/24 at 1115 Given 03/21/2024 10:51 AM EDT 40 mg furosemide (Lasix) (10 mg/mL) injection 40 mg 40 mg, Intravenous, ONCE, 1 dose, On 03/21/24 at 2015 Given 03/21/2024 8:34 PM EDT 40 mg furosemide (Lasix) (10 mg/mL) injection 60 mg 60 mg, Intravenous, 2 TIMES DAILY, First dose (after last modification) on Sat03/22/24 at 0900, Until Discontinued Given 03/22/2024 4:57 PM EDT 60 mg Given 03/22/2024 8:30 AM EDT 60 mg furosemide (Lasix) (10 mg/mL) injection 60 mg 60 mg, Intravenous, ONCE, 1 dose, On Sat03/23/24 at 1745 Given 03/23/2024 5:08 PM EDT 60 mg furosemide (Lasix) tablet 40 mg 40 mg, Oral, DAILY, First dose on Sat03/23/24 at 1000, Until Discontinued, Routine Given 03/23/2024 9:18 AM EDT 40 mg glucagon (Glucagen) (1 mg/mL) injection solution 1 mg 1 mg, Intramuscular, EVERY 15 MIN PRN, Starting on Sat03/18/24 at 2309, Until Sat03/25/24 at 1631, Low blood sugar, For BG 50-70 mg/dL: Oral treatment preferred: If able to drink, give 120 mL juice or regular (not diet) soda OR if NPO, give 15 gram glucose 40% oral gel massaged into buccal mucosa OR if unconscious or uncooperative, give 25 gram (250 mL) dextrose 10% IV over 15 minutes per protocol OR, if no IV access, 1 mg glucagon IM. For BG less than 50 mg/dL: Oral treatment preferred: If able to drink, give 240 mL juice or regular (not diet) soda OR if NPO, give 30 gram glucose 40% oral gel massaged in buccal mucosa OR if unconscious or uncooperative, give 25 gram (250 mL) dextrose 10% IV over 15 minutes per protocol OR, if no IV access, 1 mg glucagon IM. Recheck BG in 15 minutes. May repeat juice/soda, gel, dextrose or glucagon once per episode. Notify provider if hypoglycemia does not resolve after two treatments. Providers should consider the following: administering longer-acting treatments for the duration of active insulin or hypoglycemia agent for persistent hypoglycemia and re-evaluating active insulin orders before administering the next dose. , Routine glucose (Glutose) 40% oral geL 15-30 g of glucose, Buccal, EVERY 15 MIN PRN, Starting on Sat03/18/24 at 2309, Until Sat03/25/24 at 1631, Low blood sugar, For BG 50-70 mg/dL: Oral treatment preferred: If able to drink, give 120 mL juice or regular (not diet) soda OR if NPO, give 15 gram glucose 40% oral gel massaged into buccal mucosa OR if unconscious or uncooperative, give 25 gram (250 mL) dextrose 10% IV over 15 minutes per protocol OR, if no IV access, 1 mg glucagon IM. For BG less than 50 mg/dL: Oral treatment preferred: If able to drink, give 240 mL juice or regular (not diet) soda OR if NPO, give 30 gram glucose 40% oral gel massaged in buccal mucosa OR if unconscious or uncooperative, give 25 gram (250 mL) dextrose 10% IV over 15 minutes per protocol OR, if no IV access, 1 mg glucagon IM. Recheck BG in 15 minutes. May repeat juice/soda, gel, dextrose or glucagon once per episode. Notify provider if hypoglycemia does not resolve after two treatments. Providers should consider the following: administering longer-acting treatments for the duration of active insulin or hypoglycemia agent for persistent hypoglycemia and re-evaluating active insulin orders before administering the next dose. 1 tube of Glutose-15 contains 15 grams of glucose (net weight of tube = 37.5 grams.), Routine heparin (porcine) 25,000 unit/500 mL (50 unit/mL) infusion 1 dose, Starting on Sat03/18/24 at 204, Until Sat03/18/24 at 2054, [place]: cabinet override heparin (porcine) 50 units/mL in dextrose 5% 500 mL infusion 0-5,000 Units/hr (0-100 mL/hr), Intravenous, CONTINUOUS, Starting on Sat03/18/24 at 2215, Until Sat03/21/24 at 1922, Begin infusion at 950 units per hr (12 units/kg/hr). Maximum initial infusion rate is 1,000 units/hr. Infusion doses are rounded to the nearest 50 units. Target Heparin UFH Level (anti-Xa activity) = 0.3 - 0.7 international unit/mL Start adjustment schedule 6 hours after starting infusion. If Heparin UFH Level is: - Less than 0.1 international unit/mL: Administer PRN bolus and increase rate by 300 units per hr (4 units/kg/hr) - 0.1 - 0.19 international unit/mL: Administer PRN bolus and increase rate by 150 units per hr (2 units/kg/hr) - 0.2 - 0.29 international unit/mL: NO BOLUS and increase rate by 150 units per hr (2 units/kg/hr) - 0.3 - 0.7 international unit/mL: No change - 0.71 - 0.79 international unit/mL: NO BOLUS and decrease rate by 100 units per hr (1 units/kg/hr) - 0.8 - 0.99 international unit/mL: NO BOLUS and decrease rate by 150 units per hr (2 units/kg/hr) - Greater than or equal to 1.00 international unit/mL: Hold infusion for 60 minutes then decrease rate by 250 units per hour (3 units/kg/hr) Obtain Heparin UFH Level 6 hours after initiating heparin. Then 6 hours after each dose adjustment. When 2 consecutive Heparin UFH Level within target range of 0.3 - 0.7 international unit/mL, change Heparin UFH Level to once every 24 hours with A.M. labs while on heparin. RN to order required Heparin UFH Level - Per Protocol, Routine Rate/Dose Verify 03/21/2024 8:00 AM EDT 800 Units/hr 16 mL/hr New Bag 03/21/2024 3:53 AM EDT 800 Units/hr 16 mL/hr Rate/Dose Verify 03/21/2024 2:00 AM EDT 800 Units/hr 16 mL /hr insulin glargine-ygfn (Semglee) (100 unit/mL) subcutaneous injection vial 10 Units 10 Units, Subcutaneous, DAILY, First dose on Sat03/19/24 at 0900, Until Discontinued, Routine Given 03/25/2024 8:08 AM EDT 10 Units Given 03/24/2024 8:27 AM EDT 10 Units Given 03/23/2024 9:18 AM EDT 10 Units insulin lispro (HumaLOG;Admelog) (100 unit/mL) subcutaneous injection vial 0-8 Units 0-8 Units, Subcutaneous, 3 TIMES DAILY WITH MEALS, First dose on Sat03/19/24 at 0800, Until Discontinued, [employer] Give 1 unit for every 10 grams carbohydrate. Hold if not eating or if BG less than 70 mg/dL. , Routine Given 03/25/2024 8:58 AM EDT 6 Units Given 03/24/2024 5:07 PM EDT 3 Units Given 03/24/2024 12:14 PM EDT 7 Units insulin lispro (HumaLOG;Admelog) (100 unit/mL) subcutaneous injection vial 1-6 Units 1-6 Units, Subcutaneous, 3 TIMES DAILY BEFORE MEALS, First dose on [place] 03/19/24 at 0730, Until Discontinued, CORRECTION BOLUS [1-6 Units] Moderate Sliding Scale (BG in mg/dL): Correction factor 20 (1 unit of insulin is expected to drop the glucose 20 mg/dL) BG 140 - 160 Give 1 unit BG 161 - 180 Give 2 units BG 181 - 200 Give 3 units BG 201 - 220 Give 4 units BG 221 - 240 Give 5 units BG greater than 240, give 6 units and recheck BG in 2 hours. - If recheck BG is LESS than 240, give no insulin and resume schedule. - If recheck BG is GREATER than or EQUAL to 240, give 6 units and repeat BG in 2 hours & call for new insulin orders. DO NOT hold if NPO, unless specifically told to do so. ?? Per Inpatient Subcutaneous Insulin Policy, recheck a BG of greater than 240 mg/dL in 2 hours., Routine Given 03/25/2024 12:04 PM EDT 6 Units Given 03/24/2024 5:06 PM EDT 4 Units Given 03/24/2024 12:12 PM EDT 3 Units loperamide (Imodium A-D) capsule 2 mg 2 mg, Oral, 4 TIMES DAILY PRN, 4 doses, Starting on Sat03/24/24 at 2020, Until Sat03/25/24 at 1631, Diarrhea, Do not exceed 16 mg/day., Routine Given 03/24/2024 8:40 PM EDT 2 mg magnesium sulfate 2 g in sterile water 50 mL infusion 2 g, Intravenous, ONCE, 1 dose, On Vee 03/19/24 at 1815, Administer over 120 Minutes New Bag 03/19/2024 5:26 PM EDT 2 g 25 mL/hr magnesium sulfate 2 g in sterile water 50 mL infusion 2 g, Intravenous, ONCE, 1 dose, On 03/21/24 at 1815, Administer over 120 Minutes New Bag 03/21/2024 6:07 PM EDT 2 g 25 mL/hr metoprolol succinate XL (Toprol-XL) tablet 100 mg 100 mg, Oral, DAILY, First dose on Vee 03/19/24 at 0900, Until Discontinued, DO NOT CRUSH OR OPEN, Routine Given 03/21/2024 8:57 AM EDT 100 mg Given 03/20/2024 9:13 AM EDT 100 mg Given 03/19/2024 9:06 AM EDT 100 mg metoprolol succinate XL (Toprol-XL) tablet 50 mg 50 mg, Oral, DAILY, First dose (after last modification) on [place] 03/22/24 at 0900, Until Discontinued, DO NOT CRUSH OR OPEN HOLD if HR sustaining <50 or MAP <65, Routine Given 03/25/2024 8:07 AM EDT 50 mg Given 03/24/2024 8:28 AM EDT 50 mg Given 03/23/2024 9:18 AM EDT 50 mg pantoprazole EC (Protonix) tablet 40 mg 40 mg, Oral, DAILY, [facility] at 0900, Until Discontinued, DO NOT CRUSH OR OPEN, Routine Given 03/25/2024 8:07 AM EDT 40 mg Given 03/24/2024 8:28 AM EDT 40 mg Given 03/23/2024 9:18 AM EDT 40 mg potassium chloride ER (Klor-Con M) crystal tablet 40 mEq 40 mEq, Oral, ONCE, 1 dose, On Vee 03/19/24 at 1815, potassium chloride ER particle/crystal tablets (Klor-Con M) may be broken in half and each half swallowed separately. Tablets can be dissolved in ~4 ounces of water; allow ~2 minutes to dissolve, stir well and drink immediately. Do not crush, chew, or suck on tablet., Routine Given 03/19/2024 5:26 PM EDT 40 mEq potassium chloride ER (Klor-Con M) crystal tablet 40 mEq 40 mEq, Oral, ONCE, 1 dose, [facility] at 0715, potassium chloride ER particle/crystal tablets (Klor-Con M) may be broken in half and each half swallowed separately. Tablets can be dissolved in ~4 ounces of water; allow ~2 minutes to dissolve, stir well and drink immediately. Do not crush, chew, or suck on tablet., Routine Given 03/21/2024 6:48 AM EDT 40 mEq potassium chloride ER (Klor-Con M) crystal tablet 40 mEq 40 mEq, Oral, ONCE, 1 dose, On Sat03/21/24 at 0800, potassium chloride ER particle/crystal tablets (Klor-Con M) may be broken in half and each half swallowed separately. Tablets can be dissolved in ~4 ounces of water; allow ~2 minutes to dissolve, stir well and drink immediately. Do not crush, chew, or suck on tablet., Routine Given 03/21/2024 8:58 AM EDT 40 mEq potassium, sodium phosphates (Neutra-Phos) 280-160-250 mg oral packet 3 g 3 g, Oral, ONCE, 1 dose, On Sat03/19/24 at 1900, Take with full glass of water, Routine Given 03/19/2024 7:41 PM EDT 3 g sodium chloride (NebuSal) 3 % nebulizer solution 4 mL 4 mL, Nebulization, ONCE, 1 dose, On Sat03/20/24 at 1330, Routine Given 03/20/2024 2:58 PM EDT 4 mLs sodium chloride 0.9 % (flush) (BD PosiFlush Normal Saline 0.9) flush 5 mL 5 mL, Intravenous, 2 TIMES DAILY, First dose on Sat03/19/24 at 0100, Until Discontinued, Routine Given 03/25/2024 8:08 AM EDT 5 mLs Given 03/24/2024 8:41 PM EDT 5 mLs Given 03/24/2024 8:28 AM EDT 5 mLs tamsulosin (Flomax) capsule 0.8 mg 0.8 mg, Oral, NIGHTLY, First dose on Sat03/19/24 at 0100, Until Discontinued, DO NOT CRUSH OR CHEW, Routine Given 03/24/2024 8:40 PM EDT 0.8 mg Given 03/23/2024 8:46 PM EDT 0.8 mg Given 03/22/2024 10:15 PM EDT 0.8 mg documented in this encounter Active and Recently Administered Medications Times are shown in EDT. Scheduled Medication Order 03/23/2024 03/24/2024 03/25/2024 aspirin EC tablet 81 mg 81 mg, Oral, DAILY, First dose on Sat03/19/24 at 0900, Until Discontinued, Routine 0918 (Given - Provider: Candice Castro RN) 08 (Given - Provider: Candice Castro RN) 08 (Given - Provider: Lisbeth Dooley, JENNIFER) atorvastatin (Lipitor) tablet 40 mg 40 mg, Oral, EVERY EVENING, First dose on Sat03/19/24 at 1700, Until Discontinued, Routine 170 (Given - Provider: Candice Castro RN) 170 (Given - Provider: Candice Castro, JENNIFER) enoxaparin (Lovenox) (40 mg/0.4 mL) subcutaneous injection 40 mg 40 mg, Subcutaneous, NIGHTLY, First dose on Sat03/21/24 at 2100, Until Discontinued, Routine 2045 (Given - Provider: Nikhil Tirado RN) 2039 (Given - Provider: Nikhil Tirado RN) ezetimibe (Zetia) tablet 10 mg 10 mg, Oral, DAILY, First dose on Sat03/19/24 at 0900, Until Discontinued, Routine 917 (Given - Provider: Candice Castro RN) 08 (Given - Provider: Candice Castro RN) 08 (Given - Provider: Lisbeth Dooley, JENNIFER) furosemide (Lasix) (10 mg/mL) injection 60 mg (COMPLETED) 60 mg, Intravenous, ONCE, 1 dose, On Sat03/23/24 at 1745 1708 (Given - Provider: Candice Castro RN) furosemide (Lasix) tablet 40 mg (CANCELED) 40 mg, Oral, DAILY, First dose on Sat03/23/24 at 1000, Until Discontinued, Routine 917 (Given - Provider: Candice Castro RN) insulin glargine-ygfn (Semglee) (100 unit/mL) subcutaneous injection vial 10 Units 10 Units, Subcutaneous, DAILY, First dose on Sat03/19/24 at 0900, Until Discontinued, Routine 09 (Given - Provider: Candice Castro RN) 08 (Given - Provider: Candice Castro RN) 0808 (Given - Provider: Lisbeth Dooley, JENNIFER) insulin lispro (HumaLOG;Admelog) (100 unit/mL) subcutaneous injection vial 0-8 Units 0-8 Units, Subcutaneous, 3 TIMES DAILY WITH MEALS, First dose on Sat03/19/24 at 0800, Until Discontinued, [employer] Give 1 unit for every 10 grams carbohydrate. Hold if not eating or if BG less than 70 mg/dL. , Routine 0918 (Given - Provider: Candice Castro RN)1304 (Given - Provider: Candice Castro, RN)1709 (Given - Provider: Candice Castro, RN) 0828 (Given - Provider: Candice Castro, RN)1214 (Given - Provider: Candice Castro RN)1707 (Given - Provider: Candice Castro, JENNIFER) 0858 (Given - Provider: Lisbeth Dooley RN)1200 (Not Given - Provider: Lisbeth Dooley RN - Reason: See comment - Comment: pt did not eat lunch) insulin lispro (HumaLOG;Admelog) (100 unit/mL) subcutaneous injection vial 1-6 Units(Linked Group 1) 1-6 Units, Subcutaneous, 3 TIMES DAILY BEFORE MEALS, First dose on Sat03/19/24 at 0730, Until Discontinued, CORRECTION BOLUS [1-6 Units] Moderate Sliding Scale (BG in mg/dL): Correction factor 20 (1 unit of insulin is expected to drop the glucose 20 mg/dL) BG 140 - 160 Give 1 unit BG 161 - 180 Give 2 units BG 181 - 200 Give 3 units BG 201 - 220 Give 4 units BG 221 - 240 Give 5 units BG greater than 240, give 6 units and recheck BG in 2 hours. - If recheck BG is LESS than 240, give no insulin and resume schedule. - If recheck BG is GREATER than or EQUAL to 240, give 6 units and repeat BG in 2 hours & call for new insulin orders. DO NOT hold if NPO, unless specifically told to do so. ?? Per Inpatient Subcutaneous Insulin Policy, recheck a BG of greater than 240 mg/dL in 2 hours., Routine 0730 (Not Given - Provider: Candice Castro RN - Reason: Order parameters not met)1214 (Given - Provider: Candice Castro RN)1630 (Not Given - Provider: Candice Castro RN - Reason: Order parameters not met) 0827 (Given - Provider: Candice Castro RN)1212 (Given - Provider: Candice Castro RN)1706 (Given - Provider: Candice Castro RN) 0730 (Not Given - Provider: Lisbeth Dooley RN - Reason: Order parameters not met)1204 (Given - Provider: Lisbeth Dooley RN) metoprolol succinate XL (Toprol-XL) tablet 50 mg 50 mg, Oral, DAILY, First dose (after last modification) on Sat03/22/24 at 0900, Until Discontinued, DO NOT CRUSH OR OPEN HOLD if HR sustaining <50 or MAP <65, Routine 917 (Given - Provider: Candice Castro RN) 08 (Given - Provider: Candice Castro RN) 08 (Given - Provider: Lisbeth oDoley RN) pantoprazole EC (Protonix) tablet 40 mg (CANCELED) 40 mg, Oral, DAILY, First dose on Sat03/21/24 at 0900, Until Discontinued, DO NOT CRUSH OR OPEN, Routine 917 (Given - Provider: Candice Castro RN) 08 (Given - Provider: Candice Castro RN) 08 (Given - Provider: Lisbeth Dooley, JENNIFER) sodium chloride 0.9 % (flush) (BD PosiFlush Normal Saline 0.9) flush 5 mL 5 mL, Intravenous, 2 TIMES DAILY, First dose on Sat03/19/24 at 0100, Until Discontinued, Routine 918 (Given - Provider: Candice Castro RN)2046 (Given - Provider: Nikhil Tirado RN) 827 (Given - Provider: Candice Castro RN)2040 (Given - Provider: Nikhil Tirado, JENNIFER) 08 (Given - Provider: Lisbeth Dooley RN) tamsulosin (Flomax) capsule 0.8 mg 0.8 mg, Oral, NIGHTLY, First dose on Sat03/19/24 at 0100, Until Discontinued, DO NOT CRUSH OR CHEW, Routine 2045 (Given - Provider: Nikhil Tirado, RN) 2039 (Given - Provider: Nikhil Tirado, JENNIFER) PRN Medication Order 03/23/2024 03/24/2024 03/25/2024 albuteroL (Proventil, Ventolin) (2.5 mg/3 mL) (0.083 %) nebulizer solution 2.5 mg(Linked Group 2) 2.5 mg, Nebulization, 2 TIMES DAILY PRN, Starting on Sat03/20/24 at 1235, Until Sat03/25/24 at 1631, Wheezing, Routine dextrose 10% infusion(Linked Group 3) 250 mL, at 1,000 mL/hr, Intravenous, EVERY 15 MIN PRN, Starting on Sat03/18/24 at 2309, Until Sat03/25/24 at 1631, For BG 50-70 mg/dL: Oral treatment preferred: If able to drink, give 120 mL juice or regular (not diet) soda OR if NPO, give 15 gram glucose 40% oral gel massaged into buccal mucosa OR if unconscious or uncooperative, give 25 gram (250 mL) dextrose 10% IV over 15 minutes per protocol OR, if no IV access, 1 mg glucagon IM. For BG less than 50 mg/dL: Oral treatment preferred: If able to drink, give 240 mL juice or regular (not diet) soda OR if NPO, give 30 gram glucose 40% oral gel massaged in buccal mucosa OR if unconscious or uncooperative, give 25 gram (250 mL) dextrose 10% IV over 15 minutes per protocol OR, if no IV access, 1 mg glucagon IM. Recheck BG in 15 minutes. May repeat juice/soda, gel, dextrose or glucagon once per episode. Notify provider if hypoglycemia does not resolve after two treatments. Providers should consider the following: administering longer-acting treatments for the duration of active insulin or hypoglycemia agent for persistent hypoglycemia and re-evaluating active insulin orders before administering the next dose. glucagon (Glucagen) (1 mg/mL) injection solution 1 mg(Linked Group 3) 1 mg, Intramuscular, EVERY 15 MIN PRN, Starting on Sat03/18/24 at 2309, Until Sat03/25/24 at 1631, Low blood sugar, For BG 50-70 mg/dL: Oral treatment preferred: If able to drink, give 120 mL juice or regular (not diet) soda OR if NPO, give 15 gram glucose 40% oral gel massaged into buccal mucosa OR if unconscious or uncooperative, give 25 gram (250 mL) dextrose 10% IV over 15 minutes per protocol OR, if no IV access, 1 mg glucagon IM. For BG less than 50 mg/dL: Oral treatment preferred: If able to drink, give 240 mL juice or regular (not diet) soda OR if NPO, give 30 gram glucose 40% oral gel massaged in buccal mucosa OR if unconscious or uncooperative, give 25 gram (250 mL) dextrose 10% IV over 15 minutes per protocol OR, if no IV access, 1 mg glucagon IM. Recheck BG in 15 minutes. May repeat juice/soda, gel, dextrose or glucagon once per episode. Notify provider if hypoglycemia does not resolve after two treatments. Providers should consider the following: administering longer-acting treatments for the duration of active insulin or hypoglycemia agent for persistent hypoglycemia and re-evaluating active insulin orders before administering the next dose. , Routine glucose (Glutose) 40% oral geL(Linked Group 3) 15-30 g of glucose, Buccal, EVERY 15 MIN PRN, Starting on Sat03/18/24 at 2309, Until Sat03/25/24 at 1631, Low blood sugar, For BG 50-70 mg/dL: Oral treatment preferred: If able to drink, give 120 mL juice or regular (not diet) soda OR if NPO, give 15 gram glucose 40% oral gel massaged into buccal mucosa OR if unconscious or uncooperative, give 25 gram (250 mL) dextrose 10% IV over 15 minutes per protocol OR, if no IV access, 1 mg glucagon IM. For BG less than 50 mg/dL: Oral treatment preferred: If able to drink, give 240 mL juice or regular (not diet) soda OR if NPO, give 30 gram glucose 40% oral gel massaged in buccal mucosa OR if unconscious or uncooperative, give 25 gram (250 mL) dextrose 10% IV over 15 minutes per protocol OR, if no IV access, 1 mg glucagon IM. Recheck BG in 15 minutes. May repeat juice/soda, gel, dextrose or glucagon once per episode. Notify provider if hypoglycemia does not resolve after two treatments. Providers should consider the following: administering longer-acting treatments for the duration of active insulin or hypoglycemia agent for persistent hypoglycemia and re-evaluating active insulin orders before administering the next dose. 1 tube of Glutose-15 contains 15 grams of glucose (net weight of tube = 37.5 grams.), Routine lidocaine (Xylocaine) 1% (10 mg/mL) injection 3 mg 3 mg (0.3 mL), Subcutaneous, ONCE PRN, 1 dose, Starting on Sat03/19/24 at 0012, Until Sat03/25/24 at 1631, for discomfort with PIV insertion, Routine loperamide (Imodium A-D) capsule 2 mg 2 mg, Oral, 4 TIMES DAILY PRN, 4 doses, Starting on Sat03/24/24 at 2020, Until Sat03/25/24 at 1631, Diarrhea, Do not exceed 16 mg/day., Routine 2039 (Given - Provider: Nikhil Tirado RN) nitroGLYcerin (Nitrostat) disintegrating tablet 0.4 mg 0.4 mg, Sublingual, EVERY 5 MIN PRN, Starting on Sat03/19/24 at 0012, Until Sat03/25/24 at 1631, Chest pain, May repeat every 5 minutes for a total of three doses. Notify provider if chest pain not relieved with nitroglycerin. Do not administer nitroglycerin if the patient has received or taken phosphodiesterase (PDE-5) inhibitors such as sildenafil, tadalafil or vardenafil within the last 24 to 72 hours., Routine sodium chloride 0.9 % (flush) (BD PosiFlush Normal Saline 0.9) flush 5-20 mL 5-20 mL, Intravenous, EVERY 1 MIN PRN, Starting on Sat03/19/24 at 0012, Until Sat03/25/24 at 1631, flush, Flush pertains to all indwelling lines. Flush per protocol found in the job aid using the link provided on this medication record., Routine Linked Groups Order Group 1: POCT Fingerstick Glucose (CANCELED) Routine, 4 TIMES DAILY BEFORE MEALS & AT BEDTIME, First occurrence on Sat03/19/24 at 0700, Until Specified, Consider choosing FOUR TIMES A DAY BEFORE MEALS AND AT BEDTIME as frequency for: Patients who have a good hypoglycemia awareness: -Patients who are eating meals during the day and sleeping at night -Patients who are otherwise stable And insulin lispro (HumaLOG;Admelog) (100 unit/mL) subcutaneous injection vial 1-6 UnitsJump to med 1-6 Units, Subcutaneous, 3 TIMES DAILY BEFORE MEALS, First dose on [place] 03/19/24 at 0730, Until Discontinued, CORRECTION BOLUS [1-6 Units] Moderate Sliding Scale (BG in mg/dL): Correction factor 20 (1 unit of insulin is expected to drop the glucose 20 mg/dL) BG 140 - 160 Give 1 unit BG 161 - 180 Give 2 units BG 181 - 200 Give 3 units BG 201 - 220 Give 4 units BG 221 - 240 Give 5 units BG greater than 240, give 6 units and recheck BG in 2 hours. - If recheck BG is LESS than 240, give no insulin and resume schedule. - If recheck BG is GREATER than or EQUAL to 240, give 6 units and repeat BG in 2 hours & call for new insulin orders. DO NOT hold if NPO, unless specifically told to do so. ?? Per Inpatient Subcutaneous Insulin Policy, recheck a BG of greater than 240 mg/dL in 2 hours., Routine Group 2: Sputum induction (CANCELED) Routine, DAILY, First occurrence on Sat03/21/24 at 0600, For 3 occurrences, This order needs to include a medication order for Albuterol with a frequency of Q2 PRN and a sodium chloride 3% nebulizer solution order., Indications: Mycobacteria, Other (See comments) And sodium chloride (NebuSal) 3 % nebulizer solution 4 mL (COMPLETED) 4 mL, Nebulization, ONCE, 1 dose, On Sat03/20/24 at 1330, Routine And albuteroL (Proventil, Ventolin) (2.5 mg/3 mL) (0.083 %) nebulizer solution 2.5 mgJump to med 2.5 mg, Nebulization, 2 TIMES DAILY PRN, Starting on Sat03/20/24 at 1235, Until Sat03/25/24 at 1631, Wheezing, Routine Group 3: glucose (Glutose) 40% oral geLJump to med 15-30 g of glucose, Buccal, EVERY 15 MIN PRN, Starting on Sat03/18/24 at 2309, Until Sat03/25/24 at 1631, Low blood sugar, For BG 50-70 mg/dL: Oral treatment preferred: If able to drink, give 120 mL juice or regular (not diet) soda OR if NPO, give 15 gram glucose 40% oral gel massaged into buccal mucosa OR if unconscious or uncooperative, give 25 gram (250 mL) dextrose 10% IV over 15 minutes per protocol OR, if no IV access, 1 mg glucagon IM. For BG less than 50 mg/dL: Oral treatment preferred: If able to drink, give 240 mL juice or regular (not diet) soda OR if NPO, give 30 gram glucose 40% oral gel massaged in buccal mucosa OR if unconscious or uncooperative, give 25 gram (250 mL) dextrose 10% IV over 15 minutes per protocol OR, if no IV access, 1 mg glucagon IM. Recheck BG in 15 minutes. May repeat juice/soda, gel, dextrose or glucagon once per episode. Notify provider if hypoglycemia does not resolve after two treatments. Providers should consider the following: administering longer-acting treatments for the duration of active insulin or hypoglycemia agent for persistent hypoglycemia and re-evaluating active insulin orders before administering the next dose. 1 tube of Glutose-15 contains 15 grams of glucose (net weight of tube = 37.5 grams.), Routine Or dextrose 10% infusionJump to med 250 mL, at 1,000 mL/hr, Intravenous, EVERY 15 MIN PRN, Starting on Sat03/18/24 at 2309, Until Sat03/25/24 at 1631, For BG 50-70 mg/dL: Oral treatment preferred: If able to drink, give 120 mL juice or regular (not diet) soda OR if NPO, give 15 gram glucose 40% oral gel massaged into buccal mucosa OR if unconscious or uncooperative, give 25 gram (250 mL) dextrose 10% IV over 15 minutes per protocol OR, if no IV access, 1 mg glucagon IM. For BG less than 50 mg/dL: Oral treatment preferred: If able to drink, give 240 mL juice or regular (not diet) soda OR if NPO, give 30 gram glucose 40% oral gel massaged in buccal mucosa OR if unconscious or uncooperative, give 25 gram (250 mL) dextrose 10% IV over 15 minutes per protocol OR, if no IV access, 1 mg glucagon IM. Recheck BG in 15 minutes. May repeat juice/soda, gel, dextrose or glucagon once per episode. Notify provider if hypoglycemia does not resolve after two treatments. Providers should consider the following: administering longer-acting treatments for the duration of active insulin or hypoglycemia agent for persistent hypoglycemia and re-evaluating active insulin orders before administering the next dose. Or glucagon (Glucagen) (1 mg/mL) injection solution 1 mgJump to med 1 mg, Intramuscular, EVERY 15 MIN PRN, Starting on Sat03/18/24 at 2309, Until Sat03/25/24 at 1631, Low blood sugar, For BG 50-70 mg/dL: Oral treatment preferred: If able to drink, give 120 mL juice or regular (not diet) soda OR if NPO, give 15 gram glucose 40% oral gel massaged into buccal mucosa OR if unconscious or uncooperative, give 25 gram (250 mL) dextrose 10% IV over 15 minutes per protocol OR, if no IV access, 1 mg glucagon IM. For BG less than 50 mg/dL: Oral treatment preferred: If able to drink, give 240 mL juice or regular (not diet) soda OR if NPO, give 30 gram glucose 40% oral gel massaged in buccal mucosa OR if unconscious or uncooperative, give 25 gram (250 mL) dextrose 10% IV over 15 minutes per protocol OR, if no IV access, 1 mg glucagon IM. Recheck BG in 15 minutes. May repeat juice/soda, gel, dextrose or glucagon once per episode. Notify provider if hypoglycemia does not resolve after two treatments. Providers should consider the following: administering longer-acting treatments for the duration of active insulin or hypoglycemia agent for persistent hypoglycemia and re-evaluating active insulin orders before administering the next dose. , Routine documented in this encounter Additional Health Concerns Infection Onset Date Last Indicated Resolved Time Rule Out Respiratory 03/19/2024 03/19/2024 024 9:32 PM EDT Rule Out COVID-19 03/19/2024 03/19/2024 03/19/2024 9:32 PM EDT Rule Out C. difficile 03/20/2024 03/20/20242023 2:46 PM EDT documented as of this encounter Care Teams [employer] Tender Relationship Specialty Start Date End Date None None PCP - General 03/18/24 documented as of this encounter
--- OUTSIDE RECORDS SUMMARY | 2024-03-27 17:05 | XMS_ITS | Referral Summary ---
Author Organization [facility] Address [address] [place] [address] Care Team Providers Care School Bus Dispatcher Name Role Phone Unknown, Provider Primary Care Provider [phone] Social History Tobacco Use Types Packs/Day Years Used Date Smoking Tobacco: Never Assessed Sex and Gender Information Value Date Recorded Sex Assigned at Not on file Gender Identity Not on file Sexual Orientation Not on file Plan of Treatment Not on file Care Teams School Bus Dispatcher Relationship Specialty Start Date End Date Unknown, Provider, PCP - General 03/02/16
--- OUTSIDE RECORDS SUMMARY | 2024-03-27 17:05 | XMS_ITS | Encounter Summary ---
[place] [address] Care Team Providers Care Employment Coordinator Name Role Phone Jamie rFeeman MD Primary Care Provider [phone] Encounter Details Date Type Department Care Team (Late st Contact Info) Description 03/17/2024 Interpretation [place] [phone] Unknown None Social History Tobacco Use Types Packs/Day Years Used Date Smoking Tobacco: Never Assessed [facility] Inpatient Questions Answer Date Recorded Does Anyone [...] 2:00 PM EDT Office Visit Cardiology at [address] [phone] Radha Jordan PA [facility] [place] [address] documented as of this encounter Procedures Procedure [...] only. Unknown IMG FILM LIBRARY ORD ERABLES [place], [place] documented in this encounter Visit Diagnoses Not on filedocumented in this encounter Care Teams Employment Coordinator Relationship Specialty Start Date End Date Jamie Freeman MD [address] [place] [address] PCP - General 08/01/10 03/17/24 documented as of this encounter
--- OUTSIDE RECORDS SUMMARY | 2024-03-27 17:05 | XMS_ITS | Clinical Summary ---
Author Organization [facility] Address [address] [place] [address] Care Team Providers Care Portable Track Crew Chief Name Role Phone Unknown, Provider Primary Care Provider [phone] Social History Tobacco Use Types Packs/Day Years Used Date Smoking Tobacco: Never Assessed Sex and Gender Information Value Date Recorded Sex Assigned at Not on file Gender Identity Not on file Sexual Orientation Not on file Plan of Treatment Health Maintenance Due Date Last Done Comments Hepatitis C Screen 1945 RSV Immunization ( o r 60+ Years) (1 - 1-dose 60+ series) 2004 Fall Risk Screening 2009 COVID-19 Vaccine ( season) 2023 Care Teams Portable Track Crew Chief Relationship Specialty Start Date End Date Unknown, Provider, PCP - General 03/02/16
--- OUTSIDE RECORDS SUMMARY | 2024-03-27 17:06 | XMS_ITS | Encounter Summary ---
Author Organization [facility] Address [address] [place] [address] Care Team Providers Care Stiff Neck Loader Name Role Phone Unknown, Provider Primary Care Provider [phone] Encounter Details Date Type Department Care Team (Late st Contact Info) Description 03/02/2016 Results Only [facility] [phone] Sai Hawkins MD [address] [place] [phone] Social History Tobacco Use Types Packs/Day Years Used Date Smoking Tobacco: Never Assessed Sex and Gender Information Value Date Recorded Sex Assigned at Not on file Gender Identity Not on file Sexual Orientation Not on file documented as of this encounter Plan of Treatment Not on file documented as of this encounter Procedures Procedure Name Priority Date/Time Associated Diagnosis Comments SURGICAL PATHOLOGY Routine 03/02/2016 11 :28 EDT documented in this encounter Results * SURGICAL PATHOLOGY (03/02/2016 11:28 EDT) Pathology Report: SURGICAL PATHOLOGY REPORT Reports generated via electronic interface contain original data; however they are lacking the format of the original report. Caution should be taken when reading/interpret ing unformatted reports. Name: ? SIOMARA MAN ? Accession #: ? [id number] ? : ? 1945 (Age: 70) ??M ? Collect Date: ? 03/02/2016 ? Location: ? [facility] ? Receive Date: ? 03/03/2016 ? Provider: SAI HAWKINS MD Copy to: HELADIO MARIN MD ? Final Pathologic Diagnosis: RECTAL POLYP, BIOPSY: - ??Hyperplastic polyp with cautery artifacts, inflamed. Document reviewed and electronically signed by: DARYL FARMER MD Report ??Date: 03/06/2016 14:48 By the signature above, the attending physician certifies that he/she has personally conducted a gross and/or microscopic examination of the described specimens and rendered or confirmed the above diagnosis. Specimen(s) Received: Rectal polyp Clinical History: Heme+ stool, 2 rectal polyps Gross Description: ? Received in formalin labelled with proper patient identification (initials J, B) and rectal polyp is a 0.4 x 0.3 x 0.2 cm polyp having a 0.2 cm base margin. The base is inked. Bisected and entirely submitted in 1. Lucia De La Rosa 03/05/2016 9:39 AM End of Report [facility] 03/02/2016 11:2 8 EDT 03/03/2016 11:28 EDT Sai Hawkins MD PATHOLOGY ORDERABLES Performing Organization Address City/State/[facility] Co de Phone Number [facility] [address] [place] [address] documented in this encounter Visit Diagnoses Not on filedocumented in this encounter Care Teams Stiff Neck Loader Relationship Specialty Start Date End Date Unknown, Provider, PCP - General 03/02/16 documented as of this encounter
[2024-03-27 20:06] LABS: Anion Gap 7.4 mmol/L (3-11); BUN 38 mg/dL (7-18); CO2 28.6 mmol/L (21.0-32.0); CREATININE 1.4 mg/dL (0.70-1.30); Calcium 10.3 mg/dL (8.5-10.1); Chloride 105 mmol/L (98-107); Estimated GFR 51.13 (mL/min/1.73m2); Glucose 178 mg/dL (74-106); Magnesium 2.3 mg/dL (1.8-2.4); Potassium 5.4 mmol/L (3.5-5.1); Sodium 141 mmol/L (136-145)
== END 2024-03-27 16:54 | disposition home or self-care (01) ==
LOC: NCHCN 16:53
PROVIDERS: PCP Internal Medicine; Visit Provider Internal Medicine
DX: I50.31 Acute diastolic (congestive) heart failure (principal)
CPT/HCPCS: 80048; 83735

== ENCOUNTER 2024-05-01 17:09 | Outpatient (REF) | payer MEDICARE, BC, SELFPAY ==
[2024-05-01 19:18] LABS: Abs Immature Grans 0.03 10^3/uL (0.0-0.06); Absolute Basophil Count 0.11 10^3/uL (0.0-0.2); Absolute Eosinophil Count 0.16 10^3/uL (0.0-0.7); Absolute Lymphocyte Count 1.63 10^3/uL (1.2-3.4); Absolute Monocyte Count 1.14 10^3/uL (0.1-0.8); Absolute Neutrophil Count 5.76 10^3/uL (1.2-6.7); Basophils % 1.2 %; Eosinophils % 1.8 %; HGB 12.8 g/dL (13.5-17.5); Immature Grans % 0.3 %; Lymphocytes % 18.5 %; MCH 25.8 pg (27.0-33.0); MCHC 31.2 % (32.0-36.0); MCV 83 fL (80-95); Monocytes % 12.9 %; Neutrophils % 65.3 %; Platelet Count 423 10^3/uL (130-400); RBC 4.97 10^6/uL (4.36-5.78); RDW 15.4 % (11.8-14.1); RDW-SD 46.2 fL; WBC 8.83 10^3/uL (4.4-10.8)
== END 2024-05-01 17:10 | disposition home or self-care (01) ==
LOC: NCHCN 17:09
PROVIDERS: PCP Internal Medicine; Visit Provider Internal Medicine
DX: K52.9 Noninfective gastroenteritis and colitis, unspecified (principal)
CPT/HCPCS: 85025

== ENCOUNTER 2024-06-08 18:22 | Outpatient (REF) | payer MEDICARE, BC, SELFPAY ==
[2024-06-08 19:13] LABS: Bilirubin Negative (Negative); Blood Trace-intact (Negative); Clarity Clear (Clear); Glucose 500 mg/dL (Negative); Ketones Negative (Negative); Leukocyte Esterase Negative (Negative); Nitrite Negative (Negative); Specific Gravity <= 1.005 (1.005-1.025); Urobilinogen 0.2 mg/dL (Up to 0.2)
[2024-06-08 19:27] LABS: Bacteria Negative HPF (Negative); C & S Indicated? No; Crystals Negative HPF (Negative); Epithelial Cells Negative HPF (Negative); Mucus Negative (Negative); WBC 0-2 HPF (0-5)
== END 2024-06-08 18:23 | disposition home or self-care (01) ==
LOC: NCHCN 18:22
PROVIDERS: PCP Internal Medicine; Visit Provider Internal Medicine
DX: N40.1 Benign prostatic hyperplasia with lower urinary tract symptoms (principal)
CPT/HCPCS: 81003; 81015

== ENCOUNTER 2024-07-20 18:29 | Outpatient (REF) | payer MEDICARE, BC, SELFPAY ==
[2024-07-20 19:20] LABS: HCT 35.4 % (40.0-50.0); HGB 10.5 g/dL (13.5-17.5); MCHC 29.7 % (32.0-36.0); MCV 81 fL (80-95); MPV 9.6 fL (8.0-11.0); Platelet Count 527 10^3/uL (130-400); RBC 4.38 10^6/uL (4.36-5.78); RDW 16.5 % (11.8-14.1); RDW-SD 48.4 fL; WBC 8.57 10^3/uL (4.4-10.8)
[2024-07-20 19:42] LABS: ALT 18 U/L (16-63); AST 25 U/L (15-37); Albumin 2.7 g/dL (3.4-5.0); Alkaline Phosphatase 129 U/L (46-116); Anion Gap 6.9 mmol/L (3-11); BUN 20 mg/dL (7-18); Bilirubin, Total 0.35 mg/dL (0.2-1.0); C-Reactive Protein 1.41 mg/dL (<or=0.5); CO2 30.1 mmol/L (21.0-32.0); CREATININE 1.3 mg/dL (0.70-1.30); Calcium 9.9 mg/dL (8.5-10.1); Chloride 100 mmol/L (98-107); Estimated GFR 55.53 (mL/min/1.73m2); Glucose 293 mg/dL (74-106); Potassium 4.9 mmol/L (3.5-5.1); Sodium 137 mmol/L (136-145); Total Protein 7.5 g/dL (6.4-8.2)
[2024-07-20 20:41] LABS: Hemoglobin A1C 12.5 % (<5.7)
== END 2024-07-20 18:30 | disposition home or self-care (01) ==
LOC: NCHCN 18:29
PROVIDERS: PCP Internal Medicine; Visit Provider Internal Medicine
DX: E11.9 Type 2 diabetes mellitus without complications (principal); R63.4 Abnormal weight loss
CPT/HCPCS: 80053; 85027; 83036; 86140

== ENCOUNTER 2024-11-25 13:04 | Observation (INO) | payer MEDICARE, BC, SELFPAY ==
[2024-11-25] VITALS (58 sets, daily range): BP systolic 78–110; BP diastolic 49–89; PULSE 18–104; RESP 16–71; TEMP 36.2–37; O2SAT 87–100
--- NOTE | 2024-11-25 13:41 | ED.GENADUL_ITS ---
Discharge Plan Disposition Patient Disposition: Admit to [facility] Condition: Stable Discharge Details Chief Complaint: Urinary Clinical Impression: Hematuria, LISA (acute kidney injury), Anemia requiring transfusions Primary Care Provider: Jamie Bragg ED Provider: Tatyana Borjas Home Meds and New Rx's Prescriptions: No Action aspirin [Adult Aspirin Regimen] 81 mg tablet,delayed release (DR/EC) 81 mg PO DAILY Invokana 100 mg tablet 100 mg PO DAILY metoprolol succinate 50 mg tablet extended release 24 hr 50 mg PO DAILY atorvastatin 40 mg tablet 40 mg PO DAILY glucosamine-chondroitin 500-400 mg capsule 1 cap PO BID Rx Instructions: give with meal/snack multivitamin Tablet 1 tab PO DAILY pioglitazone 15 mg tablet 15 mg PO DAILY HPI General Mode of arrival: ambulatory . Date/Time Provider Initiated Documentation: 11/25/24 13:05 . Limitations to Documentation: no limitations . Information obtained by: patient, family and old records reviewed . HPI Narrative: HPI: This is an 79-year-old male patient with a past medical history significant for invasive urothelial carcinoma, history of hypertension, diabetes, ILD on 1 to 2 L of oxygen by nasal cannula at baseline, CAD, presenting for evaluation of urinary catheter dysfunction and abdominal pain. The patient reports that he has a an indwelling Gonzales which typically drains bloody urine, and a left-sided nephrostomy tube that tends to drain clear urine. He states that last night his Gonzales stopped draining as did his nephrostomy tube, they attempted to flush it in his radiation oncology visit today but were unsuccessful. He states that he is feeling discomfort and pain in his lower abdomen. The patient is otherwise reporting no significant symptoms, though he was noted to be hypotensive on arrival to our emergency department. Denies dizziness, syncope, chest pain, or shortness of breath. Exam: Gen: Awake and alert, in no apparent distress HEENT: Non-icteric sclera Neck: Supple Lungs: No apparent respiratory distress, normal respiratory effort. Lung sounds clear and equal bilaterally CV: Appears well perfused, heart with regular rate and rhythm Abdomen: Non-distended, soft, tender to palpation in the suprapubic region with associated fullness : Gonzales catheter in place, with scant bloody urine in place, not draining. Th e left nephrostomy tube is in place, draining a small amount of yellow urine, no surrounding skin changes. MSK: Moves 4 extremities without apparent limitation in ROM Skin: Visualized skin without rashes, cyanosis. Neuro: No obvious focal deficits or facial asymmetry. Speaks in full, clear sentences. Psych: Appropriate for situation. MDM: This is an 79-year-old male patient presenting for evaluation of Gonzales catheter dysfunction. Differential includes but is not limited to blood clot occlusion, catheter misplacement, compressive effect from patient's malignancy. I also considered metabolic and electrolyte derangement, anemia, kidney injury, dehydration, especially considering the patient's low blood pressure. I obtained a bedside ultrasound, which does show distention of the urinary bladder, an echogenic foci within likely due to the patient's malignancy and/or hematoma/clot. It also shows mild hydronephrosis of the right kidney. We will obtain laboratory studies to include CBC, CMP, magnesium, and urinalysis. We will attempt to irrigate/flush the Gonzales catheter. On assessment the patient did have a small amount out of his nephrostomy tube which is quite reassuring. ED Course: I reviewed the patient's laboratory studies, which reveal no leukocytosis, but the patient does have a new anemia to 6.8 from his most recent of 10.5, likely due to his hematuria and blood clots. No thrombocytopenia, chemistry panel is without significant electrolyte derangement, though the patient does have a BUN to creatinine elevation to 59 and 1.6 respectively. No evidence of liver dysfunction. I provided the patient with a liter of IV fluids for his LISA, as well as as obtaining a type and screen and crossmatch and 1 unit of PRBCs for transfusion. I reached out to [facility] urology, who reviewed the patient's case. We were unable to flush the existing Gonzales catheter. They recommended replacing with a larger bore catheter, we have a 20 Thai three-way catheter that we will place to allow for continuous bladder irrigation. [facility] urologist Dr. Rao has accepted this patient, but unfortunately there are no beds available and the time during which they would get a bed is not known. For this reason I will reach out to the hospitalist to discuss admission. Our hospitalist service has graciously accepted this patient for admission, and will reach out to the [facility] urology team to discuss whether or not admission and transfer is still recommended after continuous bladder irrigation and stabilization of his hemoglobin. Patient remained hemodynamically appropriate while under my care and was transferred to their team without incident. Tatyana Borjas MD Related Data Home Medications ?Medication ?Instructions ?Recorded ?Confirmed aspirin 81 mg tablet,delayed 81 mg PO DAILY 05/26/24 11/25/24 release (Adult Aspirin Regimen) atorvastatin 40 mg tablet 40 mg PO DAILY 05/26/24 canagliflozin 100 mg tablet 100 mg PO DAILY 05/26/24 (Invokana) glucosamine-chondroitin 500 mg-400 1 cap PO BID 05/26/24 mg capsule metoprolol succinate 50 mg 50 mg PO DAILY 05/26/24 tablet,extended release 24 hr multivitamin 1 tab PO DAILY 05/26/24 pioglitazone 15 mg tablet 15 mg PO DAILY 05/26/24 Allergies Allergy/AdvReac Type Severity Reaction Status Date / Time No Known Allergies Allergy Unverified 11/25/24 13:15 General Stated Complaint: Urinary MARIE: 3 Course Vital Signs Vital signs: Vital Signs Temperature 36.2 C L 11/25/24 13:07 Pulse 18 L 11/25/24 13:07 Respiratory Rate 71 H 11/25/24 13:07 Blood Pressure 78/49 L 11/25/24 13:07 Pulse Oximetry 87 L 11/25/24 13:07 Temperature 37.0 C 11/25/24 13:23 Temperature Source Oral 11/25/24 13:23 Pulse 71 11/25/24 13:23 Respiratory Rate 16 11/25/24 13:23 Blood Pressure 78/49 L 11/25/24 13:23 Pulse Oximetry 87 L 11/25/24 13:23 Oxygen Delivery Method Room Air 11/25/24 13:23 Comment initiated 1.5L oxygen 11/25/24 13:23 Medical Decision Making Quality:SDOH Health Related Social Needs: No Data to Display PFSH All Active Problems (Updated 11/25/24 @ 17:21 by Tatyana Borjas MD) Anemia requiring transfusions (Acute) LISA (acute kidney injury) (Acute) Hematuria (Acute) Medical History (Updated 11/25/24 @ 17:21 by Tatyana Borjas MD) Bladder wall thickening Bloody diarrhea Pulmonary emphysema Weight loss Osteoarthritis HTN (hypertension) HLD (hyperlipidemia) (HFpEF) heart failure with preserved ejection fraction ILD (interstitial lung disease) Diabetes NSTEMI (non-ST elevated myocardial infarction) CAD (coronary artery disease) Abdominal aneurysm Rectal bleeding Surgical History (Updated 05/26/24 @ 15:44 by Jenni Arteaga) S/P cholecystectomy Social History Smoking risk assessment performed?: No Substance use type: does not use POCUS Exam (ED) Limited Retroperitoneal(Renal)Exam DATE OF EXAM: 11/25/24 TIME OF EXAM: 13:30 PROVIDER THAT PERFORMED THE STUDY: Tatyana Borjas REASON FOR EXAM: Anuria and Hematuria VISUALIZED STRUCTURES: Left kidney, Right kidney and Other structures: Bladder PERTINENT FINDINGS/IMPRESSION: Hydronephrosis present (mild) right side and Other impression: Distended bladder, echogenic structure within bladder lumen Exam complete
[2024-11-25] MEDS: Lactated Ringers 1,000 ML 1000 ML IV (13:43)
[2024-11-25 13:45] LABS: Abs Immature Grans 0.07 10^3/uL (0.0-0.06); Absolute Eosinophil Count 0.05 10^3/uL (0.0-0.7); Absolute Lymphocyte Count 1.06 10^3/uL (1.2-3.4); Absolute Monocyte Count 0.48 10^3/uL (0.1-0.8); Absolute Neutrophil Count 8.88 10^3/uL (1.2-6.7); Basophils % 0.9 %; Eosinophils % 0.5 %; HCT 24.1 % (40.0-50.0); Immature Grans % 0.7 %; MCHC 28.2 % (32.0-36.0); MCV 81 fL (80-95); MPV 8.8 fL (8.0-11.0); Monocytes % 4.5 %; Neutrophils % 83.4 %; Platelet Count 313 10^3/uL (130-400); RBC 2.96 10^6/uL (4.36-5.78); RDW 22.6 % (11.8-14.1); RDW-SD 66.7 fL; WBC 10.64 10^3/uL (4.4-10.8)
[2024-11-25 13:56] LABS: HGB 6.8 g/dL (13.5-17.5)
[2024-11-25 14:00] LABS: ALT 18 U/L (16-63); AST 18 U/L (15-37); Albumin 2.1 g/dL (3.4-5.0); Alkaline Phosphatase 135 U/L (46-116); Anion Gap 3.1 mmol/L (3-11); Anisocytosis 2+; BUN 59 mg/dL (7-18); Bilirubin, Total 0.7 mg/dL (0.2-1.0); CO2 35.9 mmol/L (21.0-32.0); CREATININE 1.6 mg/dL (0.70-1.30); Calcium 9.3 mg/dL (8.5-10.1); Chloride 99 mmol/L (98-107); Diff Comment RBC Morph Reviewed; Estimated GFR 43.29 (mL/min/1.73m2); Glucose 394 mg/dL (74-106); Magnesium 2.3 mg/dL; Potassium 4.4 mmol/L (3.5-5.1); Sodium 138 mmol/L (136-145); Total Protein 6.2 g/dL (6.4-8.2)
[2024-11-25] MEDS: Lidocaine 2% Jelly 11 ML SYR UR (16:30)
[2024-11-25 17:40] LABS: Bilirubin Negative (Negative); Blood Large (Negative); Clarity Cloudy (Clear); Glucose 250 mg/dL (Negative); Ketones Negative (Negative); Leukocyte Esterase Negative (Negative); Nitrite Negative (Negative); Urobilinogen 0.2 mg/dL (Up to 0.2)
[2024-11-25 17:52] LABS: RBC >50 HPF (0-2)
[2024-11-25 17:53] LABS: C & S Indicated? Color Interference
--- NOTE | 2024-11-25 19:15 | W.PM.HP.N ---
Date of service: 11/25/24 Time of Service: 05:42 Assessment and Plan Assessment and plan (1) Hematuria: Status: Acute Assessment and plan: associated with bladder cancer. Improving with irrigation. Continue overnight. Follows with [facility] urology, they accepted him but no beds. The patient would prefer to manage here and then be discharged. (2) Anemia requiring transfusions: Status: Acute Assessment and plan: Secondary to above in setting of ASA/apixaban therapy for CAD and cardiac mural thrombus. No active CAD symptoms but known heart disease, reasonable goal may be closer to 8 for hgb. Still waiting on first transfusion, check h/h after (3) LISA (acute kidney injury): Status: Acute Assessment and plan: In setting of hypotension on presentaiton, clots were obstructing but now both mcgregor and left nephrostomy draining. Follow in AM (4) CAD (coronary artery disease): Assessment and plan: Holding ASA. Has known CAD but stents are remote. I don't think the ASA on top of his apixaban is beneficial and will lead to more bleeding. Continue atorvastatin (5) (HFpEF) heart failure with preserved ejection fraction: Assessment and plan: He is on metoprolol, ARB, spironolactone, furosemide. Was on dapagliflozin but this was stopped. Holding BP lowering agents while BP low, except for continue low dose metoprolol. Of not, med reconciliation was not done correctly, not UTD. Also has a mural thrombus so will resume the apixaban CHAD as bleeding clears assuming h/h remains stable. (6) ILD (interstitial lung disease): Assessment and plan: Mild ILD, emphysemia on records. Only respiratory med is albuterol prn. No active respiratory disease now. (7) Smoker: Status: Acute Assessment and plan: intermittent, declines NRT (8) Diabetes: Assessment and plan: Poor control at baseline with poor adherence per PCP, recent A1c >12%. Oral meds were stopped. 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 (10) Decubitus ulcer of sacral region, stage 1: Status: Acute Assessment and plan: Offload, pad area (11) DVT prophylaxis: Status: Acute Assessment and plan: Teds/scds given active bleed. (12) Discharge planning issues: Status: Acute Assessment and plan: He would like to discharge and follow up with radiation oncology sooner rather than later. He and family could use help with DPOA and ADs, palliative consulted, though they are hesitant about palliative care because he wants treatment. 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 He has had hematuria off and on for months. Has been getting radiation therapy. He feels quite fatigued, lightheaded when he tries to stand, but otherwise okay. He had no chest pain, palpitations, or shortness of breath at rest. He has some mild discomfort in his penis. He has required transfusions at [facility] in the past. He had a cardiac catheterizaiton in October 2024 at [facility] with multivessel disease as well as newly diagnosed HFeEF with high PASP and biventricular dysfunction. They changed a number of his medications. They did not stent him at that time. He understands it was because he couldn't be on multiple blood thinners he would have needed. 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 (Acute) Smoker (Acute) Discharge planning issues (Acute) DVT prophylaxis (Acute) Anemia requiring transfusions (Acute) LISA (acute kidney injury) (Acute) Hematuria (Acute) Medical History Bladder wall thickening Bloody diarrhea Pulmonary emphysema Weight loss Osteoarthritis HTN (hypertension) HLD (hyperlipidemia) (HFpEF) heart failure with preserved ejection fraction ILD (interstitial lung disease) Diabetes NSTEMI (non-ST elevated myocardial infarction) CAD (coronary artery disease) Abdominal aneurysm Rectal bleeding Surgical History S/P cholecystectomy Social History (Updated 11/25/24 @ 21:18 by Chito Wick) Smoking/Tobacco Use Status: Current-Occasional Counseling given: provider counseling Smoking risk assessment performed?: Yes Alcohol Intake: current Alcohol Intake frequency: 0-2 drinks per day Alcohol type: beer Substance use type: does not use Housing: house Additional Social history: lives with in [place]. Retired from [employer] Meds Allergies and Home Medications Allergies Allergy/AdvReac Type Severity Reaction Status Date / Time No Known Allergies Allergy Unverified 11/25/24 13:15 Home Medications ?Medication ?Instructions ?Recorded ?Confirmed ?Type aspirin 81 mg tablet,delayed 81 mg PO DAILY 05/26/24 11/25/24 History release (Adult Aspirin Regimen) atorvastatin 40 mg tablet 40 mg PO DAILY 05/26/24 11/25/24 History canagliflozin 100 mg tablet 100 mg PO DAILY 05/26/24 11/25/24 History (Invokana) glucosamine-chondroitin 500 mg-400 1 cap PO BID 05/26/24 11/25/24 History mg capsule metoprolol succinate 50 mg 50 mg PO DAILY 05/26/24 11/25/24 History tablet,extended release 24 hr multivitamin 1 tab PO DAILY 05/26/24 11/25/24 History pioglitazone 15 mg tablet 15 mg PO DAILY 05/26/24 11/25/24 History Exam Narrative Exam Narrative: GEN: Alert and oriented x 4, pleasant and cooperative, gives linear history. No acute distress at rest. HEENT: Head atraumatic. Conjunctiva clear, no icterus. PEERL, EOMI. no rhinorrhea. MMM, OP benign. Neck is supple with no masses or lymphadenopathy, trachea midline LUNGS: CTAB with normal effort CV: RRR with no murmurs, gallops, or rubs. ABD: active bowel sounds, soft, nondistended, mild suprapubic tenderness. No masses. URO: normal penis and testicles, no sores. Mcgregor draining pink urine, no longer visible clots. EXT: no cyanosis, clubbing, trace charla edema MSK: No joint redness or swelling NEURO: CN 2-12 grossly intact. Normal movement of 4 extremities. Normal speech and coordination. No tremor SKIN: No rashes. 1cm seeping ulceration right carrasco, surrounding skin normal. Red patch over sacrum. PSYCH: normal mood and affect Results Labs 11/25/24 13:35 11/25/24 13:35 Labs: Laboratory Results - last 24 hr 11/25/24 11/25/24 11/25/24 13:35 16:10 16:40 WBC 10.64 RBC 2.96 L Hgb 6.8 L* Hct 24.1 L MCV 81 MCH 23.0 L MCHC 28.2 L RDW 22.6 H Plt Count 313 MPV 8.8 Immature Gran % 0.7 Neutrophils % 83.4 Lymphocytes % 10.0 Monocytes % 4.5 Eosinophils % 0.5 Basophils % 0.9 Nucleated RBC % 0.0 Absolute Neutrophils 8.88 H Absolute Lymphocytes 1.06 L Absolute Monocytes 0.48 Absolute Eosinophils 0.05 Absolute Basophils 0.10 RBC Morphology See Below Anisocytosis 2+ Sodium 138 Potassium 4.4 Chloride 99 Carbon Dioxide 35.9 H Anion Gap 3.1 BUN 59 H Creatinine 1.6 H Est GFR (CKD-EPI 2020) 43.29 Glucose 394 H Calcium 9.3 Magnesium 2.3 Total Bilirubin 0.7 AST 18 ALT 18 Alkaline Phosphatase 135 H Total Protein 6.2 L Albumin 2.1 L Urine Color Red Urine Clarity Cloudy Urine pH 7.0 Ur Specific [place] 1.020 Urine Protein >=300 H Urine Ketones Negative Urine Blood Large H Urine Nitrite Negative Urine Bilirubin Negative Urine Urobilinogen 0.2 Ur Leukocyte Esterase Negative Urine RBC >50 H Urine WBC Not Applicable Ur Epithelial Cells Not Applicable Urine Crystals Not Applicable Urine Bacteria Not Applicable Urine Mucus Not Applicable Ur Culture Indicated? Color Interference Urine Glucose 250 H ABO/Rh A Positive Blood Type Recheck Antibody Screen NEGATIVE Crossmatch See Detail 11/25/24 16:42 WBC RBC Hgb Hct MCV MCH MCHC RDW Plt Count MPV Immature Gran % Neutrophils % Lymphocytes % Monocytes % Eosinophils % Basophils % Nucleated RBC % Absolute Neutrophils Absolute Lymphocytes Absolute Monocytes Absolute Eosinophils Absolute Basophils RBC Morphology Anisocytosis Sodium Potassium Chloride Carbon Dioxide Anion Gap BUN Creatinine Est GFR (CKD-EPI 2020) Glucose Calcium Magnesium Total Bilirubin AST ALT Alkaline Phosphatase Total Protein Albumin Urine Color Urine Clarity Urine pH Ur Specific [place] Urine Protein Urine Ketones Urine Blood Urine Nitrite Urine Bilirubin Urine Urobilinogen Ur Leukocyte Esterase Urine RBC Urine WBC Ur Epithelial Cells Urine Crystals Urine Bacteria Urine Mucus Ur Culture Indicated? Urine Glucose ABO/Rh Blood Type Recheck A Positive Antibody Screen Crossmatch Last Vital Signs Temp 36.4 C 11/25/24 19:04 Pulse 78 11/25/24 19:04 Resp 16 11/25/24 19:04 BP 93/55 L 11/25/24 19:04 Pulse Ox 96 11/25/24 19:04 Time Spent Time spent with Patient: >75 minutes Time was spent: preparing to see the patient(eg.review tests), obtaining and/or reviewing separately otained hiistory, ordering medications,tests, procedures, referring, communicating with other health medicare nurse, indepentently interpreting results, counseling the patient and care coordination
--- NOTE | 2024-11-25 19:55 | W.PC.ACHO ---
Registration Status: Primary Language: Preferred Language: ED Information & Data Chief Complaint Urinary 11/25/24 13:44 Triage Note Bladder Ca patient has a 11/25/24 13:07 left nephrostomy tube and mcgregor in place with no urinary output. Reported that he had 2 blood clots removed this am from irrigation. Medical / Surgical History (Last Updated 05/26/24 @ 15:44 by Jenni Arteaga) Bladder wall thickening Bloody diarrhea Pulmonary emphysema Weight loss Osteoarthritis HTN (hypertension) HLD (hyperlipidemia) (HFpEF) heart failure with preserved ejection fraction ILD (interstitial lung disease) Diabetes NSTEMI (non-ST elevated myocardial infarction) CAD (coronary artery disease) Abdominal aneurysm Rectal bleeding (Last Updated 05/26/24 @ 15:44 by Jenni Arteaga) S/P cholecystectomy Most Recent Vital Signs Temperature 36.4 C 11/25/24 19:04 Temperature Source Oral 11/25/24 13:23 Pulse 78 11/25/24 19:04 Pulse 75 11/25/24 18:46 Respiratory Rate 16 11/25/24 19:04 Blood Pressure 93/55 L 11/25/24 19:04 Blood Pressure Mean 79 11/25/24 18:46 Pulse Oximetry 96 11/25/24 19:04 Oxygen Delivery Method Nasal Cannula 11/25/24 19:04 Oxygen Flow Rate 2 11/25/24 18:49 Comment initiated 1.5L oxygen 11/25/24 13:23 Allergies No Known Allergies Allergy (Unverified 11/25/24 13:15) IV IV Catheter Type [Left Peripheral IV Antecubital] IV Catheter Gauge [Left 20 Antecubital] Diet Orders Category Date Time Status Heart Healthy Eating [DIET] Nutrition 11/26/24 Breakfast Ordered Diagnostics 11/25/24 11/25/24 11/25/24 Range/Units 20:00 16:42 16:40 WBC (4.4-10.8) 10^3/uL RBC (4.36-5.78) 10^6/uL Hgb Pending (13.5-17.5) g/dL Hct Pending (40.0-50.0) % MCV (80-95) fL MCH (27.0-33.0) pg MCHC (32.0-36.0) % RDW (11.8-14.1) % Plt Count (130-400) 10^3/uL MPV (8.0-11.0) fL Immature Gran % % Neutrophils % % Lymphocytes % % Monocytes % % Eosinophils % % Basophils % % Nucleated RBC % (0.0-0.3) % Absolute Neutrophils (1.2-6.7) 10^3/uL Absolute Lymphocytes (1.2-3.4) 10^3/uL Absolute Monocytes (0.1-0.8) 10^3/uL Absolute Eosinophils (0.0-0.7) 10^3/uL Absolute Basophils (0.0-0.2) 10^3/uL RBC Morphology Anisocytosis Sodium (136-145) mmol/L Potassium (3.5-5.1) mmol/L Chloride (98-107) mmol/L Carbon Dioxide (21.0-32.0) mmol/L Anion Gap (3-11) mmol/L BUN (7-18) mg/dL Creatinine (0.70-1.30) mg/dL Est GFR (CKD-EPI 2020) (mL/min/1.73m2) Glucose (74-106) mg/dL Calcium (8.5-10.1) mg/dL Magnesium mg/dL Total Bilirubin (0.2-1.0) mg/dL AST (15-37) U/L ALT (16-63) U/L Alkaline Phosphatase (46-116) U/L Total Protein (6.4-8.2) g/dL Albumin (3.4-5.0) g/dL Urine Color Red (Yellow) Urine Clarity Cloudy (Clear) Urine pH 7.0 (5-8) Ur Specific [place] 1.020 (1.005-1.025) Urine Protein >=300 H (Neg-Trace) mg/dL Urine Ketones Negative (Negative) mg/dL Urine Blood Large H (Negative) Urine Nitrite Negative (Negative) Urine Bilirubin Negative (Negative) Urine Urobilinogen 0.2 (Up to 0.2) mg/dL Ur Leukocyte Esterase Negative (Negative) Urine RBC >50 H (0-2) HPF Urine WBC Not Applicable Ur Epithelial Cells Not Applicable Urine Crystals Not Applicable Urine Bacteria Not Applicable Urine Mucus Not Applicable Ur Culture Indicated? Color Interference Urine Glucose 250 H (Negative) mg/dL ABO/Rh Blood Type Recheck A Positive Antibody Screen Crossmatch 11/25/24 11/25/24 Range/Units 16:10 13:35 WBC 10.64 (4.4-10.8) 10^3/uL RBC 2.96 L (4.36-5.78) 10^6/uL Hgb 6.8 L* (13.5-17.5) g/dL Hct 24.1 L (40.0-50.0) % MCV 81 (80-95) fL MCH 23.0 L (27.0-33.0) pg MCHC 28.2 L (32.0-36.0) % RDW 22.6 H (11.8-14.1) % Plt Count 313 (130-400) 10^3/uL MPV 8.8 (8.0-11.0) fL Immature Gran % 0.7 % Neutrophils % 83.4 % Lymphocytes % 10.0 % Monocytes % 4.5 % Eosinophils % 0.5 % Basophils % 0.9 % Nucleated RBC % 0.0 (0.0-0.3) % Absolute Neutrophils 8.88 H (1.2-6.7) 10^3/uL Absolute Lymphocytes 1.06 L (1.2-3.4) 10^3/uL Absolute Monocytes 0.48 (0.1-0.8) 10^3/uL Absolute Eosinophils 0.05 (0.0-0.7) 10^3/uL Absolute Basophils 0.10 (0.0-0.2) 10^3/uL RBC Morphology See Below Anisocytosis 2+ Sodium 138 (136-145) mmol/L Potassium 4.4 (3.5-5.1) mmol/L Chloride 99 (98-107) mmol/L Carbon Dioxide 35.9 H (21.0-32.0) mmol/L Anion Gap 3.1 (3-11) mmol/L BUN 59 H (7-18) mg/dL Creatinine 1.6 H (0.70-1.30) mg/dL Est GFR (CKD-EPI 2020) 43.29 (mL/min/1.73m2) Glucose 394 H (74-106) mg/dL Calcium 9.3 (8.5-10.1) mg/dL Magnesium 2.3 mg/dL Total Bilirubin 0.7 (0.2-1.0) mg/dL AST 18 (15-37) U/L ALT 18 (16-63) U/L Alkaline Phosphatase 135 H (46-116) U/L Total Protein 6.2 L (6.4-8.2) g/dL Albumin 2.1 L (3.4-5.0) g/dL Urine Color (Yellow) Urine Clarity (Clear) Urine pH (5-8) Ur Specific [place] (1.005-1.025) Urine Protein (Neg-Trace) mg/dL Urine Ketones (Negative) mg/dL Urine Blood (Negative) Urine Nitrite (Negative) Urine Bilirubin (Negative) Urine Urobilinogen (Up to 0.2) mg/dL Ur Leukocyte Esterase (Negative) Urine RBC (0-2) HPF Urine WBC Ur Epithelial Cells Urine Crystals Urine Bacteria Urine Mucus Ur Culture Indicated? Urine Glucose (Negative) mg/dL ABO/Rh A Positive Blood Type Recheck Antibody Screen NEGATIVE Crossmatch See Detail Intake and Output - 24 Hour Total 11/25/24 13:04 thru 11/25/24 19:01 Intake Total 1020 Output Total 275 Balance 745 Weight 68.039 kg Intake: IV 1020 Output: Other 275 Other: Urine Color Dark Red Urinary Catheter Urinary Catheter Date of 11/25/24 Insertion [Urethral (Mcgregor)] Time of insertion [Urethral ( 17:30 Mcgregor)] Falls Risk Assessment History of Falls Previous History 11/25/24 19:06 Contributing Factors Impairments 11/25/24 19:06 Ambulatory Aids Uses ambulatory device + 11/25/24 19:06 Tubes/Lines With any additional score 11/25/24 19:06 Gait Evaluation W/any additional score 11/25/24 19:06 Fall Total Score 88 11/25/24 19:06 Level of Risk Maximum Risk 11/25/24 19:06 Problems (Last Updated 05/26/24 @ 15:44 by Jenni Arteaga) 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 Information / Comments: Pt seen at today for f/u on his nephrostomy tube. Hx of bladder CA. Pt came to ED for low output in his chronic catheter as well as hematuria. Hgb low, currently getting a unit of PRBCs in ED. CBI placed, urine clearing up. A&Ox4, bilateral AC IVs. Report received from: Cuco Willingham RN
[2024-11-25] MEDS: Tamsulosin 0.4 MG CAPCR 0.8 MG PO (22:05)
[2024-11-25] MEDS: Normal Saline Flush 10 ML SYR IVP (22:05)
[2024-11-25] MEDS: Insulin Glargine 300 UNITS/3 ML PEN 12 UNITS SC (22:05)
[2024-11-25 23:06] LABS: HCT 25.6 % (40.0-50.0); HGB 7.6 g/dL (13.5-17.5)
[2024-11-26] VITALS (11 sets, daily range): BP systolic 90–105; BP diastolic 57–78; PULSE 64–85; RESP 14–20; TEMP 36–36.8; O2SAT 95–100
[2024-11-26 07:07] LABS: HCT 25.5 % (40.0-50.0); MCH 24.1 pg (27.0-33.0); MCHC 29.8 % (32.0-36.0); MCV 81 fL (80-95); MPV 10.1 fL (8.0-11.0); Platelet Count 252 10^3/uL (130-400); RBC 3.15 10^6/uL (4.36-5.78); RDW-SD 62.6 fL; WBC 10.32 10^3/uL (4.4-10.8)
[2024-11-26] MEDS: Levothyroxine 25 MCG TAB PO (07:19)
[2024-11-26 07:31] LABS: Anion Gap 3.6 mmol/L (3-11); BUN 52 mg/dL (7-18); CO2 33.4 mmol/L (21.0-32.0); CREATININE 1.2 mg/dL (0.70-1.30); Calcium 9.2 mg/dL (8.5-10.1); Chloride 103 mmol/L (98-107); Estimated GFR 61.13 (mL/min/1.73m2); Glucose 242 mg/dL (74-106); Potassium 4.6 mmol/L (3.5-5.1); Sodium 140 mmol/L (136-145)
[2024-11-26 07:35] LABS: RDW 21.2 % (11.8-14.1)
[2024-11-26 07:36] LABS: HGB 7.6 g/dL (13.5-17.5)
[2024-11-26] MEDS: Ferrous Sulfate 325 MG TAB PO (09:02)
[2024-11-26] MEDS: Multivitamin TAB 1 TAB PO (09:02)
[2024-11-26] MEDS: Glucosamine/Chondroitin CAP 1 CAP PO ×2 (09:02→20:17)
[2024-11-26] MEDS: Insulin Aspart 300 UNITS/3 ML PEN SC ×3 (09:03→16:58)
[2024-11-26] MEDS: Normal Saline Flush 10 ML SYR IVP ×3 (09:04→20:20)
--- NOTE | 2024-11-26 10:01 | PDOC.CMIN ---
Date of service: 11/26/24 Time of Service: 10:01 Care Management Initial Assmt Initial Assessment Reason for Hospitalization: hematuria Functional Status/Living Situation Patient Presentation: Eduardo was sitting up in bed visiting with his and 2 daughters when CM met with him. He appeared pale and a bit sleepy but willingly engaged in conversation with CM. Eduardo was admitted with hematuria and anemia. This morning his urine was bright webster red in color with clots. He has had a CBI running all day and his urine is now pink. On admission Eduardo'd Hgb was 6.8. He received 2 units of blood and it is now stable at 7.6. he will have repeat blood work in the morning. Eduardo lives in a single family home in [place] with his Betsy. They have 3 children, 2 daughters and a son. One daughter lives in [place], the other 2 children live locally. Eduardo is independent with ADLs and IADLs at baseline and uses both a cane and a walker for ambulatory assistance. He does not currently receive any community services. Town of Residence: [place] Resides with: Spouse ( Betsy) Significant Other/Family: Out of area (one son and daughter live locally, another daughter lives in [place]) Natural Supports: family Employment Status: Retired Instrumental Activities of Daily Living (ADLs): Independent Medications Medication Management: No Issues/Barriers identified Advance Directives Advance Directives: Do you have an Advance Directive: N 12/12/17 12:14 AD On File at [facility]: N 12/06/16 10:56 Date Asked 11/25/24 11/25/24 13:08 AD Date Reviewed COLST On File at [facility] No 11/25/24 13:08 COLST Date Scanned Code Status Resuscitation Status Full Code Portal Pt does not currently have a portal and education provided: Yes Insurance Coverage/Financial Issues Insurance: Medicare /[facility] Care Team Visit Care Team Role Provider Type Jamie Bragg Primary Care Provider [facility] STAFF PHYSICIAN Tatyana Borjas MD Emergency Provider [facility] STAFF PHYSICIAN Chito Wick Admit Provider [facility] STAFF PHYSICIAN Attending Provider Discharge Potential Discharge Needs: Surgical F/U Appt Anticipated Barriers to Discharge: Medical Status Patient/Family Education Needs: Review discharge instructions, discuss Ask Me Three Transportation: Private vehicle Plan: Anticipate Eduardo will be discharged home, possibly with new home health services when medically stable. He will follow up with his Oncology team and surgeon and transport with family. CM will follow and continue to assess for discharge planning concerns. Social Determinants of Health Screening Social Determinants of Health last assessed: 11/26/24 Will the Patient Participate in the Screening?: Yes Do you worry about having a steady place to live?: no Problems where you live: no known problems In the past 12 months, have you had to go without electric, gas, oil or water in your home?: no Have you or anyone in your house had to go without enough food to eat?: no Has lack of transportation kept you from medical appointments or from doing things needed for daily living?: no Has anyone in your life made you feel unsafe or unsupported?: no How hard is it for you to pay for the very basics like food, housing, medical care, and heating? Would you say it is:: Not hard at all Do you want help finding or keeping work or a job?: I do not need or want help If for any reason you need help with day-to-day activities such as bathing, preparing meals, shopping, managing finances, etc., do you get the help you need?: I don?t need any help How often do you feel lonely or isolated from those around you?: Never Do you speak a language other than Persian at home?: No Does the patient want assistance with any of the above?: No PFSH All Active Problems (Updated 11/25/24 @ 21:21 by Chito Wick) Decubitus ulcer of sacral region, stage 1 (Acute) Mural thrombus of cardiac apex without acute myocardial infarction (Acute) 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 (Acute) Smoker (Acute) Discharge planning issues (Acute) DVT prophylaxis (Acute) Anemia requiring transfusions (Acute) LISA (acute kidney injury) (Acute) Hematuria (Acute) Medical History Bladder wall thickening Bloody diarrhea Pulmonary emphysema Weight loss Osteoarthritis HTN (hypertension) HLD (hyperlipidemia) (HFpEF) heart failure with preserved ejection fraction ILD (interstitial lung disease) Diabetes NSTEMI (non-ST elevated myocardial infarction) CAD (coronary artery disease) Abdominal aneurysm Rectal bleeding Surgical History S/P cholecystectomy Social History (Updated 11/25/24 @ 21:18 by Chito Wick) Smoking/Tobacco Use Status: Current-Occasional Counseling given: provider counseling Smoking risk assessment performed?: Yes Alcohol Intake: current Alcohol Intake frequency: 0-2 drinks per day Alcohol type: beer Substance use type: does not use Housing: house Additional Social history: lives with in [place]. Retired from [employer] de[employer]
--- NOTE | 2024-11-26 14:12 | PGE_ITS ---
Date of Service Date of service: 11/26/24 Time of Service: 14:12 Assessment and Plan Assessment and plan (1) Hematuria: Status: Acute Assessment and plan: associated with bladder cancer. Improving with irrigation. Continue overnight. Follows with [facility] urology, they accepted him but no beds. The patient would prefer to manage here and then be discharged. 11/26/24 improving. At this point. I do not see a definitive reason to xfer to [facility]. Will need to replace mcgregor with leg bag prior to dc (2) Anemia requiring transfusions: Status: Acute Assessment and plan: Secondary to above in setting of ASA/apixaban therapy for CAD and cardiac mural thrombus. No active CAD symptoms but known heart disease, reasonable goal may be closer to 8 for hgb. Still waiting on first transfusion, check h/h after 11/26/24 Pt has completed 2units PRBC total and will recheck CBC in am. Most likely for dc if Hg is above 8 and pt is asymptomatic from a cardiac standpoint (3) LISA (acute kidney injury): Status: Acute Assessment and plan: In setting of hypotension on presentaiton, clots were obstructing but now both mcgregor and left nephrostomy draining. Follow in AM 11/26/24 GFR improved from 43 to 61. Recheck labs in am (4) CAD (coronary artery disease): Assessment and plan: Holding ASA. Has known CAD but stents are remote. I don't think the ASA on top of his apixaban is beneficial and will lead to more bleeding. Continue atorvastatin (5) (HFpEF) heart failure with preserved ejection fraction: Assessment and plan: He is on metoprolol, ARB, spironolactone, furosemide. Was on dapagliflozin but this was stopped. Holding BP lowering agents while BP low, except for continue low dose metoprolol. Of not, med reconciliation was not done correctly, not UTD. Also has a mural thrombus so will resume the apixaban CHAD as bleeding clears assuming h/h remains stable. (6) ILD (interstitial lung disease): Assessment and plan: Mild ILD, emphysemia on records. Only respiratory med is albuterol prn. No active respiratory disease now. (7) Smoker: Status: Acute Assessment and plan: intermittent, declines NRT (8) Diabetes: Assessment and plan: Poor control at baseline with poor adherence per PCP, recent A1c >12%. Oral meds were stopped. 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 (12) Discharge planning issues: Status: Acute Assessment and plan: He would like to discharge and follow up with radiation oncology sooner rather than later. He and family could use help with DPOA and ADs, palliative consulted, though they are hesitant about palliative care because he wants treatment. Subjective Subjective Interval history since last seen: Pt seen and examined in his room this afternoon. PT resting comfortably but POC d/w who was at bedside and bedside nurse during MDR. Per , pt still with significant fatigue and did not sleep well last night Exam Narrative Exam Narrative: GEN: Resting comfortably. HEENT: Head atraumatic. no rhinorrhea. MMM, OP benign. Neck is supple with no masses or lymphadenopathy, trachea midline LUNGS: CTAB with normal effort CV: RRR with no murmurs, gallops, or rubs. ABD: active bowel sounds, soft, nondistended, mild suprapubic tenderness. No masses. URO: mcgregor in place. EXT: no cyanosis, clubbing, trace charla edema MSK: No joint redness or swelling t Objective Last Vital Signs Temp 36.3 C L 11/26/24 13:18 Pulse 75 11/26/24 13:18 Resp 18 11/26/24 13:18 BP 97/64 L 11/26/24 13:18 Pulse Ox 99 11/26/24 13:18 Laboratory Results - last 24 hr 11/25/24 11/25/24 11/25/24 16:10 16:40 16:42 WBC RBC Hgb Hct MCV MCH MCHC RDW Plt Count MPV Sodium Potassium Chloride Carbon Dioxide Anion Gap BUN Creatinine Est GFR (CKD-EPI 2020) Glucose Calcium Urine Color Red Urine Clarity Cloudy Urine pH 7.0 Ur Specific [place] 1.020 Urine Protein >=300 H Urine Ketones Negative Urine Blood Large H Urine Nitrite Negative Urine Bilirubin Negative Urine Urobilinogen 0.2 Ur Leukocyte Esterase Negative Urine RBC >50 H Urine WBC Not Applicable Ur Epithelial Cells Not Applicable Urine Crystals Not Applicable Urine Bacteria Not Applicable Urine Mucus Not Applicable Ur Culture Indicated? Color Interference Urine Glucose 250 H ABO/Rh A Positive Blood Type Recheck A Positive Antibody Screen NEGATIVE Crossmatch See Detail 11/25/24 11/26/24 23:00 06:20 WBC 10.32 RBC 3.15 L Hgb 7.6 L 7.6 L Hct 25.6 L 25.5 L MCV 81 MCH 24.1 L MCHC 29.8 L RDW 21.2 H Plt Count 252 MPV 10.1 Sodium 140 Potassium 4.6 Chloride 103 Carbon Dioxide 33.4 H Anion Gap 3.6 BUN 52 H Creatinine 1.2 Est GFR (CKD-EPI 2020) 61.13 Glucose 242 H Calcium 9.2 Urine Color Urine Clarity Urine pH Ur Specific [place] Urine Protein Urine Ketones Urine Blood Urine Nitrite Urine Bilirubin Urine Urobilinogen Ur Leukocyte Esterase Urine RBC Urine WBC Ur Epithelial Cells Urine Crystals Urine Bacteria Urine Mucus Ur Culture Indicated? Urine Glucose ABO/Rh Blood Type Recheck Antibody Screen Crossmatch Time Spent with Patient Time Spent with Patient: 35-49 minutes Time was spent: preparing to see the patient(eg.review tests), obtaining and/or reviewing separately otained hiistory, ordering medications,tests, procedures, referring, communicating with other health grounds caretaker, indepentently interpreting results, counseling the patient and care coordination
[2024-11-26] MEDS: Normal Saline 1,000 ML 100 ML IV (17:41)
[2024-11-26] MEDS: Atorvastatin 40 MG TAB PO (20:17)
[2024-11-27 04:22] VITALS: BP 96/73; PULSE 100; RESP 18; TEMP 36.5; O2SAT 92
[2024-11-27] MEDS: Normal Saline 1,000 ML 100 ML IV (04:24)
[2024-11-27] MEDS: Levothyroxine 25 MCG TAB PO (06:15)
[2024-11-27 07:04] LABS: Abs Immature Grans 0.03 10^3/uL (0.0-0.06); Absolute Basophil Count 0.09 10^3/uL (0.0-0.2); Absolute Eosinophil Count 0.09 10^3/uL (0.0-0.7); Absolute Lymphocyte Count 1.07 10^3/uL (1.2-3.4); Absolute Monocyte Count 0.45 10^3/uL (0.1-0.8); Absolute Neutrophil Count 8.15 10^3/uL (1.2-6.7); Basophils % 0.9 %; Eosinophils % 0.9 %; HCT 28.6 % (40.0-50.0); HGB 8.5 g/dL (13.5-17.5); Immature Grans % 0.3 %; Lymphocytes % 10.8 %; MCH 24.4 pg (27.0-33.0); MCHC 29.7 % (32.0-36.0); MCV 82 fL (80-95); MPV 9.5 fL (8.0-11.0); Monocytes % 4.6 %; Neutrophils % 82.5 %; RBC 3.48 10^6/uL (4.36-5.78); RDW 20.2 % (11.8-14.1); RDW-SD 59.9 fL; WBC 9.88 10^3/uL (4.4-10.8)
[2024-11-27 07:29] VITALS: BP 104/65; PULSE 108; RESP 16; TEMP 36; O2SAT 94
[2024-11-27 07:32] LABS: Anisocytosis 2+; Diff Comment Diff Reviewed; Hypochromasia 2+; Platelet Count 307 10^3/uL (130-400); Polychromasia Present
[2024-11-27 07:37] LABS: ALT 14 U/L (16-63); AST 20 U/L (15-37); Albumin 1.7 g/dL (3.4-5.0); Alkaline Phosphatase 124 U/L (46-116); BUN 38 mg/dL (7-18); Bilirubin, Total 0.9 mg/dL (0.2-1.0); Calcium 8.6 mg/dL (8.5-10.1); Chloride 107 mmol/L (98-107); Estimated GFR 76.08 (mL/min/1.73m2); Glucose 221 mg/dL (74-106); Potassium 4.2 mmol/L (3.5-5.1); Sodium 141 mmol/L (136-145); Total Protein 5.6 g/dL (6.4-8.2)
[2024-11-27] MEDS: Insulin Aspart 300 UNITS/3 ML PEN SC ×2 (08:21→12:15)
[2024-11-27] MEDS: Ferrous Sulfate 325 MG TAB PO (08:21)
[2024-11-27] MEDS: Multivitamin TAB 1 TAB PO (08:21)
[2024-11-27] MEDS: Metoprolol CR 25 MG TABCR 12.5 MG PO (08:22)
[2024-11-27] MEDS: Glucosamine/Chondroitin CAP 1 CAP PO (08:22)
--- NOTE | 2024-11-27 10:04 | PDOC.CMDIS ---
Date of service: 11/27/24 Time of Service: 10:04 LACE Index Scoring Tool Questions: Length of Stay (in days): 2 Was the patient admitted via the E.D.?: Yes Comorbidities: Previous M.I., Diabetes w/o Complication, Congestive Heart Failure, Chronic Pulmonary Disease, Any Tumor and Liver or Renal Disease E.D. Visits: 1 Answers: Total Score: 11 Risk of Readmission: High Risk Care Management Discharge Plan Reason for Hospitalization: hematuria and anemia Discharge Plan: Eduardo will be discharged home with no new services. He will follow up with his Oncology team and surgeon and transport with family. Patient/Family Education Needs: Review discharge instructions, discuss Ask Me Three SDOR Health Related Social Needs: No Data to Display
[2024-11-27 10:58] VITALS: BP 109/81; PULSE 102; RESP 16; TEMP 36.5; O2SAT 96
--- NOTE | 2024-11-27 10:58 | PCNE_ITS ---
Date of service: 11/27/24 Time of Service: 10:58 History of Present Illness Narrative: Gil was seen in his hospital room. He was alone at the time of the visit. Palliative was consulted for assistance with HCA/AD. Reviewed importance of completing HCA paperwork. He states he will probably choose his , Betsy to be his first HCA. He would want his daughters, Celestina and Marcia to be next. He does not think his son would want to be HCA. He was not ready to complete documentation of HCA, he prefers his family to be present for this. Reviewed CODE STATUS. He states, Let me go. He wants to be DNR/DNI, offered to complete COLST form but he does not want to complete form without family present. He also states, I don't really want to think about it. He is hoping to go home today. He has nephrostomy tubes and a mcgregor catheter with irrigation. He endorses new R sided abd pain. He reports aching and feeling like he has to void. This is new pain today. Nursing has been trying to irrigate manually. The plan is to contact urology. He was accepte to [facility] earlier on this admission but they did not have a bed available. He states that he would go if they do not have what he needs here. His goal is to remain in his home. He does not want to go to SNF. He lives in [place] with his , Betsy and daughter, Marcia. His daughter, Celestina lives in [place]. She is visiting now. Also, has a son, Eduardo Jackson, who lives in [place]. Assessment and Plan Assessment and plan (1) Hematuria: Status: Acute Assessment and plan: Associated with bladder cancer. He has nephrostomy tubes and mcgregor in place. Was improving with irrigation. Nursing reports blocked catheter, unable to irrigate manually. Plan is for hospitalist to contact urology at [facility]. Follows with [facility] urology, they accepted him but no beds. The patient would prefer to manage here and then be discharged. He is hoping for discharge. (2) Anemia requiring transfusions: Status: Acute Assessment and plan: Secondary to above in setting of ASA/apixaban therapy for CAD and cardiac mural thrombus. No active CAD symptoms but known heart disease. He received 2 units PRBCs. (3) LISA (acute kidney injury): Status: Acute (4) CAD (coronary artery disease): (5) (HFpEF) heart failure with preserved ejection fraction: Assessment and plan: (6) ILD (interstitial lung disease): Assessment and plan: Mild ILD, emphysemia on records. Only respiratory med is albuterol prn. No active respiratory disease now. (7) Smoker: Status: Acute Assessment and plan: intermittent, declines NRT (8) Diabetes: Assessment and plan: Poor control at baseline with poor adherence per PCP, recent A1c >12%. 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 He and family could use help with DPOA and ADs, palliative consulted, though they are hesitant about palliative care because he wants treatment. (12) Palliative care encounter: Status: Acute Assessment and plan: Palliative was consulted to help with ACP. He thinks he would choose his , Betsy and daughters, Celestina and Marcia if Betsy is not available. He did not want to do the HCA paperwork without family present. Will attempt to see him again when family is present. Reviewed CODE status. He wishes to be DNR/DNI. He did not want to complete COLST form without family present. Discussed what Palliative can offer both in and outpatient. His goal is to remain in his home. He declines SNF. He would go to [facility] if the care cannot be provided here at [facility]. Offer palliative f/u at discharge. 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 (Acute) Smoker (Acute) Discharge planning issues (Acute) DVT prophylaxis (Acute) Anemia requiring transfusions (Acute) LISA (acute kidney injury) (Acute) Hematuria (Acute) Medical History Bladder wall thickening Bloody diarrhea Pulmonary emphysema Weight loss Osteoarthritis HTN (hypertension) HLD (hyperlipidemia) (HFpEF) heart failure with preserved ejection fraction ILD (interstitial lung disease) Diabetes NSTEMI (non-ST elevated myocardial infarction) CAD (coronary artery disease) Abdominal aneurysm Rectal bleeding Surgical History S/P cholecystectomy Social History Smoking/Tobacco Use Status: Current-Occasional Counseling given: provider counseling Smoking risk assessment performed?: Yes Alcohol Intake: current Alcohol Intake frequency: 0-2 drinks per day Alcohol type: beer Substance use type: does not use Housing: house Additional Social history: lives with in [place]. Retired from [employer] dept. Exam Narrative Exam Narrative: General: very pleasant, elderly man, laying in bed, awake and alert. Engages in the visit, answers questions appropriately. HEENT: normocephalic, atraumatic, EOMI, mmm Neck: supple Respiratory: respirations appear even and unlabored at rest. : catheter with red urine draining. Ext: trace pitting edema to BLEs, brace to LLE. Results Last Vital Signs Temp 36.0 C L 11/27/24 07:29 Pulse 108 H 11/27/24 07:29 Resp 16 11/27/24 07:29 BP 104/65 11/27/24 07:29 Pulse Ox 94 11/27/24 07:29 Labs 11/27/24 06:21 11/27/24 06:21 Labs: Laboratory Results - last 24 hr 11/25/24 11/27/24 16:10 06:21 WBC 9.88 RBC 3.48 L Hgb 8.5 L Hct 28.6 L MCV 82 MCH 24.4 L MCHC 29.7 L RDW 20.2 H Plt Count 307 MPV 9.5 Immature Gran % 0.3 Neutrophils % 82.5 Lymphocytes % 10.8 Monocytes % 4.6 Eosinophils % 0.9 Basophils % 0.9 Nucleated RBC % 0.0 Absolute Neutrophils 8.15 H Absolute Lymphocytes 1.07 L Absolute Monocytes 0.45 Absolute Eosinophils 0.09 Absolute Basophils 0.09 RBC Morphology See Below Polychromasia Present Hypochromasia 2+ Anisocytosis 2+ Sodium 141 Potassium 4.2 Chloride 107 Carbon Dioxide 33.0 H Anion Gap 1.0 L BUN 38 H Creatinine 1.0 Est GFR (CKD-EPI 2020) 76.08 Glucose 221 H Calcium 8.6 Total Bilirubin 0.9 AST 20 ALT 14 L Alkaline Phosphatase 124 H Total Protein 5.6 L Albumin 1.7 L Crossmatch See Detail Time Spent Time Spent with Patient Time Spent(min): 58
--- NOTE | 2024-11-27 13:51 | NUR.NOTE ---
This nurse reviewed the charting for this pt and agrees with the nurses's findings Nursing Note:
[2024-11-27 14:37] VITALS: BP 111/77; PULSE 92; RESP 16; TEMP 36.5; O2SAT 96
--- NOTE | 2024-11-27 15:13 | DSE_ITS ---
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: Status: Acute (10) Decubitus ulcer of sacral region, stage 1: Status: Acute (11) Discharge planning issues: Status: Acute (12) Palliative care encounter: Status: Acute (13) Advanced care planning/counseling discussion: Status: Acute Discharge Plan Disposition Patient Disposition: Home W/Home Health Services Condition: Stable Discharge Details Reason For Visit: Hematuria, bladder cancer, anemia Admit Date/Time: 11/25/24 19:06 Admit Provider: Chito Wick Attending Provider: Chito Wick Primary Care Provider: Jamie Bragg Hospital Course Hospital Course: History of Present Illness History of Present Illness Chief Complaint: hematuria Narrative: 79 yo M with CAD, HFrEF with ischemic cardiomyopathy and LVEF 25%, 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 He has had hematuria off and on for months. Has been getting radiation therapy. He feels quite fatigued, lightheaded when he tries to stand, but otherwise okay. He had no chest pain, palpitations, or shortness of breath at rest. He has some mild discomfort in his penis. He has required transfusions at [facility] in the past. He had a cardiac catheterizaiton in October 2024 at [facility] with multivessel disease as well as newly diagnosed HFeEF with high PASP and biventricular dysfunction. They changed a number of his medications. They did not stent him at that time. He understands it was because he couldn't be on multiple blood thinners he would have needed. Assessment and Plan Assessment and plan (1) Hematuria: Status: Acute Assessment and plan: associated with bladder cancer. Improving with irrigation. Continue overnight. Follows with [facility] urology, they accepted him but no beds. The patient would prefer to manage here and then be discharged. (2) Anemia requiring transfusions: Status: Acute Assessment and plan: Secondary to above in setting of ASA/apixaban therapy for CAD and cardiac mural thrombus. No active CAD symptoms but known heart disease, reasonable goal may be closer to 8 for hgb. Still waiting on first transfusion, check h/h after (3) LISA (acute kidney injury): Status: Acute Assessment and plan: In setting of hypotension on presentaiton, clots were obstructing but now both mcgregor and left nephrostomy draining. Follow in AM (4) CAD (coronary artery disease): Assessment and plan: Holding ASA. Has known CAD but stents are remote. I don't think the ASA on top of his apixaban is beneficial and will lead to more bleeding. Continue atorvastatin (5) (HFpEF) heart failure with preserved ejection fraction: Assessment and plan: He is on metoprolol, ARB, spironolactone, furosemide. Was on dapagliflozin but this was stopped. Holding BP lowering agents while BP low, except for continue low dose metoprolol. Of not, med reconciliation was not done correctly, not UTD. Also has a mural thrombus so will resume the apixaban CHAD as bleeding clears assuming h/h remains stable. (6) ILD (interstitial lung disease): Assessment and plan: Mild ILD, emphysemia on records. Only respiratory med is albuterol prn. No active respiratory disease now. (7) Smoker: Status: Acute Assessment and plan: intermittent, declines NRT (8) Diabetes: Assessment and plan: Poor control at baseline with poor adherence per PCP, recent A1c >12%. Oral meds were stopped. 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 (10) Decubitus ulcer of sacral region, stage 1: Status: Acute Assessment and plan: Offload, pad area (11) DVT prophylaxis: Status: Acute Assessment and plan: Teds/scds given active bleed. (12) Discharge planning issues: Status: Acute Assessment and plan: He would like to discharge and follow up with radiation oncology sooner rather than later. He and family could use help with DPOA and ADs, palliative consulted, though they are hesitant about palliative care because he wants treatment History of Present Illness Narrative: Gil was seen in his hospital room. He was alone at the time of the visit. Palliative was consulted for assistance with HCA/AD. Reviewed importance of completing HCA paperwork. He states he will probably choose his , Betsy to be his first HCA. He would want his daughters, Celestina and Marcia to be next. He does not think his son would want to be HCA. He was not ready to complete documentation of HCA, he prefers his family to be present for this. Reviewed CODE STATUS. He states, Let me go. He wants to be DNR/DNI, offered to complete COLST form but he does not want to complete form without family present. He also states, I don't really want to think about it. He is hoping to go home today. He has nephrostomy tubes and a mcgregor catheter with irrigation. He endorses new R sided abd pain. He reports aching and feeling like he has to void. This is new pain today. Nursing has been trying to irrigate manually. The plan is to contact urology. He was accepte to [facility] earlier on this admission but they did not have a bed available. He states that he would go if they do not have what he needs here. His goal is to remain in his home. He does not want to go to SNF. He lives in [place] with his , Betsy and daughter, Marcia. His daughter, Celestina lives in [place]. She is visiting now. Also, has a son, Eduardo Jackson, who lives in [place]. This is an 79-year-old gentleman who has multiple medical problems including bladder cancer who as well as a cardiac mural thrombus who was at his oncologist office and they noticed that his Mcgregor was clogged. The patient does have a nephrostomy tube as well as his Mcgregor but this could not be flushed in the outpatient setting. Patient came to the ED for further evaluation and treatment and was admitted to the hospitalist service. Unfortunately at the time of admission our urologist Dr. Ribeiro was not available so consultation was made to [facility] urology who accepted the patient in transfer. The patient decided that he did not want to go to [facility] and we were able to get his Mcgregor unclogged and patient started having good urine output. While he was here he was seen in consultation with palliative care who in their notes seeing the patient was to be a DNR/DNI. While the patient was here in the hospital he was noted to have some hypotension so his blood pressure medications were held except for his metoprolol and these will need to be restarted at the discretion of his PCP. The patient does have significant congestive heart failure and some of his medications are indicated for both hypertension as well as congestive heart failure. The patient did get 2 units of transfusion of blood with fairly appropriate response at the time of discharge she is hemoglobin was 8 and he was asymptomatic. Of note the patient did have some heme positive stool but will defer to the outpatient setting. I reviewed the chart for more data about this cardiac thrombus unfortunately I cannot see anything available to me at this time. A decision between the patient and his PCP in regards to the length of time for continued Eliquis should be done as soon as possible. The patient is anxious to go home and considering that he is asymptomatic from a coronary artery disease perspective we will discharge. Home Meds and New Rx's Prescriptions: New ferrous sulfate 325 mg (65 mg iron) Tablet 325 mg PO DAILY 30 Days Qty: 30 0RF tamsulosin 0.4 mg Capsule 0.8 mg PO HS 30 Days Qty: 60 0RF Continued Invokana 100 mg tablet 100 mg PO DAILY metoprolol succinate 50 mg tablet extended release 24 hr 50 mg PO DAILY atorvastatin 40 mg tablet 40 mg PO DAILY glucosamine-chondroitin 500-400 mg capsule 1 cap PO BID Rx Instructions: give with meal/snack multivitamin Tablet 1 tab PO DAILY pioglitazone 15 mg tablet 15 mg PO DAILY Eliquis 5 mg tablet 5 mg PO BID Discontinued aspirin [Adult Aspirin Regimen] 81 mg tablet,delayed release (DR/EC) 81 mg PO DAILY Discharge Instructions Stand Alone Forms: Nursing Discharge Form Referrals: Jamie Bragg [Primary Care Provider] - 12/09/24 4:00 pm (follow up with PCP in 5-7 days. Would discuss evaluation of hem positive stool as well as risk vs benefits of continued eliquis use) Activity:: Activity as Tolerated Equipment/Supplies:: No Equipment Needed Diet:: As Tolerated Discharge Orders Discharge Orders: Discharge Order (Routine); Ordered 11/27/24 Ordered By: Jamie Lee DS: Summary Time Spent with Patient providing and/or coordinating discharge services: Greater than 30 minutes Status at Discharge Functional status at discharge: uses cane/walker Overall status at discharge: patient is progressing back to baseline Mental Status: mental status grossly normal Speech and Movement: speech and movement normal Mood: congruent mood Affect: normal affect Quality:SDOH Health Related Social Needs: No Data to Display Exam Psych Mental Status: mental status grossly normal Speech and Movement: speech and movement normal Mood: congruent mood Affect: normal affect DS: Data Vitals/I&O Vitals and I&O: Vital Signs Temperature 36.5 C 11/27/24 14:37 Temperature Source Temporal Artery Scan 11/27/24 14:37 Pulse 92 H 11/27/24 14:37 Pulse 97 H 11/25/24 19:50 Respiratory Rate 16 11/27/24 14:37 Respiratory Effort Normal, Non-Labored 11/25/24 20:39 Respiratory Depth Normal 11/25/24 20:39 Respiratory Pattern Normal 11/25/24 20:39 Blood Pressure 111/77 11/27/24 14:37 Blood Pressure Mean 76 11/25/24 19:47 Pulse Oximetry 96 11/27/24 14:37 Oxygen Delivery Method Nasal Cannula 11/27/24 14:37 Oxygen Flow Rate 2 11/27/24 14:37 Pain Level 0 11/27/24 14:37 Comment RN notified of vitals 11/27/24 07:29 Intake & Output 11/26/24 11/27/24 11/27/24 23:59 11:59 23:59 Intake Total 901 / 911 1030 / 1956.667 926.667 / 195.667 Output Total 1300 / 1775 2625 / 4225 1600 / 4225 Balance -399 / -864 -1595 / -2268.333 -673.333 / -2268.333 Intake: IV 330 / 340 670 / 1596.667 926.667 / 1596.667 Oral 221 / 221 360 / 360 Blood Product 350 / 350 Rbc Leuko Reduced Unit 350 / 350 [id number] Output: Drainage 675 / 675 Left Back 675 / 675 Urine 1300 / 1300 1950 / 3550 1600 / 3550 Other: Urine Color [place] Brown Dark Red Urine Appearance Sediment Comment nephrostomy bag pT c/o discomfort. No flow into mcgregor, leaking out around mcgregor tubing. hand irrigated at this time CBI Stool Size Small Stool Characteristics Soft Black Bloody Data Completed and Pending Labs on day of discharge: Labs from last 24 hours 11/27/24 06:21 WBC 9.88 RBC 3.48 L Hgb 8.5 L Hct 28.6 L MCV 82 MCH 24.4 L MCHC 29.7 L RDW 20.2 H Plt Count 307 MPV 9.5 Immature Gran % 0.3 Neutrophils % 82.5 Lymphocytes % 10.8 Monocytes % 4.6 Eosinophils % 0.9 Basophils % 0.9 Nucleated RBC % 0.0 Absolute Neutrophils 8.15 H Absolute Lymphocytes 1.07 L Absolute Monocytes 0.45 Absolute Eosinophils 0.09 Absolute Basophils 0.09 RBC Morphology See Below Polychromasia Present Hypochromasia 2+ Anisocytosis 2+ Sodium 141 Potassium 4.2 Chloride 107 Carbon Dioxide 33.0 H Anion Gap 1.0 L BUN 38 H Creatinine 1.0 Est GFR (CKD-EPI 2020) 76.08 Glucose 221 H Calcium 8.6 Total Bilirubin 0.9 AST 20 ALT 14 L Alkaline Phosphatase 124 H Total Protein 5.6 L Albumin 1.7 L PFSH All Active Problems (Updated 11/27/24 @ 12:10 by Kanika Andrews NP) Advanced care planning/counseling discussion (Acute) Palliative care encounter (Acute) Decubitus ulcer of sacral region, stage 1 (Acute) Mural thrombus of cardiac apex without acute myocardial infarction (Acute) 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 (Acute) Smoker (Acute) Discharge planning issues (Acute) DVT prophylaxis (Acute) Anemia requiring transfusions (Acute) LISA (acute kidney injury) (Acute) Hematuria (Acute) Medical History Bladder wall thickening Bloody diarrhea Pulmonary emphysema Weight loss Osteoarthritis HTN (hypertension) HLD (hyperlipidemia) (HFpEF) heart failure with preserved ejection fraction ILD (interstitial lung disease) Diabetes NSTEMI (non-ST elevated myocardial infarction) CAD (coronary artery disease) Abdominal aneurysm Rectal bleeding Surgical History S/P cholecystectomy Social History Smoking/Tobacco Use Status: Current-Occasional Counseling given: provider counseling Smoking risk assessment performed?: Yes Alcohol Intake: current Alcohol Intake frequency: 0-2 drinks per day Alcohol type: beer Substance use type: does not use Housing: house Additional Social history: lives with in [place]. Retired from [employer] dept. Time Spent with Patient Time Spent with Patient: 45-69 minutes Time was spent: preparing to see the patient(eg.review tests), obtaining and/or reviewing separately otained hiistory, ordering medications,tests, procedures, referring, communicating with other health primary care provider, indepentently interpreting results, counseling the patient and care coordination
--- NOTE | 2024-11-27 15:32 | CHAPLAIN ---
Eduardo was resting in bed when I visited. He had family members with him, who have been there all day, he said. I explained my role and offered support.
== END 2024-11-27 16:18 | disposition home health service (06) ==
LOC: ER 17:21 → MS 20:05
PROVIDERS: Admitting Provider Family Medicine; Emergency Provider Emergency Medicine; PCP Internal Medicine; Responsible Provider Hospitalist; Visit Provider Family Medicine
DX: C67.8 Malignant neoplasm of overlapping sites of bladder (principal); D63.0 Anemia in neoplastic disease; N17.9 Acute kidney failure, unspecified; R31.9 Hematuria, unspecified; I50.30 Unspecified diastolic (congestive) heart failure; I51.3 Intracardiac thrombosis, not elsewhere classified; I25.10 Atherosclerotic heart disease of native coronary artery without angina pectoris; F17.210 Nicotine dependence, cigarettes, uncomplicated; J84.9 Interstitial pulmonary disease, unspecified; C67.9 Malignant neoplasm of bladder, unspecified; E11.9 Type 2 diabetes mellitus without complications; L89.151 Pressure ulcer of sacral region, stage 1; I11.0 Hypertensive heart disease with heart failure; Z99.81 Dependence on supplemental oxygen; R10.9 Unspecified abdominal pain; I95.9 Hypotension, unspecified; I25.2 Old myocardial infarction; J43.9 Emphysema, unspecified; Z79.82 Long term (current) use of aspirin; Z79.01 Long term (current) use of anticoagulants; Z93.6 Other artificial openings of urinary tract status; Z66 Do not resuscitate
CPT/HCPCS: 00123; 36415; 36430; 51702; 76775; 80048; 80053; 85027; 86850; 86900; 86901; 86920; 96360; 99285; 81003; 81015; 82270; 83735; 85014; 85018; 85025; 99223; 99232; 99239; G0378; J1815; P9016

== ENCOUNTER 2024-12-02 13:19 | Emergency (ER) | payer MEDICARE, BC, SELFPAY ==
[2024-12-02] VITALS (46 sets, daily range): BP systolic 71–102; BP diastolic 44–70; PULSE 77–123; RESP 14–27; TEMP 36.7; O2SAT 91–100
--- NOTE | 2024-12-02 13:30 | DI.RAD_ITS ---
Exam(s) XR PORTABLE CHEST AP EXAM: XR PORTABLE CHEST AP CLINICAL HISTORY: hypoxia TECHNIQUE: 2D digital imaging was performed. COMPARISON: US POCUS EXAM from 11/25/2024 FINDINGS: LUNGS: Low lung volumes. Small bilateral pleural effusions. There is loculated pleural collection s een along the right lateral chest. Question of left lower lobe infiltrate versus atelectasis. HEART: Normal size. AORTA: Normal diameter. BONES: Unremarkable for age. Soft tissues: Unremarkable. IMPRESSION: Small bilateral pole of effusions with loculation along the right lateral chest wall. Left lower lo be infiltrate versus atelectasis. DATA REPOSITORY: RADIATION DOSE DELIVERED:
[2024-12-02 14:07] LABS: Abs Immature Grans 0.03 10^3/uL (0.0-0.06); Absolute Basophil Count 0.03 10^3/uL (0.0-0.2); Absolute Eosinophil Count 0.05 10^3/uL (0.0-0.7); Absolute Lymphocyte Count 0.53 10^3/uL (1.2-3.4); Absolute Monocyte Count 0.33 10^3/uL (0.1-0.8); Absolute Neutrophil Count 3.88 10^3/uL (1.2-6.7); Basophils % 0.6 %; HCT 28.6 % (40.0-50.0); HGB 8.3 g/dL (13.5-17.5); Immature Grans % 0.6 %; Lymphocytes % 10.9 %; MCH 24.5 pg (27.0-33.0); MCV 84 fL (80-95); MPV 9.1 fL (8.0-11.0); Monocytes % 6.8 %; Neutrophils % 80.1 %; Platelet Count 282 10^3/uL (130-400); RBC 3.39 10^6/uL (4.36-5.78); RDW 19.6 % (11.8-14.1); RDW-SD 59.9 fL; WBC 4.85 10^3/uL (4.4-10.8)
[2024-12-02 14:11] LABS: Lactate 2.1 mmol/L (<or=2.0)
[2024-12-02 14:26] LABS: ALT 19 U/L (16-63); AST 21 U/L (15-37); Albumin 1.8 g/dL (3.4-5.0); Alkaline Phosphatase 147 U/L (46-116); Anion Gap 4.9 mmol/L (3-11); BUN 36 mg/dL (7-18); CO2 33.1 mmol/L (21.0-32.0); CREATININE 1.3 mg/dL (0.70-1.30); Calcium 9.2 mg/dL (8.5-10.1); Chloride 101 mmol/L (98-107); Estimated GFR 55.53 (mL/min/1.73m2); Glucose 259 mg/dL (74-106); Lipase 31 U/L (<78); Sodium 139 mmol/L (136-145); Total Protein 6.1 g/dL (6.4-8.2)
--- NOTE | 2024-12-02 14:29 | ED.GENADUL_ITS ---
Discharge Plan Discharge Details Chief Complaint: Urinary Clinical Impression: Urinary tract infection, Gonzales catheter problem Primary Care Provider: Jamie Bragg ED Provider: Juan Vernon Home Meds and New Rx's Prescriptions: No Action Invokana 100 mg tablet 100 mg PO DAILY metoprolol succinate 50 mg tablet extended release 24 hr 50 mg PO DAILY atorvastatin 40 mg tablet 40 mg PO DAILY glucosamine-chondroitin 500-400 mg capsule 1 cap PO BID Rx Instructions: give with meal/snack multivitamin Tablet 1 tab PO DAILY pioglitazone 15 mg tablet 15 mg PO DAILY Eliquis 5 mg tablet 5 mg PO BID ferrous sulfate 325 mg (65 mg iron) Tablet 325 mg PO DAILY 30 Days Qty: 30 0RF tamsulosin 0.4 mg Capsule 0.8 mg PO HS 30 Days Qty: 60 0RF HPI General Date/Time Provider Initiated Documentation: 12/02/24 13:29 . HPI Narrative: 79 year-old male presents to ED today by POV/ambulating with his and daughter with a chief complaint of known invasive bladder CA managed by [facility], with urinary retention, likely has obstructed urinary catheter- and has L nephrostomy tube that is adequately draining with onset today. Quality described as not overly painful, patient state she has lower abdominal discomfort and chronic hematuria, no radiation to fever, cough, nausea, endorses chills, denies chest pain. Severity is described as mild. Palliating factors include nothing specific attempted- family states they don't know how to flush his catheters. Provoking factors include nothing specific. Events leading up to the incident/Associated Symptoms: Patient has a radiation appointment today. Patient not anticoagulated. Related Data Home Medications ?Medication ?Instructions ?Recorded ?Confirmed atorvastatin 40 mg tablet 40 mg PO DAILY 05/26/24 12/02/24 canagliflozin 100 mg tablet 100 mg PO DAILY 05/26/24 12/02/24 (Invokana) glucosamine-chondroitin 500 mg-400 1 cap PO BID 05/26/24 12/02/24 mg capsule metoprolol succinate 50 mg 50 mg PO DAILY 05/26/24 12/02/24 tablet,extended release 24 hr multivitamin 1 tab PO DAILY 05/26/24 12/02/24 pioglitazone 15 mg tablet 15 mg PO DAILY 05/26/24 12/02/24 apixaban 5 mg tablet (Eliquis) 5 mg PO BID 11/26/24 12/02/24 ferrous sulfate 325 mg (65 mg 325 mg PO DAILY 30 days #30 tabs 11/27/24 12/02/24 iron) tablet tamsulosin 0.4 mg capsule 0.8 mg (2 x 0.4 mg) PO HS 30 days 11/27/24 12/02/24 #60 caps Previous Rx's ?Medication ?Instructions ?Recorded ferrous sulfate 325 mg (65 mg 325 mg PO DAILY 30 days #30 tabs 11/27/24 iron) tablet tamsulosin 0.4 mg capsule 0.8 mg (2 x 0.4 mg) PO HS 30 days 11/27/24 #60 caps Allergies Allergy/AdvReac Type Severity Reaction Status Date / Time No Known Allergies Allergy Unverified 11/25/24 13:15 General Stated Complaint: Urinary MARIE: 4 Review of Systems All systems reviewed & are unremarkable except as noted in HPI and below Exam Narrative Exam Narrative: GENERAL APPEARANCE: Mal-nourished, frail, non-toxic, awake and alert, atraumatic, no acute distress. SKIN: Warm, pink, dry, intact, without rashes/lesions/ulcerations. HEAD: Normocephalic, atraumatic, normal hair distribution for gender/age. EYES: Normal conjunctiva, no exudates on lids/lashes. ENT: Nares patent, no circumoral cyanosis, no facial swelling NECK: Supple, trachea midline, painless cervical ROM. LUNGS/CHEST: Lungs CTA bilaterally-no rhonchi/rales/wheezes diffusely, non- labored respirations, normal A/P diameter, symmetrical expansion, no chest wall deformity HEART (CV/PV): Regular rate and rhythm without murmur, no peripheral edema, no JVD. ABDOMEN: Soft, non-distended, no guarding suprapubic firmness without peritoneal signs. MSK: Normal ROM, no swelling/deformity to bilateral UEs or LEs, moving all extremities without weakness, no cyanosis, spine midline without tenderness, normal curvature. NEURO: Mental Status AAOx4 - alert to person, place, time, events No facial droop, no forehead involvement. Motor: No focal weakness - strength 5/5 in bilateral UEs and LEs, proximal and distal, symmetric. Sensory: sensation intact to light touch globally. Gait normal: patient ambulated without ataxia into ED room. PSYCH: euthymic, cooperative, pleasant, appropriate speech Course Vital Signs Vital signs: Vital Signs Temperature 36.7 C 12/02/24 13:22 Pulse 111 H 12/02/24 13:22 Respiratory Rate 16 12/02/24 13:22 Blood Pressure 102/70 12/02/24 13:22 Pulse Oximetry 91 L 12/02/24 13:22 Temperature 36.7 C 12/02/24 13:33 Pulse 105 H 12/02/24 14:20 Pulse 114 H 12/02/24 14:20 Respiratory Rate 22 12/02/24 14:20 Blood Pressure 94/66 L 12/02/24 14:17 Blood Pressure Mean 75 12/02/24 14:17 Pulse Oximetry 98 12/02/24 14:20 Oxygen Delivery Method Nasal Cannula 12/02/24 13:33 Oxygen Flow Rate 2 12/02/24 13:33 Pain Level 6 12/02/24 13:33 Lab/Test Results Lab/Test Results: 12/02/24 13:55 Blood Blood Culture - Pending 12/02/24 13:37 Blood Blood Culture - Pending Laboratory Tests Range/Units 12/02/24 13:55 WBC (4.4-10.8) 10^3/uL 4.85 RBC (4.36-5.78) 10^6/uL 3.39 L Hgb (13.5-17.5) g/dL 8.3 L Hct (40.0-50.0) % 28.6 L MCV (80-95) fL 84 MCH (27.0-33.0) pg 24.5 L MCHC (32.0-36.0) % 29.0 L RDW (11.8-14.1) % 19.6 H Plt Count (130-400) 10^3/uL 282 MPV (8.0-11.0) fL 9.1 Immature Gran % % 0.6 Neutrophils % % 80.1 Lymphocytes % % 10.9 Monocytes % % 6.8 Eosinophils % % 1.0 Basophils % % 0.6 Nucleated RBC % (0.0-0.3) % 0.0 Absolute Neutrophils (1.2-6.7) 10^3/uL 3.88 Absolute Lymphocytes (1.2-3.4) 10^3/uL 0.53 L Absolute Monocytes (0.1-0.8) 10^3/uL 0.33 Absolute Eosinophils (0.0-0.7) 10^3/uL 0.05 Absolute Basophils (0.0-0.2) 10^3/uL 0.03 VBG Lactate (<or=2.0) mmol/L 2.1 Medical Decision Making This dictation utilizes [id number] dictation software and may contain unedited grammatical errors. 79 year-old male presents to ED today by POV/ambulating with his and daughter with a chief complaint of known invasive bladder CA managed by [facility], with urinary retention, likely has obstructed urinary catheter- and has L nephrostomy tube that is adequately draining with onset today. Quality described as not overly painful, patient state she has lower abdominal discomfort and chronic hematuria, no radiation to fever, cough, nausea, endorses chills, denies chest pain. Severity is described as mild. Palliating factors include nothing specific attempted- family states they don't know how to flush his catheters. Provoking factors include nothing specific. Events leading up to the incident/Associated Symptoms: Patient has a radiation appointment today. Patients' medical history: Invasive bladder cancer, heart failure with preserved ejection fraction, interstitial lung disease, NSTEMI, CAD, abdominal aneurysm, palliative care planning. Family and social history: Lives at home with family, difficulty with ADLs, often sleeps. Pertinent exam findings / vital signs include lower abdominal tenderness, obstructed urinary catheter with some leeanna hematuria in the bag, left nephrostomy tube is draining dark yellow urine, otherwise benign abdomen, patient mildly tachycardic on arrival with mildly soft blood pressure 90s over high 60s. Differential / pathologies of concern include UTI, sepsis, invasive malignancy. Diagnostic studies of: -CBC, CMP, lactate, UA, lipase. -CBC shows no leukocytosis, shows low lymphocytes, shows a baseline chronic anemia at 8.3 -Lactate 2.1 -CMP shows no actionable abnormality, creatinine of 1.3 -Lipase negative -Urine shows greater than 50 WBCs Interventions of: -500 mL NS bolus, 2 g IV ceftriaxone. ED Course/Assessment/Plan: 79-year-old male with invasive bladder cancer presents with obstruction of urinary catheter, chief of staff doctor did flush the catheter and states that he has almost tissue like obstructions likely due to his invasive nature of his malignancy, his left nephrostomy tube is draining. He was without acute complaints throughout visit, septic workup is negative, cultures pending, urine culture pending, has grown E. coli and yeast in the past, I did consult with [facility] urology Marcia ellis PA-C recommend starting ceftriaxone but holding on antifungal treatment until culture results for targeted therapy due to renal concerns. Upon reevaluation just prior to discharge patient's blood pressure was mildly soft 76/50 I did add some fluids and IV ceftriaxone and hopeful that he can go home on oral ceftriaxone, he will need to be admitted if his blood pressure does not respond as he is immune compromised. Findings not consistent with overt sepsis, urinary obstruction after flushing of catheter, renal failure. Disposition of urinary tract infection, Gonzales catheter problem. Patient verbalized understanding of the plan and return to ED criteria and engaged in shared decision making. Medical Records Medical records reviewed: Yes I reviewed the patient's medical records. Lab Data Lab results reviewed: Yes I reviewed the patient's lab results. Labs: 12/02/24 14:20 Urine - Reflex from Ua Urine Culture - Pending 12/02/24 14:37 Blood Blood Culture - Pending 12/02/24 13:55 Blood Blood Culture - Pending Laboratory Tests Range/Units 12/02/24 12/02/24 13:55 14:20 WBC (4.4-10.8) 10^3/uL 4.85 RBC (4.36-5.78) 10^6/uL 3.39 L Hgb (13.5-17.5) g/dL 8.3 L Hct (40.0-50.0) % 28.6 L MCV (80-95) fL 84 MCH (27.0-33.0) pg 24.5 L MCHC (32.0-36.0) % 29.0 L RDW (11.8-14.1) % 19.6 H Plt Count (130-400) 10^3/uL 282 MPV (8.0-11.0) fL 9.1 Immature Gran % % 0.6 Neutrophils % % 80.1 Lymphocytes % % 10.9 Monocytes % % 6.8 Eosinophils % % 1.0 Basophils % % 0.6 Nucleated RBC % (0.0-0.3) % 0.0 Absolute Neutrophils (1.2-6.7) 10^3/uL 3.88 Absolute Lymphocytes (1.2-3.4) 10^3/uL 0.53 L Absolute Monocytes (0.1-0.8) 10^3/uL 0.33 Absolute Eosinophils (0.0-0.7) 10^3/uL 0.05 Absolute Basophils (0.0-0.2) 10^3/uL 0.03 VBG Lactate (<or=2.0) mmol/L 2.1 Sodium (136-145) mmol/L 139 Potassium (3.5-5.1) mmol/L 4.0 Chloride (98-107) mmol/L 101 Carbon Dioxide (21.0-32.0) mmol/L 33.1 H Anion Gap (3-11) mmol/L 4.9 BUN (7-18) mg/dL 36 H Creatinine (0.70-1.30) mg/dL 1.3 Est GFR (CKD-EPI 2020) (mL/min/1.73m2) 55.53 Glucose (74-106) mg/dL 259 H Calcium (8.5-10.1) mg/dL 9.2 Total Bilirubin (0.2-1.0) mg/dL 1.0 AST (15-37) U/L 21 ALT (16-63) U/L 19 Alkaline Phosphatase (46-116) U/L 147 H Total Protein (6.4-8.2) g/dL 6.1 L Albumin (3.4-5.0) g/dL 1.8 L Lipase (<78) U/L 31 Urine Color (Yellow) Brown Urine Clarity (Clear) Turbid Urine pH (5-8) Ur Specific [place] (1.005-1.025) 1.015 Urine Protein (Neg-Trace) mg/dL Urine Ketones (Negative) mg/dL Urine Blood (Negative) Urine Nitrite (Negative) Urine Bilirubin (Negative) Urine Urobilinogen (Up to 0.2) mg/dL Ur Leukocyte Esterase (Negative) Urine RBC Not Applicable Urine WBC (0-5) HPF >50 H Ur Epithelial Cells Not Applicable Urine Crystals Not Applicable Urine Bacteria (Negative) HPF Packed Urine Mucus Not Applicable Ur Culture Indicated? Yes Urine Glucose (Negative) mg/dL Quality:SDOH Health Related Social Needs: No Data to Display PFSH All Active Problems (Updated 12/02/24 @ 15:40 by KEANU Stephen) Gonzales catheter problem (Acute) Urinary tract infection (Acute) Advanced care planning/counseling discussion (Acute) Palliative care encounter (Acute) Decubitus ulcer of sacral region, stage 1 (Acute) Mural thrombus of cardiac apex without acute myocardial infarction (Acute) 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 (Acute) Smoker (Acute) Discharge planning issues (Acute) Anemia requiring transfusions (Acute) LISA (acute kidney injury) (Acute) Hematuria (Acute) Medical History Bladder wall thickening Bloody diarrhea Pulmonary emphysema Weight loss Osteoarthritis HTN (hypertension) HLD (hyperlipidemia) (HFpEF) heart failure with preserved ejection fraction ILD (interstitial lung disease) Diabetes NSTEMI (non-ST elevated myocardial infarction) CAD (coronary artery disease) Abdominal aneurysm Rectal bleeding Surgical History S/P cholecystectomy Social History Smoking/Tobacco Use Status: Current-Occasional Counseling given: provider counseling Smoking risk assessment performed?: Yes Alcohol Intake: current Alcohol Intake frequency: 0-2 drinks per day Alcohol type: beer Substance use type: does not use Housing: house Additional Social history: lives with in [place]. Retired from [employer].
[2024-12-02 15:15] LABS: Clarity Turbid (Clear); Specific Gravity 1.015 (1.005-1.025)
[2024-12-02 15:16] LABS: Bacteria Packed HPF (Negative)
[2024-12-02 15:17] LABS: C & S Indicated? Yes; WBC >50 HPF (0-5)
--- NOTE | 2024-12-02 15:44 | ED.PROG_ITS ---
Date of service: 12/02/24 Time of Service: 15:45 Medical Decision Making Care assumed from Saud COLUNGA pending re-eval fluids, and antibiotics. At the time of sign out patient BP is soft at 76/50, repeat BP 88/54. Given 500 ml bolus and 2 gm Ceftriaxone. 79 yr old male hx of bladder CA here for blocked ind welling catheter. 1624: BP 94/44 after 500 ml bolus and Ceftriaxone. will send home with Cephalexin 500 mg BID x 10 days. Discussed plan of care with family who is at bedside she verbalized unders tanding. Discussed with daughter and who report that this is patient's normal baseline mental status after receiving radiation treatment that he is usually tired after receiving treatment. Discussed catheter care they were given supplies to attempt irrigation if reclogged they verbalized understanding. They feel comfortable taking him home at this time. Patient to be discharged into the care of his family. Discussed strict return instructions. Patient's blood pressure has improved up to the 90s over 60s. Map of 66. Medical Records Medical records reviewed: Yes I reviewed the patient's medical records. Lab Data Lab results reviewed: Yes I reviewed the patient's lab results. Labs: 12/02/24 14:20 Urine - Reflex from Ua Urine Culture - Pending 12/02/24 14:37 Blood Blood Culture - Pending 12/02/24 13:55 Blood Blood Culture - Pending Laboratory Tests Range/Units 12/02/24 12/02/24 13:55 14:20 WBC (4.4-10.8) 10^3/uL 4.85 RBC (4.36-5.78) 10^6/uL 3.39 L Hgb (13.5-17.5) g/dL 8.3 L Hct (40.0-50.0) % 28.6 L MCV (80-95) fL 84 MCH (27.0-33.0) pg 24.5 L MCHC (32.0-36.0) % 29.0 L RDW (11.8-14.1) % 19.6 H Plt Count (130-400) 10^3/uL 282 MPV (8.0-11.0) fL 9.1 Immature Gran % % 0.6 Neutrophils % % 80.1 Lymphocytes % % 10.9 Monocytes % % 6.8 Eosinophils % % 1.0 Basophils % % 0.6 Nucleated RBC % (0.0-0.3) % 0.0 Absolute Neutrophils (1.2-6.7) 10^3/uL 3.88 Absolute Lymphocytes (1.2-3.4) 10^3/uL 0.53 L Absolute Monocytes (0.1-0.8) 10^3/uL 0.33 Absolute Eosinophils (0.0-0.7) 10^3/uL 0.05 Absolute Basophils (0.0-0.2) 10^3/uL 0.03 VBG Lactate (<or=2.0) mmol/L 2.1 Sodium (136-145) mmol/L 139 Potassium (3.5-5.1) mmol/L 4.0 Chloride (98-107) mmol/L 101 Carbon Dioxide (21.0-32.0) mmol/L 33.1 H Anion Gap (3-11) mmol/L 4.9 BUN (7-18) mg/dL 36 H Creatinine (0.70-1.30) mg/dL 1.3 Est GFR (CKD-EPI 2020) (mL/min/1.73m2) 55.53 Glucose (74-106) mg/dL 259 H Calcium (8.5-10.1) mg/dL 9.2 Total Bilirubin (0.2-1.0) mg/dL 1.0 AST (15-37) U/L 21 ALT (16-63) U/L 19 Alkaline Phosphatase (46-116) U/L 147 H Total Protein (6.4-8.2) g/dL 6.1 L Albumin (3.4-5.0) g/dL 1.8 L Lipase (<78) U/L 31 Urine Color (Yellow) Brown Urine Clarity (Clear) Turbid Urine pH (5-8) Ur Specific [place] (1.005-1.025) 1.015 Urine Protein (Neg-Trace) mg/dL Urine Ketones (Negative) mg/dL Urine Blood (Negative) Urine Nitrite (Negative) Urine Bilirubin (Negative) Urine Urobilinogen (Up to 0.2) mg/dL Ur Leukocyte Esterase (Negative) Urine RBC Not Applicable Urine WBC (0-5) HPF >50 H Ur Epithelial Cells Not Applicable Urine Crystals Not Applicable Urine Bacteria (Negative) HPF Packed Urine Mucus Not Applicable Ur Culture Indicated? Yes Urine Glucose (Negative) mg/dL Quality:SDOH Health Related Social Needs: No Data to Display Discharge Plan Disposition Patient Disposition: Home Condition: Stable Discharge Details Clinical Impression: Urinary tract infection, Gonzales catheter problem Primary Care Provider: Jamie Bragg ED Provider: Mariia Baker Home Meds and New Rx's Prescriptions: New cephalexin 500 mg tablet 500 mg PO BID 10 Days Qty: 20 0RF Rx Instructions: Please take one tablet by mouth twice daily x 10 days. Continued Invokana 100 mg tablet 100 mg PO DAILY metoprolol succinate 50 mg tablet extended release 24 hr 50 mg PO DAILY atorvastatin 40 mg tablet 40 mg PO DAILY glucosamine-chondroitin 500-400 mg capsule 1 cap PO BID Rx Instructions: give with meal/snack multivitamin Tablet 1 tab PO DAILY pioglitazone 15 mg tablet 15 mg PO DAILY Eliquis 5 mg tablet 5 mg PO BID ferrous sulfate 325 mg (65 mg iron) Tablet 325 mg PO DAILY 30 Days Qty: 30 0RF tamsulosin 0.4 mg Capsule 0.8 mg PO HS 30 Days Qty: 60 0RF Discharge Instructions Instructions: How to Care for Your Gonzales Catheter, Urinary Tract Infection, Adult ED Additional Instructions: At this time you do have a urinary tract infection. You were given IV antibiotics here in the department. Please take the antibiotic as directed with yogurt or probiotic twice daily for the next 10 days. You may start the tablets in the morning. Please follow-up with urology they are aware of your visit today. Follow up with primary care provider in 3-5 days. Return to ED sooner if any worsening problems with catheter drainage, fever, vomiting worsening in any way or concerns. Thank you for allowing us to care for you today. Referrals: [facility] [place] [Outside] - 5 days Jamie Bragg [Primary Care Provider] - 3 days
[2024-12-02] MEDS: cefTRIAXone 2 GM/50 ML BAG IVPB (15:47)
[2024-12-02] MEDS: Normal Saline 500 ML IV (15:47)
--- NOTE | 2024-12-03 08:30 | ED.FU.B_ITS ---
Date of service: 12/03/24 Time of Service: 08:30 Follow Up Plan: This patient's blood culture resulted at the start of my shift growing gram- negative rods. I called the patient at home and advised him of this critical results. I urged him to come back to the emergency department. Patient reported that he would be down later this morning. Given patient's hypotension at the time of discharge he will benefit likely from sepsis assessment with repeat blood cultures broad-spectrum antibiotics lactate and hospitalization.
== END 2024-12-02 17:21 | disposition home or self-care (01) ==
PROVIDERS: Physician Assistant; Emergency Provider Registered Nurse Emergency; PCP Internal Medicine
DX: N39.0 Urinary tract infection, site not specified (principal); T83.098A Other mechanical complication of other urinary catheter, initial encounter; C67.9 Malignant neoplasm of bladder, unspecified; R33.8 Other retention of urine; I11.0 Hypertensive heart disease with heart failure; I50.32 Chronic diastolic (congestive) heart failure; E78.5 Hyperlipidemia, unspecified; I25.10 Atherosclerotic heart disease of native coronary artery without angina pectoris; E11.9 Type 2 diabetes mellitus without complications; F17.200 Nicotine dependence, unspecified, uncomplicated; Z96.0 Presence of urogenital implants; Z79.01 Long term (current) use of anticoagulants
CPT/HCPCS: 00123; 80053; 83690; 87040; 87077; 96365; 99284; 71045; 81003; 81015; 83605; 85025; 87086; 87186; J0696

== ENCOUNTER 2024-12-03 17:05 | Inpatient (IN) | payer MEDICARE, BC, SELFPAY ==
[2024-12-03] VITALS (21 sets, daily range): BP systolic 62–158; BP diastolic 37–118; PULSE 74–140; RESP 17–28; TEMP 36.6; O2SAT 83–99
--- NOTE | 2024-12-03 17:45 | DI.RAD_ITS ---
Exam(s) XR CHEST 2V PA LATERAL EXAM: XR CHEST 2V PA LATERAL CLINICAL HISTORY: ?pneumonia TECHNIQUE: 2D digital imaging was performed. Two views. COMPARISON: CR XR PORTABLE CHEST AP from 12/02/[address] ABDOMEN PELVIS WO from 12/03/2024 FINDINGS: Moderate are in leads overlie the chest. HEART: Enlarged. Aorta: Not dilated. PULMONARY VASCULATURE: Normal. MEDIASTINUM: Unremarkable. LUNGS: Increased densities at the lung bases, right greater than left, could represent atelectasis, s carring or acute infiltrates. PLEURAL SPACE: Small left pleural effusion. Right pleural effusion with lateral loculation again not ed. No pneumothorax. BONE:Old left rib fractures. Degenerative changes in the spine and shoulders. SOFT TISSUES: Unremarkable. IMPRESSION: Stable appearance of bilateral pleural effusions. Increased basilar densities could represent pneumo freda versus atelectasis. DATA REPOSITORY: RADIATION DOSE DELIVERED:
--- NOTE | 2024-12-03 17:45 | DI.CT_ITS ---
Exam(s) CT ABDOMEN PELVIS WO EXAM: CT ABDOMEN PELVIS WO CLINICAL HISTORY: ?malpositioned nephrosotmy tube. TECHNIQUE: Imaging Protocol: Axial computed tomography images with coronal and sagittal reformatted images were created and reviewed. Oral: / no COMPARISON: No exams were available for comparison FINDINGS: Lung Bases: Small left pleural effusion. Posterior diaphragmatic hernia containing omental fat. Sma ll to moderate-sized right pleural effusion with lateral loculation. Adjacent atelectasis. Heart is markedly enlarged. Liver: Chronic appearing calcifications in the posterior aspect of the liver. Normal density. No glenroy picious mass. Gallbladder and biliary tract: No radiodense calculus or biliary dilation. Pancreas: Normal density. No abnormal calcifications or inflammatory process. Spleen: Normal. Kidneys: Normal size, contour and axis. No radiodense stones. Left nephrostomy in place. The tip li es at the junction of the renal pelvis with inferior and infundibulum. Mild left hydronephrosis. No suspicious masses seen. Renal cysts. Adrenal glands: 5.5 centimeter left adrenal mass. Lymph nodes: Within normal limits. Vasculature: Mild distal dilatation to 3 cm. Severe atherosclerotic changes. Soft tissues: Diffuse body wall edema. Small fatty umbilical hernia. Bladder: Diffuse wall thickening. Bladder diverticula. A mass cannot be excluded particularly without IV contrast. Catheter in place with balloon inflated within the bladder lumen. Wall thickening. No mass or calculi. Bowel: Diverticulum of the descending duodenum. No obstruction or bowel wall thickening. Appendix no rmal. Peritoneal cavity: No ascites. No focal collection. No mesenteric inflammatory response. Reproductive organs: Enlarged prostate. Bones: Unremarkable for age. IMPRESSION: Nephrostomy tube appears in appropriate position. Gonzales catheter is appropriately position within the bladder. Diffuse bladder wall thickening and trabeculation. Large left adrenal mass. Loculated right pleural effusion. Small left pleural effusion. Adjacent basilar atelectasis. Pneumoni a not excluded. Posterior diaphragmatic hernia containing fat. Diffuse body wall edema. Findings called to Dr. Lockhart of the emergency department. RADIATION DOSE DELIVERED: Total DLP DATA REPOSITORY: All CT scans at this facility are submitted to the National Radiology Data Registry (NRDR) Dose Index Registry (DIR) with the [employer] (A[employer]). RADIATION OPTIMIZATION: All CT scans at this facility use at least one of these dose optimization te chniques: automated exposure control; mA and/or kV adjustment per patient size (includes targeted exa ms where dose is matched to clinical indication); or iterative reconstruction.
--- NOTE | 2024-12-03 17:56 | ED.GENADUL_ITS ---
Discharge Plan Disposition Patient Disposition: Admit to [facility] Condition: Stable Discharge Details Chief Complaint: Recheck Clinical Impression: Positive blood culture, Acute UTI Primary Care Provider: Jamie Bragg ED Provider: Bc Lockhart Home Meds and New Rx's Prescriptions: No Action Invokana 100 mg tablet 100 mg PO DAILY metoprolol succinate 50 mg tablet extended release 24 hr 50 mg PO DAILY atorvastatin 40 mg tablet 40 mg PO DAILY glucosamine-chondroitin 500-400 mg capsule 1 cap PO BID Rx Instructions: give with meal/snack multivitamin Tablet 1 tab PO DAILY cephalexin 500 mg tablet 500 mg PO BID 10 Days Qty: 20 0RF Rx Instructions: Please take one tablet by mouth twice daily x 10 days. Eliquis 5 mg tablet 5 mg PO BID ferrous sulfate 325 mg (65 mg iron) Tablet 325 mg PO DAILY 30 Days Qty: 30 0RF tamsulosin 0.4 mg Capsule 0.8 mg PO HS 30 Days Qty: 60 0RF furosemide 40 mg tablet 40 mg PO DAILY spironolactone 25 mg tablet 25 mg PO ONCE levothyroxine 25 mcg tablet 25 mcg PO DAILY Patient Comments: TAKE 1 TABLET BY MOUTH ONCE DAILY IN THE MORNING magnesium oxide 400 mg (241.3 mg magnesium) tablet 800 mg PO DAILY Patient Comments: TAKE 2 TABLETS BY MOUTH ONCE DAILY losartan 25 mg tablet 25 mg PO DAILY albuterol sulfate 90 mcg/actuation HFA aerosol inhaler 2 puff INHALATION PRN Patient Comments: INHALE 2 PUFFS BY MOUTH EVERY 4 HOURS NEEDED FOR SHORTNESS OF BREATH ezetimibe 10 mg tablet 10 mg PO DAILY HPI General Date/Time Provider Initiated Documentation: 12/03/24 17:06 . Limitations to Documentation: no limitations . Information obtained by: patient . History of Present Illness 79 year old M presents to the emergency department with the chief complaint of general malaise, positive blood cultures, described as moderate, Patient started experiencing this week(s) (1) and it has been constant. No relieving factors improve symptom(s), No exacerbating factors reported . Patient notes denies chest pain, nausea/vomiting and shortness of breath. Patient did receive the following treatments prior to arrival, none Related Data Home Medications ?Medication ?Instructions ?Recorded ?Confirmed atorvastatin 40 mg tablet 40 mg PO DAILY 05/26/24 12/03/24 canagliflozin 100 mg tablet 100 mg PO DAILY 05/26/24 12/03/24 (Invokana) glucosamine-chondroitin 500 mg-400 1 cap PO BID 05/26/24 12/03/24 mg capsule metoprolol succinate 50 mg 50 mg PO DAILY 05/26/24 12/03/24 tablet,extended release 24 hr multivitamin 1 tab PO DAILY 05/26/24 12/03/24 apixaban 5 mg tablet (Eliquis) 5 mg PO BID 11/26/24 12/03/24 ferrous sulfate 325 mg (65 mg 325 mg PO DAILY 30 days #30 tabs 11/27/24 12/03/24 iron) tablet tamsulosin 0.4 mg capsule 0.8 mg (2 x 0.4 mg) PO HS 30 days 11/27/24 12/03/24 #60 caps cephalexin 500 mg tablet 500 mg PO BID UTI 10 days #20 tabs 12/02/24 12/03/24 albuterol sulfate 90 mcg/actuation 2 puff inhalation PRN 12/03/24 12/03/24 aerosol inhaler ezetimibe 10 mg tablet 10 mg PO DAILY 12/03/24 12/03/24 furosemide 40 mg tablet 40 mg PO DAILY 12/03/24 12/03/24 levothyroxine 25 mcg tablet 25 mcg PO DAILY 12/03/24 12/03/24 losartan 25 mg tablet 25 mg PO DAILY 12/03/24 12/03/24 magnesium oxide 400 mg (241.3 mg 800 mg PO DAILY 12/03/24 12/03/24 magnesium) tablet spironolactone 25 mg tablet 25 mg PO ONCE 12/03/24 12/03/24 Previous Rx's ?Medication ?Instructions ?Recorded ferrous sulfate 325 mg (65 mg 325 mg PO DAILY 30 days #30 tabs 11/27/24 iron) tablet tamsulosin 0.4 mg capsule 0.8 mg (2 x 0.4 mg) PO HS 30 days 11/27/24 #60 caps cephalexin 500 mg tablet 500 mg PO BID UTI 10 days #20 tabs 12/02/24 Allergies Allergy/AdvReac Type Severity Reaction Status Date / Time No Known Allergies Allergy Verified 12/03/24 17:22 General Stated Complaint: Recheck MARIE: 3 Review of Systems All systems reviewed & are unremarkable except as noted in HPI and below Constitutional Constitutional: Denies chills, Denies fever(s) and Reports weakness Cardiovascular Cardiovascular: Denies chest pain and Denies dyspnea Respiratory Respiratory: Denies cough and Denies dyspnea Gastrointestinal Gastrointestinal: Denies abdominal pain, Denies nausea and Denies vomiting Neurologic Neurologic: Reports weakness Psychiatric Psychiatric: Denies depression Exam Const General: no acute distress Orientation: alert HENDC Head: normal to inspection Ears: external ears normal General nose exam: external nose normal Mouth: moist mucous membranes Eyes General: appearance normal, both eyes and all related structures Neck Neck: normal visual inspection Resp Effort & Inspection: normal respiratory effort and able to speak in complete sentences Cardio Rate: regular rate GI Palpation: soft and nontender Skin General skin exam: no rashes or lesions noted Neuro General: patient alert and patient oriented x3 Extrem General: normal to inspection Psych Mental Status: mental status grossly normal Course Vital Signs Vital signs: Vital Signs Temperature 36.6 C 12/03/24 17:18 Temperature 36.6 C 12/03/24 17:18 Temperature Source Oral 12/03/24 17:18 Blood Pressure Position Supine 12/03/24 17:18 Oxygen Delivery Method Room Air 12/03/24 17:18 Oxygen Flow Rate 0 12/03/24 17:18 Pain Level 0 12/03/24 17:18 Lab/Test Results Lab/Test Results: 12/03/24 17:29 Blood Blood Culture - Pending 12/03/24 17:29 Blood Blood Culture - Pending Medical Decision Making 79-year-old male with a history of urothelial carcinoma of the bladder who has a chronic Mcgregor and also series had a left nephrostomy tube placed and was seen yesterday for general malaise and had blood cultures done which are growing gram negative rods and was called to return here. He is currently stating that he feels general fatigue and weakness. He denies any high fevers, severe abdominal pain, chest pain. His abdomen is soft and nondistended. He does have urine is blood-tinged in his Mcgregor and he states that he still is getting urine out of his nephrostomy tube. Given the gram-positive rods concern for sepsis due to a urinary source, will obtain CBC, CMP, lactate and procalcitonin give a dose of Zosyn and also obtain a chest x-ray and CT abdomen pelvis to evaluate for possible evidence of nephrostomy tube displacement versus kidney stone. ct shows nephrostomy tube in good place, has continued pleural effusions. Discussed case with Dr. Parkinson [place] [facility] who recommended replacing mcgregor and also will need nephrostomy replaced in the next few days, will need to have this done with IR and transfer center said they are not available for down and back discussions at this hour of the night and will need to call at 8am tomorrow. 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 infarction (Acute) 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 (Acute) Smoker (Acute) Discharge planning issues (Acute) Anemia requiring transfusions (Acute) LISA (acute kidney injury) (Acute) Hematuria (Acute) Medical History Bladder wall thickening Bloody diarrhea Pulmonary emphysema Weight loss Osteoarthritis HTN (hypertension) HLD (hyperlipidemia) (HFpEF) heart failure with preserved ejection fraction ILD (interstitial lung disease) Diabetes NSTEMI (non-ST elevated myocardial infarction) CAD (coronary artery disease) Abdominal aneurysm Rectal bleeding Surgical History S/P cholecystectomy Social History Smoking/Tobacco Use Status: Current-Occasional Counseling given: provider counseling Smoking risk assessment performed?: Yes Alcohol Intake: current Alcohol Intake frequency: 0-2 drinks per day Alcohol type: beer Substance use type: does not use Housing: house Additional Social history: lives with in [place]. Retired from [employer].
[2024-12-03 18:21] LABS: Bilirubin Negative (Negative); Blood Large (Negative); Clarity Clear (Clear); Glucose Negative (Negative); Ketones Negative (Negative); Leukocyte Esterase Large (Negative); Nitrite Positive (Negative); Urobilinogen 0.2 mg/dL (Up to 0.2)
[2024-12-03 18:31] LABS: Bacteria Rare HPF (Negative); Crystals Negative HPF (Negative); Epithelial Cells Rare HPF (Negative); Mucus Negative (Negative); Other Cells Few Transitional (Negative); RBC >50 HPF (0-2); WBC >50 HPF (0-5)
[2024-12-03 18:32] LABS: C & S Indicated? Yes; Casts 5-10 Hyaline LPF (Negative)
[2024-12-03 19:08] LABS: Lactate 2.3 mmol/L (<or=2.0)
[2024-12-03] MEDS: PIPERACILLIN/TAZO 4.5 GM in Normal Saline 100 ML IVPB (19:09)
[2024-12-03 19:12] LABS: Abs Immature Grans 0.03 10^3/uL (0.0-0.06); Absolute Basophil Count 0.05 10^3/uL (0.0-0.2); Absolute Eosinophil Count 0.07 10^3/uL (0.0-0.7); Absolute Lymphocyte Count 0.63 10^3/uL (1.2-3.4); Absolute Monocyte Count 0.43 10^3/uL (0.1-0.8); Absolute Neutrophil Count 3.67 10^3/uL (1.2-6.7); Eosinophils % 1.4 %; HCT 27.9 % (40.0-50.0); HGB 8.2 g/dL (13.5-17.5); Immature Grans % 0.6 %; Lymphocytes % 12.9 %; MCH 24.6 pg (27.0-33.0); MCHC 29.4 % (32.0-36.0); MCV 84 fL (80-95); MPV 9.4 fL (8.0-11.0); Monocytes % 8.8 %; Neutrophils % 75.3 %; Platelet Count 288 10^3/uL (130-400); RBC 3.34 10^6/uL (4.36-5.78); RDW 19.1 % (11.8-14.1); RDW-SD 58.9 fL; WBC 4.88 10^3/uL (4.4-10.8)
[2024-12-03] MEDS: Normal Saline 250 ML 500 ML IV (19:14)
[2024-12-03 19:27] LABS: ALT 18 U/L (16-63); AST 19 U/L (15-37); Albumin 1.9 g/dL (3.4-5.0); Alkaline Phosphatase 135 U/L (46-116); BUN 42 mg/dL (7-18); Bilirubin, Total 0.6 mg/dL (0.2-1.0); CREATININE 1.4 mg/dL (0.70-1.30); Calcium 9.3 mg/dL (8.5-10.1); Chloride 99 mmol/L (98-107); Estimated GFR 50.81 (mL/min/1.73m2); Glucose 311 mg/dL (74-106); Magnesium 1.8 mg/dL; Potassium 4.1 mmol/L (3.5-5.1); Sodium 138 mmol/L (136-145); Total Protein 6.4 g/dL (6.4-8.2)
[2024-12-03 19:37] LABS: Procalcitonin 0.35 ng/mL
--- NOTE | 2024-12-03 19:54 | HPE_ITS ---
Date of service: 12/03/24 Time of Service: 19:54 Assessment and Plan Assessment and plan (1) Gram-negative bacteremia: Start date: 12/03/24 Status: Acute Assessment and plan: This is an 79-year-old gentleman with newly diagnosed urothelial carcinoma of the bladder going through radiation therapy with now at least 2 cycles completed and patient scheduled for cycle in the morning. He is extremely fatigued and recently seen in the ED with a blood culture performed showing gram-negative rods. He was admitted for aggressive treatment of bacteremia, UTI and possible pneumonia with pleural effusions and atelectasis. He has adequate borderline hypotension MAP and not requiring pressor agents at this time. We are limited in fluid resuscitation for his blood pressure. He now is a DNR/DNI and considering patient care and hospice with palliative care consultation in place. (2) Acute UTI: Start date: 12/03/24 Status: Acute Assessment and plan: Admitted for IV Zosyn to cover possible pneumonia with UTI. He also has gram- negative bacteremia. He was prescribed Keflex as an outpatient. His course was never begun. 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 He is having x- ray therapy and fatiguing wanting to possibly stop treatments. Continue follow- up with urology and oncology. Plans are for [place] [facility] [place] and back procedure. (4) Type 2 diabetes mellitus: Status: Chronic Assessment and plan: Hold outpatient medical therapy and glucometer measurements ACHS with short acting insulin coverage. 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 (6) Smoker: Status: Chronic Assessment and plan: Not active problem with patient disabled by acute diseases. (7) HTN (hypertension): Assessment and plan: Hold and modify medical therapy with hypotension with his acute presentation. (8) Pulmonary emphysema: Assessment and plan: Respiratory care with oxygen supplementation as needed. (9) CAD (coronary artery disease): Assessment and plan: Monitor for decompensation. Patient is a DNR/DNI. History of Present Illness History of Present Illness Chief Complaint: General malaise with positive blood culture after recent ED visit. Narrative: This is an 79-year-old male patient who has recent diagnosis of urothelial carcinoma of the bladder having chronic Gonzales catheter and left nephrostomy tube in place. This diagnosis is new this year and he is just undergoing radiation therapy. Prognosis is poor and is stating that the patient is very fatigued by his new diagnosis and treatments and is thinking of not pursuing further interventions. He is scheduled for another radiation therapy in the morning and PET [place] next week [place] [facility] [place] He was a full code but now is a DNR/DNI per his wishes and his family wishes. They wanted. Care consultation and to consider hospice if he is not going to get better. He does have multiple other endorgan disease decompensation recently and is not happy with his lifestyle. He is used to being very active. He presented to the ED earlier and had blood culture was referred formed and these are growing Gram negative rods with presumed UTI and bacteremia. He is not in septic shock. Blood pressure is running low and he was placed in ICU for closer monitoring. He was initiated on IV Zosyn and will be gently IV hydrated as needed for blood pressure control with close monitoring. He does have pleural effusions which are problematic. He also has a history of progressive ischemic cardiomyopathy with decreased left-ventricular ejection fraction now below 30%. He has significant CAD. His BNP was markedly elevated, troponin but not trended with no chest pain or evidence of his hemic event acutely and he will be on cardiac monitoring with his soft blood pressure measurements. [place] [facility] [place] back procedure to change his left nephrostomy tube in the morning. The family is open to this treatment plan. As stated he is a DNR/DNI but will be watched closely in the ICU with blood pressure support if needed with pressure agents such as epinephrine. He may be limited with IV fluid resuscitation by decrease ejection fraction by recent echocardiogram evaluation [place] [facility] [place] Review of Systems Narrative: 13 point review of systems otherwise unrevealing or stable. Patient tells is family and that he is exhausted. 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 (Chronic) 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 (Chronic) Smoker (Chronic) Discharge planning issues (Acute) Anemia requiring transfusions (Acute) LISA (acute kidney injury) (Acute) Hematuria (Acute) Medical History (Updated 12/04/24 @ 07:04 by [place]) Bladder wall thickening Bloody diarrhea Pulmonary emphysema Weight loss Osteoarthritis HTN (hypertension) HLD (hyperlipidemia) (HFpEF) heart failure with preserved ejection fraction ILD (interstitial lung disease) NSTEMI (non-ST elevated myocardial infarction) CAD (coronary artery disease) Abdominal aneurysm Rectal bleeding Surgical History S/P cholecystectomy Social History Smoking/Tobacco Use Status: Current-Occasional Counseling given: provider counseling Smoking risk assessment performed?: Yes Alcohol Intake: current Alcohol Intake frequency: 0-2 drinks per day Alcohol type: beer Substance use type: does not use Housing: house Additional Social history: lives with in [place]. Retired from [employer] Meds Allergies and Home Medications Allergies Allergy/AdvReac Type Severity Reaction Status Date / Time No Known Allergies Allergy Verified 12/03/24 17:22 Home Medications ?Medication ?Instructions ?Recorded ?Confirmed ?Type atorvastatin 40 mg tablet 40 mg PO DAILY 05/26/24 12/03/24 History canagliflozin 100 mg tablet 100 mg PO DAILY 05/26/24 12/03/24 History (Invokana) glucosamine-chondroitin 500 mg-400 1 cap PO BID 05/26/24 12/03/24 History mg capsule metoprolol succinate 50 mg 50 mg PO DAILY 05/26/24 12/03/24 History tablet,extended release 24 hr multivitamin 1 tab PO DAILY 05/26/24 12/03/24 History apixaban 5 mg tablet (Eliquis) 5 mg PO BID 11/26/24 12/03/24 History ferrous sulfate 325 mg (65 mg 325 mg PO DAILY 30 days #30 tabs 11/27/24 12/03/24 Rx iron) tablet tamsulosin 0.4 mg capsule 0.8 mg (2 x 0.4 mg) PO HS 30 days 11/27/24 12/03/24 Rx #60 caps cephalexin 500 mg tablet 500 mg PO BID UTI 10 days #20 tabs 12/02/24 12/03/24 Rx albuterol sulfate 90 mcg/actuation 2 puff inhalation PRN 12/03/24 12/03/24 History aerosol inhaler ezetimibe 10 mg tablet 10 mg PO DAILY 12/03/24 12/03/24 History furosemide 40 mg tablet 40 mg PO DAILY 12/03/24 12/03/24 History levothyroxine 25 mcg tablet 25 mcg PO DAILY 12/03/24 12/03/24 History losartan 25 mg tablet 25 mg PO DAILY 12/03/24 12/03/24 History magnesium oxide 400 mg (241.3 mg 800 mg PO DAILY 12/03/24 12/03/24 History magnesium) tablet spironolactone 25 mg tablet 25 mg PO ONCE 12/03/24 12/03/24 History Exam Narrative Exam Narrative: General: Patient appears chronically ill with flattened affect and poor eye contact, alert and oriented x 3 and in no acute distress. He appears fatigued. HEENT: Normocephalic, eyes with pupils equal and reactive to light symmetrically, extraocular movement intact and sclera anicteric. Oropharynx with slightly dry mucosa. Neck: Supple without JVD. Back: Kyphotic without CVA tenderness. Nephrostomy tube over the left flank. Lungs: Decreased aeration especially over bases, no focalizing rales or rhonchi. Bronchovesicular breath sounds diffusely. No expiratory wheeze or increased expiratory phase. Heart: Borderline tachycardic rate with irregular rhythm, no appreciable murmur or gallop with distant heart sounds. No rubs. Abdomen: Normal contour, soft and nontender to palpation with no palpable hepatosplenomegaly. Sounds positive all quadrants. Genitalia/rectal: Exam deferred. Patient does have Gonzales catheter in place. Extremities: Without clubbing, cyanosis and soft 1+ pitting edema ankles and feet. Fair cap refill. Skin: Pale, warm and dry. Neuro: Cranial nerves II through XII gross intact, no focalized motor deficits. No tremor. Patient appears generally weak. Psych: Flattened affect and depressed mood. No abnormal thought processes. Remote and recent memory grossly intact. Results Imaging Imaging Studies: EXAM: CT ABDOMEN PELVIS WO CLINICAL HISTORY: ?malpositioned nephrosotmy tube. TECHNIQUE: Imaging Protocol: Axial computed tomography images with coronal and sagittal reformatted images were created and reviewed. Oral: / no COMPARISON: No exams were available for comparison FINDINGS: Lung Bases: Small left pleural effusion. Posterior diaphragmatic hernia containing omental fat. Small to moderate-sized right pleural effusion with lateral loculation. Adjacent atelectasis. Heart is markedly enlarged. Liver: Chronic appearing calcifications in the posterior aspect of the liver. Normal density. No suspicious mass. Gallbladder and biliary tract: No radiodense calculus or biliary dilation. Pancreas: Normal density. No abnormal calcifications or inflammatory process. Spleen: Normal. Kidneys: Normal size, contour and axis. No radiodense stones. Left nephrostomy in place. The tip lies at the junction of the renal pelvis with inferior and infundibulum. Mild left hydronephrosis. No suspicious masses seen. Renal cysts. Adrenal glands: 5.5 centimeter left adrenal mass. Lymph nodes: Within normal limits. Vasculature: Mild distal dilatation to 3 cm. Severe atherosclerotic changes. Soft tissues: Diffuse body wall edema. Small fatty umbilical hernia. Bladder: Diffuse wall thickening. Bladder diverticula. A mass cannot be excluded particularly without IV contrast. Catheter in place with balloon inflated within the bladder lumen. Wall thickening. No mass or calculi. Bowel: Diverticulum of the descending duodenum. No obstruction or bowel wall thickening. Appendix normal. Peritoneal cavity: No ascites. No focal collection. No mesenteric inflammatory response. Reproductive organs: Enlarged prostate. Bones: Unremarkable for age. IMPRESSION: Nephrostomy tube appears in appropriate position. Gonzales catheter is appropriately position within the bladder. Diffuse bladder wall thickening and trabeculation. Large left adrenal mass. Loculated right pleural effusion. Small left pleural effusion. Adjacent basilar atelectasis. Pneumonia not excluded. Posterior diaphragmatic hernia containing fat. Diffuse body wall edema. EXAM: XR CHEST 2V PA LATERAL CLINICAL HISTORY: ?pneumonia TECHNIQUE: 2D digital imaging was performed. Two views. COMPARISON: CR XR PORTABLE CHEST AP from 12/02/[address] ABDOMEN PELVIS WO from 12/03/2024 FINDINGS: Moderate are in leads overlie the chest. HEART: Enlarged. Aorta: Not dilated. PULMONARY VASCULATURE: Normal. MEDIASTINUM: Unremarkable. LUNGS: Increased densities at the lung bases, right greater than left, could represent atelectasis, scarring or acute infiltrates. PLEURAL SPACE: Small left pleural effusion. Right pleural effusion with lateral loculation again noted. No pneumothorax. BONE:Old left rib fractures. Degenerative changes in the spine and shoulders. SOFT TISSUES: Unremarkable. IMPRESSION: Stable appearance of bilateral pleural effusions. Increased basilar densities could represent pneumonia versus atelectasis. Labs 12/04/24 05:40 12/04/24 05:40 Labs: Laboratory Results - last 24 hr 12/03/24 12/03/24 18:07 18:56 WBC 4.88 RBC 3.34 L Hgb 8.2 L Hct 27.9 L MCV 84 MCH 24.6 L MCHC 29.4 L RDW 19.1 H Plt Count 288 MPV 9.4 Immature Gran % 0.6 Neutrophils % 75.3 Lymphocytes % 12.9 Monocytes % 8.8 Eosinophils % 1.4 Basophils % 1.0 Nucleated RBC % 0.0 Absolute Neutrophils 3.67 Absolute Lymphocytes 0.63 L Absolute Monocytes 0.43 Absolute Eosinophils 0.07 Absolute Basophils 0.05 VBG Lactate 2.3 H* Sodium 138 Potassium 4.1 Chloride 99 Carbon Dioxide 31.0 Anion Gap 8.0 BUN 42 H Creatinine 1.4 H Est GFR (CKD-EPI 2020) 50.81 Glucose 311 H Calcium 9.3 Magnesium 1.8 Total Bilirubin 0.6 AST 19 ALT 18 Alkaline Phosphatase 135 H Total Protein 6.4 Albumin 1.9 L Procalcitonin 0.35 Urine Color Yellow Urine Clarity Clear Urine pH 5.0 Ur Specific [place] 1.010 Urine Protein 30 H Urine Ketones Negative Urine Blood Large H Urine Nitrite Positive H Urine Bilirubin Negative Urine Urobilinogen 0.2 Ur Leukocyte Esterase Large H Urine RBC >50 H Urine WBC >50 H Ur Epithelial Cells Rare Urine Crystals Negative Urine Bacteria Rare Urine Casts 5-10 Hyaline Urine Mucus Negative Urine Other Few Transitional Ur Culture Indicated? Yes Urine Glucose Negative Last Vital Signs Temp 36.6 C 12/03/24 17:18 Pulse 97 H 12/03/24 19:17 Resp 19 12/03/24 19:17 BP 74/50 L 12/03/24 19:17 Pulse Ox 98 12/03/24 19:17 Time Spent Time spent with Patient: >75 minutes Time was spent: preparing to see the patient(eg.review tests), obtaining and/or reviewing separately otained hiistory, ordering medications,tests, procedures, referring, communicating with other health career developer, counseling the patient, care coordination and other (Reviewing palliative care and CODE STATUS with .)
[2024-12-03 20:11] LABS: INR 1.5 (0.9-1.1); PTT Activated 44.6 sec (20.6-30.2); Prothrombin Time 14.8 sec (9.1-11.1)
--- NOTE | 2024-12-03 22:38 | W.PC.ACHO ---
Registration Status: Primary Language: Preferred Language: ED Information & Data Chief Complaint Recheck 12/03/24 19:29 Chief Complaint Recheck 12/03/24 17:56 Triage Note Pt called to come into ED 12/03/24 17:18 and be admitted due to culture results from yesterday. Informed he would need admission and IV antibiotics. Medical / Surgical History (Last Updated 12/03/24 @ 20:08 by Froilan Park) Bladder wall thickening Bloody diarrhea Pulmonary emphysema Weight loss Osteoarthritis HTN (hypertension) HLD (hyperlipidemia) (HFpEF) heart failure with preserved ejection fraction ILD (interstitial lung disease) NSTEMI (non-ST elevated myocardial infarction) CAD (coronary artery disease) Abdominal aneurysm Rectal bleeding (Last Reviewed 12/03/24 @ 19:54 by Froilan Park) S/P cholecystectomy Most Recent Vital Signs Temperature 36.6 C 12/03/24 21:06 Temperature Source Oral 12/03/24 17:18 Pulse 98 H 12/03/24 21:06 Pulse 91 H 12/03/24 21:06 Respiratory Rate 24 12/03/24 21:06 Blood Pressure 82/52 L 12/03/24 21:06 Blood Pressure Mean 61 12/03/24 21:06 Blood Pressure Position Supine 12/03/24 17:18 Pulse Oximetry 97 12/03/24 21:06 Oxygen Delivery Method Room Air 12/03/24 17:18 Oxygen Flow Rate 0 12/03/24 17:18 Pain Level 0 12/03/24 17:[address] Richy MORENO aware 12/03/24 20:46 Allergies No Known Allergies Allergy (Verified 12/03/24 17:22) Precautions Isolation Standard precaution 12/03/24 19:29 IV IV Catheter Type [Left Forearm Saline Lock ] IV Catheter Gauge [Left 22 Forearm] Diagnostics 12/03/24 12/03/24 12/03/24 Range/Units 20:37 19:52 18:56 WBC 4.88 (4.4-10.8) 10^3/uL RBC 3.34 L (4.36-5.78) 10^6/uL Hgb 8.2 L (13.5-17.5) g/dL Hct 27.9 L (40.0-50.0) % MCV 84 (80-95) fL MCH 24.6 L (27.0-33.0) pg MCHC 29.4 L (32.0-36.0) % RDW 19.1 H (11.8-14.1) % Plt Count 288 (130-400) 10^3/uL MPV 9.4 (8.0-11.0) fL Immature Gran % 0.6 % Neutrophils % 75.3 % Lymphocytes % 12.9 % Monocytes % 8.8 % Eosinophils % 1.4 % Basophils % 1.0 % Nucleated RBC % 0.0 (0.0-0.3) % Absolute Neutrophils 3.67 (1.2-6.7) 10^3/uL Absolute Lymphocytes 0.63 L (1.2-3.4) 10^3/uL Absolute Monocytes 0.43 (0.1-0.8) 10^3/uL Absolute Eosinophils 0.07 (0.0-0.7) 10^3/uL Absolute Basophils 0.05 (0.0-0.2) 10^3/uL PT 14.8 H (9.1-11.1) sec INR 1.5 H (0.9-1.1) APTT 44.6 H (20.6-30.2) sec VBG Lactate 2.3 H* (<or=2.0) mmol/L Sodium 138 (136-145) mmol/L Potassium 4.1 (3.5-5.1) mmol/L Chloride 99 (98-107) mmol/L Carbon Dioxide 31.0 (21.0-32.0) mmol/L Anion Gap 8.0 (3-11) mmol/L BUN 42 H (7-18) mg/dL Creatinine 1.4 H (0.70-1.30) mg/dL Est GFR (CKD-EPI 2020) 50.81 (mL/min/1.73m2) Glucose 311 H (74-106) mg/dL Calcium 9.3 (8.5-10.1) mg/dL Magnesium 1.8 mg/dL Total Bilirubin 0.6 (0.2-1.0) mg/dL AST 19 (15-37) U/L ALT 18 (16-63) U/L Alkaline Phosphatase 135 H (46-116) U/L Total Protein 6.4 (6.4-8.2) g/dL Albumin 1.9 L (3.4-5.0) g/dL Procalcitonin 0.35 ng/mL Urine Color (Yellow) Urine Clarity (Clear) Urine pH (5-8) Ur Specific [place] (1.005-1.025) Urine Protein (Neg-Trace) mg/dL Urine Ketones (Negative) mg/dL Urine Blood (Negative) Urine Nitrite (Negative) Urine Bilirubin (Negative) Urine Urobilinogen (Up to 0.2) mg/dL Ur Leukocyte Esterase (Negative) Urine RBC (0-2) HPF Urine WBC (0-5) HPF Ur Epithelial Cells (Negative) HPF Urine Crystals (Negative) HPF Urine Bacteria (Negative) HPF Urine Casts (Negative) LPF Urine Mucus (Negative) Urine Other (Negative) Ur Culture Indicated? Urine Glucose (Negative) mg/dL COVID-19 Source Pending SARS-CoV-2 (PCR) Pending Influenza Type A (PCR) Pending Influenza Type B (PCR) Pending RSV (PCR) Pending 12/03/24 Range/Units 18:07 WBC (4.4-10.8) 10^3/uL RBC (4.36-5.78) 10^6/uL Hgb (13.5-17.5) g/dL Hct (40.0-50.0) % MCV (80-95) fL MCH (27.0-33.0) pg MCHC (32.0-36.0) % RDW (11.8-14.1) % Plt Count (130-400) 10^3/uL MPV (8.0-11.0) fL Immature Gran % % Neutrophils % % Lymphocytes % % Monocytes % % Eosinophils % % Basophils % % Nucleated RBC % (0.0-0.3) % Absolute Neutrophils (1.2-6.7) 10^3/uL Absolute Lymphocytes (1.2-3.4) 10^3/uL Absolute Monocytes (0.1-0.8) 10^3/uL Absolute Eosinophils (0.0-0.7) 10^3/uL Absolute Basophils (0.0-0.2) 10^3/uL PT (9.1-11.1) sec INR (0.9-1.1) APTT (20.6-30.2) sec VBG Lactate (<or=2.0) mmol/L Sodium (136-145) mmol/L Potassium (3.5-5.1) mmol/L Chloride (98-107) mmol/L Carbon Dioxide (21.0-32.0) mmol/L Anion Gap (3-11) mmol/L BUN (7-18) mg/dL Creatinine (0.70-1.30) mg/dL Est GFR (CKD-EPI 2020) (mL/min/1.73m2) Glucose (74-106) mg/dL Calcium (8.5-10.1) mg/dL Magnesium mg/dL Total Bilirubin (0.2-1.0) mg/dL AST (15-37) U/L ALT (16-63) U/L Alkaline Phosphatase (46-116) U/L Total Protein (6.4-8.2) g/dL Albumin (3.4-5.0) g/dL Procalcitonin ng/mL Urine Color Yellow (Yellow) Urine Clarity Clear (Clear) Urine pH 5.0 (5-8) Ur Specific [place] 1.010 (1.005-1.025) Urine Protein 30 H (Neg-Trace) mg/dL Urine Ketones Negative (Negative) mg/dL Urine Blood Large H (Negative) Urine Nitrite Positive H (Negative) Urine Bilirubin Negative (Negative) Urine Urobilinogen 0.2 (Up to 0.2) mg/dL Ur Leukocyte Esterase Large H (Negative) Urine RBC >50 H (0-2) HPF Urine WBC >50 H (0-5) HPF Ur Epithelial Cells Rare (Negative) HPF Urine Crystals Negative (Negative) HPF Urine Bacteria Rare (Negative) HPF Urine Casts 5-10 Hyaline (Negative) LPF Urine Mucus Negative (Negative) Urine Other Few Transitional (Negative) Ur Culture Indicated? Yes Urine Glucose Negative (Negative) mg/dL COVID-19 Source SARS-CoV-2 (PCR) Influenza Type A (PCR) Influenza Type B (PCR) RSV (PCR) 12/03/24 19:52 Blood Culture - Pending Blood 12/03/24 18:56 Blood Culture - Pending Blood 12/03/24 18:07 Urine Culture - Pending Urine - Reflex from Ua Intake and Output - 24 Hour Total 12/03/24 17:05 thru 12/03/24 21:13 Intake Total 350 Balance 350 Weight 68.039 kg Intake: IV 350 Falls Risk Assessment History of Falls No History 12/03/24 19:29 Contributing Factors Confusion 12/03/24 19:29 Ambulatory Aids Independent 12/03/24 19:29 Tubes/Lines With any additional score 12/03/24 19:29 Gait Evaluation W/any additional score 12/03/24 19:29 Fall Total Score 43 12/03/24 19:29 Level of Risk Moderate Risk 12/03/24 19:29 Problems Type 2 diabetes mellitus (Acute) Gram-negative bacteremia (Acute) Acute UTI (Acute) Mural thrombus of cardiac apex without acute myocardial infarction (Acute) 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 Information / Comments: Blood Pressures Pt declines AC IV access All questions answered Report received from:Carlos Guerra RN
[2024-12-03 22:46] LABS: NT-proBNP 19536 pg/mL (<300)
[2024-12-03] MEDS: Insulin Aspart 300 UNITS/3 ML PEN SC (23:56)
[2024-12-04] VITALS (74 sets, daily range): BP systolic 84–112; BP diastolic 56–77; PULSE 71–125; RESP 19–60; TEMP 36.3–37.2; O2SAT 86–98
[2024-12-04] MEDS: Normal Saline Flush 10 ML SYR IVP ×3 (00:11→08:38)
[2024-12-04] MEDS: Levothyroxine 25 MCG TAB PO (05:33)
[2024-12-04 06:41] LABS: HGB 7.4 g/dL (13.5-17.5); MCH 24.1 pg (27.0-33.0); MCHC 29.6 % (32.0-36.0); MCV 81 fL (80-95); MPV 9.5 fL (8.0-11.0); Platelet Count 274 10^3/uL (130-400); RBC 3.07 10^6/uL (4.36-5.78); RDW-SD 57.6 fL; WBC 4.72 10^3/uL (4.4-10.8)
[2024-12-04 07:27] LABS: ALT 13 U/L (16-63); AST 19 U/L (15-37); Albumin 1.5 g/dL (3.4-5.0); Alkaline Phosphatase 110 U/L (46-116); Anion Gap 5.6 mmol/L (3-11); BUN 35 mg/dL (7-18); Bilirubin, Total 0.5 mg/dL (0.2-1.0); CO2 31.4 mmol/L (21.0-32.0); CREATININE 1.2 mg/dL (0.70-1.30); Calcium 8.7 mg/dL (8.5-10.1); Chloride 105 mmol/L (98-107); Estimated GFR 61.13 (mL/min/1.73m2); Glucose 222 mg/dL (74-106); Magnesium 1.7 mg/dL; Potassium 3.9 mmol/L (3.5-5.1); Sodium 142 mmol/L (136-145); Total Protein 5.1 g/dL (6.4-8.2)
[2024-12-04 07:37] LABS: RDW 19.2 % (11.8-14.1)
[2024-12-04] MEDS: Insulin Aspart 300 UNITS/3 ML PEN SC ×4 (07:48→20:30)
[2024-12-04] MEDS: Multivitamin TAB 1 TAB PO (08:37)
[2024-12-04] MEDS: Ferrous Sulfate 325 MG TAB PO (08:37)
[2024-12-04] MEDS: Ezetimibe 10 MG TAB PO (08:37)
[2024-12-04] MEDS: Magnesium Oxide 400 MG TAB 800 MG PO (08:37)
[2024-12-04] MEDS: Apixaban 5 MG TAB PO (08:37)
[2024-12-04 09:27] LABS: COVID-19 PCR Negative (Negative); Influenza A PCR Negative (Negative); Influenza B PCR Negative (Negative); RSV PCR Negative (Negative)
[2024-12-04 09:28] LABS: Source Nasopharynx
--- NOTE | 2024-12-04 09:40 | INITIAL_ITS ---
Date of service: 12/04/24 Time of Service: 09:40 Care Management Initial Assmt Initial Assessment Reason for Hospitalization: Gram-negative sepsis, Hypotension, NIDDM wiht CKD Functional Status/Living Situation Patient Presentation: Eduardo was in bed, he appeared to be dozing off but responded to voice. He was pleasant and willing to engage in conversation. He appeared to be positive and hopeful to go home soon. Per Eduardo, he lives in a single family home with his , Betsy. Eduardo has a total of 3 children, 2 daughters and a son, with 7 grandchildren. 1 daughter lives in [place], but he sees her often. He is now retired, but worked for the [employer]) for 31 years. Eduardo uses a cane and walker at baseline. Eduardo will travel home via his , once he is medically cleared. Town of Residence: [place] Resides with: Spouse (-Betsy) Significant Other/Family: Local (Eduardo has 2 daughters (one in [place], one local) and a son who is local. ) Natural Supports: Family Employment Status: Retired ([employer] (31 yrs)) Instrumental Activities of Daily Living (ADLs): Independent Physical Functioning/Mobility Assistive Device: Cane and walker Advance Directives Advance Directives: Do you have an Advance Directive: N 12/12/17 12:14 AD On File at [facility]: N 12/06/16 10:56 Date Asked 11/25/24 11/25/24 13:08 AD Date Reviewed COLST On File at [facility] No 11/25/24 13:08 COLST Date Scanned Code Status Resuscitation Status DNR/DNI Insurance Coverage/Financial Issues Insurance: Medicare Part A & B /[facility] Care Team Visit Care Team Role Provider Type Jamie Bragg Primary Care Provider NON-[facility] STAFF PHYSICIAN Bc Lockhart MD Emergency Provider [facility] STAFF PHYSICIAN [place]an Park Admit Provider NON-[facility] STAFF PHYSICIAN Attending Provider Discharge Potential Discharge Needs: PCP F/U Appt Anticipated Barriers to Discharge: Medical Status Patient/Family Education Needs: Review discharge instructions, discuss Ask Me Three Transportation: Private vehicle (Family) Plan: Anticipate Eduardo will be discharged home, possibly with new home health services when medically stable. He will follow up with his Oncology team and surgeon and transport with family. CM will follow. 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) Smoker (Chronic) Discharge planning issues (Acute) Anemia requiring transfusions (Acute) LISA (acute kidney injury) (Acute) Hematuria (Acute) Medical History (Updated 12/04/24 @ 15:49 by Chito Wick) Bladder wall thickening Bloody diarrhea Pulmonary emphysema Weight loss Osteoarthritis HTN (hypertension) HLD (hyperlipidemia) (HFpEF) heart failure with preserved ejection fraction ILD (interstitial lung disease) NSTEMI (non-ST elevated myocardial infarction) CAD (coronary artery disease) Abdominal aneurysm Rectal bleeding Surgical History S/P cholecystectomy Social History Smoking/Tobacco Use Status: Current-Occasional Counseling given: provider counseling Smoking risk assessment performed?: Yes Alcohol Intake: current Alcohol Intake frequency: 0-2 drinks per day Alcohol type: beer Substance use type: does not use Housing: house Additional Social history: lives with in [place]. Retired from [employer] dept. Readmission Within the Past 30 Days Yes or No: Yes Date of First Admission Date of 1st Admission: 11/25/24 Date of this Admission Date of Admission: 12/03/24 This admission was: Through ED Office Visit Since 1st Admission Have you seen your PCP in the office since discharge?: No
[2024-12-04] MEDS: PIPERACILLIN/TAZO 4.5 GM in Normal Saline 100 ML IVPB ×2 (13:04→18:24)
--- NOTE | 2024-12-04 15:34 | W.PM.PROGNOT ---
Date of Service Date of service: 12/04/24 Time of Service: 08:20 Assessment and Plan Assessment and plan (1) Gram-negative bacteremia: Start date: 12/03/24 Status: Acute Assessment and plan: In 79-year-old gentleman with newly diagnosed urothelial carcinoma of the bladder going through radiation therapy Cultures growing from recent ED visit. Urine growing Hafnia alvei, blood 1/2 GNR but not differentiated. I am not sure if this is true bacteremia. Repeat cultures pending. He has had borderline hypotension but has been running low chronically, MAP remains >65 so monitor in ICU but no pressor agents at this time. We are limited in fluid resuscitation for his blood pressure due to HFrEF. New cultures not GPC, adding vanco (2) Acute UTI: Start date: 12/03/24 Status: Acute Assessment and plan: Admitted for IV Zosyn to cover possible pneumonia with UTI, gram-negative bacteremia. 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 He is having x-ray therapy and fatiguing wanting to possibly stop treatments. Urology at [facility] recommended nephrostomy tube replacement at [facility] with DM and back procedure. IR contacted 12/04 but they recommended waiting until repeat blood cultures are clear, making sure true positive cultures first. Consider 12/07. (4) Type 2 diabetes mellitus: Status: Chronic Assessment and plan: Holding outpatient medical therapy and glucometer measurements ACHS with short acting insulin coverage. Add glargine if sugar consistently high. 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 (6) HTN (hypertension): Assessment and plan: Holding and consider modifying medical therapy with hypotension with his acute presentation. (7) Pulmonary emphysema: Assessment and plan: No active exacerbation, continue home inhalers. (8) CAD (coronary artery disease): Assessment and plan: Monitor for decompensation of known HFrEf. Patient is a DNR/DNI. (9) Anemia: Status: Chronic Assessment and plan: complicated. ongoing hematuria but also heart mural thrombus, dangerous to stop anticoagulation. Follow. check iron, consider supplementation Subjective Subjective Patient reports: no new complaints; denies diarrhea, nausea, vomiting, shortness of breath or fever Interval history since last seen: Events: no events overnight He feels fine today. NO complaints. Not dizzy, no fever/chills, no chest pain, no palpitations. He feels like he could eat. He does have blood in his mcgregor still. He is tired. Exam Narrative Exam Narrative: General: Patient appears chronically ill, fatigued, alert and oriented x 3 and in no acute distress. He appears fatigued. Back: Nephrostomy tube over the left flank, not red or draining around tube, no CVAT. Lungs: Decreased aeration especially over bases, no rales or rhonchi. Bronchovesicular breath sounds diffusely. No wheeze Heart: Borderline tachycardic rate with irregular rhythm, no appreciable murmur or gallop with distant heart sounds. No rubs. Abdomen: soft and nontender. Sounds positive all quadrants. : mcgregor with blood tinged urine Extremities: Without clubbing, cyanosis and soft 1+ pitting edema in feet. Fair cap refill. Skin: Pale, warm and dry. Objective Last Vital Signs Temp 36.6 C 12/04/24 13:00 Pulse 85 12/04/24 14:20 Resp 27 H 12/04/24 14:30 BP 86/58 L 12/04/24 09:00 Pulse Ox 97 12/04/24 14:20 Laboratory Results - last 24 hr 12/03/24 12/03/24 12/03/24 18:07 18:56 19:52 WBC 4.88 RBC 3.34 L Hgb 8.2 L Hct 27.9 L MCV 84 MCH 24.6 L MCHC 29.4 L RDW 19.1 H Plt Count 288 MPV 9.4 Immature Gran % 0.6 Neutrophils % 75.3 Lymphocytes % 12.9 Monocytes % 8.8 Eosinophils % 1.4 Basophils % 1.0 Nucleated RBC % 0.0 Absolute Neutrophils 3.67 Absolute Lymphocytes 0.63 L Absolute Monocytes 0.43 Absolute Eosinophils 0.07 Absolute Basophils 0.05 PT 14.8 H INR 1.5 H APTT 44.6 H VBG Lactate 2.3 H* Sodium 138 Potassium 4.1 Chloride 99 Carbon Dioxide 31.0 Anion Gap 8.0 BUN 42 H Creatinine 1.4 H Est GFR (CKD-EPI 2020) 50.81 Glucose 311 H Calcium 9.3 Magnesium 1.8 Total Bilirubin 0.6 AST 19 ALT 18 Alkaline Phosphatase 135 H NT-Pro-B Natriuret Pep 06818 H Total Protein 6.4 Albumin 1.9 L Procalcitonin 0.35 Urine Color Yellow Urine Clarity Clear Urine pH 5.0 Ur Specific [place] 1.010 Urine Protein 30 H Urine Ketones Negative Urine Blood Large H Urine Nitrite Positive H Urine Bilirubin Negative Urine Urobilinogen 0.2 Ur Leukocyte Esterase Large H Urine RBC >50 H Urine WBC >50 H Ur Epithelial Cells Rare Urine Crystals Negative Urine Bacteria Rare Urine Casts 5-10 Hyaline Urine Mucus Negative Urine Other Few Transitional Ur Culture Indicated? Yes Urine Glucose Negative COVID-19 Source SARS-CoV-2 (PCR) Influenza Type A (PCR) Influenza Type B (PCR) RSV (PCR) 12/04/24 12/04/24 05:40 08:45 WBC 4.72 RBC 3.07 L Hgb 7.4 L Hct 25.0 L MCV 81 MCH 24.1 L MCHC 29.6 L RDW 19.2 H Plt Count 274 MPV 9.5 Immature Gran % Neutrophils % Lymphocytes % Monocytes % Eosinophils % Basophils % Nucleated RBC % Absolute Neutrophils Absolute Lymphocytes Absolute Monocytes Absolute Eosinophils Absolute Basophils PT INR APTT VBG Lactate Sodium 142 Potassium 3.9 Chloride 105 Carbon Dioxide 31.4 Anion Gap 5.6 BUN 35 H Creatinine 1.2 Est GFR (CKD-EPI 2020) 61.13 Glucose 222 H Calcium 8.7 Magnesium 1.7 Total Bilirubin 0.5 AST 19 ALT 13 L Alkaline Phosphatase 110 NT-Pro-B Natriuret Pep Total Protein 5.1 L Albumin 1.5 L Procalcitonin Urine Color Urine Clarity Urine pH Ur Specific [place] Urine Protein Urine Ketones Urine Blood Urine Nitrite Urine Bilirubin Urine Urobilinogen Ur Leukocyte Esterase Urine RBC Urine WBC Ur Epithelial Cells Urine Crystals Urine Bacteria Urine Casts Urine Mucus Urine Other Ur Culture Indicated? Urine Glucose COVID-19 Source Nasopharynx SARS-CoV-2 (PCR) Negative Influenza Type A (PCR) Negative Influenza Type B (PCR) Negative RSV (PCR) Negative Time Spent with Patient Time Spent with Patient: >50 minutes Time was spent: preparing to see the patient(eg.review tests), obtaining and/or reviewing separately otained hiistory, ordering medications,tests, procedures, referring, communicating with other health health care marketing specialist, indepentently interpreting results, counseling the patient and care coordination
--- NOTE | 2024-12-04 16:03 | PCNE_ITS ---
Date of service: 12/04/24 Time of Service: 16:03 History of Present Illness Narrative: Eduardo is an 79 year old man with recent diagnosis of urothelial carcinoma, currently going through radiation. He was called back in due to gram negative blood cultures, now growing gram positive as well. He will need his nephrostomy tubes changed but IR will not do this until he has negative blood cultures. He really does not want to go [place] [facility] but would agree to down and back for tube change if indicated. He was seen by Palliative during his last hospitalization. He was clear that he wanted to be DNR/DNI, he declined completing a COLST without family present. He stated that he would want his , Betsy and daughter, Marcia to be HCA but declined completing HCA form without family present. He was alone for the visit again today and prefers to have family present to complete the forms. A new palliative consult was placed today. There was some question that he might want more comfort focused care. However, he is clear that he wants to continue cancer treatment at this time. He wants to be home but is agreeable remaining in the hospital for IV ABX. when questioned what is important to him, he states, family. His first goal is to live. His next goal is to be home. He reports that 8 months ago he weighed 230#. He reports a weight loss of over 60# over the last 8 months. His appetite is good, he is eating regular meals. He has had a few falls at home, none in the last month. He is using walker at home. He denies pain. He appears to have mildly increased WOB at rest, he denies feeling SOB. He thinks his catheter might be leaking, he thought he felt wet- RN notified. His goal is to remain in his home. He does not want to go to SNF. He lives in [place] with his , Betsy and daughter, Marcia. His daughter, Celestina lives in [place]. She is visiting now, she is staying to Also, has a son, Eduardo Jackson, who lives in [place]. Assessment and Plan Assessment and plan (1) Gram-negative bacteremia: Start date: 12/03/24 Status: Acute Assessment and plan: BC now growing Gram-positive bacteria. Will need nephrostomy tubes changed, IR will not change until BC clear. (2) Acute UTI: Start date: 12/03/24 Status: Acute Assessment and plan: Admitted for IV Zosyn to cover possible pneumonia with UTI, gram-negative bacteremia, no with gram-positive bacteria as well. 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 He is undergoing radiation therapy. There was some question if he wanted to continue Tx vs focus on comfort. He is clear he wishes to continue treatment at this time. 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 (6) HTN (hypertension): Assessment and plan: Hypotensive on presentation. (7) Pulmonary emphysema: Assessment and plan: No active exacerbation, on home inhalers. (8) CAD (coronary artery disease): Assessment and plan: Monitor for decompensation of known HFrEf. Patient is a DNR/DNI. (9) Anemia: Status: Chronic Assessment and plan: complicated. ongoing hematuria but also heart mural thrombus, dangerous to stop anticoagulation. Follow. check iron, consider supplementation (10) Palliative care encounter: Status: Acute Assessment and plan: Eduardo's primary goal is to live. His next goal is to be home. He is agreeable to current treatment with Abx. He wishes to continue cancer treatment. He is a DNR/DNI- he should have COLST but he wants to wait for family to be present to complete this and HCA paperwork. No family present today. He has lost >60# over the last 8 months. He denies pain. He has had falls at home, none in the last month. He would qualify for hospice but this is not in line with his goals of care at this time. He is agreeable to f/u with Palliative care. Palliative to f/u for check-in next week. Will have the office offer outpatient f/u once he is home. He receives care at [facility] in [facility]. 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 (Chronic) Smoker (Chronic) Discharge planning issues (Acute) Anemia requiring transfusions (Acute) LISA (acute kidney injury) (Acute) Hematuria (Acute) Medical History Bladder wall thickening Bloody diarrhea Pulmonary emphysema Weight loss Osteoarthritis HTN (hypertension) HLD (hyperlipidemia) (HFpEF) heart failure with preserved ejection fraction ILD (interstitial lung disease) NSTEMI (non-ST elevated myocardial infarction) CAD (coronary artery disease) Abdominal aneurysm Rectal bleeding Surgical History S/P cholecystectomy Social History Smoking/Tobacco Use Status: Current-Occasional Counseling given: provider counseling Smoking risk assessment performed?: Yes Alcohol Intake: current Alcohol Intake frequency: 0-2 drinks per day Alcohol type: beer Substance use type: does not use Housing: house Additional Social history: lives with in [place]. Retired from [employer] de[employer] Exam Narrative Exam Narrative: General: very pleasant, elderly man, lying in bed. He is awake, alert and oriented, talkative. He engages in the visit and answers questions appropriately. He does not appear to be in distress. HEENT: normocephalic, atraumatic, EOMI, mmm Neck: supple Respiratory: appears to have mildly increased WOB at rest and with talking. : mcgregor with dark red urine. Ext: +1 pitting edema to BLEs. Results Last Vital Signs Temp 36.6 C 12/04/24 13:00 Pulse 85 12/04/24 14:20 Resp 27 H 12/04/24 14:30 BP 86/58 L 12/04/24 09:00 Pulse Ox 97 12/04/24 14:20 Labs 12/04/24 05:40 12/04/24 05:40 Labs: Laboratory Results - last 24 hr 12/03/24 12/03/24 12/03/24 18:07 18:56 19:52 WBC 4.88 RBC 3.34 L Hgb 8.2 L Hct 27.9 L MCV 84 MCH 24.6 L MCHC 29.4 L RDW 19.1 H Plt Count 288 MPV 9.4 Immature Gran % 0.6 Neutrophils % 75.3 Lymphocytes % 12.9 Monocytes % 8.8 Eosinophils % 1.4 Basophils % 1.0 Nucleated RBC % 0.0 Absolute Neutrophils 3.67 Absolute Lymphocytes 0.63 L Absolute Monocytes 0.43 Absolute Eosinophils 0.07 Absolute Basophils 0.05 PT 14.8 H INR 1.5 H APTT 44.6 H VBG Lactate 2.3 H* Sodium 138 Potassium 4.1 Chloride 99 Carbon Dioxide 31.0 Anion Gap 8.0 BUN 42 H Creatinine 1.4 H Est GFR (CKD-EPI 2020) 50.81 Glucose 311 H Calcium 9.3 Magnesium 1.8 Total Bilirubin 0.6 AST 19 ALT 18 Alkaline Phosphatase 135 H NT-Pro-B Natriuret Pep 72234 H Total Protein 6.4 Albumin 1.9 L Procalcitonin 0.35 Urine Color Yellow Urine Clarity Clear Urine pH 5.0 Ur Specific [place] 1.010 Urine Protein 30 H Urine Ketones Negative Urine Blood Large H Urine Nitrite Positive H Urine Bilirubin Negative Urine Urobilinogen 0.2 Ur Leukocyte Esterase Large H Urine RBC >50 H Urine WBC >50 H Ur Epithelial Cells Rare Urine Crystals Negative Urine Bacteria Rare Urine Casts 5-10 Hyaline Urine Mucus Negative Urine Other Few Transitional Ur Culture Indicated? Yes Urine Glucose Negative COVID-19 Source SARS-CoV-2 (PCR) Influenza Type A (PCR) Influenza Type B (PCR) RSV (PCR) 12/04/24 12/04/24 05:40 08:45 WBC 4.72 RBC 3.07 L Hgb 7.4 L Hct 25.0 L MCV 81 MCH 24.1 L MCHC 29.6 L RDW 19.2 H Plt Count 274 MPV 9.5 Immature Gran % Neutrophils % Lymphocytes % Monocytes % Eosinophils % Basophils % Nucleated RBC % Absolute Neutrophils Absolute Lymphocytes Absolute Monocytes Absolute Eosinophils Absolute Basophils PT INR APTT VBG Lactate Sodium 142 Potassium 3.9 Chloride 105 Carbon Dioxide 31.4 Anion Gap 5.6 BUN 35 H Creatinine 1.2 Est GFR (CKD-EPI 2020) 61.13 Glucose 222 H Calcium 8.7 Magnesium 1.7 Total Bilirubin 0.5 AST 19 ALT 13 L Alkaline Phosphatase 110 NT-Pro-B Natriuret Pep Total Protein 5.1 L Albumin 1.5 L Procalcitonin Urine Color Urine Clarity Urine pH Ur Specific [place] Urine Protein Urine Ketones Urine Blood Urine Nitrite Urine Bilirubin Urine Urobilinogen Ur Leukocyte Esterase Urine RBC Urine WBC Ur Epithelial Cells Urine Crystals Urine Bacteria Urine Casts Urine Mucus Urine Other Ur Culture Indicated? Urine Glucose COVID-19 Source Nasopharynx SARS-CoV-2 (PCR) Negative Influenza Type A (PCR) Negative Influenza Type B (PCR) Negative RSV (PCR) Negative Time Spent Time Spent with Patient Time Spent(min): 56
[2024-12-04] MEDS: VANCOMYCIN/WATER (PEG) 1.5 GM/300 ML BAG IVPB (16:55)
[2024-12-04] MEDS: Normal Saline 500 ML 30 ML IV (18:58)
[2024-12-04] MEDS: Tamsulosin 0.4 MG CAPCR 0.8 MG PO (20:22)
[2024-12-04] MEDS: Atorvastatin 40 MG TAB PO (20:23)
[2024-12-05] VITALS (30 sets, daily range): BP systolic 75–115; BP diastolic 51–82; PULSE 82–122; RESP 18–38; TEMP 36.3–37.1; O2SAT 82–96
[2024-12-05] MEDS: PIPERACILLIN/TAZO 4.5 GM in Normal Saline 100 ML IVPB ×5 (00:48→23:56)
[2024-12-05 04:56] LABS: HCT 26.8 % (40.0-50.0); HGB 7.8 g/dL (13.5-17.5); MCH 24.5 pg (27.0-33.0); MCHC 29.1 % (32.0-36.0); MCV 84 fL (80-95); MPV 9.1 fL (8.0-11.0); Platelet Count 244 10^3/uL (130-400); RBC 3.18 10^6/uL (4.36-5.78); RDW 18.8 % (11.8-14.1); RDW-SD 58.3 fL; WBC 5.36 10^3/uL (4.4-10.8)
[2024-12-05 05:14] LABS: ALT 15 U/L (16-63); AST 21 U/L (15-37); Albumin 1.4 g/dL (3.4-5.0); Alkaline Phosphatase 185 U/L (46-116); Anion Gap 6.7 mmol/L (3-11); BUN 36 mg/dL (7-18); Bilirubin, Total 0.6 mg/dL (0.2-1.0); CO2 31.3 mmol/L (21.0-32.0); CREATININE 1.3 mg/dL (0.70-1.30); Calcium 8.5 mg/dL (8.5-10.1); Chloride 106 mmol/L (98-107); Estimated GFR 55.53 (mL/min/1.73m2); Glucose 150 mg/dL (74-106); Magnesium 1.8 mg/dL; Potassium 4.3 mmol/L (3.5-5.1); Sodium 144 mmol/L (136-145); Total Protein 5.1 g/dL (6.4-8.2)
[2024-12-05] MEDS: VANCOMYCIN/WATER (PEG) 1 GM/200 ML BAG IVPB (06:33)
[2024-12-05] MEDS: Levothyroxine 25 MCG TAB PO (06:33)
[2024-12-05] MEDS: Ferrous Sulfate 325 MG TAB PO (08:29)
[2024-12-05] MEDS: Multivitamin TAB 1 TAB PO (08:29)
[2024-12-05] MEDS: Magnesium Oxide 400 MG TAB 800 MG PO (08:29)
[2024-12-05] MEDS: Ezetimibe 10 MG TAB PO (08:29)
[2024-12-05] MEDS: Normal Saline Flush 10 ML SYR IVP ×2 (08:30→19:37)
--- NOTE | 2024-12-05 08:45 | RT.EKG_ITS ---
APPROVED REPORT Exam: Resting ECG Reason for Exam: irregular heart rate Patient Location: I HR:109 bpm ECG Measurements Heart Rate 109 AXIS NH [id number] P [id number] QRSd 101 QRS 60 QT 371 T 259 QTc 500 Conclusion Atrial fibrillation...? atrial activity Low voltage, extremity leads...all extremity leads <0.5mV Borderline prolonged QT interval...QTc >475mS
[2024-12-05] MEDS: Protein Nutritional Supplement 16 GM 1 OUNCE PACKET PO ×2 (09:12→19:37)
--- NOTE | 2024-12-05 09:33 | PT.INIE ---
PT Notes Visit Reasons: Gram-negative sepsis, Hypotension, NIDDM with CKD Inpatient Physical Therapy Evaluation Date: [12/05/2024] Referring Doctor: [Chito Wick] PT Orders: PT CONSULT: [fall safty consult, safty consult for D/C] Precautions: [standard, fall risk] Patient Profile/Admitting Diagnosis: [] Eduardo is an 79-year-old male patient who has recent diagnosis of urothelial carcinoma of the bladder having chronic Gonzales catheter and left nephrostomy tube in place. He has had recent treatments for this diagnosis. This diagnosis is new this year and he is just undergoing radiation therapy. Pt admitted with chief c/o general malaise with positive blood culture after recent ED visit. He reports he is quite fatigued, does not understand why he is having incontinence of bowel and that is bothersome to him. 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 (Chronic) Smoker (Chronic) Discharge planning issues (Acute) Anemia requiring transfusions (Acute) LISA (acute kidney injury) (Acute) Hematuria (Acute) Medical History (Updated 12/04/24 @ 07:04 by Froilan Park) Bladder wall thickening Bloody diarrhea Pulmonary emphysema Weight loss Osteoarthritis HTN (hypertension) HLD (hyperlipidemia) (HFpEF) heart failure with preserved ejection fraction ILD (interstitial lung disease) NSTEMI (non-ST elevated myocardial infarction) CAD (coronary artery disease) Abdominal aneurysm Rectal bleeding Surgical History S/P cholecystectomy Social History/Home Situation: Per Eduardo, he lives in a single family home with his , Betsy. States that his gives him some assist especially with bathing. States he has stairs with rial to get into home and once in home stairs to bedroom/bathroom. Step in shower, does not report any safty rail devices but states it is a small home and can hold onto things. Current Functional Limitations: []At baseline indep with ADL's, walker Equipment Owned/DME: [employer] Subjective: []Maybe later, I need to rest but I really want to go home Explained to him purpose of PT to assess strength and mobility in order to go home, he would like to rest before trying this. Refused to get up this am. On return in pm we assist nursing staff with bed mobility and then transfer to commode and then to chair with use of FWW. He continues to report concern of bowel incontinence. Objective: General Observation: Gonzales Left flank Nephrostomy, telemetry, nc 02 1 L. Supine in bed, with bowel incontinence. Mental Status: A and O x4, fatigued, general malaise, in bed with HOB 30 deg. Pain: Denies pain but states has trouble with right LE lifting it up Vital Signs: monitored by nursing staff, ROM: Right Upper Extremity: WFL Left Upper Extremity: WFL Right Lower Extremity: In standing limited hip flexion but in sitting WFL Left Lower Extremity: In standing limited hip flexion likely due to balance and weakness of right LE but in sitting WFL Strength: Right Upper Extremity: 3+/5 throughout Left Upper Extremity: 3+/5 throughout Right Lower Extremity: Quad 3 - hip flexion 3 - otherwise WFL Left Lower Extremity: WFL Sensation: Decreased sensation bottom of his feet Bed Mobility/Transfers: Min assist of 1 with rolling [id number] and verbal cueing for hand placement Supine to sit min assist of 2 reaching with UE for assistance and not utilizing upper extremity pushing off of bed Sit to stand to FWW CTG and minimal VC for hand placement Stand to sit to commode CTG and VC for hand placement Commode to stand FW W mod assist of 1 as the commode is much lower also VC for hand placement Stand to sit to chair CTG with VC for hand placement Supine to moved to head of bed max assist of 2 Gait: Ambulates 3-4 steps with FWW with min assist including backing up to sit to commode. Ambulates 4-5 steps and turns and backs up to sit into the chair with CTG. Balance: Static Sitting: Good Dynamic Sitting: Good but fatigues Static Standing: Fair able to let go of RW but only momentary and unable to march in place without RW Dynamic Standing: Poor Special Tests: Mobility Limitations Standardized Measure [facility] AM-PAC 6 clicks Basic Mobility Inpatient Short Form: Raw Score: 14 Standardized Score:2.95 CMS Score: 61.29 Informed Consent/Education: Patient instructed in purpose of PT consult and plan of care. Assessment: Patient is a 79year old male referred to physical therapy services with the diagnosis of Acute UTI, weakness. Patient presents with clinical signs and symptoms consistent with effects of acute UTI and weakness, as demonstrated by the following impairment level findings: Limited with ability to transfer, decreased strength LE, decreased safety, decreased endurance, altered gait . Impairments are contributing to the following functional limitations: AMPAC score. Patient is assessed as a Low 47232 complexity based on the following: History: As outlined above, at baseline he is on oxygen, uses RW, has assist from his Examination: As outlined above Presentation: Evolving Decision Making: Mod Goals: Goals X1 week 1. Supine-Sit independent 2. Sit-Supine independent 3. Sit-Stand independent 4. Stand-Sit independent 5. Bed-Chair independent 6. Chair-Bed independent 7. Gait ambulate with FWW independent 8. Stairs with min assist 9. Independent with home exercise program 10. Balance good able to stand for self-care at sink Plan of Care/Treatment Plan: 1-2x/day, 7 days/week x 1 week. Plan of care has been reviewed with the FIELD MACHINIST providing the service under Physical Therapy direction. Initiate Physical Therapy intervention for strengthening, bed mobility, transfers, gait, stairs, balance training, use of assistive device. DISCHARGE RECOMMENDATIONS: [] [x] Home with services [PT] as medical status allows, patient expresses that he does not want services at home and that he does want to return home. [] SNF for continued rehabilitation [] [] Assisted Care [] [] SNF versus LTC based on ability to participate and progress [] TREATMENT CODE/TIME: [id number] 1:00-1:30pm 30 min
--- NOTE | 2024-12-05 11:21 | PHA.REVIEW2 ---
Pharmacy Admission Review Admission Clinical Review Admission Pharmacy Review: Gram-negative bacteremia (Acute) Acute UTI (Acute) Palliative care encounter (Acute) No Known Allergies Allergy (Verified 12/03/24 17:22) Resuscitation Status DNR/DNI Height 5 ft 7 in Weight 72.6 kg Pharmacy Admission Review Renal Dosing Renal Dosing: BUN 36 mg/dL (7-18) H 12/05/24 04:37 Creatinine 1.3 mg/dL (0.70-1.30) 12/05/24 04:37 Medications needing adjustments: Reviewed (CrCl 46 mL/min, BUN increased from 35) List of meds needing interventions: Current medications are okay Anticoagulation Anticoagulation: Hgb 7.8 g/dL (13.5-17.5) L 12/05/24 04:37 Hct 26.8 % (40.0-50.0) L 12/05/24 04:37 Plt Count 244 10^3/uL (130-400) 12/05/24 04:37 INR 1.5 (0.9-1.1) H 12/03/24 19:52 Creatinine 1.3 mg/dL (0.70-1.30) 12/05/24 04:37 DVT Prophylaxis: Reviewed (Hgb increased from 7.4) Medications: Apixaban (5mg PO BID - on hold due to hematuria, does have order for SCDs) Relevant Labs Relevant Labs: Sodium 144 mmol/L (136-145) 12/05/24 04:37 Potassium 4.3 mmol/L (3.5-5.1) 12/05/24 04:37 Chloride 106 mmol/L (98-107) 12/05/24 04:37 Magnesium 1.8 mg/dL 12/05/24 04:37 Electrolytes, C-Reactive P, ESR: Reviewed DM Control DM Control: Glucose 150 mg/dL (74-106) H 12/05/24 04:37 Finger Stick Blood Glucose 139 0743 Finger Stick Blood Glucose 139 0740 Finger Stick Blood Glucose 139 0740 DM Control: Reviewed Insulin Dosing, Diabetic Medication: Has order for SS insulin Cardiac Review Cardiac Review: NT-Pro-B Natriuret Pep 45690 pg/mL (<300) H 12/03/24 18:56 Blood Pressure : Heart Rate 106/74 : 113 1101 Blood Pressure : Heart Rate 96/68 : 90 1001 Blood Pressure : Heart Rate 94/64 : 84 0932 Blood Pressure : Heart Rate 89/62 : 105 0801 Blood Pressure : Heart Rate 75/63 : 108 0600 Blood Pressure : Heart Rate 80/60 : 93 0401 Blood Pressure : Heart Rate 85/51 : 101 0201 Blood Pressure : Heart Rate 84/65 : 90 0001 BP, HR, EF%: Reviewed (Ox 90 and oxygen flow rate 1) QTc Review QTc: Reviewed (EKG report pending) IV to PO Switch IV Medications: Reviewed (Zosyn and vancomycin) Home Meds Home Med List reviewed: Intervened Relevent Home Meds Not ordered & why?: Invokana (on hold - infection), furosemide (on hold per H+P), glucosamine, losartan (on hold per H+P), metoprolol (on hold per H+P) and spironolactone (on hold per H+P) Recently filled but not on home med list: metformin. Called nurse to see if patient takes this at home, waiting to hear back. Called nurse to verify what dose of metoprolol patient takes at home. Says 50mg daily on home med list but per external fill history last prescription was for 12.5mg daily. Waiting to hear back. Current Meds Current Medication Order Review: Reviewed Pharmacy Antibiotic Review Relevant Labs: WBC 5.36 10^3/uL (4.4-10.8) 12/05/24 04:37 Procalcitonin 0.35 ng/mL 12/03/24 18:56 Temperature 36.5 C Temperature 37.1 C Microbiology 12/03/24 18:56 Blood Culture - Preliminary Blood Gram positive cocci 12/03/24 18:07 Urine Culture - Final Urine - Reflex from Ua Hafnia alvei 12/03/24 19:52 Blood Culture - Preliminary Blood NO GROWTH 24 HOURS Hafn alve Result Ampicillin R Ampicillin/Sulbactam R Cefazolin R Ceftazidime S CEFTRIAXONE S Ciprofloxacin S Gentamicin S Nitrofurantoin S Imipenem S Levofloxacin S Tobramycin S Trimethoprim/Sulfamethoxazole S Piperacillin/Tazobactam S Pharmacy Antibiotic Activity: C/S review and Reviewed, no change Comments: Patient is on Zosyn and vancomycin, day 2 for bacteremia/UTI/possible pneumonia. Vancomycin level was 11 this morning at 0437. Changed dose from 1000mg q12h to 750mg q12h with predicted AUC of 462 and trough of 14.7. Reordered level for tomorrow morning at 0400. Will adjust dose as needed. Repeat blood cultures are pending.
--- NOTE | 2024-12-05 11:24 | W.PM.PROGNOT ---
Date of Service Date of service: 12/05/24 Time of Service: 07:44 Assessment and Plan Assessment and plan (1) Gram-negative bacteremia: Start date: 12/03/24 Status: Acute Assessment and plan: In patient with urothelial carcinoma of the bladder going through radiation therapy, with indwelling nephrostomy and mcgregor. Cultures growing from recent ED visit. Urine growing Hafnia alvei from 12/02 and 12/03. Blood growing GNR in 1/2 from 12/02, GPC in 1/2 from 12/03, 12/04 also pending. I am not sure if this is true bacteremia. He has had borderline hypotension but has been running low chronically, MAP remains >65 so monitor in ICU but no pressor agents at this time. We limited fluid resuscitation for his blood pressure due to HFrEF, taking po Continue vanco to cover GPC and pip/tazo for GNR until sensitivities on blood cultures back. (2) Acute UTI: Start date: 12/03/24 Status: Acute Assessment and plan: Admitted for IV Zosyn to cover possible pneumonia with UTI, gram-negative bacteremia. 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 It is locally invasive. He is having radiation therapy and fatiguing. However when meeting with palliative 12/04 he still wanted to persue cure (20-30% per rad onc note). Urology at [facility] recommended nephrostomy tube replacement at [facility] with DM and back procedure. IR contacted 12/04 but they recommended waiting until repeat blood cultures are clear, making sure true positive cultures first. Consider 12/07. (4) Type 2 diabetes mellitus: Status: Chronic Assessment and plan: Holding outpatient medical therapy and glucometer measurements ACHS with short acting insulin coverage. 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 (6) HTN (hypertension): Assessment and plan: Holding and consider modifying medical therapy with ongoing low BP. (7) Pulmonary emphysema: Assessment and plan: No active exacerbation, continue home inhalers. (8) CAD (coronary artery disease): Assessment and plan: Monitor for decompensation of known HFrEf. Overall euvolemic currenly. Patient is a DNR/DNI. (9) Anemia: Status: Chronic Assessment and plan: complicated. ongoing hematuria but also heart mural thrombus, dangerous to stop anticoagulation. Has been stable here, follow. check iron, consider supplementation Subjective Subjective Patient reports: tolerating a regular diet; denies diarrhea, nausea, vomiting, shortness of breath or fever Interval history since last seen: 24 hr: discussed case with [facility], want negative cultures before replacing nephrostomy Seen by palliative He feels fine. No pain. No complaints. He isn't dizzy sitting in bed, but is tired and hasn't gotten up. Exam Narrative Exam Narrative: General: Patient appears chronically ill, fatigued, alert and oriented, no acute distress. He appears fatigued. Back: Nephrostomy tube over the left flank, not red or draining around tube, no CVAT. Lungs: Decreased aeration in bases with slight crackles, otherwise clear, no wheeze, normal effort. Heart: Rate in 90s with irregular rhythm, no appreciable murmur or gallop with distant heart sounds. No rubs. Abdomen: soft and nontender. : mcgregor with blood tinged urine, yellow in nephrostomy bag. Extremities: Without clubbing, cyanosis and soft 1+ pitting edema in feet. Fair cap refill. Objective Last Vital Signs Temp 36.5 C 12/05/24 08:45 Pulse 113 H 12/05/24 11:01 Resp 24 12/05/24 11:01 BP 106/74 12/05/24 11:01 Pulse Ox 90 L 12/05/24 11:01 Laboratory Results - last 24 hr 12/05/24 04:37 WBC 5.36 RBC 3.18 L Hgb 7.8 L Hct 26.8 L MCV 84 MCH 24.5 L MCHC 29.1 L RDW 18.8 H Plt Count 244 MPV 9.1 Sodium 144 Potassium 4.3 Chloride 106 Carbon Dioxide 31.3 Anion Gap 6.7 BUN 36 H Creatinine 1.3 Est GFR (CKD-EPI 2020) 55.53 Glucose 150 H Calcium 8.5 Magnesium 1.8 Total Bilirubin 0.6 AST 21 ALT 15 L Alkaline Phosphatase 185 H Total Protein 5.1 L Albumin 1.4 L Random Vancomycin 11.0 Time Spent with Patient Time Spent with Patient: >50 minutes Time was spent: preparing to see the patient(eg.review tests), obtaining and/or reviewing separately otained hiistory, ordering medications,tests, procedures, referring, communicating with other health personal care service provider, indepentently interpreting results, counseling the patient and care coordination
[2024-12-05] MEDS: Insulin Aspart 300 UNITS/3 ML PEN SC ×3 (11:47→21:52)
[2024-12-05] MEDS: Acetaminophen 325 MG TAB 650 MG PO (16:35)
[2024-12-05] MEDS: Normal Saline 500 ML 30 ML IV (16:49)
--- NOTE | 2024-12-05 16:54 | NUR.NOTE ---
Nursing Note: Pt requests to sleep until 1730- requests this nurse to defer fingerstick, insulin, and dinner until then.
[2024-12-05] MEDS: VANCOMYCIN/WATER (PEG) 750 MG/150 ML BAG 150 MG IVPB (18:28)
[2024-12-05 19:28] LABS: C Diff PCR Negative (Negative); EPI 027-NAP1-B1 PRESUMPTIVE NEGATIVE
[2024-12-05] MEDS: Apixaban 5 MG TAB PO (19:36)
[2024-12-05] MEDS: Tamsulosin 0.4 MG CAPCR 0.8 MG PO (19:36)
[2024-12-05] MEDS: Atorvastatin 40 MG TAB PO (19:37)
[2024-12-05] MEDS: Insulin Glargine 300 UNITS/3 ML PEN 10 UNITS SC (20:15)
[2024-12-06] VITALS (18 sets, daily range): BP systolic 94–127; BP diastolic 65–82; PULSE 83–127; RESP 22–33; TEMP 36.2–36.5; O2SAT 89–94
[2024-12-06 05:20] LABS: HCT 28.5 % (40.0-50.0); HGB 8.2 g/dL (13.5-17.5)
[2024-12-06 05:34] LABS: Anion Gap 4.6 mmol/L (3-11); BUN 47 mg/dL (7-18); CO2 30.4 mmol/L (21.0-32.0); CREATININE 1.3 mg/dL (0.70-1.30); Calcium 8.4 mg/dL (8.5-10.1); Chloride 109 mmol/L (98-107); Estimated GFR 55.53 (mL/min/1.73m2); Glucose 154 mg/dL (74-106); Potassium 4.7 mmol/L (3.5-5.1); Sodium 144 mmol/L (136-145)
[2024-12-06 05:39] LABS: Vancomycin, Random 20.8 ug/mL
[2024-12-06 05:58] LABS: Iron 14 ug/dL (65-175); Total Iron Binding Capacity 214 ug/dL (250-450); Transferrin Sat 7 % (20-55)
[2024-12-06] MEDS: PIPERACILLIN/TAZO 4.5 GM in Normal Saline 100 ML IVPB ×4 (05:58→23:53)
[2024-12-06] MEDS: Levothyroxine 25 MCG TAB PO (06:01)
[2024-12-06 06:08] LABS: TSH 3.53 uIU/mL (0.36-3.74)
[2024-12-06] MEDS: Protein Nutritional Supplement 16 GM 1 OUNCE PACKET PO ×2 (07:47→19:32)
[2024-12-06] MEDS: Magnesium Oxide 400 MG TAB 800 MG PO (07:47)
[2024-12-06] MEDS: Ezetimibe 10 MG TAB PO (07:47)
[2024-12-06] MEDS: Apixaban 5 MG TAB PO ×2 (07:48→19:32)
[2024-12-06] MEDS: Normal Saline Flush 10 ML SYR IVP ×3 (07:48→19:33)
[2024-12-06] MEDS: Multivitamin TAB 1 TAB PO (07:48)
[2024-12-06] MEDS: Ferrous Sulfate 325 MG TAB PO (07:48)
[2024-12-06] MEDS: Insulin Aspart 300 UNITS/3 ML PEN SC ×4 (07:49→22:02)
[2024-12-06] MEDS: Furosemide 40 MG TAB PO (09:06)
--- NOTE | 2024-12-06 09:58 | PGE_ITS ---
Date of Service Date of service: 12/06/24 Time of Service: 09:58 Assessment and Plan Assessment and plan (1) Gram-negative bacteremia: Start date: 12/03/24 Status: Acute Assessment and plan: -in the setting of patient with urothelial carcinoma of the bladder going through radiation therapy, with indwelling nephrostomy and mcgregor. -Urine growing Hafnia alvei from 12/02 and 12/03. -Blood growing GNR in 1/2 from 12/02 -GPC in 1/2 from 12/03 showed staph epi and entero, though thought to have been contaminant given initial cultures not growing GPCs -repeat blood cultures from 12/04 negative -was on vanc, DCed AM 12/06 -on zosyn since admission, will continue and transition to PO prior to DC (2) Acute UTI: Start date: 12/03/24 Status: Acute Assessment and plan: -likely source of gram negative bacteremia as noted above (3) Chronic hypoxic respiratory failure, on home oxygen therapy: Status: Acute Assessment and plan: -appears to be on 1-2L NC, though question if patient is compliant at home with usage (4) HFrEF (heart failure with reduced ejection fraction): Status: Acute Assessment and plan: -without acute exacerbation -EF on last echo 25% -f/u repeat echo on 12/07 -restarted home lasix AM 12/06 -holding home JANIS and spironolactone given low-normal BPs (5) 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 -He is having radiation therapy and fatiguing. -when meeting with palliative 12/04 he still wanted to persue cure (20-30% per rad onc note). -Urology at [facility] recommended nephrostomy tube replacement at [facility] with DM and back procedure; IR contacted 12/04 but they recommended waiting until repeat blood cultures are clear, making sure true positive cultures first. -will reach back out to IR regarding scheduling for [id number] tube replacement (6) Type 2 diabetes mellitus: Status: Chronic Assessment and plan: -Holding outpatient medical therapy and glucometer measurements ACHS with short acting insulin coverage. -Add glargine if sugar consistently high (7) Mural thrombus of cardiac apex without acute myocardial infarction: Status: Chronic Assessment and plan: -Continue apixaban. (8) HTN (hypertension): Assessment and plan: -Holding home medications due to low-normal BPs (9) Pulmonary emphysema: Assessment and plan: -No active exacerbation, continue home inhalers. (10) CAD (coronary artery disease): Assessment and plan: -Monitor for decompensation of known HFrEf. -Overall euvolemic currenly. (11) Anemia: Status: Chronic Assessment and plan: -complicated -ngoing hematuria but also heart mural thrombus, dangerous to stop an ticoagulation Subjective Subjective Interval history since last seen: Patient states that he is doing well today and asked about discharge. It was explained to him that he is continue to require supplemental oxygen chondroma that he would benefit from having scheduled echocardiogram tomorrow, as well as discussion with urology regarding changing out nephrostomy tube. He expresses disappointment but understands importance of staying in the hospital at this time, and otherwise has no other complaints concerns at this time. Exam Narrative Exam Narrative: Chronically ill-appearing older gentleman laying in bed in no acute distress, ANO x 4, heart tachycardic with rates in the 110's, no rub, murmur or gallop, lungs with mild crackles in bilateral bases, abdomen soft, nontender, nondistend ed Objective Last Vital Signs Temp 97.3 F L 12/06/24 09:20 Pulse 124 H 12/06/24 08:01 Resp 33 H 12/06/24 08:01 BP 113/74 12/06/24 08:01 Pulse Ox 93 12/06/24 08:01 Laboratory Results - last 24 hr 12/05/24 12/06/24 18:35 04:00 Hgb 8.2 L Hct 28.5 L Sodium 144 Potassium 4.7 Chloride 109 H Carbon Dioxide 30.4 Anion Gap 4.6 BUN 47 H Creatinine 1.3 Est GFR (CKD-EPI 2020) 55.53 Glucose 154 H Calcium 8.4 L Iron 14 L TIBC 214 L Transferrin % Sat 7 L TSH 3.53 Stl C.difficile Tox PCR Negative Random Vancomycin 20.8 Time Spent with Patient Time Spent with Patient: >50 minutes Time was spent: preparing to see the patient(eg.review tests), obtaining and/or reviewing separately otained hiistory, ordering medications,tests, procedures, referring, communicating with other health child care associate, indepentently interpreting results, counseling the patient and care coordination
--- NOTE | 2024-12-06 10:41 | PT.INTREAT ---
PT Notes Visit Reasons: Gram-negative sepsis, Hypotension, NIDDM with CKD Inpatient Physical Therapy Treatment Note [facility] Date: [12/06/2024] PRECAUTIONS:Standard, fall risk SUBJECTIVE: I did not sleep good last night I am eager to go home I just feel so weak I feel a little dizzy this is when first getting up out of chair. OBJECTIVE: ?Patient currently is still in ICU but is then changed to MedSurg status. ? PAIN: no c/o pain VITALS: ? Monitored by nursing staff no complaints of pain Therapeutic Activities (00912m6): Direct one-on-one instruction in dynamic activities to improve functional performance. ? BED MOBILITY/TRANSFERS? Rolling L/R: Independent but with bed rails Supine-sit: ?Independent but with bed rails ? Sit-supine: Needs some assist with LE ? Sit-stand: ?CTG verbal cueing for hand placement? Stand-sit: CTG?verbal cueing for hand placement? Bed-Chair: CTG? Chair-bed: CTG Provided skilled cues and instruction on performance and technique throughout. GAIT? Assistive Device: FWW ? Weight bearing: Full Assist: SBA? Distance:?120', and around the room? Deviation: Reliant on RW for balance ? STAIRS: Not assessed? ASSESSMENT:?Pt is demonstrating significant improvement in tolerance to activity and ability to participate. He is encouraged to ambulate with nursing staff more frequently now that he is improving medically. PLAN:Continue with POC and likely progress home without services if his staus continues to progress. TREATMENT CODE/TIME: [][id number] 10:20-10:35 15' DISCHARGE RECOMMENDATION: Home with PT services versus home without services based on progression of medical status.
[2024-12-06] MEDS: Normal Saline 500 ML IV (18:06)
[2024-12-06] MEDS: Atorvastatin 40 MG TAB PO (19:32)
[2024-12-06] MEDS: Tamsulosin 0.4 MG CAPCR 0.8 MG PO (19:32)
[2024-12-06] MEDS: Insulin Glargine 300 UNITS/3 ML PEN 10 UNITS SC (19:43)
[2024-12-07] VITALS (10 sets, daily range): BP systolic 102–112; BP diastolic 68–78; PULSE 91–128; RESP 16; TEMP 36–36.7; O2SAT 94–96
[2024-12-07] MEDS: Levothyroxine 25 MCG TAB PO (05:16)
[2024-12-07] MEDS: PIPERACILLIN/TAZO 4.5 GM in Normal Saline 100 ML IVPB ×2 (05:16→16:53)
[2024-12-07 06:33] LABS: HCT 28.5 % (40.0-50.0); HGB 8.3 g/dL (13.5-17.5); MCH 24.1 pg (27.0-33.0); MCHC 29.1 % (32.0-36.0); MCV 83 fL (80-95); MPV 9.2 fL (8.0-11.0); Platelet Count 297 10^3/uL (130-400); RBC 3.44 10^6/uL (4.36-5.78); RDW 18.7 % (11.8-14.1); RDW-SD 57.3 fL; WBC 7.61 10^3/uL (4.4-10.8)
[2024-12-07 06:54] LABS: Anion Gap 4.4 mmol/L (3-11); BUN 50 mg/dL (7-18); CO2 29.6 mmol/L (21.0-32.0); CREATININE 1.4 mg/dL (0.70-1.30); Chloride 108 mmol/L (98-107); Estimated GFR 50.81 (mL/min/1.73m2); Glucose 126 mg/dL (74-106); Sodium 142 mmol/L (136-145)
[2024-12-07] MEDS: Ezetimibe 10 MG TAB PO (07:56)
[2024-12-07] MEDS: Magnesium Oxide 400 MG TAB 800 MG PO (07:57)
[2024-12-07] MEDS: Apixaban 5 MG TAB PO (07:57)
[2024-12-07] MEDS: Insulin Aspart 300 UNITS/3 ML PEN SC ×3 (07:57→17:16)
[2024-12-07] MEDS: Furosemide 40 MG TAB PO (07:57)
[2024-12-07] MEDS: Multivitamin TAB 1 TAB PO (07:57)
[2024-12-07] MEDS: Ferrous Sulfate 325 MG TAB PO (07:57)
[2024-12-07] MEDS: Normal Saline Flush 10 ML SYR IVP (08:03)
--- NOTE | 2024-12-07 08:40 | TELEFU_ITS ---
Date of service: 12/07/24 Time of Service: 10:10 Nutrition Note NOTE: 79yo male being treated for UTI - gram neg bacteremia, chronic resp failure, heart failure and urotheilial carcinoma of bladder and has a hx of diabetes. Fair po noted by nursing. Weight loss of about 3kg noted over admission - however edema present and fluid shifts accounting for some of this. His albumin and total protein labs are low on 12/05. GFR today is 50.81. takes lasix at home - potassium wnl today. Glucose managed with 10u insulin glargine HS and sliding scale Novolog at meals and 22:00 for corrections. 125 fasting glucose this morning and 140 at breakfast. Fingersticks have been as high as low 300's. last A1c was >12% last July. Pt takes canagliflozin at home but no insulin. Protein concentrate ordered TID. estimated energy needs: 1794-2153kcals (REEx1.3AF - REEx1.3AFx1.2IF), 85-106g protein (1.2-1.5g/kg), ~1900mL fluid (1 mL per required kcal) I did liberalize diet and removed heart healthy component - just cho consistent diet now. Will offer protein supplements via Boost, Gelatein, kitchen-made smoothies as desired/tolerated. Met with Mr Marte today - he states he is going to [facility] and back today. is open to some protein rich jello or other ONS, which will be offered. States he checks glucose daily but did not give great detailed info -said his glucose is good now. Pt lives at home with his - states he does most of the cooking. When asked what he likes to cook usually he replies I cook it all. Recommend: -consider additional diabetes agent with low hypoglycemia risk like metformin -Vitamin D, folate and b12 labs -will continue to offer ONS at meals and nourishment times, regular meals on consistent carb diet order. Time Spent in Nutritional Counseling and Treatment: 10 minutes
[2024-12-07] MEDS: Protein Nutritional Supplement 16 GM 1 OUNCE PACKET PO (08:45)
--- NOTE | 2024-12-07 10:14 | PT.INTREAT ---
PT Notes Visit Reasons: Gram-negative sepsis, Hypotension, NIDDM with CKD Inpatient Physical Therapy Treatment Note [facility] Date: 12/07/2024 PRECAUTIONS:Standard, fall risk, oxygen 0.5 L/min via NC SUBJECTIVE: Pt reports How am I supposed to get better if they won't let me get out of bed? Pt reports sometimes his left knee gives out on him OBJECTIVE: ?Patient currently is still in ICU but is then changed to MedSurg status. ? PAIN: no c/o pain VITALS: ? sat 91% on 0.5L/min post 88% recover to 91% within 1 min and PLB Therapeutic Activities (20215x1): Direct one-on-one instruction in dynamic activities to improve functional performance. ? BED MOBILITY/TRANSFERS? Rolling L/R: Independent but with bed rails Supine-sit: ?Independent but with bed rails ? Sit-supine: Needs some assist with LE ? Sit-stand: ?SBA verbal cueing for hand placement? Stand-sit: SBA?verbal cueing for hand placement? Bed-Chair: SBA with FWW? Chair-bed: SBA with FWW Provided skilled cues and instruction on performance and technique throughout. GAIT? Assistive Device: FWW ? Weight bearing: Full Assist: SBA? Distance:?120', 90 feet x 1, sit rest between? Deviation: Reliant on RW for balance ? STAIRS: 5 steps with 2 rails CGA step to pattern descending leading with left, reciprocal ascending ? ASSESSMENT:?Pt is demonstrating significant improvement in tolerance to activity and ability to participate. Nursing instructed to offer ambulation throughout the day as able to increased functional activity tolerance PLAN:Continue with POC and likely progress home without services if his staus continues to progress. TREATMENT CODE/TIME: 08747/ [id number] DISCHARGE RECOMMENDATION: Home with PT services versus home without services based on progression of medical status.
[2024-12-07] MEDS: LORazepam 0.5 MG TAB PO (10:46)
--- NOTE | 2024-12-07 11:58 | PDOC.CMPRO ---
Date of service: 12/07/24 Time of Service: 11:58 Care Management Progress Note Progress Note Text Progress Note Text: Eduardo was sitting on the edge of his bed, receiving RN care when CM arrived. He was pleasant and had a positive demeanor regarding his [facility], down and back today. Per Eduardo, he is ready to go home and is feeling good. Discharge Potential Discharge Needs: PCP F/U Appt and Surgical F/U Appt Anticipated Barriers to Discharge: Medical Status Patient/Family Education Needs: Review discharge instructions, discuss Ask Me Three Transportation: Private vehicle (Family) Plan: Anticipate Eduardo will be discharged home, possibly with new home health services when medically stable. He will follow up with his Oncology team and surgeon and transport with family. CM will follow. Social Determinants of Health Screening Will the Patient Participate in the Screening?: Unable to obtain Anticipated HH Services Anticipated HH Services at Discharge [facility] (New PT ) Services Needed.
--- NOTE | 2024-12-07 17:07 | PDOC.HHF2F ---
Home Health Referral Home Health Orders Clinical synopsis of why skilled professionals are needed: Urothelial cancer, left nephrostomy tube, UTI, mural thrombus, chronic hypoxic respiratory failure Registered Nurse: Check all that apply Instruct on new or changed medication(s)/assess compliance: Ordered Instruct on, and maintenance of, urinary device: Ordered Physical Therapist: Check all that apply Increase strength & endurance for safe mobility at home: Ordered To design/establish home maintenance program: Ordered Fall reduction therapy program for patient with history of frequent falls: Ordered Home safety evaluation and teaching/gait training including stair management (if applicable): Ordered Better Breathing Program: Ordered Encounter Date and Reason: I certify that a FTF encounter for this patient was performed on December 07, 2024 and that such encounter was related to the primary reason the patient requires home health services. The encounter was conducted in the following manner: By me as the certifying physician, SALES OPERATIONS DIRECTOR, PA or By an inpatient physician, SALES OPERATIONS DIRECTOR or PA during an inpatient stay who communicated findings to me, Certification And Authentication I certify that I composed the above information based on my clinical judgment relating to this patient's medical condition and, if applicable, clinical findings communicated to me by the NPP or inpatient physician who performed the FTF encounter. Name of Provider that will be monitoring home health services: Jamie Bragg
--- NOTE | 2024-12-07 17:08 | W.PM.DS.N ---
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: Status: Chronic (8) HTN (hypertension): (9) Pulmonary emphysema: (10) CAD (coronary artery disease): (11) Anemia: Status: Chronic Discharge Plan Disposition Patient Disposition: Home W/Home Health Services Condition: Good Discharge Details Reason For Visit: Gram-negative sepsis, Hypotension, NIDDM with CKD Admit Date/Time: 12/03/24 20:37 Admit Provider: Froilan Park Attending Provider: Froilan Park Primary Care Provider: Jamie Bragg [facility] Course Hospital Course: Patient initially presented with signs and symptoms of a urinary tract infection that ultimately grew Hafnia alvei. Initially there is also concern for gram-positive bacteremia based on the timing of blood cultures and repeats this was determined to be contaminant. During hospitalization patient received 5 days of IV Zosyn and will be discharged with an additional 5 days of p.o. ciprofloxacin 500 mg twice daily based on urine culture sensitivities. Additionally, while hospitalized patient has transfer to and from [facility] for change out of his nephrostomy tube which is in place for urothelial cancer and obstruction on the left side. Given the patient's symptoms related to his UTI had significantly improved and was no longer requiring IV antibiotics, he was determined he was stable for discharge home. PCP follow-up: -Losartan and spironolactone on hold this patient had low normal blood pressures during hospitalization, recheck blood pressures and reinitiate as tolerated -Patient unable to make scheduled PET scan on 12/07/2024 at [facility]; [facility] nuc med stated they would reach back out to reschedule within the next 7 business days, please follow-up and make sure this is scheduled Home Meds and New Rx's Prescriptions: New ciprofloxacin HCl 500 mg tablet 500 mg PO BID Qty: 10 0RF Continued Invokana 100 mg tablet 100 mg PO DAILY metoprolol succinate 50 mg tablet extended release 24 hr 50 mg PO DAILY atorvastatin 40 mg tablet 40 mg PO DAILY glucosamine-chondroitin 500-400 mg capsule 1 cap PO BID Rx Instructions: give with meal/snack multivitamin Tablet 1 tab PO DAILY Eliquis 5 mg tablet 5 mg PO BID tamsulosin 0.4 mg Capsule 0.8 mg PO HS 30 Days Qty: 60 0RF furosemide 40 mg tablet 40 mg PO DAILY levothyroxine 25 mcg tablet 25 mcg PO DAILY Patient Comments: TAKE 1 TABLET BY MOUTH ONCE DAILY IN THE MORNING magnesium oxide 400 mg (241.3 mg magnesium) tablet 800 mg PO DAILY Patient Comments: TAKE 2 TABLETS BY MOUTH ONCE DAILY albuterol sulfate 90 mcg/actuation HFA aerosol inhaler 2 puff INHALATION PRN Patient Comments: INHALE 2 PUFFS BY MOUTH EVERY 4 HOURS NEEDED FOR SHORTNESS OF BREATH ezetimibe 10 mg tablet 10 mg PO DAILY ferrous sulfate 325 mg (65 mg iron) tablet,delayed release (DR/EC) 325 mg PO DAILY Held spironolactone 25 mg tablet 25 mg PO ONCE Hold Instructions: Resume on 12/11/24. hold until follow-up with PCP and blood pressure checks losartan 25 mg tablet 25 mg PO DAILY Hold Instructions: Resume on 12/11/24. hold until follow-up with PCP and blood pressure checks Discontinued cephalexin 500 mg tablet 500 mg PO BID 10 Days Qty: 20 0RF Rx Instructions: Please take one tablet by mouth twice daily x 10 days. Discharge Instructions Referrals: Jamie Bragg [Primary Care Provider] - (Please call to make post ICU hospitalization follow-up appointment with your PCP as soon as possible. Appointments should be within 7-10 days from discharge from ICU.) Activity:: Activity as Tolerated Equipment/Supplies:: No Equipment Needed Diet:: As Tolerated Discharge Orders Discharge Orders: Discharge Order (Routine); Ordered 12/07/24 Ordered By: Dax Dietrich DS: Summary Time Spent with Patient providing and/or coordinating discharge services: Greater than 30 minutes Status at Discharge Functional status at discharge: independent ambulation Overall status at discharge: patient is back to baseline Mental Status: mental status grossly normal Speech and Movement: speech and movement normal Mood: congruent mood Affect: normal affect Quality:SDOH Health Related Social Needs: No Data to Display Exam Narrative Exam Narrative: Chronically ill-appearing older gentleman laying in bed in no acute distress, ANO x 4, heart RRR, no rub, murmur or gallop, lungs with mild crackles in bilateral bases, abdomen soft, nontender, nondistended Psych Mental Status: mental status grossly normal Speech and Movement: speech and movement normal Mood: congruent mood Affect: normal affect DS: Data Vitals/I&O Vitals and I&O: Vital Signs Temperature 97.9 F 12/07/24 16:23 Temperature Source Tympanic 12/07/24 16:23 Pulse 100 H 12/07/24 16:23 Pulse 118 H 12/06/24 15:06 Respiratory Rate 16 12/07/24 11:07 Blood Pressure 112/78 12/07/24 16:23 Blood Pressure Mean 87 12/07/24 07:48 Blood Pressure Position Supine 12/03/24 17:18 Pulse Oximetry 95 12/07/24 16:23 Oxygen Delivery Method Nasal Cannula 12/07/24 16:23 Oxygen Flow Rate 0.5 12/07/24 16:23 Pain Level 0 12/07/24 16:23 Comment prior shift 12/05/24 02:01 Intake & Output 12/06/24 12/07/24 12/07/24 17:59 05:59 17:59 Intake Total 1180 / 1180 520.009 / 1700.009 0 / 0 Output Total 920 / 920 640 / 1560 Balance 260 / 260 -119.991 / 140.009 0 / 0 Weight 156 lb 15.506 oz Intake: IV 610 / 610 300.009 / 910.009 0 / 0 Oral 570 / 570 220 / 790 Output: Urine 920 / 920 640 / 1560 Other: Urine Color Yellow Pale Yellow Light Katiana Urine Appearance Sediment Sediment Clots Comment 25mL yellow urine from nephrostomy tube Mcgregor catheter drained 515mL moderate-hue katiana urine with sediment and clots; nephrostomy drained 125mL clear, pale-yellow urine. Total drained 640mL. Mcgregor catheter drained 175mL straw color with sediment and clots. Nephrostomy drained 200mL bloody red tinged color. Total drained 375mL 150mL webster urine w/ clots from mcgregor catheter Stool Size Small Small Small Stool Characteristics Soft Soft Soft Formed Liquid Data Completed and Pending Labs on day of discharge: Labs from last 24 hours 12/07/24 05:15 WBC 7.61 RBC 3.44 L Hgb 8.3 L Hct 28.5 L MCV 83 MCH 24.1 L MCHC 29.1 L RDW 18.7 H Plt Count 297 MPV 9.2 Sodium 142 Potassium 4.0 Chloride 108 H Carbon Dioxide 29.6 Anion Gap 4.4 BUN 50 H Creatinine 1.4 H Est GFR (CKD-EPI 2020) 50.81 Glucose 126 H Calcium 9.0 Preliminary micro results at discharge 12/03/24 19:52 Blood Culture - Preliminary Blood NO GROWTH 72 HOURS 12/04/24 19:12 Blood Culture - Preliminary Blood NO GROWTH 48 HOURS 12/04/24 19:05 Blood Culture - Preliminary Blood NO GROWTH 48 HOURS PFSH All Active Problems (Updated 12/06/24 @ 10:50 by Dax Dietrich MD) HFrEF (heart failure with reduced ejection fraction) (Acute) Chronic hypoxic respiratory failure, on home oxygen therapy (Acute) Anemia (Chronic) Type 2 diabetes mellitus (Chronic) Gram-negative bacteremia (Acute) Acute UTI (Acute) Positive blood culture (Acute) Mcgregor catheter problem (Acute) Urinary tract infection (Acute) Advanced care planning/counseling discussion (Acute) Palliative care encounter (Acute) Decubitus ulcer of sacral region, stage 1 (Acute) Mural thrombus of cardiac apex without acute myocardial infarction (Chronic) 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 (Chronic) Smoker (Chronic) Discharge planning issues (Acute) Anemia requiring transfusions (Acute) LISA (acute kidney injury) (Acute) Hematuria (Acute) Medical History Bladder wall thickening Bloody diarrhea Pulmonary emphysema Weight loss Osteoarthritis HTN (hypertension) HLD (hyperlipidemia) (HFpEF) heart failure with preserved ejection fraction ILD (interstitial lung disease) NSTEMI (non-ST elevated myocardial infarction) CAD (coronary artery disease) Abdominal aneurysm Rectal bleeding Surgical History S/P cholecystectomy Social History Smoking/Tobacco Use Status: Current-Occasional Counseling given: provider counseling Smoking risk assessment performed?: Yes Alcohol Intake: current Alcohol Intake frequency: 0-2 drinks per day Alcohol type: beer Substance use type: does not use Housing: house Additional Social history: lives with in [place]. Retired from [employer] Time Spent with Patient Time Spent with Patient: <45 minutes Time was spent: preparing to see the patient(eg.review tests), obtaining and/or reviewing separately otained hiistory, ordering medications,tests, procedures, referring, communicating with other health doggy daycare activities director, indepentently interpreting results, counseling the patient and care coordination
== END 2024-12-07 18:15 | disposition home health service (06) | DRG 689 ==
LOC: ER 19:57 → ICU 21:35
PROVIDERS: Family Medicine; Admitting Provider Family Medicine; Emergency Provider Emergency Medicine; PCP Internal Medicine; Responsible Provider Family Medicine; Visit Provider Family Medicine
DX: N39.0 Urinary tract infection, site not specified (principal); J18.9 Pneumonia, unspecified organism; R78.81 Bacteremia; I13.0 Hypertensive heart and chronic kidney disease with heart failure and stage 1 through stage 4 chronic kidney disease, or unspecified chronic kidney disease; J96.11 Chronic respiratory failure with hypoxia; I50.20 Unspecified systolic (congestive) heart failure; E11.22 Type 2 diabetes mellitus with diabetic chronic kidney disease; N18.31 Chronic kidney disease, stage 3a; I51.3 Intracardiac thrombosis, not elsewhere classified; C67.9 Malignant neoplasm of bladder, unspecified; F17.210 Nicotine dependence, cigarettes, uncomplicated; J43.8 Other emphysema; I25.10 Atherosclerotic heart disease of native coronary artery without angina pectoris; D64.9 Anemia, unspecified; R31.0 Gross hematuria; L89.151 Pressure ulcer of sacral region, stage 1; E78.5 Hyperlipidemia, unspecified; Z66 Do not resuscitate; I25.5 Ischemic cardiomyopathy; I95.9 Hypotension, unspecified; B96.89 Other specified bacterial agents as the cause of diseases classified elsewhere; Z96.0 Presence of urogenital implants; I25.2 Old myocardial infarction; Z99.81 Dependence on supplemental oxygen; Z93.6 Other artificial openings of urinary tract status; Z79.01 Long term (current) use of anticoagulants
CPT/HCPCS: 00123; 36415; 80048; 80053; 84145; 85027; 87040; 87077; 87637; 94640; 96361; 96365; 97162; 97530; 99285; 71046; 74176; 80202; 81003; 81015; 83540; 83550; 83605; 83735; 83880; 84443; 85014; 85018; 85025; 85610; 85730; 87086; 87186; 93005; 93010; 94664; 99222; 99233; 99239; A0425; A0428; J1815; J2543; J3372